=== PATIENT | female | born 1930 | race Caucasian/White ===

== ENCOUNTER 2016-09-03 17:53 | Inpatient (IN) ==
[2016-09-03] MEDS ORDERED: Ondansetron 4 MG/2 ML VIAL IVP ONE (18:05)
[2016-09-03] MEDS ORDERED: Aspirin 325 MG TABLET PO ONE (18:10)
--- NOTE | 2016-09-03 18:12 | Emergency Department Note ---
Disposition Clinical Impression: VITALIY (acute kidney injury), Renal calculus, right, Hydronephrosis with renal calculous obstruction, Fecal impaction UTI (urinary tract infection) Qualifiers: Urinary tract infection type: site unspecified Hematuria presence: without hematuria Qualified Code(s): N39.0 - Urinary tract infection, site not specified Altered mental state Qualifiers: Altered mental status type: unspecified Qualified Code(s): R41.82 - Altered mental status, unspecified TIA (transient ischemic attack) Qualifiers: Transient cerebral ischemia type: unspecified Qualified Code(s): G45.9 - Transient cerebral ischemic attack, unspecified Disposition: Admitted As Inpatient Condition: Fair Referrals: Unassigned,Provider [Non-Partnered Physician] - Forms: ED Satisfaction Letter Time of Disposition: 20:55 General Adult HPI - General Chief complaint: ED Nausea/Vomiting/Diarrhea Stated complaint: N/V/D Source: patient Mode of arrival: EMS Limitations: altered mental status Nursing Notes Reviewed: Yes Vital Signs Reviewed: Yes - History of Present Illness HPI Narrative: Patient is an 86-year-old female who presents to [facility] ED with a chief complaint of generalized weakness. Family states she has been having some right lower extremity has for the last few weeks but then this morning woke up and could not add up. The health aide had to get her over to the bathroom and then patient had a possible syncopal episode over the bathroom. She did not fall or hit her head. Patient also had some nausea with vomiting today and a few episodes of diarrhea. Patient at baseline has some dementia but family was concerned since she had some garbled speech earlier. Patient states at this time, she is not in any pain. Said she did have some belly pain earlier. Onset (ago): hour(s) Location: abdomen Radiation: non-radiation Pain Severity: moderate Pain Scale: 5 Quality: aching Consistency: intermittent Improves with: nothing Worsens with: nothing Associated symptoms: Reports: confusion, nausea/vomiting Treatments Prior to Arrival: none - Related Data Home Medications Medication Instructions Recorded Confirmed BuPROPion [Wellbutrin] 100 mg PO BID 08/24/15 09/03/16 Lisinopril [Zestril] 10 mg PO QPM 08/24/15 09/03/16 Cyanocobalamin (Vitamin B-12) 1,000 mcg PO DAILY 09/03/16 09/03/16 [Vitamin B12] Magnesium 250 mg PO DAILY 09/03/16 09/03/16 Previous Rx's Medication Instructions Recorded Aspirin Enteric Coated [Aspirin EC] 81 mg PO DAILY #30 tablet. 08/30/15 Atorvastatin [Lipitor] 10 mg PO HS #30 tablet 08/30/15 Diltiazem CD (24hr) [Cardizem CD] 240 mg PO DAILY #30 cap.er.24h 08/30/15 Allergies Allergy/AdvReac Type Severity Reaction Status Date / Time Sulfa (Sulfonamide Allergy Rash Verified 05/08/15 16:09 Antibiotics) All systems ED: reviewed and negative except as stated. Past Medical History - Past Medical History Attestation: Yes The following information was validated with the patient. Source: patient Medical history: Reports: dementia, diabetes, hypertension Surgical history: Reports: no surgical history Psychiatric history: Reports: no psych history SPREADER history: Reports: no SPREADER history - Social History Smoking Status: Never smoker Smokeless Tobacco Status: No Alcohol use: Reports: none Drug use: Reports: none Physical Exam - General Limitations: no limitations General appearance: alert - Head Head exam: atraumatic, normocephalic, normal inspection - Eye Eye exam: Present: normal appearance, PERRL, EOMI - ENT ENT exam: normal exam, normal oropharynx, mucous membranes moist - Neck Neck exam: Present: normal inspection, full ROM, trachea midline - Chest Chest inspection: Present: normal inspection, symmetric chest wall rise - Respiratory Respiratory exam: Present: normal lung sounds bilaterally - Cardiovascular Cardiovascular exam: Present: regular rate, normal rhythm, normal heart sounds - Abdominal Exam Abdominal exam: Present: soft, Non-Tender. Absent: tenderness, distention, guarding, rebound, rigidity - Extremities Exam Extremities exam: Present: normal inspection, full ROM. Absent: tenderness, pedal edema - Back Exam Back exam: Present: normal inspection, full ROM. Absent: tenderness - Neurological Exam Neurological exam: Present: alert, CN II-XII intact. Absent: motor sensory deficit - Psychiatric Psychiatric exam: Present: normal affect, normal mood - Skin Skin exam: Present: warm, dry, intact, normal color Course Course Narrative: Patient seen and examined. Confusion along with symptoms of nausea, vomiting, diarrhea earlier today. Family was concerned of CVA. She has worsening weakness in her extremities. Critical care workup initiated. CT head ordered. Patient was initially somewhat hypoxemic at 92% and had a syncopal episode in the bathroom. A d-dimer level was also ordered. 1L IVF ordered to pretreat if CTA needed. - Reevaluation(s) Reevaluation #1: A CTA of the chest and abdomen and pelvis with IV contrast was ordered since patient that d-dimer came back elevated in the 1999 and she had had a severe episode of abdominal pain. Patient has a leukocytosis of 14 with a left shift. She also has signs of urinary tract infection, VITALIY. We will go ahead and treat this with a dose of Rocephin. CT scan still pending. CT of the head showed no acute abnormalities. I spoke with hospitalist Sujata Dominguez who has accepted patient for admission. Time: 20:56 Vital Signs Temperature 98.2 F 09/03/16 17:56 Pulse Rate 84 09/03/16 17:56 Respiratory Rate 16 09/03/16 17:56 Blood Pressure 129/60 09/03/16 17:56 O2 Sat by Pulse Oximetry 94 L 09/03/16 17:56 Temperature 98.2 F 09/03/16 17:56 Pulse Rate 79 09/03/16 19:56 Respiratory Rate 18 09/03/16 19:56 Blood Pressure 131/58 09/03/16 19:56 O2 Sat by Pulse Oximetry 98 09/03/16 19:56 Oxygen Delivery Oxygen Delivery Nasal Cannula Medical Decision Making - Medical Records Medical records reviewed: Yes I reviewed the patient's medical records. - Lab Data Lab results reviewed: Yes I reviewed the patient's lab results. Result diagrams: 09/03/16 18:22 09/03/16 18:22 Lab Results 09/03/16 09/03/16 09/03/16 Range/Units 18:22 18:22 18:22 WBC 14.1 H (4.3-11.1) K/mcL RBC 4.72 (3.82-4.97) M/mcL Hgb 13.6 (11.5-15.4) g/dL Hct 44.1 (35.3-44.9) % MCV 93.4 (83.0-100.0) fL MCH 28.8 (28.0-33.3) pg MCHC 30.8 L (31.6-35.5) g/dL RDW 13.1 (11.5-14.5) % Plt Count 263 (140-400) K/mcL MPV 11.1 (9.4-12.4) fL Immature Gran % 0.4 (0-4) % Seg Neutrophils % 93.2 % Lymphocytes % 1.6 % Monocytes % 4.3 % Eosinophils % 0.1 % Basophils % 0.4 % Neutrophils # 13.1 H (1.6-8.9) K/mcL Lymphocytes # 0.2 L (0.6-4.6) K/mcL Monocytes # 0.6 (0.0-1.3) K/mcL Eosinophils # 0.0 (0.0-0.6) K/mcL Basophils # 0.1 (0.0-0.2) K/mcL PT (9.4-12.1) Seconds INR APTT (26.0-36.0) Seconds D-Dimer (0-500) ng/mLFEU Sodium 139 (136-145) mEq/L Potassium 4.1 (3.5-4.5) mEq/L Chloride 109 (98-109) mEq/L Carbon Dioxide 22 (19-29) mEq/L BUN 37 H (7-20) mg/dL Creatinine 1.33 H (0.57-1.11) mg/dL Est GFR ( Amer) 46 L (> 60) Est GFR (Non-Af Amer) 38 L (> 60) BUN/Creatinine Ratio 28 H (6-26) Glucose 176 H (70-99) mg/dL Calculated Osmolality 301 H (280-300) Calcium 10.4 (8.6-10.8) mg/dL Total Bilirubin 0.5 (0.2-1.2) mg/dL AST 16 (5-34) Units/L ALT 11 (0-55) Units/L Alkaline Phosphatase 135 H (38-126) Units/L Troponin I 0.03 (0-0.03) ng/mL Serum Total Protein 7.6 (6.0-8.3) g/dL Albumin 3.5 (3.5-5.0) g/dL Globulin 4.1 H (2.4-3.5) g/dL Albumin/Globulin Ratio 0.9 L (1.1-2.2) Lipase 29 (8-78) Units/L Urine Color (Yellow) Urine Clarity (Clear) Urine pH (5.0-8.0) pH Units Ur Specific [place] (1.010-1.025) Urine Protein (Neg-Trace) mg/dL Urine Glucose (UA) (Normal) mg/dL Urine Ketones (Negative) mg/dL Urine Blood (Negative) Urine Nitrite (Negative) Urine Bilirubin (Negative) Urine Urobilinogen (Normal) mg/dL Ur Leukocyte Esterase (Negative) Urine Microscopic RBC (0-3) per hpf Urine Microscopic WBC (0-3) per hpf Urine Bacteria (None-Few) per hpf Ur Culture Indicated? (NO) 09/03/16 09/03/16 Range/Units 18:22 19:08 WBC (4.3-11.1) K/mcL RBC (3.82-4.97) M/mcL Hgb (11.5-15.4) g/dL Hct (35.3-44.9) % MCV (83.0-100.0) fL MCH (28.0-33.3) pg MCHC (31.6-35.5) g/dL RDW (11.5-14.5) % Plt Count (140-400) K/mcL MPV (9.4-12.4) fL Immature Gran % (0-4) % Seg Neutrophils % % Lymphocytes % % Monocytes % % Eosinophils % % Basophils % % Neutrophils # (1.6-8.9) K/mcL Lymphocytes # (0.6-4.6) K/mcL Monocytes # (0.0-1.3) K/mcL Eosinophils # (0.0-0.6) K/mcL Basophils # (0.0-0.2) K/mcL PT 10.4 (9.4-12.1) Seconds INR 1.0 APTT 26.9 (26.0-36.0) Seconds D-Dimer 2086 H (0-500) ng/mLFEU Sodium (136-145) mEq/L Potassium (3.5-4.5) mEq/L Chloride (98-109) mEq/L Carbon Dioxide (19-29) mEq/L BUN (7-20) mg/dL Creatinine (0.57-1.11) mg/dL Est GFR ( Amer) (> 60) Est GFR (Non-Af Amer) (> 60) BUN/Creatinine Ratio (6-26) Glucose (70-99) mg/dL Calculated Osmolality (280-300) Calcium (8.6-10.8) mg/dL Total Bilirubin (0.2-1.2) mg/dL AST (5-34) Units/L ALT (0-55) Units/L Alkaline Phosphatase (38-126) Units/L Troponin I (0-0.03) ng/mL Serum Total Protein (6.0-8.3) g/dL Albumin (3.5-5.0) g/dL Globulin (2.4-3.5) g/dL Albumin/Globulin Ratio (1.1-2.2) Lipase (8-78) Units/L Urine Color Yellow (Yellow) Urine Clarity Turbid A (Clear) Urine pH 5.0 (5.0-8.0) pH Units Ur Specific [place] 1.019 (1.010-1.025) Urine Protein >=300 H (Neg-Trace) mg/dL Urine Glucose (UA) Normal (Normal) mg/dL Urine Ketones Negative (Negative) mg/dL Urine Blood Large H (Negative) Urine Nitrite Negative (Negative) Urine Bilirubin Small H (Negative) Urine Urobilinogen Normal (Normal) mg/dL Ur Leukocyte Esterase Large H (Negative) Urine Microscopic RBC Present (0-3) per hpf Urine Microscopic WBC TNTC H (0-3) per hpf Urine Bacteria Present (None-Few) per hpf Ur Culture Indicated? YES A (NO) - Radiology Data Radiology results reviewed: Yes I reviewed the patient's radiology results. - EKG Data EKG #1 EKG attestation: Yes I reviewed and interpreted this EKG. EKG results narrative: EKG done at 18:01 shows normal sinus rhythm with a rate of 84 bpm. left axis deviation. Patient does have signs of ST elevation in V1 and V2 and depression with inverted t in I and aVL. I spoke with carpenter refrigerator Dr. Carey who states this appears more like LVH with repolarization abnormalities. Attestation Statement - Attestation Attestation: Patient was seen with resident physician. I reviewed the history, physical, assessment and plan, and agree with the findings. I also personally evaluated this patient and had [id number] time with this patient. 86-year-old female who presents to the emergency department with a variety of complaints. She is an incredibly poor historian and much of the history is also obtained from the family. Appears that she has had multiple TIAs in the past, in approximately 24 -48 hours ago she had increasing weakness especially in the right leg. This is gotten worse and today she was unable to walk or ambulate herself. She was able to do this yesterday. She also notes some abdominal pain nausea vomiting and diarrhea. This is also new. The patient denies chest pain or shortness of breath. On exam patient is alert and follows commands. Her heart is tachycardic but regular rhythm, lungs are clear, abdomen is soft and nontender extremities are unremarkable she does move them all without difficulty. Neurologically patient is alert and follows commands has good copy worker strength and good strength in lower extremities which is symmetric. CT scan of the head did not reveal any acute abnormalities lab workup revealed a urinary tract infection. Also need to obtain a CT scan of the chest with a d-dimer that was markedly elevated. We will likely treat for urosepsis and admitted to the hospital. Patient was also found to have an obstructing renal stone a fecal impaction, her chest CT scan was otherwise clear. Patient will be admitted to the hospital for IV antibiotics and further management. Agree with resident physician assessment and plan.
[2016-09-03 18:32] LABS: Basophils # 0.1 K/mcL (0.0-0.2); Basophils % 0.4 %; Eosinophils % 0.1 %; Hematocrit 44.1 % (35.3-44.9); Hemoglobin 13.6 g/dL (11.5-15.4); Immature Granulocytes % 0.4 % (0-4); Lymphocytes # 0.2 K/mcL (0.6-4.6); Lymphocytes % 1.6 %; Mean Corpuscular HGB Conc 30.8 g/dL (31.6-35.5); Mean Corpuscular Hemoglobin 28.8 pg (28.0-33.3); Mean Corpuscular Volume 93.4 fL (83.0-100.0); Mean Platelet Volume 11.1 fL (9.4-12.4); Monocytes # 0.6 K/mcL (0.0-1.3); Monocytes % 4.3 %; Neutrophils # 13.1 K/mcL (1.6-8.9); Platelet Count 263 K/mcL (140-400); Red Blood Count 4.72 M/mcL (3.82-4.97); Red Cell Distribution Width 13.1 % (11.5-14.5); Segmented Neutrophils % 93.2 %
[2016-09-03 18:40] LABS: Prothrombin Time 10.4 Seconds (9.4-12.1)
[2016-09-03 18:42] LABS: Activated Partial Thrombo Time 26.9 Seconds (26.0-36.0)
[2016-09-03 18:46] LABS: Albumin 3.5 g/dL (3.5-5.0); Albumin/Globulin Ratio 0.9 (1.1-2.2); Bilirubin,Total 0.5 mg/dL (0.2-1.2); Calcium 10.4 mg/dL (8.6-10.8); Globulin 4.1 g/dL (2.4-3.5); Potassium 4.1 mEq/L (3.5-4.5); Total Protein 7.6 g/dL (6.0-8.3)
[2016-09-03] MEDS ORDERED: 0.9 % Sodium Chloride 1,000 ML IVC ONE (19:04)
[2016-09-03 19:13] LABS: Bilirubin,Urine Small (Negative); Blood,Urine Large (Negative); Clarity,Urine Turbid (Clear); Color,Urine Yellow (Yellow); Glucose,Urine (UA) Normal (Normal); Ketones,Urine Negative (Negative); Leukocyte Esterase,Urine Large (Negative); Nitrite,Urine Negative (Negative); Protein,Urine >=300 mg/dL (Neg-Trace); Specific Gravity,Urine 1.019 (1.010-1.025); Urobilinogen,Urine Normal (Normal)
[2016-09-03 19:28] LABS: WBC,Urine TNTC per hpf (0-3)
[2016-09-03 19:29] LABS: Bacteria,Urine Present per hpf (None-Few); RBC,Urine Present per hpf (0-3)
[2016-09-03] MEDS ORDERED: Ondansetron ODT 4 MG TAB.RAPDIS SL PRN (22:07)
[2016-09-03] MEDS ORDERED: Acetaminophen 325 MG TABLET PO PRN (22:07)
[2016-09-03] MEDS ORDERED: MOM Conc 10 ML UD.LIQ PO PRN (22:07)
[2016-09-03] MEDS ORDERED: Naloxone 0.4 MG/ML INJ IVP PRN (22:07)
[2016-09-03] MEDS ORDERED: *HR* HYDROcodone/Acet 5/325 mg TABLET PO PRN (22:07)
[2016-09-03] MEDS ORDERED: 0.9 % Sodium Chloride 1,000 ML IVC SCH (22:15)
[2016-09-03] MEDS ORDERED: Dextrose Gel 15 GM PO PRN ×2 (22:34)
[2016-09-03] MEDS ORDERED: *HR* Dextrose 50 % in Water (Syg) 50 ML SYRINGE IVP PRN (22:34)
[2016-09-03] MEDS ORDERED: D5% in Water 1,000 ML IV PRN (22:34)
[2016-09-03] MEDS ORDERED: Milk and Molasses Enema 200 ML RC ONE (22:42)
[2016-09-03] MEDS ORDERED: Sennosides/Docusate Sodium TABLET PO SCH (22:45)
--- NOTE | 2016-09-03 22:48 | Internal Med History&Physical ---
<Tara Key M - Last Filed: 09/03/16 23:38> Date of Encounter: 09/03/16 Time of Encounter: 22:44 Assessment and Plan (1) Urinary tract infection Current visit: No Status: Acute Patient presented with abdominal pain, nausea, vomiting, and AMS. UA was significant for infection, cultures pending. CT Abdomen showed right obstructive renal calculi with hydronephrosis and hydroureter. IV fluids 0.9NS at 75mL/hr Rocephin IVPB zofran for nausea Qualifiers: Urinary tract infection type: acute pyelonephritis Qualified Code(s): N10 - Acute pyelonephritis (2) VITALIY (acute kidney injury) Current visit: Yes Status: Acute Creatinine of 1.33 up from baseline of 0.8, with diagnosis of right obstructive renal calculi and pyelonephritis, VITALIY is likely due to obstructive uropathy. Will consult Urology for the obstruction, and treat UTI. Patient was given contrast for CTA in the ED, so expect her kidney function may deteriorate further before recovering. IV fluids: 0.9NS at 75mL/hr avoid NSAIDS hold home dose of lisinopril Recheck BMP tomorrow (3) Hydronephrosis with renal calculous obstruction Current visit: Yes Status: Acute CT Abd/pelvis showed obstructive right renal calculus and bilateral non- obstructive calculi, right hydronephrosis. IV fluids 0.9NS at 75mL/hr consult urology (4) Hypertension Current visit: No Status: Chronic continue home doses of diltiazem Hold lisinopril for VITALIY Qualifiers: Hypertension type: essential hypertension Qualified Code(s): I10 - Essential (primary) hypertension (5) Vascular dementia Current visit: No Status: Chronic Alert and oriented x3, poor historian. Re-orient as necessary. Qualifiers: Dementia behavioral disturbance: without behavioral disturbance Qualified Code(s): F01.50 - Vascular dementia without behavioral disturbance (6) Fecal impaction Current visit: Yes Status: Acute CT of abdomen and pelvis showed fecal impaction, no obstruction. Abdomen is firm and distended with hypoactive bowel sounds. Colace, sennaplus ordered enema ordered x1 (7) Generalized weakness Current visit: No Status: Acute Patient had trouble walking today along with AMS. CT head negative. Neuro exam normal and strength equal in BUE and BLE. Found to have Urinary tract infection with pyelonephritis, obstructive calculi and fecal impaction, which may be contributing to patient's weakness. Will treat infection, obstruction and impaction. Monitor for improvement. Consult PT/OT and SW. (8) Type 2 diabetes mellitus Current visit: Yes Status: Acute Not on any medications at home, but has history and blood sugars are elevated. diabetic diet check blood sugars ACHS sliding scale correction dose insulin ACHS hypoglycemic protocol. 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 Pelayo is a 86 year old female with history of hypertension, type 2 diabetes , and dementia who was brought to the emergency department by her family when they noted she was unable to walk she was also complaining of nausea and abdominal pain and vomiting. She is a poor historian due to her baseline dementia. Workup in the emergency department was significant for a urinalysis showed UTI quite blood cells elevated to 14, creatinine elevated to 1.3. CT of the head was negative for any acute abnormality. Troponin was negative at 0.03 , but D-dimer was 2086, so his CTA was obtained, and was negative for PE. CT of her abdomen and pelvis was also obtained which showed a right obstructive renal calculus, right hydronephrosis, bilateral nonobstructive calculi and fecal impaction. On exam she is alert and oriented, pleasant, resting comfortably. Lungs are clear bilaterally, heart has regular rate and rhythm. Abdomen is distended, with hypoactive bowel sounds. She denies any pain, and is not tender on exam. Past Med Surg Social Fam HX - Past Medical History Source: patient, old records reviewed Medical history: dementia, diabetes, hypertension Psychiatric history: no psych history - Past Surgical History Surgical History: knee replacement (right) - Social History Smoking Status: Never smoker Smokeless Tobacco Status: No Alcohol use: none Drug use: none - Family History Mother Adopted: No Family Member Ethnicity: Non- Living Status: Internal Medicine - H&P: Meds BuPROPion [Wellbutrin] 100 mg PO BID 08/24/15 [History] Lisinopril [Zestril] 10 mg PO QPM 08/24/15 [History] Aspirin Enteric Coated [Aspirin EC] 81 mg PO DAILY #30 tablet.dr 08/30/15 [Rx] Atorvastatin [Lipitor] 10 mg PO HS #30 tablet 08/30/15 [Rx] Diltiazem CD (24hr) [Cardizem CD] 240 mg PO DAILY #30 cap.er.24h 08/30/15 [Rx] Cyanocobalamin (Vitamin B-12) [Vitamin B12] 1,000 mcg PO DAILY 09/03/16 [History ] Magnesium 250 mg PO DAILY 09/03/16 [History] Allergies Sulfa (Sulfonamide Antibiotics) Allergy (Verified 05/08/15 16:09) Rash ROS unobtainable: due to mental status All Systems PM: A 10-system review of systems was performed and is negative for pertinent findings except as documented above in the HPI. - Constitutional Vitals: Temp Pulse Resp BP Pulse Ox 97.7 F 56 16 136/56 92 L 09/03/16 22:27 09/03/16 22:27 09/03/16 22:27 09/03/16 22:27 09/03/16 22:27 General appearance: Present: cooperative, A&O X 3, pleasant, no acute distress - Head Head exam: Present: atraumatic, normocephalic - Eye Eye exam: Present: PERRL, conjuntiva pink, sclera anicteric Pupils: Present: PERRL - Neck Neck exam general surgery: Present: supple, trachea midline. Absent: lymphadenopathy - Respiratory Respiratory exam: Present: CTAB. Absent: accessory muscle use, rales, rhonchi, wheezes - Cardiovascular Cardiovascular exam: Present: RRR, +S1, +S2. Absent: diastolic murmur, gallop, rubs, systolic murmur - GI/Abdominal GI/Abdominal exam: Present: distended, firm, hypoactive bowel sounds, no peritoneal signs. Absent: tenderness - Extremities Exam Extremities exam: Present: warm, radial pulses palpable and symetrical. Absent : calf tenderness, cyanotic, pedal edema - Back Exam Back exam: Absent: CVA tenderness (L), CVA tenderness (R) - Neurological Exam Neurological exam: Present: alert, CN II-XII intact, oriented X3, no focal deficits, strengths equal and symetr throughout. Absent: pronater drift, facial droop, speech deficit - Skin Skin exam: Present: dry, intact Internal Med - H&P Results - Labs CBC & Chem 7: 09/03/16 18:22 09/03/16 18:22 <Abhijeet Hoyt - Last Filed: 09/04/16 00:01> Date of Encounter: 09/03/16 Internal Medicine - H&P: HPI History of present illness: Ms. Pelayo is a 86 year old female All Systems PM: A 10-system review of systems was performed and is negative for pertinent findings except as documented above in the HPI. - Constitutional Vitals: Temp Pulse Resp BP Pulse Ox 97.7 F 56 16 136/56 92 L 09/03/16 22:27 09/03/16 22:27 09/03/16 22:27 09/03/16 22:27 09/03/16 22:27 Internal Med - H&P Results - Labs CBC & Chem 7: 09/03/16 18:22 09/03/16 18:22 - Attending Attestation I examined this patient and my medical decision-making was reviewed with the CHARGEMASTER SPECIALIST/PA/Advanced Practice Nurse/Resident Physician. I agree with the documented findings, disposition and treatment plan as described except to the extent set forth below. 86 yo female who presented for abdominal pain and nausea and vomiting. She is a poor historian. Information was obtained from review of records. In the emergency room, CT scan of the chest and abdomen revealed hydronephrosis with ureteral stone and perinephric stranding around the right kidney. Physical impaction was also noted on the CAT scan. Examination reveals clear breath sounds bilaterally. First and second heart sounds present. Regular rate and rhythm. Abdominal examination reveals firm to palpation with diffusely tender to palpation. Bowel sounds present. Labs reviewed. CT scan personally reviewed-right perinephric stranding with obstructive hydronephrosis. 1. Acute pyelonephritis-admit inpatient status. Expect the patient to stay in the hospital at least 2 midnights. Expected discharge disposition is to rehabilitation facility. High risk due to risk of worsening renal function due to obstructive calculus and the need for intervention for relief of hydronephrosis. Intravenous antibiotics. Pain control. 2. Obstructive hydronephrosis on the right side-urology consult. Monitor renal function. Antibiotics. 3. Acute kidney injury-likely due to dehydration. Furthermore, patient has received contrast for CT angiogram and CT scan of the abdomen/pelvis with contrast. Intravenous fluids. Patient is at risk of acute tubular necrosis. Monitor renal function and urine output. Avoid nephrotoxic agents and hypotension. 4. Fecal impaction-enema and stool softeners. 5. Diabetes mellitus. KELLE Roldan
[2016-09-03 23:10] LABS: Hemoglobin A1C 5.6 %
[2016-09-04] MEDS: Sennosides/Docusate Sodium TABLET PO SCH ×3 (01:08→20:39)
[2016-09-04 05:03] LABS: Basophils % 0.4 %; Eosinophils # 0.1 K/mcL (0.0-0.6); Eosinophils % 0.8 %; Hematocrit 37.9 % (35.3-44.9); Immature Granulocytes % 0.4 % (0-4); Lymphocytes # 0.4 K/mcL (0.6-4.6); Lymphocytes % 5.1 %; Mean Corpuscular HGB Conc 30.9 g/dL (31.6-35.5); Mean Corpuscular Hemoglobin 29.2 pg (28.0-33.3); Mean Corpuscular Volume 94.5 fL (83.0-100.0); Mean Platelet Volume 11.5 fL (9.4-12.4); Monocytes # 0.7 K/mcL (0.0-1.3); Monocytes % 9.2 %; Neutrophils # 6.5 K/mcL (1.6-8.9); Platelet Count 213 K/mcL (140-400); Red Blood Count 4.01 M/mcL (3.82-4.97); Red Cell Distribution Width 13.3 % (11.5-14.5); Segmented Neutrophils % 84.1 %
[2016-09-04 05:07] LABS: Hemoglobin 11.7 g/dL (11.5-15.4)
[2016-09-04 05:27] LABS: BUN/Creatinine Ratio 34 (6-26); Blood Urea Nitrogen 31 mg/dL (7-20); Calcium 9.7 mg/dL (8.6-10.8); Carbon Dioxide 20 mEq/L (19-29); Chloride 113 mEq/L (98-109); Glucose 116 mg/dL (70-99); Osmolality,Calculated 300 (280-300); Potassium 4.1 mEq/L (3.5-4.5); Sodium 141 mEq/L (136-145); eGFR For African Americans > 60 (> 60); eGFR For Non-African Americans 60 (> 60)
[2016-09-04] MEDS: *HR* Heparin 5,000 UNIT/ML VIAL SQ SCH ×2 (06:15→17:26)
[2016-09-04] MEDS: Cyanocobalamin (B-12) 1,000 MCG TABLET PO SCH (07:58)
[2016-09-04] MEDS: MAGNESIUM 250MG PO SCH (07:58)
[2016-09-04] MEDS: Diltiazem CD (24hr) 240 MG CAPSULE PO SCH (07:58)
[2016-09-04] MEDS: Aspirin Enteric Coated 81 MG Tablet PO SCH (07:58)
[2016-09-04] MEDS: Insulin LISPRO 300 UNITS/3 ML VIAL SQ SCH ×4 (07:58→20:36)
--- NOTE | 2016-09-04 13:49 | Internal Med Progress Note ---
Date of Encounter: 09/04/16 Time of Encounter: 10:30 - Assessment and plan (1) UTI (urinary tract infection) Current Visit: Yes Status: Acute Assessment and plan: Urinalysis suggestive of urinary tract infection. Continue ceftriaxone. Urology on board. (2) Leukocytosis Current Visit: Yes Status: Resolved Qualifiers: Leukocytosis type: unspecified Qualified Code(s): D72.829 - Elevated white blood cell count, unspecified (3) VITALIY (acute kidney injury) Current Visit: Yes Status: Resolved (4) DVT prophylaxis Current Visit: Yes Status: Acute Assessment and plan: Subcutaneous heparin (5) Fecal impaction Current Visit: Yes Status: Acute Assessment and plan: Refractory to senna and Colace, will add enemas. Abdomen distended and firm with hypoactive bowel sounds. Diffuse tenderness. (6) Hydronephrosis with renal calculous obstruction Current Visit: Yes Status: Acute Assessment and plan: Urology on board. At this point, it is and likely that the patient is a surgical candidate however will discuss further with family. Acute kidney injury has resolved and she is hemodynamically stable. Appreciate urology recommendations. ITS Impressions Abdomen/Pelvis CT 09/03/16 19:03 IMPRESSION: 1. No evidence of a pulmonary embolism. 2. There is volume loss noted in the left lung base. 3. 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 This of uncertain etiology, however, given over two years of stability, this is probably benign. 4. Indeterminate calcified thyroid nodules. Thyroid ultrasound is recommended for further evaluation as malignancy cannot be excluded. The right-sided thyroid nodule measures 1.6 cm, and a left-sided thyroid nodule measures 1.1 cm. 5. Large hiatal hernia. 6. There is an obstructing right ureteropelvic junction stone with marked adjacent inflammatory changes surrounding the right kidney and right ureter. There is associated hydronephrosis. 7. Bilateral nonobstructing calculi. Lobulated contours of the kidneys are stable, likely related to infarcts versus sequela of old infection. 8. There is marked distention of the rectum with stool, concerning for fecal impaction. There is a large amount of air noted in the sigmoid colon. No evidence of bowel obstruction. 9. Extensive atherosclerotic disease. D/ / 09/03/2016 21:04:33 Willis Mackenzie MD / jerel Interpreting Provider: Willis Mackenzie MD (7) Pyelonephritis Current Visit: Yes Status: Acute (8) Type 2 diabetes mellitus Current Visit: Yes Status: Chronic Assessment and plan: Controlled with A1c of 5.6%. Continue sliding scale and admitted Qualifiers: Diabetes mellitus complication status: without complication Diabetes mellitus custodial insulin use: without terminal press operator use Qualified Code(s): E11.9 - Type 2 diabetes mellitus without complications (9) Generalized weakness Current Visit: No Status: Acute Assessment and plan: Patient stating she cannot walk. Patient does not understand the question as to whether or not she is able to walk but feels off balance or if she is physically unable to bear weight. OT and PT are on board, appreciate their recommendations. (10) Hypertension Current Visit: No Status: Chronic Assessment and plan: Controlled. We will continue to trend and adjust medications as indicated. Qualifiers: Hypertension type: essential hypertension Qualified Code(s): I10 - Essential (primary) hypertension (11) Vascular dementia Current Visit: No Status: Chronic Assessment and plan: Alert and pleasantly confused on examination. Qualifiers: Dementia behavioral disturbance: without behavioral disturbance Qualified Code(s): F01.50 - Vascular dementia without behavioral disturbance - Subjective Interval history: Patient seen and examined. On examination, patient is sitting upright in bed. Patient stating she feels "so-so." She states she was not able to eat any breakfast. She is endorsing generalized abdominal pain. She states she has not had a bowel movement today. She is pleasantly confused. - Constitutional Vitals: Temp Pulse Resp BP Pulse Ox 97.5 F L 89 17 148/77 98 09/04/16 11:16 09/04/16 11:16 09/04/16 11:16 09/04/16 11:16 09/04/16 11:16 General appearance: Present: cooperative, A&O X 1 (pleasantly confused), pleasant, no acute distress, answers questions appropriately - Head Head exam: Present: atraumatic, normocephalic - Eye Eye exam: Present: PERRL, conjuntiva pink, sclera anicteric Pupils: Present: PERRL - Neck Neck exam general surgery: Present: supple, trachea midline. Absent: lymphadenopathy - Respiratory Respiratory exam: Present: CTAB. Absent: accessory muscle use, rales, respiratory distress, rhonchi, wheezes - Cardiovascular Cardiovascular exam: Present: RRR, +S1, +S2. Absent: diastolic murmur, gallop, rubs, systolic murmur - GI/Abdominal GI/Abdominal exam: Present: distended, firm, hypoactive bowel sounds, tenderness (diffuse), no peritoneal signs - Extremities Exam Extremities exam: Present: warm, radial pulses palpable and symetrical. Absent : calf tenderness, cyanotic, pedal edema - Neurological Exam Neurological exam: Present: alert, CN II-XII intact, no focal deficits, strengths equal and symetr throughout. Absent: pronater drift, facial droop, speech deficit - Skin Skin exam: Present: dry, intact, pallor, warm Internal Medicine: Result - Labs CBC & Chem 7: 09/04/16 04:37 09/04/16 04:37 Labs: Short CBC 09/04/16 Range/Units 04:37 WBC 7.7 (4.3-11.1) K/mcL Hgb 11.7 D (11.5-15.4) g/dL Hct 37.9 (35.3-44.9) % Plt Count 213 (140-400) K/mcL Neutrophils # 6.5 (1.6-8.9) K/mcL BMP 09/04/16 04:37 Sodium 141 Potassium 4.1 Chloride 113 H Carbon Dioxide 20 BUN 31 H Creatinine 0.90 Glucose 116 H Calcium 9.7 - ABG Interpretation ABG results: PT/INR, D-dimer PT 10.4 Seconds (9.4-12.1) 09/03/16 18:22 D-Dimer 2086 ng/mLFEU (0-500) H 09/03/16 18:22 - VTE Documentation of Mechanical Device: Graduated compression elastic hosiery Consult Discharge Plan - Plan Referrals: Shelli Ware CNP [Primary Care Provider] - 09/07/16 10:15 am
--- NOTE | 2016-09-04 14:27 | Electrocardiograph Report ---
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
--- NOTE | 2016-09-04 15:58 | Urology - Consult Note ---
Date of Encounter: 09/04/16 Time of Encounter: 15:56 - Assessment and Plan (1) Hydronephrosis with renal calculous obstruction Current Visit: Yes Status: Acute Assessment and plan: Patient is clinically stable at this time. Her vital signs are normal. Her laboratory evaluations are normal. No urgent need for stent placement or nephrostomy tube placement. We will have the patient follow-up with me for discussion of further treatment. I did attempt to call the patient's caregiver who did not answer the phone. (2) Renal calculus, right Current Visit: Yes Status: Acute Assessment and plan: Most likely contributing to the patient's recurrent infections. She would require a percutaneous nephrolithotomy for definitive treatment of right renal stones. Urology CN:HPI Consult date: 09/04/16 Reason for consult Urology: Other (right renal stones with hydronephrosis) Requesting physician: Abhijeet Hoyt History of present illness: Wen is a 86-year-old female with a history of recent admission secondary to mental status change as well as weakness. Patient had a CT scan which showed bilateral large kidney stones mostly on the right side. She also had a possible urinary tract infection. Patient denies any flank pain she is well known to me for recurrent urinary tract infections. Her right-sided stones most likely contributing to this. Past Med Surg Social Fam HX - Past Medical History Medical history: dementia, diabetes, hypertension Psychiatric history: no psych history - Past Surgical History Surgical History: knee replacement (right) - Social History Smoking Status: Never smoker Smokeless Tobacco Status: No Alcohol use: none Drug use: none - Family History Mother Adopted: [place]: EROS Family Member Ethnicity: Non- Living Status: Age at : 32 Cause of : TB Medications and Allergies BuPROPion [Wellbutrin] 100 mg PO BID 08/24/15 [History] Lisinopril [Zestril] 10 mg PO QPM 08/24/15 [History] Aspirin Enteric Coated [Aspirin EC] 81 mg PO DAILY #30 tablet.dr 08/30/15 [Rx] Atorvastatin [Lipitor] 10 mg PO HS #30 tablet 08/30/15 [Rx] Diltiazem CD (24hr) [Cardizem CD] 240 mg PO DAILY #30 cap.er.24h 08/30/15 [Rx] Cyanocobalamin (Vitamin B-12) [Vitamin B12] 1,000 mcg PO DAILY 09/03/16 [History ] Magnesium 250 mg PO DAILY 09/03/16 [History] Allergies Sulfa (Sulfonamide Antibiotics) Allergy (Verified 05/08/15 16:09) Rash Review of Systems ROS unobtainable: due to mental status Exam Initial Vital Signs Temp Pulse Resp BP Pulse Ox 98.2 F 84 16 129/60 94 L 09/03/16 17:56 09/03/16 17:56 09/03/16 17:56 09/03/16 17:56 09/03/16 17:56 - General physical appearance Present: well developed - ENT Present: normal nares - Neck Present: no masses - Respiratory Present: normal respiratory effort - Cardiovascular Cardiovascular exam IM: RRR - Abdomen Abdomen: Present: soft Urology Results - Labs 09/04/16 04:37 09/04/16 04:37 Abnormal lab results MCHC 30.9 g/dL (31.6-35.5) L 09/04/16 04:37 Lymphocytes # 0.4 K/mcL (0.6-4.6) L 09/04/16 04:37 D-Dimer 2086 ng/mLFEU (0-500) H 09/03/16 18:22 Chloride 113 mEq/L (98-109) H 09/04/16 04:37 BUN 31 mg/dL (7-20) H 09/04/16 04:37 BUN/Creatinine Ratio 34 (6-26) H 09/04/16 04:37 Glucose 116 mg/dL (70-99) H 09/04/16 04:37 POC Glucose 110 (58-89) H 09/04/16 11:22 Alkaline Phosphatase 135 Units/L (38-126) H 09/03/16 18:22 Globulin 4.1 g/dL (2.4-3.5) H 09/03/16 18:22 Albumin/Globulin Ratio 0.9 (1.1-2.2) L 09/03/16 18:22 Urine Clarity Turbid (Clear) A 09/03/16 19:08 Urine Protein >=300 mg/dL (Neg-Trace) H 09/03/16 19:08 Urine Blood Large (Negative) H 09/03/16 19:08 Urine Bilirubin Small (Negative) H 09/03/16 19:08 Ur Leukocyte Esterase Large (Negative) H 09/03/16 19:08 Urine Microscopic WBC TNTC per hpf (0-3) H 09/03/16 19:08 Ur Culture Indicated? YES (NO) A 09/03/16 19:08 Diabetes panel 09/04/16 Range/Units 04:37 Sodium 141 (136-145) mEq/L Potassium 4.1 (3.5-4.5) mEq/L Chloride 113 H (98-109) mEq/L Carbon Dioxide 20 (19-29) mEq/L BUN 31 H (7-20) mg/dL Creatinine 0.90 (0.57-1.11) mg/dL Glucose 116 H (70-99) mg/dL Calcium 9.7 (8.6-10.8) mg/dL Calcium panel 09/04/16 Range/Units 04:37 Calcium 9.7 (8.6-10.8) mg/dL Pituitary panel 09/04/16 Range/Units 04:37 Sodium 141 (136-145) mEq/L Potassium 4.1 (3.5-4.5) mEq/L Chloride 113 H (98-109) mEq/L Carbon Dioxide 20 (19-29) mEq/L BUN 31 H (7-20) mg/dL Creatinine 0.90 (0.57-1.11) mg/dL Glucose 116 H (70-99) mg/dL Calcium 9.7 (8.6-10.8) mg/dL Adrenal panel 09/04/16 Range/Units 04:37 Sodium 141 (136-145) mEq/L Potassium 4.1 (3.5-4.5) mEq/L Chloride 113 H (98-109) mEq/L Carbon Dioxide 20 (19-29) mEq/L BUN 31 H (7-20) mg/dL Creatinine 0.90 (0.57-1.11) mg/dL Glucose 116 H (70-99) mg/dL Calcium 9.7 (8.6-10.8) mg/dL All other labs normal. - Imaging CT scan - abdomen: image reviewed CT scan - pelvis: image reviewed Consult Discharge Plan - Plan Referrals: Shelli Ware CNP [Primary Care Provider] - 09/07/16 10:15 am
[2016-09-05 01:39] LABS: Basophils % 0.2 %; Hematocrit 40.1 % (35.3-44.9); Hemoglobin 12.6 g/dL (11.5-15.4); Immature Granulocytes % 0.7 % (0-4); Lymphocytes # 0.2 K/mcL (0.6-4.6); Mean Corpuscular HGB Conc 31.4 g/dL (31.6-35.5); Mean Corpuscular Hemoglobin 29.6 pg (28.0-33.3); Mean Corpuscular Volume 94.4 fL (83.0-100.0); Mean Platelet Volume 11.9 fL (9.4-12.4); Monocytes % 4.5 %; Platelet Count 217 K/mcL (140-400); Red Blood Count 4.25 M/mcL (3.82-4.97); Red Cell Distribution Width 13.2 % (11.5-14.5); Segmented Neutrophils % 93.6 %
[2016-09-05 01:43] LABS: Neutrophils # 19.7 K/mcL (1.6-8.9)
[2016-09-05 01:47] LABS: INR 1.1; Prothrombin Time 11.7 Seconds (9.4-12.1)
[2016-09-05 01:53] LABS: BUN/Creatinine Ratio 24 (6-26); Calcium 9.9 mg/dL (8.6-10.8); Carbon Dioxide 19 mEq/L (19-29); Chloride 110 mEq/L (98-109); Glucose 166 mg/dL (70-99); Osmolality,Calculated 296 (280-300); Potassium 3.3 mEq/L (3.5-4.5); Sodium 140 mEq/L (136-145); eGFR For African Americans > 60 (> 60); eGFR For Non-African Americans > 60 (> 60)
[2016-09-05 01:55] LABS: Blood Urea Nitrogen 18 mg/dL (7-20)
--- NOTE | 2016-09-05 02:49 | Event Note ---
Date of Encounter: 09/05/16 Time of Encounter: 02:45 I was paged regarding this patient having worsening symptoms of confusion and weakness at 11:54 on 09/04/16. At this time CBC was redrawn to check for worsening infection. Her repeat WBCs were 21, which was an increase from 7.7 in the morning. I reviewed the patient's previous cultures. The current culture did not exhibit any growth. Previously she had an organism that was resistant to Ceftriaxone, which is the therapy that the patient was currently on. The culture was sensitive to Levaquin, and therefore I switched the patient's antibiotic therapy to Levaquin with a dose to start now.
[2016-09-05] MEDS: Levofloxacin 750 MG/150 ML 750 MG/150 ML BAG IVPB SCH (02:54)
[2016-09-05] MEDS: *HR* Heparin 5,000 UNIT/ML VIAL SQ SCH ×2 (06:09→16:44)
[2016-09-05] MEDS: Insulin LISPRO 300 UNITS/3 ML VIAL SQ SCH ×4 (07:41→20:24)
[2016-09-05] MEDS: Diltiazem CD (24hr) 240 MG CAPSULE PO SCH (08:47)
[2016-09-05] MEDS: Aspirin Enteric Coated 81 MG Tablet PO SCH (08:47)
[2016-09-05] MEDS: Cyanocobalamin (B-12) 1,000 MCG TABLET PO SCH (08:47)
[2016-09-05] MEDS: MAGNESIUM 250MG PO SCH (08:48)
[2016-09-05] MEDS ORDERED: Levofloxacin 750 MG/150 ML 750 MG/150 ML BAG IVPB SCH (09:00)
[2016-09-05] MEDS: Sennosides/Docusate Sodium TABLET PO SCH ×2 (09:09→20:06)
--- NOTE | 2016-09-05 09:28 | Urology Progress Note ---
Date of Encounter: 09/05/16 Time of Encounter: 09:26 - Assessment and Plan (1) Hydronephrosis with renal calculous obstruction Current Visit: Yes Status: Acute Assessment and plan: will arrange for right nephrostomy tube placement. (2) Renal calculus, right Current Visit: Yes Status: Acute Progress Note Narrative: 86 y/o female with history of right large stone and likely pyelo. patient with rising WBC. patient states that she just feels bad. Objective Initial Vital Signs Temp Pulse Resp BP Pulse Ox 98.2 F 84 16 129/60 94 L 09/03/16 17:56 09/03/16 17:56 09/03/16 17:56 09/03/16 17:56 09/03/16 17:56 - General physical appearance Present: well developed - Abdomen Present: soft - Labs 09/05/16 00:52 09/05/16 00:52 Diabetes panel 09/05/16 Range/Units 00:52 Sodium 140 (136-145) mEq/L Potassium 3.3 L (3.5-4.5) mEq/L Chloride 110 H (98-109) mEq/L Carbon Dioxide 19 (19-29) mEq/L BUN 18 D (7-20) mg/dL Creatinine 0.74 (0.57-1.11) mg/dL Glucose 166 H (70-99) mg/dL Calcium 9.9 (8.6-10.8) mg/dL Calcium panel 09/05/16 Range/Units 00:52 Calcium 9.9 (8.6-10.8) mg/dL Pituitary panel 09/05/16 Range/Units 00:52 Sodium 140 (136-145) mEq/L Potassium 3.3 L (3.5-4.5) mEq/L Chloride 110 H (98-109) mEq/L Carbon Dioxide 19 (19-29) mEq/L BUN 18 D (7-20) mg/dL Creatinine 0.74 (0.57-1.11) mg/dL Glucose 166 H (70-99) mg/dL Calcium 9.9 (8.6-10.8) mg/dL Adrenal panel 09/05/16 Range/Units 00:52 Sodium 140 (136-145) mEq/L Potassium 3.3 L (3.5-4.5) mEq/L Chloride 110 H (98-109) mEq/L Carbon Dioxide 19 (19-29) mEq/L BUN 18 D (7-20) mg/dL Creatinine 0.74 (0.57-1.11) mg/dL Glucose 166 H (70-99) mg/dL Calcium 9.9 (8.6-10.8) mg/dL - VTE Documentation of Mechanical Device: Graduated compression elastic hosiery Consult Discharge Plan - Plan Referrals: Shelli Ware CNP [Primary Care Provider] - 09/07/16 10:15 am
[2016-09-05 09:45] LABS: INR 1.2; Prothrombin Time 13.1 Seconds (9.4-12.1)
[2016-09-05 09:48] LABS: Activated Partial Thrombo Time 32.2 Seconds (26.0-36.0)
[2016-09-05] MEDS ORDERED: 0.9 % Sodium Chloride 500 ML ONE ×2 (14:15→15:10)
[2016-09-05] MEDS ORDERED: *HR* Midazolam HCl 2 MG/2 ML VIAL IV PRN (15:14)
[2016-09-05] MEDS ORDERED: *HR* FentaNYL (PF) 100 MCG/2 ML VIAL IV PRN (15:14)
--- NOTE | 2016-09-05 15:16 | Pre-Sedation Evaluation ---
Pre-sedation evaluation - Pre-sedation checklist Date of procedure: 09/05/16 Procedure: rt nephrostomy Recent Vitals: Last Vital Signs Temp 98.1 F 09/05/16 11:41 Pulse 84 09/05/16 11:41 Resp 17 09/05/16 11:41 BP 124/66 09/05/16 11:41 Pulse Ox 95 09/05/16 11:41 H&P (including ROS) documented in medical record: Yes Dietary Status: Clear fluids after Midnight Airway Assessment: Patient can open mouth completely, TMJ function normal, Micrognathia (under-bite, receding chin) absent, Neck with adequate range of motion Possible difficult airway: No ASA Classification *see protocol: CLASS II-Mild systemic disease Plan of Care: Pt appropriate candidate for procedure/moderate/conscious sedation , Risks/benefits of procedure/sedation discussed w/ patient/family
--- NOTE | 2016-09-05 15:49 | IR Procedure Note ---
Date of procedure: 09/05/16 Consent Obtained: Verbal consent Timeout: Correct patient and procedure verified, Correct site verified, Time out performed, Skin prep completed Indications: hydronephrosis, sepsis, stones Procedure Performed: right nephrostomy Site/Technique: rt, 10F tube Results/Findings: hydro, stones, sent urine for cultures Estimated blood loss (cc): 5 Complications: None; Tolerated procedure well Post Procedure Treatment Plan: dc to floor
--- NOTE | 2016-09-05 16:30 | Internal Med Progress Note ---
Date of Encounter: 09/05/16 Time of Encounter: 10:00 - Assessment and plan (1) UTI (urinary tract infection) Current Visit: Yes Status: Acute Assessment and plan: Urinalysis suggestive of urinary tract infection however urine culture is negative. Agree with changing antibiotic from ceftriaxone to levofloxacin. We will continue to treat for urinary tract infection despite negative culture. Strongly suspect false negative. Urology on board. (2) Leukocytosis Current Visit: Yes Status: Acute Assessment and plan: Marked increase in her white count overnight. Unclear causation, antibiotic has been changed. Her heart rate and blood pressure are stable. She is alert and pleasantly confused which puts her at high risk for clinical deterioration while remaining asymptomatic. We will monitor her closely. Per urology, plan is for an external right-sided nephrostomy tube to be placed later today per IR Qualifiers: Leukocytosis type: unspecified Qualified Code(s): D72.829 - Elevated white blood cell count, unspecified (3) VITALIY (acute kidney injury) Current Visit: Yes Status: Resolved (4) DVT prophylaxis Current Visit: Yes Status: Acute Assessment and plan: Subcutaneous heparin (5) Fecal impaction Current Visit: Yes Status: Acute Assessment and plan: Refractory to senna and Colace, will add enemas. Abdomen distended and firm with hypoactive bowel sounds. Diffuse tenderness. (6) Hydronephrosis with renal calculous obstruction Current Visit: Yes Status: Acute Assessment and plan: Urology on board. Given her episode overnight of increased confusion and weakness as well as increase in her white count from 7-21, plan is to place a nephrostomy tube later today per IR. Acute kidney injury has resolved and she is hemodynamically stable. Her antibiotic has been changed. Urine culture is negative however suspect a false negative. Appreciate urology recommendations. ITS Impressions Abdomen/Pelvis CT 09/03/16 19:03 IMPRESSION: 1. No evidence of a pulmonary embolism. 2. There is volume loss noted in the left lung base. 3. 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 This of uncertain etiology, however, given over two years of stability, this is probably benign. 4. Indeterminate calcified thyroid nodules. Thyroid ultrasound is recommended for further evaluation as malignancy cannot be excluded. The right-sided thyroid nodule measures 1.6 cm, and a left-sided thyroid nodule measures 1.1 cm. 5. Large hiatal hernia. 6. There is an obstructing right ureteropelvic junction stone with marked adjacent inflammatory changes surrounding the right kidney and right ureter. There is associated hydronephrosis. 7. Bilateral nonobstructing calculi. Lobulated contours of the kidneys are stable, likely related to infarcts versus sequela of old infection. 8. There is marked distention of the rectum with stool, concerning for fecal impaction. There is a large amount of air noted in the sigmoid colon. No evidence of bowel obstruction. 9. Extensive atherosclerotic disease. D/ / 09/03/2016 21:04:33 Willis Mackenzie MD / jerel Interpreting Provider: Willis Mackenzie MD (7) Pyelonephritis Current Visit: Yes Status: Acute (8) Type 2 diabetes mellitus Current Visit: Yes Status: Chronic Assessment and plan: Controlled with A1c of 5.6%. Continue sliding scale and admitted Qualifiers: Diabetes mellitus complication status: without complication Diabetes mellitus prison insulin use: without prison use Qualified Code(s): E11.9 - Type 2 diabetes mellitus without complications (9) Generalized weakness Current Visit: No Status: Acute Assessment and plan: Patient stating she cannot walk. Patient does not understand the question as to whether or not she is able to walk but feels off balance or if she is physically unable to bear weight. OT and PT are on board and have recommended ECF placement. (10) Hypertension Current Visit: No Status: Chronic Assessment and plan: Controlled. We will continue to trend and adjust medications as indicated. Qualifiers: Hypertension type: essential hypertension Qualified Code(s): I10 - Essential (primary) hypertension (11) Vascular dementia Current Visit: No Status: Chronic Assessment and plan: Alert and pleasantly confused on examination. Of note, given her advanced dementia, she is at high risk for deterioration while remaining asymptomatic. Patient is unable to tell us if she is in pain or having other symptoms. We will continue judicious monitoring. Vital signs are stable. Leukocytosis noted. Acute kidney injury has resolved. Qualifiers: Dementia behavioral disturbance: without behavioral disturbance Qualified Code(s): F01.50 - Vascular dementia without behavioral disturbance - Subjective Interval history: Patient seen and examined. On examination, patient is sitting upright in bed. Patient stating she feels "fine, I think." She does not think that she is in pain right now. She is unable to tell me what year it is, where she is at. She thinks it is 1970 but she is aware that she is 86 years old. She denies concerns at this time. She denies shortness of breath. - Constitutional Vitals: Temp Pulse Resp BP Pulse Ox 98.1 F 73 18 130/62 100 09/05/16 11:41 09/05/16 15:39 09/05/16 15:39 09/05/16 15:39 09/05/16 15:39 General appearance: Present: cooperative, A&O X 1 (pleasantly confused), pleasant, no acute distress. Absent: answers questions appropriately - Head Head exam: Present: atraumatic, normocephalic - Eye Eye exam: Present: PERRL, conjuntiva pink, sclera anicteric Pupils: Present: PERRL - Neck Neck exam general surgery: Present: supple, trachea midline. Absent: lymphadenopathy - Respiratory Respiratory exam: Present: CTAB. Absent: accessory muscle use, rales, respiratory distress, rhonchi, wheezes - Cardiovascular Cardiovascular exam: Present: RRR, +S1, +S2. Absent: diastolic murmur, gallop, rubs, systolic murmur - GI/Abdominal GI/Abdominal exam: Present: distended, firm, hypoactive bowel sounds, soft, tenderness (diffuse), no peritoneal signs - Extremities Exam Extremities exam: Present: warm, radial pulses palpable and symetrical. Absent : calf tenderness, cyanotic, pedal edema - Neurological Exam Neurological exam: Present: alert, altered, CN II-XII intact, no focal deficits. Absent: pronater drift, facial droop, speech deficit - Skin Skin exam: Present: dry, intact, pallor, warm Internal Medicine: Result - Labs CBC & Chem 7: 09/05/16 00:52 09/05/16 00:52 Labs: Short CBC 09/05/16 Range/Units 00:52 WBC 21.0 H D (4.3-11.1) K/mcL Hgb 12.6 (11.5-15.4) g/dL Hct 40.1 (35.3-44.9) % Plt Count 217 (140-400) K/mcL Neutrophils # 19.7 H (1.6-8.9) K/mcL BMP 09/05/16 00:52 Sodium 140 Potassium 3.3 L Chloride 110 H Carbon Dioxide 19 BUN 18 D Creatinine 0.74 Glucose 166 H Calcium 9.9 - ABG Interpretation ABG results: PT/INR, D-dimer PT 13.1 Seconds (9.4-12.1) H 09/05/16 09:34 D-Dimer 2086 ng/mLFEU (0-500) H 09/03/16 18:22 - Impressions Impressions Guidance Needle Placement Ultrasound 09/05/16 00:00 IMPRESSION: Successful right percutaneous nephrostomy tube placement. D/ / 09/05/2016 16:03:27 Indiana Swartz MD / Hazel Stallworth Interpreting Provider: Indiana Swartz MD Nephrostomy 09/05/16 00:00 IMPRESSION: Successful right percutaneous nephrostomy tube placement. D/ / 09/05/2016 16:03:27 Indiana Swartz MD / Hazel Stallworth Interpreting Provider: Indiana Swartz MD - VTE Documentation of Mechanical Device: Graduated compression elastic hosiery Consult Discharge Plan - Plan Referrals: Shelli Ware CNP [Primary Care Provider] - 09/07/16 10:15 am
[2016-09-06] MEDS: Levofloxacin 750 MG/150 ML 750 MG/150 ML BAG IVPB SCH (03:40)
[2016-09-06] MEDS: *HR* Heparin 5,000 UNIT/ML VIAL SQ SCH ×2 (05:27→18:10)
[2016-09-06 05:40] LABS: Basophils % 0.2 %; Eosinophils # 0.1 K/mcL (0.0-0.6); Eosinophils % 0.9 %; Hemoglobin 12.3 g/dL (11.5-15.4); Immature Granulocytes % 0.4 % (0-4); Lymphocytes # 0.5 K/mcL (0.6-4.6); Lymphocytes % 3.8 %; Mean Corpuscular HGB Conc 31.5 g/dL (31.6-35.5); Mean Corpuscular Hemoglobin 29.3 pg (28.0-33.3); Mean Corpuscular Volume 92.9 fL (83.0-100.0); Mean Platelet Volume 12.3 fL (9.4-12.4); Monocytes % 8.5 %; Neutrophils # 10.3 K/mcL (1.6-8.9); Platelet Count 211 K/mcL (140-400); Red Cell Distribution Width 13.2 % (11.5-14.5); Segmented Neutrophils % 86.2 %
[2016-09-06 05:55] LABS: BUN/Creatinine Ratio 25 (6-26); Blood Urea Nitrogen 18 mg/dL (7-20); Calcium 10.2 mg/dL (8.6-10.8); Carbon Dioxide 24 mEq/L (19-29); Chloride 109 mEq/L (98-109); Glucose 126 mg/dL (70-99); Magnesium 1.6 mg/dL (1.6-2.6); Osmolality,Calculated 295 (280-300); Potassium 3.7 mEq/L (3.5-4.5); Sodium 141 mEq/L (136-145); eGFR For African Americans > 60 (> 60); eGFR For Non-African Americans > 60 (> 60)
[2016-09-06] MEDS: Insulin LISPRO 300 UNITS/3 ML VIAL SQ SCH ×4 (07:50→21:24)
[2016-09-06] MEDS: MAGNESIUM 250MG PO SCH (07:51)
[2016-09-06] MEDS: Diltiazem CD (24hr) 240 MG CAPSULE PO SCH (07:51)
[2016-09-06] MEDS: Sennosides/Docusate Sodium TABLET PO SCH ×2 (07:51→20:10)
[2016-09-06] MEDS: Cyanocobalamin (B-12) 1,000 MCG TABLET PO SCH (07:51)
[2016-09-06] MEDS: Aspirin Enteric Coated 81 MG Tablet PO SCH (07:51)
--- NOTE | 2016-09-06 15:02 | Internal Med Progress Note ---
Date of Encounter: 09/06/16 Time of Encounter: 10:30 (and 1400) - Assessment and plan (1) UTI (urinary tract infection) Current Visit: Yes Status: Acute Assessment and plan: Urinalysis suggestive of urinary tract infection however urine culture is negative. Continue levofloxacin. We will continue to treat for urinary tract infection despite negative culture. Strongly suspect false negative. Urology on board. Will await juanita stain from kidney. This culture report must be resulted prior to disposition. (2) Leukocytosis Current Visit: Yes Status: Acute Assessment and plan: Trended back down today. Was likely improved with placement of nephrostomy tube. Vital signs stable. No signs or symptoms of sepsis. 09/07/16 Marked increase in her white count overnight. Unclear causation, antibiotic has been changed. Her heart rate and blood pressure are stable. She is alert and pleasantly confused which puts her at high risk for clinical deterioration while remaining asymptomatic. We will monitor her closely. Per urology, plan is for an external right-sided nephrostomy tube to be placed later today per IR Qualifiers: Leukocytosis type: unspecified Qualified Code(s): D72.829 - Elevated white blood cell count, unspecified (3) Sepsis Current Visit: No Status: Resolved Assessment and plan: Leukocytosis trending down. Heart rate stable. Afebrile. Blood pressure stable. We will continue to trend. (4) Generalized weakness Current Visit: No Status: Acute Assessment and plan: Patient stating she cannot walk. Patient does not understand the question as to whether or not she is able to walk but feels off balance or if she is physically unable to bear weight. OT and PT are on board and have recommended ECF placement. I spoke to the patient's daughter this morning who agrees with placement. Awaiting placement. Could potentially go as early as tomorrow pending insurance verification however she would need the results of the Gram stain and culture prior to disposition. (5) VITALIY (acute kidney injury) Current Visit: Yes Status: Resolved (6) DVT prophylaxis Current Visit: Yes Status: Acute Assessment and plan: Subcutaneous heparin (7) Fecal impaction Current Visit: Yes Status: Acute Assessment and plan: Refractory to senna and Colace and now enemas. Attempted digital disimpaction however impaction was without of my reach. Rectal vault noted to be extremely dilated. Saline and tap water enema infused and advanced beyond impacted part. We will continue to monitor. In further discussion with the patient's daughter, she has been impacted for quite some time. Patient tolerated procedure very well. Abdomen distended and firm with hypoactive bowel sounds. Diffuse tenderness. (8) Hydronephrosis with renal calculous obstruction Current Visit: Yes Status: Acute Assessment and plan: Status post placement of nephrostomy tube per IR. Patient more alert and interactive today. Urology on board. Awaiting Gram stain culture from her kidney. 09/05/16 Urology on board. Given her episode overnight of increased confusion and weakness as well as increase in her white count from 7-21, plan is to place a nephrostomy tube later today per IR. Acute kidney injury has resolved and she is hemodynamically stable. Her antibiotic has been changed. Urine culture is negative however suspect a false negative. Appreciate urology recommendations. ITS Impressions Abdomen/Pelvis CT 09/03/16 19:03 IMPRESSION: 1. No evidence of a pulmonary embolism. 2. There is volume loss noted in the left lung base. 3. 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 This of uncertain etiology, however, given over two years of stability, this is probably benign. 4. Indeterminate calcified thyroid nodules. Thyroid ultrasound is recommended for further evaluation as malignancy cannot be excluded. The right-sided thyroid nodule measures 1.6 cm, and a left-sided thyroid nodule measures 1.1 cm. 5. Large hiatal hernia. 6. There is an obstructing right ureteropelvic junction stone with marked adjacent inflammatory changes surrounding the right kidney and right ureter. There is associated hydronephrosis. 7. Bilateral nonobstructing calculi. Lobulated contours of the kidneys are stable, likely related to infarcts versus sequela of old infection. 8. There is marked distention of the rectum with stool, concerning for fecal impaction. There is a large amount of air noted in the sigmoid colon. No evidence of bowel obstruction. 9. Extensive atherosclerotic disease. D/ / 09/03/2016 21:04:33 Willis Mackenzie MD / jerel Interpreting Provider: Willis Mackenzie MD (9) Pyelonephritis Current Visit: Yes Status: Acute (10) Type 2 diabetes mellitus Current Visit: Yes Status: Chronic Assessment and plan: Controlled with A1c of 5.6%. 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 We will continue to trend and adjust medications as indicated. Qualifiers: Hypertension type: essential hypertension Qualified Code(s): I10 - Essential (primary) hypertension (12) Vascular dementia Current Visit: No Status: Chronic Assessment and plan: Patient remains alert and pleasantly confused. She did endorse generalized abdominal pain earlier this morning, treating fecal impaction 09/05/16 Alert and pleasantly confused on examination. Of note, given her advanced dementia, she is at high risk for deterioration while remaining asymptomatic. Patient is unable to tell us if she is in pain or having other symptoms. We will continue judicious monitoring. Vital signs are stable. Leukocytosis noted. Acute kidney injury has resolved. Qualifiers: Dementia behavioral disturbance: without behavioral disturbance Qualified Code(s): F01.50 - Vascular dementia without behavioral disturbance - Subjective Interval history: Patient seen and examined. On examination, patient is sitting upright in bed. When asked if she is in pain, patient put her hand on her abdomen and stated "you do not even want to know." Patient endorsing generalized abdominal pain but is unable to elaborate or answer questions. She does not think that she had a bowel movement. She is not sure whether or not she had breakfast this morning. She denies nausea at this time. - Constitutional Vitals: Temp Pulse Resp BP Pulse Ox 98.5 F 79 16 139/75 96 09/06/16 11:05 09/06/16 11:05 09/06/16 11:05 09/06/16 11:05 09/06/16 11:05 General appearance: Present: cooperative, A&O X 1 (pleasantly confused), pleasant, no acute distress. Absent: answers questions appropriately - Head Head exam: Present: atraumatic, normocephalic - Eye Eye exam: Present: PERRL, conjuntiva pink, sclera anicteric Pupils: Present: PERRL - Neck Neck exam general surgery: Present: supple, trachea midline. Absent: lymphadenopathy - Respiratory Respiratory exam: Present: CTAB. Absent: accessory muscle use, rales, respiratory distress, rhonchi, wheezes - Cardiovascular Cardiovascular exam: Present: RRR, +S1, +S2. Absent: diastolic murmur, gallop, rubs, systolic murmur - GI/Abdominal GI/Abdominal exam: Present: distended, firm, hypoactive bowel sounds, tenderness (Diffuse), no peritoneal signs - Extremities Exam Extremities exam: Present: warm, radial pulses palpable and symetrical. Absent : calf tenderness, cyanotic, pedal edema - Neurological Exam Neurological exam: Present: alert, CN II-XII intact, no focal deficits, strengths equal and symetr throughout. Absent: pronater drift, facial droop, speech deficit - Skin Skin exam: Present: dry, intact, pallor, warm Internal Medicine: Result - Labs CBC & Chem 7: 09/06/16 04:30 09/06/16 04:30 Labs: Short CBC 09/06/16 Range/Units 04:30 WBC 12.0 H (4.3-11.1) K/mcL Hgb 12.3 (11.5-15.4) g/dL Hct 39.0 (35.3-44.9) % Plt Count 211 (140-400) K/mcL Neutrophils # 10.3 H (1.6-8.9) K/mcL BMP 09/06/16 04:30 Sodium 141 Potassium 3.7 Chloride 109 Carbon Dioxide 24 BUN 18 Creatinine 0.72 Glucose 126 H Calcium 10.2 - ABG Interpretation ABG results: PT/INR, D-dimer PT 13.1 Seconds (9.4-12.1) H 09/05/16 09:34 D-Dimer 2086 ng/mLFEU (0-500) H 09/03/16 18:22 - Impressions Impressions Guidance Needle Placement Ultrasound 09/05/16 00:00 IMPRESSION: Successful right percutaneous nephrostomy tube placement. D/ / 09/05/2016 16:03:27 Indiana Swartz MD / Hazel Stallworth Interpreting Provider: Indiana Swartz MD Nephrostomy 09/05/16 00:00 IMPRESSION: Successful right percutaneous nephrostomy tube placement. D/ / 09/05/2016 16:03:27 Indiana Swartz MD / Hazel Stallworth Interpreting Provider: Indiana Swartz MD Thyroid Ultrasound 09/05/16 15:00 IMPRESSION: Bilateral thyroid nodules are noted, some with peripheral calcification. The nodules are most likely benign. 12 month follow-up is recommended. D/ / Willis Sheldon MD / Willis Sheldon MD Interpreting Provider: Willis Sheldon MD - VTE Documentation of Mechanical Device: Graduated compression elastic hosiery Consult Discharge Plan - Plan Referrals: Shelli Ware, [employer] WORKER [Primary Care Provider] -
[2016-09-07] MEDS: Levofloxacin 750 MG/150 ML 750 MG/150 ML BAG IVPB SCH (04:09)
[2016-09-07 05:22] LABS: Basophils % 0.3 %; Eosinophils # 0.1 K/mcL (0.0-0.6); Eosinophils % 0.9 %; Hematocrit 37.4 % (35.3-44.9); Hemoglobin 11.9 g/dL (11.5-15.4); Immature Granulocytes % 0.4 % (0-4); Lymphocytes # 0.5 K/mcL (0.6-4.6); Lymphocytes % 4.5 %; Mean Corpuscular HGB Conc 31.8 g/dL (31.6-35.5); Mean Platelet Volume 11.3 fL (9.4-12.4); Monocytes # 1.1 K/mcL (0.0-1.3); Monocytes % 10.8 %; Neutrophils # 8.5 K/mcL (1.6-8.9); Platelet Count 214 K/mcL (140-400); Red Blood Count 4.11 M/mcL (3.82-4.97); Red Cell Distribution Width 12.8 % (11.5-14.5); Segmented Neutrophils % 83.1 %
[2016-09-07 05:37] LABS: BUN/Creatinine Ratio 19 (6-26); Blood Urea Nitrogen 12 mg/dL (7-20); Calcium 9.9 mg/dL (8.6-10.8); Carbon Dioxide 24 mEq/L (19-29); Chloride 105 mEq/L (98-109); Glucose 126 mg/dL (70-99); Osmolality,Calculated 283 (280-300); Potassium 2.8 mEq/L (3.5-4.5); Sodium 136 mEq/L (136-145); eGFR For African Americans > 60 (> 60); eGFR For Non-African Americans > 60 (> 60)
[2016-09-07] MEDS: *HR* Heparin 5,000 UNIT/ML VIAL SQ SCH (06:05)
[2016-09-07] MEDS: Insulin LISPRO 300 UNITS/3 ML VIAL SQ SCH ×2 (08:08→11:38)
[2016-09-07] MEDS: Aspirin Enteric Coated 81 MG Tablet PO SCH (08:13)
[2016-09-07] MEDS: Diltiazem CD (24hr) 240 MG CAPSULE PO SCH (08:13)
[2016-09-07] MEDS: MAGNESIUM 250MG PO SCH (08:13)
[2016-09-07] MEDS: Cyanocobalamin (B-12) 1,000 MCG TABLET PO SCH (08:13)
[2016-09-07] MEDS: Sennosides/Docusate Sodium TABLET PO SCH (08:13)
[2016-09-07] MEDS ORDERED: Potassium Chloride Elixir 20 MEQ/15 ML UDC PO ONE (14:35)
[2016-09-07 15:35] VITALS: BP 134/74
--- NOTE | 2016-09-07 18:27 | Discharge Summary ---
Date of Encounter: 09/07/16 Time of Encounter: 10:30 (and 1430) - Discharge Diagnosis (1) UTI (urinary tract infection) Priority: Primary Status: Acute Comments: Patient responded well to levofloxacin during this admission, will continue upon discharge. Leukocytosis resolved. Follow-up outpatient with urology. (2) Leukocytosis Priority: Primary Status: Resolved Qualifiers: Leukocytosis type: unspecified Qualified Code(s): D72.829 - Elevated white blood cell count, unspecified (3) Sepsis Priority: Primary Status: Resolved (4) Generalized weakness Priority: Primary Status: Acute Comments: Sending to inpatient rehabilitation. (5) VITALIY (acute kidney injury) Priority: Primary Status: Resolved (6) DVT prophylaxis Priority: Primary Status: Acute Comments: Subcutaneous heparin while admitted (7) Fecal impaction Priority: Primary Status: Acute Comments: Several enemas were given, patient had 2 bowel movements prior to discharge, recommend [facility]. (8) Hydronephrosis with renal calculous obstruction Priority: Primary Status: Acute Comments: Status post placement of nephrostomy tube. Follow-up outpatient with urology. (9) Pyelonephritis Priority: Primary Status: Acute (10) Type 2 diabetes mellitus Priority: Secondary Status: Chronic Comments: Controlled with A1c of 5.6%. Recommend continued follow-up outpatient. 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 Recommend follow-up outpatient. Qualifiers: Hypertension type: essential hypertension Qualified Code(s): I10 - Essential (primary) hypertension (12) Vascular dementia Priority: Secondary Status: Chronic Comments: Patient was alert and pleasantly confused throughout this admission. Family was present at times during this admission, she was at her baseline. Qualifiers: Dementia behavioral disturbance: without behavioral disturbance Qualified Code(s): F01.50 - Vascular dementia without behavioral disturbance - Discharge Medications Prescriptions: Levofloxacin 750 mg PO DAILY #10 tablet MOM Conc [MILK OF MAGNESIA conc] 10 ml PO DAILY PRN #10 ud.liq PRN Reason: Indigestion Ondansetron ODT [Zofran ODT] 4 mg SL Q6H PRN #12 tab.rapdis PRN Reason: Nausea And Vomiting Sennosides/Docusate Sodium [Senna Plus] 2 each PO BID #60 tablet Home Medications: BuPROPion [Wellbutrin] 100 mg PO BID 08/24/15 [History] Lisinopril [Zestril] 10 mg PO QPM 08/24/15 [History] Aspirin Enteric Coated [Aspirin EC] 81 mg PO DAILY #30 tablet.dr 08/30/15 [Rx] Atorvastatin [Lipitor] 10 mg PO HS #30 tablet 08/30/15 [Rx] Diltiazem CD (24hr) [Cardizem CD] 240 mg PO DAILY #30 cap.er.24h 08/30/15 [Rx] Cyanocobalamin (Vitamin B-12) [Vitamin B12] 1,000 mcg PO DAILY 09/03/16 [History ] Magnesium 250 mg PO DAILY 09/03/16 [History] Levofloxacin 750 mg PO DAILY #10 tablet 09/07/16 [Rx] MOM Conc [MILK OF MAGNESIA conc] 10 ml PO DAILY PRN #10 ud.liq 09/07/16 [Rx] Ondansetron ODT [Zofran ODT] 4 mg SL Q6H PRN #12 tab.rapdis 09/07/16 [Rx] Sennosides/Docusate Sodium [Senna Plus] 2 each PO BID #60 tablet 09/07/16 [Rx] Allergies/Adverse Reactions: Allergies Sulfa (Sulfonamide Antibiotics) Allergy (Verified 05/08/15 16:09) Rash Procedures/tests Complete & Pending: Procedures Performed prior 72 hours Category Date Time Status thyroid ultrasound [US thyroid] [US] Routine Exams 09/05/16 15:00 Completed IR nephrostomy [IR] Routine IR 09/05/16 Completed IR us guide needle place [IR] Routine IR 09/05/16 Completed Date of admission: 09/04/16 00:31 Primary care physician: Shelli Ware, Consults: 09/05/16 09:29 Consult to Interventional Radiology [CONS] Routine Consulting Provider: Radiology Interventional Cols Reason for Consult: right pcn tube placement Call Completed: Yes Discharging clinician: Alise Conde Anticipated date of discharge: 09/07/16 (sending to [facility]) - Patient Status Disposition: Transfer Inpatient Rehab Fac Condition: Fair Functional capacity at discharge: uses cane/walker Overall status at discharge: patient is progressing back to baseline - Discharge Instructions Follow Up With: Shelli Ware CNP [Primary Care Provider] - Barber Taylor MD [Partnered Physician] - Additional Instructions: Follow-up with primary care provider and urology within 1-2 weeks - Diet and Activity Activity: as per physical therapy, increase activity as tolerated Diet: low salt diet Hospital course: Ms. Pelayo is a 86 year old female with past medical history of advanced dementia , hypertension, diabetes, kidney stones. Patient presented to the emergency department chief complaint family noted that she was unable to walk and she was complaining of nausea and abdominal pain along with vomiting. Patient was pleasantly confused throughout this admission and unable to provide her own history. Workup in the emergency department revealing a urinary tract infection. Chest x-ray negative. Head CT negative for acute processes. Chest , Abdominal, and pelvic CT revealing right-sided mediastinal mass which was stable for the past [address] also revealing thyroid nodules, large hiatal hernia, an obstructing right UPJ stone with marked adjacent inflammatory changes associated with hydronephrosis as well as extensive fecal impaction. Patient was admitted to the hospitalist service for further evaluation and management. Patient also noted to have an initial acute kidney injury. Urology was brought on board. Initially, the patient was stable and given her advanced dementia, she was not likely to be a candidate for nephrolithiasis and initial plan was for medical management and antibiotics. However on the second day of her 5 day admission, leukocytosis were from 7 up to 21 overnight and the patient was showing signs of sepsis. At that point, urology brought IR on board who placed a right-sided nephrostomy tube. The next day, white count dropped to 12 and the patient sepsis had resolved. Urine culture was negative however given the hydronephrosis and likely pyelonephrosis, she was continued to be treated with levofloxacin while admitted. Regarding her generalized weakness, OT and PT were brought on board who recommended ECF placement. Patient's family was present during this admission and stated she was at her baseline which is pleasantly confused. Patient's fecal impaction was also attempted to be treated with stool softeners and enemas without relief. Attempted digital disimpaction however impaction was too far up to be reached digitally. Further enemas were given and the patient had 2 large bowel movements prior to discharge, recommend continued surveillance outpatient [facility] the [facility]. Acute kidney injury also resolved. Patient was alert and pleasantly confused and denied pain other than intermittent generalized abdominal pain throughout this admission. She was able to eat relatively well. Thyroid ultrasound revealing benign nodules. On day of discharge, patient's initial potassium was 2.8 which was replaced and her potassium at time of discharge was 3.5. Also of note, d-dimer was markedly elevated so the patient had a CTA which ruled out a PE. Patient denies shortness of breath throughout this admission. She was discharged to [facility] in stable condition with close outpatient follow-up with primary care provider and urology recommended. ITS Impressions Chest X-Ray 09/03/16 18:09 IMPRESSION: No acute process. D/ / Zenon Hinds MD / Zenon Hinds MD Interpreting Provider: Zenon Hinds MD Head CT 09/03/16 18:34 IMPRESSION: Underlying atrophy with moderate to severe periventricular and frontal parietal white matter disease, likely due to small-vessel ischemic change Left sphenoid sinusitis with opacification of the middle ear on the right. Sphenoid sinus disease has increased compared to prior D/ / Richie Bryan MD / Richie Bryan MD Interpreting Provider: Richie Bryan MD Abdomen/Pelvis CT 09/03/16 19:03 IMPRESSION: 1. No evidence of a pulmonary embolism. 2. There is volume loss noted in the left lung base. 3. 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 This of uncertain etiology, however, given over two years of stability, this is probably benign. 4. Indeterminate calcified thyroid nodules. Thyroid ultrasound is recommended for further evaluation as malignancy cannot be excluded. The right-sided thyroid nodule measures 1.6 cm, and a left-sided thyroid nodule measures 1.1 cm. 5. Large hiatal hernia. 6. There is an obstructing right ureteropelvic junction stone with marked adjacent inflammatory changes surrounding the right kidney and right ureter. There is associated hydronephrosis. 7. Bilateral nonobstructing calculi. Lobulated contours of the kidneys are stable, likely related to infarcts versus sequela of old infection. 8. There is marked distention of the rectum with stool, concerning for fecal impaction. There is a large amount of air noted in the sigmoid colon. No evidence of bowel obstruction. 9. Extensive atherosclerotic disease. D/ / 09/03/2016 21:04:33 Willis Mackenzie MD / jerel Interpreting Provider: Willis Mackenzie MD Chest CTA 09/03/16 19:03 IMPRESSION: 1. No evidence of a pulmonary embolism. 2. There is volume loss noted in the left lung base. 3. 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 This of uncertain etiology, however, given over two years of stability, this is probably benign. 4. Indeterminate calcified thyroid nodules. Thyroid ultrasound is recommended for further evaluation as malignancy cannot be excluded. The right-sided thyroid nodule measures 1.6 cm, and a left-sided thyroid nodule measures 1.1 cm. 5. Large hiatal hernia. 6. There is an obstructing right ureteropelvic junction stone with marked adjacent inflammatory changes surrounding the right kidney and right ureter. There is associated hydronephrosis. 7. Bilateral nonobstructing calculi. Lobulated contours of the kidneys are stable, likely related to infarcts versus sequela of old infection. 8. There is marked distention of the rectum with stool, concerning for fecal impaction. There is a large amount of air noted in the sigmoid colon. No evidence of bowel obstruction. 9. Extensive atherosclerotic disease. D/ / 09/03/2016 21:04:33 Willis Mackenzie MD / jerel Interpreting Provider: Willis Mackenzie MD Guidance Needle Placement Ultrasound 09/05/16 00:00 IMPRESSION: Successful right percutaneous nephrostomy tube placement. D/ / 09/05/2016 16:03:27 Indiana Swartz MD / Hazel Stallworth Interpreting Provider: Indiana Swartz MD Nephrostomy 09/05/16 00:00 IMPRESSION: Successful right percutaneous nephrostomy tube placement. D/ / 09/05/2016 16:03:27 Indiana Swartz MD / Hazel Stallworth Interpreting Provider: Indiana Swartz MD Thyroid Ultrasound 09/05/16 15:00 IMPRESSION: Bilateral thyroid nodules are noted, some with peripheral calcification. The nodules are most likely benign. 12 month follow-up is recommended. D/ / Willis Sheldon MD / Willis Sheldon MD Interpreting Provider: Willis Sheldon MD - Time Spent with Patient Total time spent providing and/or coordinating discharge services: - Constitutional Vitals: Temp Pulse Resp BP Pulse Ox 97.4 F L 89 14 134/74 96 09/07/16 15:34 09/07/16 15:34 09/07/16 15:34 09/07/16 15:34 09/07/16 15:34 General appearance: Present: cooperative, A&O X 1 (pleasantly confused), pleasant, no acute distress. Absent: answers questions appropriately - Head Head exam: Present: atraumatic, normocephalic - Eye Eye exam: Present: PERRL, conjuntiva pink, sclera anicteric Pupils: Present: PERRL - Neck Neck exam general surgery: Present: supple, trachea midline. Absent: lymphadenopathy - Respiratory Respiratory exam: Present: CTAB. Absent: accessory muscle use, rales, respiratory distress, rhonchi, wheezes - Cardiovascular Cardiovascular exam: Present: RRR, +S1, +S2. Absent: diastolic murmur, gallop, rubs, systolic murmur - GI/Abdominal GI/Abdominal exam: Present: distended, normal bowel sounds, soft, tenderness ( diffuse), no peritoneal signs - Extremities Exam Extremities exam: Present: warm, radial pulses palpable and symetrical. Absent : calf tenderness, cyanotic, pedal edema - Neurological Exam Neurological exam: Present: alert, CN II-XII intact, oriented X3, no focal deficits, strengths equal and symetr throughout. Absent: pronater drift, facial droop, speech deficit - Skin Skin exam: Present: dry, intact, pallor, warm - VTE Documentation of Mechanical Device: Graduated compression elastic hosiery
--- NOTE | 2016-09-07 18:48 | Physician Discharge Referral ---
ExtendedCare Referral Info Transfer To: [facility] Provider in Charge: Fiona Conde CNP Provider in Charge after Transfer: PCP Institutional Level of Care: Skilled - Diagnosis (1) UTI (urinary tract infection) Priority: Primary Status: Acute (2) Leukocytosis Priority: Primary Status: Resolved (3) Sepsis Priority: Primary Status: Resolved (4) Generalized weakness Priority: Primary Status: Acute (5) VITALIY (acute kidney injury) Priority: Primary Status: Resolved (6) DVT prophylaxis Priority: Primary Status: Acute (7) Fecal impaction Priority: Primary Status: Acute (8) Hydronephrosis with renal calculous obstruction Priority: Primary Status: Acute (9) Pyelonephritis Priority: Primary Status: Acute (10) Type 2 diabetes mellitus Priority: Secondary Status: Chronic (11) Hypertension Priority: Secondary Status: Chronic (12) Vascular dementia Priority: Secondary Status: Chronic Prognosis: Fair Aware of Diagnosis: Patient, Family Aware of Prognosis: Patient, Family - Transfer Medications Prescriptions: Levofloxacin 750 mg PO DAILY #10 tablet MOM Conc [MILK OF MAGNESIA conc] 10 ml PO DAILY PRN #10 ud.liq PRN Reason: Indigestion Ondansetron ODT [Zofran ODT] 4 mg SL Q6H PRN #12 tab.rapdis PRN Reason: Nausea And Vomiting Sennosides/Docusate Sodium [Senna Plus] 2 each PO BID #60 tablet Home Medications: BuPROPion [Wellbutrin] 100 mg PO BID 08/24/15 [History] Lisinopril [Zestril] 10 mg PO QPM 08/24/15 [History] Aspirin Enteric Coated [Aspirin EC] 81 mg PO DAILY #30 tablet.dr 08/30/15 [Rx] Atorvastatin [Lipitor] 10 mg PO HS #30 tablet 08/30/15 [Rx] Diltiazem CD (24hr) [Cardizem CD] 240 mg PO DAILY #30 cap.er.24h 08/30/15 [Rx] Cyanocobalamin (Vitamin B-12) [Vitamin B12] 1,000 mcg PO DAILY 09/03/16 [History ] Magnesium 250 mg PO DAILY 09/03/16 [History] Levofloxacin 750 mg PO DAILY #10 tablet 09/07/16 [Rx] MOM Conc [MILK OF MAGNESIA conc] 10 ml PO DAILY PRN #10 ud.liq 09/07/16 [Rx] Ondansetron ODT [Zofran ODT] 4 mg SL Q6H PRN #12 tab.rapdis 09/07/16 [Rx] Sennosides/Docusate Sodium [Senna Plus] 2 each PO BID #60 tablet 09/07/16 [Rx] Allergies/Adverse Reactions: Allergies Sulfa (Sulfonamide Antibiotics) Allergy (Verified 05/08/15 16:09) Rash - Respiratory Orders Smoking Cessation: Smoking cessation has been advised. For more information, call the [place] Tobacco Quit Line at 1-916-BGSC-NOW. - Ancillary Orders May use pressure relief devices daily prn, May go on MARGIE w/family/respon alliance party w /meds at nurse discretion PRN, May have alcoholic beverages, May consult with Dentist, Water Commissioner, Stranding Supervisor PRN - Advance Directives Living Will: Yes Power of Biomedical Service Engineer: Yes Code Status: Full Code - Mobility Orders Ambulate - Rehabiliation Orders Rehab Potential: Fair Rehab Orders: ROM Exercises, Evaluation for Physical Therapy, Evaluation for Occupational Therapy, Evaluation for Speech Therapy - Treatments Skin tear care topically daily PRN per policy, May check for fecal impaction rectally daily PRN, Fleet enema rectally every other day PRN cleansing purposes - Diet Orders No Added Salt (VALE) CERTIFICATION: I certify that the transfer of the above named patient to an Extended Care Facility is necessary for the continuing treatment of the diagnosis listed. The above information is true and accurate reflection of patient's current condition. Confidential - Redisclosure prohibited without a patient's written consent.
== END 2016-09-07 19:40 | DRG 872 ==
LOC: EMEROO 17:53 → 3BNU 17:53 → SUATTDRO 09-04 00:31
PROVIDERS: ADMIT Internal Medicine Sleep Medicine; ATTEND Nurse Practitioner Family

== ENCOUNTER 2016-09-12 16:44 | Inpatient (IN) ==
--- NOTE | 2016-09-12 17:05 | Emergency Department Note ---
Disposition Clinical Impression: UTI (urinary tract infection) Qualifiers: Urinary tract infection type: acute cystitis Hematuria presence: without hematuria Qualified Code(s): N30.00 - Acute cystitis without hematuria Leukocytosis Qualifiers: Leukocytosis type: unspecified Qualified Code(s): D72.829 - Elevated white blood cell count, unspecified Disposition: Admitted As Inpatient Condition: Fair Referrals: NO,PCP [Non-Partnered Physician] - Forms: ED Satisfaction Letter Time of Disposition: 18:41 General Adult HPI - General Chief complaint: ED Recheck/Abnormal Lab/Rx Stated complaint: abnormal labs Time Seen by Provider: 09/12/16 16:52 Source: patient, family, EMS Mode of arrival: EMS Limitations: no limitations Nursing Notes Reviewed: Yes Vital Signs Reviewed: Yes - History of Present Illness HPI Narrative: 86-year-old has a history kidney stones that are obstructing and developed an infection and had a nephrostomy tube placed. Patient apparently had lab work done today that showed an elevated white count and they were concerned that there was some decrease in the nephrostomy output. The orders from the correction indicate that the patient was sent in to rule out sepsis. Pain Scale: 2 - Related Data Home Medications Medication Instructions Recorded Confirmed BuPROPion [Wellbutrin] 100 mg PO BID 08/24/15 09/12/16 Lisinopril [Zestril] 10 mg PO QPM 08/24/15 09/12/16 Magnesium 250 mg PO DAILY 09/03/16 09/12/16 Aspirin 81 mg PO DAILY 09/12/16 09/12/16 MOM Conc [MILK OF MAGNESIA conc] 10 ml PO DAILY PRN 09/12/16 09/12/16 Polyethylene Glycol 3350 [MiraLAX] 17 gm PO BID 09/12/16 09/12/16 Potassium Chloride 40 meq PO QAM MDD STOP 09-19-16 09/12/16 09/12/16 Previous Rx's Medication Instructions Recorded Atorvastatin [Lipitor] 10 mg PO HS #30 tablet 08/30/15 Diltiazem CD (24hr) [Cardizem CD] 240 mg PO DAILY #30 cap.er.24h 08/30/15 Levofloxacin 750 mg PO DAILY #10 tablet MDD 09/07/16 STOP 09-17-16 Ondansetron ODT [Zofran ODT] 4 mg SL Q6H PRN #12 tab.rapdis 09/07/16 Sennosides/Docusate Sodium [Senna 2 each PO BID #60 tablet 09/07/16 Plus] Allergies Allergy/AdvReac Type Severity Reaction Status Date / Time Sulfa (Sulfonamide Allergy Rash Verified 05/08/15 16:09 Antibiotics) Constitutional: Denies: fever, chills, weakness, weight change Eyes: Denies: eye pain, eye discharge, vision change ENT ED: Denies: ear pain, throat pain, dental pain, hearing loss, epistaxis, congestion, dysphagia Cardiovascular: Denies: chest pain, palpitations, dyspnea on exertion, edema, syncope Respiratory: Denies: cough, dyspnea, wheezes, hemoptysis, stridor Gastrointestinal: Reports: abdominal pain. Denies: nausea, vomiting, diarrhea, constipation, hematemesis, melena, hematochezia Genitourinary: Denies: dysuria, frequency, hematuria, discharge Musculoskeletal: Denies: back pain, neck pain, arthralgia, myalgia Integumentary: Denies: rash, abrasion, lesions Neurological: Denies: headache, weakness, numbness, paresthesias, confusion, abnormal gait, vertigo Psychiatric: Denies: anxiety, depression, suicidal thoughts, homicidal thoughts , auditory hallucinations, visual hallucinations Endocrine: Denies: fatigue Hematological/Lymphatic: Denies: easy bleeding, easy bruising Allergic/Immunologic: Denies: facial swelling, urticaria Past Medical History - Past Medical History Medical history: Reports: dementia, diabetes, hypertension Surgical history: Reports: knee replacement (right) Psychiatric history: Reports: no psych history EMERGENCY MEDICINE MEDICAL DIRECTOR history: Reports: no EMERGENCY MEDICINE MEDICAL DIRECTOR history - Social History Smoking Status: Never smoker Smokeless Tobacco Status: No Alcohol use: Reports: none Drug use: Reports: none Physical Exam - General General appearance: alert - Head Head exam: atraumatic, normocephalic, normal inspection - Eye Eye exam: Present: normal appearance, PERRL, EOMI - ENT ENT exam: normal exam, normal oropharynx, mucous membranes moist - Neck Neck exam: Present: normal inspection, full ROM, trachea midline - Chest Chest inspection: Present: normal inspection, symmetric chest wall rise - Respiratory Respiratory exam: Present: normal lung sounds bilaterally - Cardiovascular Cardiovascular exam: Present: regular rate, normal rhythm, normal heart sounds - Abdominal Exam Abdominal exam: Present: soft, tenderness. Absent: distention, guarding, rebound, rigidity - Extremities Exam Extremities exam: Present: normal inspection, full ROM. Absent: tenderness, pedal edema - Expanded Lower Extremity Exam Neurovascular/Tendon exam: Absent: motor deficit, sensory deficit, tendon deficit Gait: not tested/not observed - Back Exam Back exam: Present: normal inspection, full ROM. Absent: tenderness - Neurological Exam Neurological exam: Present: alert, oriented X3 - Psychiatric Psychiatric exam: Present: normal affect, normal mood - Skin Skin exam: Present: warm, dry, intact, normal color Course Course Narrative: 86-year-old who has known kidney stones with obstruction that developed a UTI and a nephrostomy tube placed has had some decreasing by mouth intake found to have increasing white count and creatinine. Patient vitals are stable she's not tachycardic and no fever. - Consultations Consultation #1: Discussed with Dr. Cassidy, admit to hospitalist. Time: 18:36 Consultation #2: Discussed with , admit. Time: 18:40 Vital Signs Temperature 98.2 F 09/12/16 16:48 Pulse Rate 89 09/12/16 16:48 Respiratory Rate 14 09/12/16 16:48 Blood Pressure 142/76 09/12/16 16:48 O2 Sat by Pulse Oximetry 93 L 09/12/16 16:48 Temperature 98.2 F 09/12/16 16:48 Pulse Rate 89 09/12/16 16:48 Respiratory Rate 14 09/12/16 16:48 Blood Pressure 142/76 09/12/16 16:48 O2 Sat by Pulse Oximetry 93 L 09/12/16 16:48 Oxygen Delivery Oxygen Delivery Room Air Medical Decision Making - Lab Data Result diagrams: 09/12/16 17:27 09/12/16 17:27 Lab Results 09/12/16 09/12/16 09/12/16 Range/Units 17:27 17:27 17:27 WBC 24.3 H (4.3-11.1) K/mcL RBC 4.71 (3.82-4.97) M/mcL Hgb 13.7 (11.5-15.4) g/dL Hct 43.0 (35.3-44.9) % MCV 91.3 (83.0-100.0) fL MCH 29.1 (28.0-33.3) pg MCHC 31.9 (31.6-35.5) g/dL RDW 13.3 (11.5-14.5) % Plt Count 329 (140-400) K/mcL MPV 10.6 (9.4-12.4) fL Immature Gran % 1.4 (0-4) % Seg Neutrophils % 87.0 % Lymphocytes % 3.0 % Monocytes % 8.3 % Eosinophils % 0.1 % Basophils % 0.2 % Neutrophils # 21.1 H (1.6-8.9) K/mcL Lymphocytes # 0.7 (0.6-4.6) K/mcL Monocytes # 2.0 H (0.0-1.3) K/mcL Eosinophils # 0.0 (0.0-0.6) K/mcL Basophils # 0.1 (0.0-0.2) K/mcL Platelet Estimate Normal (Normal) Clumped Platelets Few A (Not Present) Immature Plt Fraction 5.7 (1.1-6.1) % Sodium 144 (136-145) mEq/L Potassium 3.5 D (3.5-4.5) mEq/L Chloride 106 (98-109) mEq/L Carbon Dioxide 29 (19-29) mEq/L BUN 43 H D (7-20) mg/dL Creatinine 1.33 H (0.57-1.11) mg/dL Est GFR ( Amer) 46 L (> 60) Est GFR (Non-Af Amer) 38 L (> 60) BUN/Creatinine Ratio 32 H (6-26) Glucose 130 H (70-99) mg/dL Calculated Osmolality 311 H (280-300) Lactic Acid 1.8 (0.5-2.2) mmol/L Calcium 11.0 H (8.6-10.8) mg/dL Total Bilirubin 0.5 (0.2-1.2) mg/dL Direct Bilirubin 0.2 (0.0-0.5) mg/dL Indirect Bilirubin 0.3 (0.0-1.2) mg/dL AST 18 (5-34) Units/L ALT 13 (0-55) Units/L Alkaline Phosphatase 106 (38-126) Units/L Serum Total Protein 7.3 (6.0-8.3) g/dL Albumin 3.3 L (3.5-5.0) g/dL Globulin 4.0 H (2.4-3.5) g/dL Albumin/Globulin Ratio 0.8 L (1.1-2.2) Amylase 8 L (25-125) Units/L Lipase 26 (8-78) Units/L - Radiology Data Radiology results reviewed: Yes I reviewed the patient's radiology results. Abdomen/Pelvis CT 09/12/16 17:02 IMPRESSION: 1. Interval placement of a percutaneous nephrostomy tube which terminates in the right lower pole. Improved, but persistent mild right hydronephrosis of the upper pole and midpole secondary to an obstructing calculus in the renal pelvis measuring 13 x 11 mm. 2. Stable appearance of additional nonobstructing renal calculi in the bilateral kidneys. 3. Large stool burden identified in the rectum resulting in severe gaseous distension of the sigmoid colon and transverse colon. Findings are slightly worsened since the prior study and may account for the patient's worsening abdominal pain. Considered disimpaction. 4. Large hiatal hernia. 5. Severe atherosclerosis. D/ / 09/12/2016 18:08:30 Madison Saunders MD / jerel Interpreting Provider: Madison Saunders MD
[2016-09-12 17:39] LABS: Basophils % 0.2 %; Hemoglobin 13.7 g/dL (11.5-15.4)
[2016-09-12 17:42] LABS: Basophils # 0.1 K/mcL (0.0-0.2); Eosinophils % 0.1 %; Immature Granulocytes % 1.4 % (0-4); Immature Platelets 5.7 % (1.1-6.1); Lymphocytes # 0.7 K/mcL (0.6-4.6); Mean Corpuscular HGB Conc 31.9 g/dL (31.6-35.5); Mean Corpuscular Hemoglobin 29.1 pg (28.0-33.3); Mean Corpuscular Volume 91.3 fL (83.0-100.0); Mean Platelet Volume 10.6 fL (9.4-12.4); Monocytes % 8.3 %; Neutrophils # 21.1 K/mcL (1.6-8.9); Platelet Count 329 K/mcL (140-400); Red Blood Count 4.71 M/mcL (3.82-4.97); Red Cell Distribution Width 13.3 % (11.5-14.5)
[2016-09-12 17:54] LABS: Albumin 3.3 g/dL (3.5-5.0); Albumin/Globulin Ratio 0.8 (1.1-2.2); Bilirubin,Direct 0.2 mg/dL (0.0-0.5); Bilirubin,Indirect 0.3 mg/dL (0.0-1.2); Bilirubin,Total 0.5 mg/dL (0.2-1.2); Potassium 3.5 mEq/L (3.5-4.5); Total Protein 7.3 g/dL (6.0-8.3)
[2016-09-12 18:19] LABS: Platelet Clumps Few (Not Present); Platelet Estimate Normal (Normal)
[2016-09-12] MEDS ORDERED: Piperacillin/Tazobactam 3.375 GM in D5% in Water (Mini-Bag+) 100 ML IVPB ONE (18:28)
[2016-09-12] MEDS: 0.9 % Sodium Chloride 1,000 ML IVC SCH ×2 (19:06→22:09)
[2016-09-12] MEDS ORDERED: Naloxone 0.4 MG/ML INJ IVP PRN (20:12)
[2016-09-12] MEDS ORDERED: *HR* Dextrose 50 % in Water (Syg) 50 ML SYRINGE IVP PRN (20:15)
[2016-09-12] MEDS ORDERED: D5% in Water 1,000 ML IV PRN (20:15)
[2016-09-12] MEDS ORDERED: Dextrose Gel 15 GM PO PRN ×2 (20:15)
[2016-09-12] MEDS ORDERED: MOM Conc 10 ML UD.LIQ PO PRN (20:16)
--- NOTE | 2016-09-12 20:28 | Internal Med History&Physical ---
<Claudy Sheffield - Last Filed: 09/12/16 21:34> Date of Encounter: 09/12/16 Time of Encounter: 07:40 Assessment and Plan (1) Leukocytosis Current visit: No Status: Resolved Unclear source of infection at this time. Urine culture pending. WBC 24.3 Status post right nephrostomy tube 1 week ago. Decreased output from nephrostomy tube today. Altered mental status. Patient started on Zosyn in the ED for broad spectrum coverage. Will continue Zosyn Patient was on Levofloxacin as an outpatient scheduled to stop on 09/17. Will stop now due to leukocytosis occurring while on this antibiotic and cover with Zosyn instead pending urine culture. 1L fluid given in ED. Continue maintenance fluids at 125ml/hr Qualifiers: Leukocytosis type: unspecified Qualified Code(s): D72.829 - Elevated white blood cell count, unspecified (2) Altered mental status Current visit: No Status: Acute The patient is slightly decreased from baseline as per the daughter who was at the bedside, but reports there is no drastic change. Likely secondary to infection, unknown source at this time. Qualifiers: Altered mental status type: unspecified Qualified Code(s): R41.82 - Altered mental status, unspecified (3) Constipation Current visit: No Status: Acute With stool retention and proximal bowel gas distention. Continue milk of magnesia, mirilax, and sennosides/docusate. Enema ordered. CT demonstrated: large stool burden identified in the rectum resulting in severe gaseous distension of the sigmoid colon and transverse colon. Findings are slightly worened since prior study. Consider disimpaction. Qualifiers: Constipation type: chronic idiopathic constipation Qualified Code(s): K59.04 - Chronic idiopathic constipation (4) Atrial fibrillation Current visit: Yes Status: Acute Patient has a history of A. Fib with RVR, but was converted back to sinus rhythm. CVA coverage was reported to be ASA 81mg due to risk of anticoagulation with underlying dementia and risk of bleeding. Continue diltiazem for rate control. Continue Aspirin 81mg. Qualifiers: Atrial fibrillation type: paroxysmal Qualified Code(s): I48.0 - Paroxysmal atrial fibrillation (5) Hypertension Current visit: No Status: Chronic Continue Lisinopril. Continue to monitor renal function and discontinue if renal function worsens. Monitory blood pressures closely. Qualifiers: Hypertension type: essential hypertension Qualified Code(s): I10 - Essential (primary) hypertension (6) VITALIY (acute kidney injury) Current visit: No Status: Resolved Secondary to poor oral intake vs obstructing calculi vs medication induced. CT demonstrates: Interval placemnet of a percutaneous nephrostomy tube which terminates in the right lower pole. Improved, but persistent mild right hydronephrosis of the upper pole and mid pole secondary to an obstructing calculus in the renal pelvis measuring 13mm x 11mm. Stable appearance of additional non-obstructing renal calculi in bilateral kidneys. (7) Type 2 diabetes mellitus Current visit: No Status: Chronic NPO at this time for possibility of additional procedures tomorrow. Accuchecks and low dose sliding insulin Q6hrs Qualifiers: Diabetes mellitus complication status: without complication Diabetes mellitus half-way insulin use: without bottoming room inspector use Qualified Code(s): E11.9 - Type 2 diabetes mellitus without complications (8) Vascular dementia Current visit: No Status: Chronic Qualifiers: Dementia behavioral disturbance: without behavioral disturbance Qualified Code(s): F01.50 - Vascular dementia without behavioral disturbance (9) DVT prophylaxis Current visit: No Status: Acute SQ heparin BID Internal Medicine - H&P: HPI Chief complaint: Abnormal labs Admitted From: Emergency Dept Plans for Post Hospital Care: Transfer Custodial Facility History of present illness: Ms. Pelayo is a 86 year old female with PMH significant for dementia, diabetes, and HTN who is 1 week status post right nephrostomy tube placement who presented to the ED for abnormal lab values. The patient resides at a SNF and was found to have an elevated white count today and was sent in for further evaluation. Additionally the patient had decreased output from her nephrostomy tube today and has been slightly more confused than usual per the daughter who was in the room. The patient complains of abdominal pain at times, and states that she feels bloated. She reports that she has not had much oral input as "nothing seems to agree with her lately" but she continues to drink some water. She denies flank pain, chest pain, shortness of breath, fevers, nausea and vomiting. Past Med Surg Social Fam HX - Past Medical History Medical history: dementia, diabetes, hypertension Psychiatric history: no psych history - Past Surgical History Surgical History: hysterectomy, orthopedic, other (right knee surgery, ankle surgeries), other (nephrostomy) - Social History Smoking Status: Never smoker Smokeless Tobacco Status: No Alcohol use: none Drug use: none - Family History Mother Adopted: No Family Member Ethnicity: Non- Living Status: Internal Medicine - H&P: Meds BuPROPion [Wellbutrin] 100 mg PO BID 08/24/15 [History] Lisinopril [Zestril] 10 mg PO QPM 08/24/15 [History] Atorvastatin [Lipitor] 10 mg PO HS #30 tablet 08/30/15 [Rx] Diltiazem CD (24hr) [Cardizem CD] 240 mg PO DAILY #30 cap.er.24h 08/30/15 [Rx] Magnesium 250 mg PO DAILY 09/03/16 [History] Levofloxacin 750 mg PO DAILY #10 tablet MDD STOP 09-17-16 09/07/16 [Rx] Ondansetron ODT [Zofran ODT] 4 mg SL Q6H PRN #12 tab.rapdis 09/07/16 [Rx] Sennosides/Docusate Sodium [Senna Plus] 2 each PO BID #60 tablet 09/07/16 [Rx] Aspirin 81 mg PO DAILY 09/12/16 [History] MOM Conc [MILK OF MAGNESIA conc] 10 ml PO DAILY PRN 09/12/16 [History] Polyethylene Glycol 3350 [MiraLAX] 17 gm PO BID 09/12/16 [History] Potassium Chloride 40 meq PO QAM MDD STOP 09-19-16 09/12/16 [History] Allergies Sulfa (Sulfonamide Antibiotics) Allergy (Verified 05/08/15 16:09) Rash All Systems PM: A 10-system review of systems was performed and is negative for pertinent findings except as documented above in the HPI. - Constitutional Constitutional: no chills, no fever(s), no night sweats - EENT Eyes: no change in vision, no discharge, no pain, no photophobia Ears: no ear discharge, no ear pain, no tinnitus Nose, mouth and throat: no dysphagia, no nasal discharge, no neck pain, no sore throat - Cardiovascular Cardiovascular ROS IM: no chest pain, no diaphoresis, no dyspnea, no lightheadedness, no palpitations, no syncope - Respiratory Respiratory: no cough, no dyspnea, no wheezing, no excessive phlegm production - Gastrointestinal Gastrointestinal: abdominal pain, bloating, constipation, no diarrhea, no hematemesis, no hematochezia, no melena, no nausea, no vomiting - Genitourinary Genitourinary: no change in urinary stream, no dysuria, no flank pain, no hematuria - Musculoskeletal Musculoskeletal ROS IM: no numbness, no tingling - Integumentary Integumentary IM: no rash, no unusual bruising - Neurological Neurological ROS: confusion (mild), no convulsions, no focal weakness, no numbness, no tingling, no tremor(s) - Hematologic/Lymphatic Hematologic/Lymphatic: no easy bruising - Constitutional Vitals: Temp Pulse Resp BP Pulse Ox 98.2 F 87 12 152/73 94 L 09/12/16 16:48 09/12/16 19:13 09/12/16 20:13 09/12/16 20:13 09/12/16 19:13 General appearance: Present: A&O X 1 (to person), pleasant, answers questions appropriately - Head Head exam: Present: atraumatic, normocephalic - Eye Eye exam: Present: EOMI, PERRL, conjuntiva pink, sclera anicteric Pupils: Present: PERRL - Neck Neck exam general surgery: Present: supple, trachea midline. Absent: lymphadenopathy - Respiratory Respiratory exam: Present: CTAB. Absent: accessory muscle use, rales, rhonchi, wheezes - Cardiovascular Cardiovascular exam: Present: RRR, +S1, +S2. Absent: diastolic murmur, gallop, rubs, systolic murmur - GI/Abdominal GI/Abdominal exam: Present: distended, normal bowel sounds, soft, no peritoneal signs. Absent: tenderness - Extremities Exam Extremities exam: Present: warm, radial pulses palpable and symetrical. Absent : calf tenderness, cyanotic, pedal edema - Back Exam Additional comments: right nephrostomy tube in place - Neurological Exam Neurological exam: Present: CN II-XII intact, oriented X3, no focal deficits. Absent: facial droop, speech deficit - Skin Skin exam: Present: dry, intact Internal Med - H&P Results - Labs CBC & Chem 7: 09/12/16 17:27 09/12/16 17:27 - Attending Attestation I examined this patient and my medical decision-making was reviewed with the CLINICAL EDUCATION ASSISTANT/PA/Advanced Practice Nurse/Resident Physician. I agree with the documented findings, disposition and treatment plan as described except to the extent set forth below. <Sasha Matta - Last Filed: 09/13/16 06:06> Date of Encounter: 09/12/16 Time of Encounter: 23:00 Internal Medicine - H&P: HPI History of present illness: Ms. Pelayo is a 86 year old female All Systems PM: A 10-system review of systems was performed and is negative for pertinent findings except as documented above in the HPI. - Constitutional Vitals: Temp Pulse Resp BP Pulse Ox 98.5 F 72 16 133/67 95 09/13/16 05:15 09/13/16 05:15 09/13/16 05:15 09/13/16 05:15 09/13/16 05:15 Internal Med - H&P Results - Labs CBC & Chem 7: 09/13/16 04:00 09/13/16 04:00 Labs: Short CBC 09/13/16 Range/Units 04:00 WBC 18.0 H (4.3-11.1) K/mcL Hgb 10.9 L D (11.5-15.4) g/dL Hct 35.1 L (35.3-44.9) % Plt Count 263 (140-400) K/mcL Neutrophils # 14.7 H (1.6-8.9) K/mcL BMP 09/13/16 04:00 Sodium 146 H Potassium 3.0 L Chloride 111 H Carbon Dioxide 26 BUN 35 H Creatinine 0.81 Glucose 81 Calcium 9.4 - Attending Attestation UA consistent with a UTI, will continue broad spectrum IV abx at this time. F/u Urology consult. Further management as listed in the above H&P.
[2016-09-12] MEDS: Sennosides/Docusate Sodium TABLET PO SCH (21:23)
[2016-09-13] MEDS: Insulin LISPRO 300 UNITS/3 ML VIAL SQ SCH ×4 (00:40→18:27)
[2016-09-13 01:37] LABS: Bilirubin,Urine Negative (Negative); Blood,Urine Large (Negative); Clarity,Urine Turbid (Clear); Color,Urine Yellow (Yellow); Glucose,Urine (UA) Normal (Normal); Ketones,Urine Negative (Negative); Leukocyte Esterase,Urine Large (Negative); Nitrite,Urine Negative (Negative); Protein,Urine 100 mg/dL (Neg-Trace); Specific Gravity,Urine 1.019 (1.010-1.025); Urobilinogen,Urine Normal (Normal)
[2016-09-13 01:39] LABS: RBC,Urine TNTC per hpf (0-3); Squamous Epithelial Cell,Urine Many per lpf (None-Few); WBC,Urine TNTC per hpf (0-3)
[2016-09-13 01:59] LABS: Bacteria,Urine Few per hpf (None-Few); Calcium Oxalate Crystals,Urine Present; Hyaline Casts,Urine Few per lpf (None-Few); Mucus,Urine Moderate (Few); Yeast,Urine Few per hpf (None Seen)
[2016-09-13 04:29] LABS: Basophils # 0.1 K/mcL (0.0-0.2); Basophils % 0.3 %; Eosinophils # 0.2 K/mcL (0.0-0.6); Eosinophils % 0.9 %; Hematocrit 35.1 % (35.3-44.9); Immature Granulocytes % 1.3 % (0-4); Lymphocytes # 1.1 K/mcL (0.6-4.6); Lymphocytes % 5.9 %; Mean Corpuscular HGB Conc 31.1 g/dL (31.6-35.5); Mean Corpuscular Hemoglobin 29.1 pg (28.0-33.3); Mean Corpuscular Volume 93.6 fL (83.0-100.0); Mean Platelet Volume 10.9 fL (9.4-12.4); Monocytes # 1.8 K/mcL (0.0-1.3); Monocytes % 10.1 %; Neutrophils # 14.7 K/mcL (1.6-8.9); Platelet Count 263 K/mcL (140-400); Red Blood Count 3.75 M/mcL (3.82-4.97); Red Cell Distribution Width 13.3 % (11.5-14.5); Segmented Neutrophils % 81.5 %
[2016-09-13 04:30] LABS: BUN/Creatinine Ratio 43 (6-26); Blood Urea Nitrogen 35 mg/dL (7-20); Calcium 9.4 mg/dL (8.6-10.8); Carbon Dioxide 26 mEq/L (19-29); Chloride 111 mEq/L (98-109); Glucose 81 mg/dL (70-99); Magnesium 2.3 mg/dL (1.6-2.6); Osmolality,Calculated 309 (280-300); Phosphorous 2.2 mg/dL (2.3-4.7); Sodium 146 mEq/L (136-145); eGFR For African Americans > 60 (> 60); eGFR For Non-African Americans > 60 (> 60)
[2016-09-13 04:31] LABS: Hemoglobin 10.9 g/dL (11.5-15.4)
[2016-09-13] MEDS: 0.9 % Sodium Chloride 1,000 ML IVC SCH ×2 (06:18→16:55)
[2016-09-13] MEDS: *HR* Heparin 5,000 UNIT/ML VIAL SQ SCH ×2 (06:18→17:32)
[2016-09-13] MEDS: Diltiazem CD (24hr) 240 MG CAPSULE PO SCH (07:47)
[2016-09-13] MEDS: Magnesium Oxide 400 MG TABLET PO SCH (07:47)
[2016-09-13] MEDS: Aspirin 81 MG TAB.CHEW PO SCH (07:49)
[2016-09-13] MEDS: Sennosides/Docusate Sodium TABLET PO SCH ×2 (07:49→21:01)
--- NOTE | 2016-09-13 08:45 | Urology - Consult Note ---
Date of Encounter: 09/13/16 Time of Encounter: 08:40 - Assessment and Plan (1) Nephrolithiasis Current Visit: Yes Status: Acute Assessment and plan: 86 year old woman with a history of nephrolithiasis and a right nephrostomy tube. The CT shows that the nephrostomy tube is in the kidney, but it doesn't appear well curled to me. I recommend having IR assess the nephrostomy tube and see if it can be redeployed in order to get a better curl. (2) UTI (urinary tract infection) Current Visit: Yes Status: Acute Assessment and plan: Continue IV antibiotics. Await urine culture results. Qualifiers: Urinary tract infection type: acute cystitis Hematuria presence: without hematuria Qualified Code(s): N30.00 - Acute cystitis without hematuria Urology CN:HPI Consult date: 09/13/16 Reason for consult Urology: Other (UTI, stones) Requesting physician: Indra Crowe History of present illness: Wen is an 82 year old woman who presents with worsening WBC and concern for infection. She had some routine labwork done which showed a worsening WBC. She previously had a nephrostomy tube placed on the right side for a large right renal stone burden. She says she feels weak and tired. She denies any flank pain. Her urine has been clear from the right nephrostomy tube. Past Med Surg Social Fam HX - Past Medical History Medical history: dementia, diabetes, hypertension Psychiatric history: no psych history - Past Surgical History Surgical History: hysterectomy, orthopedic, other (right knee surgery, ankle surgeries), other (nephrostomy) - Social History Smoking Status: Never smoker Smokeless Tobacco Status: No Alcohol use: none Drug use: none - Family History Mother Adopted: No Family Member Ethnicity: Non- Living Status: Medications and Allergies BuPROPion [Wellbutrin] 100 mg PO BID 08/24/15 [History] Lisinopril [Zestril] 10 mg PO QPM 08/24/15 [History] Atorvastatin [Lipitor] 10 mg PO HS #30 tablet 08/30/15 [Rx] Diltiazem CD (24hr) [Cardizem CD] 240 mg PO DAILY #30 cap.er.24h 08/30/15 [Rx] Magnesium 250 mg PO DAILY 09/03/16 [History] Levofloxacin 750 mg PO DAILY #10 tablet MDD STOP 09-17-16 09/07/16 [Rx] Ondansetron ODT [Zofran ODT] 4 mg SL Q6H PRN #12 tab.rapdis 09/07/16 [Rx] Sennosides/Docusate Sodium [Senna Plus] 2 each PO BID #60 tablet 09/07/16 [Rx] Aspirin 81 mg PO DAILY 09/12/16 [History] MOM Conc [MILK OF MAGNESIA conc] 10 ml PO DAILY PRN 09/12/16 [History] Polyethylene Glycol 3350 [MiraLAX] 17 gm PO BID 09/12/16 [History] Potassium Chloride 40 meq PO QAM MDD STOP 09-19-16 09/12/16 [History] Allergies Sulfa (Sulfonamide Antibiotics) Allergy (Verified 05/08/15 16:09) Rash Review of Systems - Constitutional weakness, no chills, no fever(s) - EENT Nose, mouth and throat: no dizziness - Cardiovascular no chest pain - Respiratory no dyspnea - Gastrointestinal nausea, no vomiting - Genitourinary Genitourinary: no flank pain, no hematuria - Musculoskeletal no back pain - Integumentary no erythema, no rash - Neurological no weakness - Psychiatric no suicidal ideation - Hematologic/Lymphatic no easy bleeding - Allergic/Immunologic no wheezing Exam Initial Vital Signs Temp Pulse Resp BP Pulse Ox 98.2 F 89 14 142/76 93 L 09/12/16 16:48 09/12/16 16:48 09/12/16 16:48 09/12/16 16:48 09/12/16 16:48 - General physical appearance Present: well developed, well nourished, no distress - Eyes Absent: icteric - ENT Present: normal nares - Neck Present: trachea midline - Respiratory Present: normal respiratory effort - Cardiovascular Cardiovascular exam IM: RRR - Abdomen Abdomen: Present: soft - Genitourinary Present: other (nephrostomy tube with clear urine.) Urology Results - Labs 09/13/16 04:00 09/13/16 04:00 Abnormal lab results WBC 18.0 K/mcL (4.3-11.1) H 09/13/16 04:00 RBC 3.75 M/mcL (3.82-4.97) L 09/13/16 04:00 Hgb 10.9 g/dL (11.5-15.4) L D 09/13/16 04:00 Hct 35.1 % (35.3-44.9) L 09/13/16 04:00 MCHC 31.1 g/dL (31.6-35.5) L 09/13/16 04:00 Neutrophils # 14.7 K/mcL (1.6-8.9) H 09/13/16 04:00 Monocytes # 1.8 K/mcL (0.0-1.3) H 09/13/16 04:00 Clumped Platelets Few (Not Present) A 09/12/16 17:27 Sodium 146 mEq/L (136-145) H 09/13/16 04:00 Potassium 3.0 mEq/L (3.5-4.5) L 09/13/16 04:00 Chloride 111 mEq/L (98-109) H 09/13/16 04:00 BUN 35 mg/dL (7-20) H 09/13/16 04:00 BUN/Creatinine Ratio 43 (6-26) H 09/13/16 04:00 POC Glucose 91 (58-89) H 09/13/16 05:14 Calculated Osmolality 309 (280-300) H 09/13/16 04:00 Phosphorus 2.2 mg/dL (2.3-4.7) L 09/13/16 04:00 Albumin 3.3 g/dL (3.5-5.0) L 09/12/16 17:27 Globulin 4.0 g/dL (2.4-3.5) H 09/12/16 17:27 Albumin/Globulin Ratio 0.8 (1.1-2.2) L 09/12/16 17:27 Amylase 8 Units/L (25-125) L 09/12/16 17:27 Urine Clarity Turbid (Clear) A 09/12/16 17:01 Urine Protein 100 mg/dL (Neg-Trace) H 09/12/16 17:01 Urine Blood Large (Negative) H 09/12/16 17:01 Ur Leukocyte Esterase Large (Negative) H 09/12/16 17:01 Urine Microscopic RBC TNTC per hpf (0-3) H 09/12/16 17:01 Urine Microscopic WBC TNTC per hpf (0-3) H 09/12/16 17:01 Ur Squamous Epith Cells Many per lpf (None-Few) H 09/12/16 17:01 Urine Mucus Moderate (Few) H 09/12/16 17:01 Urine Yeast Few per hpf (None Seen) H 09/12/16 17:01 Ur Culture Indicated? YES (NO) A 09/12/16 17:01 Diabetes panel 09/13/16 Range/Units 04:00 Sodium 146 H (136-145) mEq/L Potassium 3.0 L (3.5-4.5) mEq/L Chloride 111 H (98-109) mEq/L Carbon Dioxide 26 (19-29) mEq/L BUN 35 H (7-20) mg/dL Creatinine 0.81 (0.57-1.11) mg/dL Glucose 81 (70-99) mg/dL Calcium 9.4 (8.6-10.8) mg/dL Calcium panel 09/13/16 Range/Units 04:00 Calcium 9.4 (8.6-10.8) mg/dL Phosphorus 2.2 L (2.3-4.7) mg/dL Pituitary panel 09/13/16 Range/Units 04:00 Sodium 146 H (136-145) mEq/L Potassium 3.0 L (3.5-4.5) mEq/L Chloride 111 H (98-109) mEq/L Carbon Dioxide 26 (19-29) mEq/L BUN 35 H (7-20) mg/dL Creatinine 0.81 (0.57-1.11) mg/dL Glucose 81 (70-99) mg/dL Calcium 9.4 (8.6-10.8) mg/dL Adrenal panel 09/13/16 Range/Units 04:00 Sodium 146 H (136-145) mEq/L Potassium 3.0 L (3.5-4.5) mEq/L Chloride 111 H (98-109) mEq/L Carbon Dioxide 26 (19-29) mEq/L BUN 35 H (7-20) mg/dL Creatinine 0.81 (0.57-1.11) mg/dL Glucose 81 (70-99) mg/dL Calcium 9.4 (8.6-10.8) mg/dL All other labs normal. - Imaging CT scan - abdomen: report reviewed, image reviewed CT scan - pelvis: report reviewed, image reviewed Consult Discharge Plan - Plan Referrals: Shelli Ware, FRANK [Primary Care Provider] -
[2016-09-13] MEDS ORDERED: D5% in Water (Mini-Bag+) 100 ML IVPB ONE (10:18)
[2016-09-13] MEDS: Piperacillin/Tazobactam 3.375 GM in D5% in Water (Mini-Bag+) 100 ML IVPB SCH ×2 (10:33→17:32)
[2016-09-13] MEDS ORDERED: 0.9 % Sodium Chloride 500 ML ONE (10:46)
--- NOTE | 2016-09-13 15:07 | Internal Med Progress Note ---
Date of Encounter: 09/13/16 Time of Encounter: 09:00 - Assessment and plan (1) Leukocytosis Current Visit: Yes Status: Acute Assessment and plan: Possibly due to the UTI and malfunction of nephrostomy tube. Continue Zosyn, nephrostomy tube has exchanged. Follow up urine culture results. Qualifiers: Leukocytosis type: unspecified Qualified Code(s): D72.829 - Elevated white blood cell count, unspecified (2) Atrial fibrillation Current Visit: Yes Status: Acute Assessment and plan: Patient has a history of A. Fib with RVR, but was converted back to sinus rhythm. CVA coverage was reported to be ASA 81mg due to risk of anticoagulation with underlying dementia and risk of bleeding. Continue diltiazem for rate control. Continue Aspirin 81mg. Qualifiers: Atrial fibrillation type: paroxysmal Qualified Code(s): I48.0 - Paroxysmal atrial fibrillation (3) Essential hypertension Current Visit: Yes Status: Acute Assessment and plan: Continue home medication, follow-up of blood pressure. (4) UTI (urinary tract infection) Current Visit: Yes Status: Acute Assessment and plan: Continue Zosyn. Follow up her urine culture Qualifiers: Urinary tract infection type: acute cystitis Hematuria presence: without hematuria Qualified Code(s): N30.00 - Acute cystitis without hematuria (5) Constipation Current Visit: No Status: Acute Assessment and plan: Continue MiraLAX and senna/docusate, enema if necessary Qualifiers: Constipation type: chronic idiopathic constipation Qualified Code(s): K59.04 - Chronic idiopathic constipation (6) Hypokalemia Current Visit: No Status: Acute Assessment and plan: We will continue to supplement, follow-up potassium level (7) Vascular dementia Current Visit: No Status: Chronic Assessment and plan: Chronic and stable Qualifiers: Dementia behavioral disturbance: without behavioral disturbance Qualified Code(s): F01.50 - Vascular dementia without behavioral disturbance (8) DVT prophylaxis Current Visit: No Status: Acute Assessment and plan: Heparin subcutaneously - Time Spent With Patient 25 - 35 minutes - Subjective Interval history: Patient is a 86-year-old female seen the from the group home for leukocytosis. Her past medical history is significant for dementia, diabetes, hypertension, S/P right nephrostomy. Patient was seen and examined. She is demented, awake alert but not are not tender to place and time. She has no fever, no nausea, no vomiting. In no acute distress. Vital signs stable. On Zosyn. Urine culture sent. Results is pending. Urology saw patient and suggested to change of the nephrostomy tube. Nephrostomy tube has been Changed by IR. Will continue current management. - Constitutional Vitals: Temp Pulse Resp BP Pulse Ox 98.5 F 64 16 152/68 96 09/13/16 14:15 09/13/16 14:15 09/13/16 14:15 09/13/16 14:15 09/13/16 14:15 General appearance: Present: A&O X 1 (to person), pleasant, answers questions appropriately - Head Head exam: Present: atraumatic, normocephalic - Eye Eye exam: Present: PERRL, conjuntiva pink, sclera anicteric Pupils: Present: PERRL - Neck Neck exam general surgery: Present: supple, trachea midline. Absent: lymphadenopathy - Respiratory Respiratory exam: Present: CTAB. Absent: accessory muscle use, rales, rhonchi, wheezes - Cardiovascular Cardiovascular exam: Present: RRR, +S1, +S2. Absent: diastolic murmur, gallop, rubs, systolic murmur - GI/Abdominal GI/Abdominal exam: Present: normal bowel sounds, soft, no peritoneal signs. Absent: distended, tenderness Additional comments: Right nephrostomy tube in place - Extremities Exam Extremities exam: Present: warm, radial pulses palpable and symetrical. Absent : calf tenderness, cyanotic, pedal edema - Neurological Exam Neurological exam: Present: CN II-XII intact, oriented X3, no focal deficits. Absent: pronater drift, facial droop, speech deficit - Skin Skin exam: Present: dry, intact Internal Medicine: Result - Labs CBC & Chem 7: 09/13/16 04:00 09/13/16 04:00 Consult Discharge Plan - Plan Referrals: Shelli Ware CNP [Primary Care Provider] -
[2016-09-14] MEDS: Piperacillin/Tazobactam 3.375 GM in D5% in Water (Mini-Bag+) 100 ML IVPB SCH ×3 (00:07→16:17)
[2016-09-14] MEDS: Insulin LISPRO 300 UNITS/3 ML VIAL SQ SCH ×4 (00:12→19:34)
[2016-09-14] MEDS: 0.9 % Sodium Chloride 1,000 ML IVC SCH ×4 (03:47→16:26)
[2016-09-14 04:18] LABS: BUN/Creatinine Ratio 25 (6-26); Carbon Dioxide 25 mEq/L (19-29); Chloride 110 mEq/L (98-109); Glucose 83 mg/dL (70-99); Osmolality,Calculated 294 (280-300); Potassium 2.6 mEq/L (3.5-4.5); Sodium 142 mEq/L (136-145); eGFR For African Americans > 60 (> 60); eGFR For Non-African Americans > 60 (> 60)
[2016-09-14 04:19] LABS: Blood Urea Nitrogen 16 mg/dL (7-20)
[2016-09-14 04:20] LABS: Basophils # 0.1 K/mcL (0.0-0.2); Basophils % 0.5 %; Eosinophils # 0.3 K/mcL (0.0-0.6); Eosinophils % 2.3 %; Hematocrit 33.6 % (35.3-44.9); Hemoglobin 10.5 g/dL (11.5-15.4); Immature Granulocytes % 0.6 % (0-4); Lymphocytes % 7.3 %; Mean Corpuscular HGB Conc 31.3 g/dL (31.6-35.5); Mean Corpuscular Hemoglobin 29.2 pg (28.0-33.3); Mean Corpuscular Volume 93.3 fL (83.0-100.0); Mean Platelet Volume 10.9 fL (9.4-12.4); Monocytes # 1.2 K/mcL (0.0-1.3); Monocytes % 8.7 %; Neutrophils # 11.4 K/mcL (1.6-8.9); Platelet Count 223 K/mcL (140-400); Red Cell Distribution Width 13.2 % (11.5-14.5); Segmented Neutrophils % 80.6 %
[2016-09-14] MEDS: *HR* Heparin 5,000 UNIT/ML VIAL SQ SCH ×2 (05:28→16:18)
--- NOTE | 2016-09-14 07:40 | Urology Progress Note ---
Date of Encounter: 09/14/16 Time of Encounter: 07:37 - Assessment and Plan (1) Nephrolithiasis Current Visit: Yes Status: Acute Assessment and plan: Nephrostomy tube in good position now. Will arrange for follow up with Dr. Taylor for right PCNL later on. (2) UTI (urinary tract infection) Current Visit: Yes Status: Acute Assessment and plan: Urine culture was negative. WBC improving. Okay to move to oral antibiotic or d/c altogether. Qualifiers: Urinary tract infection type: acute cystitis Hematuria presence: without hematuria Qualified Code(s): N30.00 - Acute cystitis without hematuria Progress Note Narrative: 86 year old woman with nephrolithiasis and right nephrostomy tube. It was exchanged yesterday as it became dislodged. She is doing well. Urine culture is negative. Objective Initial Vital Signs Temp Pulse Resp BP Pulse Ox 98.2 F 89 14 142/76 93 L 09/12/16 16:48 09/12/16 16:48 09/12/16 16:48 09/12/16 16:48 09/12/16 16:48 - General physical appearance Present: well developed, well nourished, no distress - Respiratory Present: normal respiratory effort - Abdomen Present: soft - Labs 09/14/16 03:42 09/14/16 03:42 Diabetes panel 09/14/16 Range/Units 03:42 Sodium 142 (136-145) mEq/L Potassium 2.6 L (3.5-4.5) mEq/L Chloride 110 H (98-109) mEq/L Carbon Dioxide 25 (19-29) mEq/L BUN 16 D (7-20) mg/dL Creatinine 0.63 (0.57-1.11) mg/dL Glucose 83 (70-99) mg/dL Calcium 9.0 (8.6-10.8) mg/dL Calcium panel 09/14/16 Range/Units 03:42 Calcium 9.0 (8.6-10.8) mg/dL Pituitary panel 09/14/16 Range/Units 03:42 Sodium 142 (136-145) mEq/L Potassium 2.6 L (3.5-4.5) mEq/L Chloride 110 H (98-109) mEq/L Carbon Dioxide 25 (19-29) mEq/L BUN 16 D (7-20) mg/dL Creatinine 0.63 (0.57-1.11) mg/dL Glucose 83 (70-99) mg/dL Calcium 9.0 (8.6-10.8) mg/dL Adrenal panel 09/14/16 Range/Units 03:42 Sodium 142 (136-145) mEq/L Potassium 2.6 L (3.5-4.5) mEq/L Chloride 110 H (98-109) mEq/L Carbon Dioxide 25 (19-29) mEq/L BUN 16 D (7-20) mg/dL Creatinine 0.63 (0.57-1.11) mg/dL Glucose 83 (70-99) mg/dL Calcium 9.0 (8.6-10.8) mg/dL Consult Discharge Plan - Plan Referrals: Shelli Ware, FRANK [Primary Care Provider] -
[2016-09-14] MEDS: Magnesium Oxide 400 MG TABLET PO SCH (08:37)
[2016-09-14] MEDS: Diltiazem CD (24hr) 240 MG CAPSULE PO SCH (08:37)
[2016-09-14] MEDS: Aspirin 81 MG TAB.CHEW PO SCH (08:37)
[2016-09-14] MEDS: Sennosides/Docusate Sodium TABLET PO SCH ×2 (08:38→19:36)
--- NOTE | 2016-09-14 15:25 | Internal Med Progress Note ---
Date of Encounter: 09/14/16 Time of Encounter: 09:00 - Assessment and plan (1) Leukocytosis Current Visit: Yes Status: Acute Assessment and plan: Possibly due to the UTI and malfunction of nephrostomy tube. Continue Zosyn, nephrostomy tube has exchanged. White count is getting down. Qualifiers: Leukocytosis type: unspecified Qualified Code(s): D72.829 - Elevated white blood cell count, unspecified (2) Atrial fibrillation Current Visit: Yes Status: Acute Assessment and plan: Patient has a history of A. Fib with RVR, but was converted back to sinus rhythm. CVA coverage was reported to be ASA 81mg due to risk of anticoagulation with underlying dementia and risk of bleeding. Continue diltiazem for rate control. Continue Aspirin 81mg. Qualifiers: Atrial fibrillation type: paroxysmal Qualified Code(s): I48.0 - Paroxysmal atrial fibrillation (3) Essential hypertension Current Visit: Yes Status: Acute Assessment and plan: Continue home medication, follow-up of blood pressure. (4) UTI (urinary tract infection) Current Visit: Yes Status: Acute Assessment and plan: Continue Zosyn. Urine culture shows no growth Qualifiers: Urinary tract infection type: acute cystitis Hematuria presence: without hematuria Qualified Code(s): N30.00 - Acute cystitis without hematuria (5) Constipation Current Visit: No Status: Acute Assessment and plan: Continue MiraLAX and senna/docusate, enema if necessary Qualifiers: Constipation type: chronic idiopathic constipation Qualified Code(s): K59.04 - Chronic idiopathic constipation (6) Hypokalemia Current Visit: No Status: Acute Assessment and plan: We will continue to supplement, given extra two dose of potassium supplement. follow-up potassium level (7) Vascular dementia Current Visit: No Status: Chronic Assessment and plan: Chronic and stable Qualifiers: Dementia behavioral disturbance: without behavioral disturbance Qualified Code(s): F01.50 - Vascular dementia without behavioral disturbance (8) DVT prophylaxis Current Visit: No Status: Acute Assessment and plan: Heparin subcutaneously - Time Spent With Patient 25 - 35 minutes - Subjective Interval history: Patient is a 86-year-old female seen the from the long-term for leukocytosis. Her past medical history is significant for dementia, diabetes, hypertension, S/P right nephrostomy. Patient was seen and examined. She is demented, awake alert, today is more oriented, cannot tell me her name and date of and know she is in hospital. She has no fever, no nausea, no vomiting. In no acute distress. Vital signs stable. On Zosyn. Urine culture negative. Urology saw patient and the new nephrostomy tube work well. Hypokalemia although on potassium supplement. Will give 2 extra dose of potassium. Will continue current management. White count is getting down. Discharge planning. - Constitutional Vitals: Temp Pulse Resp BP Pulse Ox 98.5 F 75 16 123/75 98 09/14/16 08:13 09/14/16 08:13 09/14/16 08:13 09/14/16 08:13 09/14/16 08:13 General appearance: Present: A&O X 2, pleasant, answers questions appropriately - Head Head exam: Present: atraumatic, normocephalic - Eye Eye exam: Present: PERRL, conjuntiva pink, sclera anicteric Pupils: Present: PERRL - Neck Neck exam general surgery: Present: supple, trachea midline. Absent: lymphadenopathy - Respiratory Respiratory exam: Present: CTAB. Absent: accessory muscle use, rales, rhonchi, wheezes - Cardiovascular Cardiovascular exam: Present: RRR, +S1, +S2. Absent: diastolic murmur, gallop, rubs, systolic murmur - GI/Abdominal GI/Abdominal exam: Present: normal bowel sounds, soft, no peritoneal signs. Absent: distended, tenderness Additional comments: Right nephrostomy tube is in place. - Extremities Exam Extremities exam: Present: warm, radial pulses palpable and symetrical. Absent : calf tenderness, cyanotic, pedal edema - Neurological Exam Neurological exam: Present: CN II-XII intact, oriented X3, no focal deficits. Absent: pronater drift, facial droop, speech deficit - Skin Skin exam: Present: dry, intact Internal Medicine: Result - Labs CBC & Chem 7: 09/14/16 03:42 09/14/16 03:42 Labs: Short CBC 09/14/16 Range/Units 03:42 WBC 14.2 H (4.3-11.1) K/mcL Hgb 10.5 L (11.5-15.4) g/dL Hct 33.6 L (35.3-44.9) % Plt Count 223 (140-400) K/mcL Neutrophils # 11.4 H (1.6-8.9) K/mcL [facility] 09/14/16 03:42 Sodium 142 Potassium 2.6 L Chloride 110 H Carbon Dioxide 25 BUN 16 D Creatinine 0.63 Glucose 83 Calcium 9.0 Consult Discharge Plan - Plan Referrals: Shelli Ware, [employer]GER [Primary Care Provider] -
[2016-09-14] MEDS: Potassium Chloride Elixir 20 MEQ/15 ML UDC PO SCH ×2 (16:18→19:40)
[2016-09-15] MEDS: Insulin LISPRO 300 UNITS/3 ML VIAL SQ SCH ×4 (00:22→17:53)
[2016-09-15] MEDS: Piperacillin/Tazobactam 3.375 GM in D5% in Water (Mini-Bag+) 100 ML IVPB SCH ×2 (00:24→09:04)
[2016-09-15] MEDS: *HR* Heparin 5,000 UNIT/ML VIAL SQ SCH ×2 (06:09→17:52)
--- NOTE | 2016-09-15 07:21 | Urology Progress Note ---
Date of Encounter: 09/15/16 Time of Encounter: 07:19 - Assessment and Plan (1) Nephrolithiasis Current Visit: Yes Status: Acute Assessment and plan: Will manage once discharged. Continue nephrostomy tube. She can follow up with Dr. Taylor after discharge. (2) UTI (urinary tract infection) Current Visit: Yes Status: Acute Assessment and plan: WBC had been trending down. Labs are pending today. Consider transitioning to PO antibiotic. Urine cultures have been negative. Would consider PO fluoroquinolone based upon previous urine culture. will sign off. Please call with questions. Qualifiers: Urinary tract infection type: acute cystitis Hematuria presence: without hematuria Qualified Code(s): N30.00 - Acute cystitis without hematuria Progress Note Narrative: Doing well. No complaints today. Objective Initial Vital Signs Temp Pulse Resp BP Pulse Ox 98.2 F 89 14 142/76 93 L 09/12/16 16:48 09/12/16 16:48 09/12/16 16:48 09/12/16 16:48 09/12/16 16:48 - General physical appearance Present: well developed, well nourished, no distress - Respiratory Present: normal respiratory effort - Abdomen Present: soft - Genitourinary Urine Appearance: Present: Clear - Labs 09/14/16 03:42 09/14/16 03:42 Consult Discharge Plan - Plan Referrals: Shelli Ware [employer]IN[employer] JUDGE [Primary Care Provider] -
[2016-09-15] MEDS: Magnesium Oxide 400 MG TABLET PO SCH (08:46)
[2016-09-15] MEDS: Aspirin 81 MG TAB.CHEW PO SCH (08:46)
[2016-09-15] MEDS: Diltiazem CD (24hr) 240 MG CAPSULE PO SCH (08:46)
[2016-09-15 10:41] LABS: Basophils % 0.3 %; Eosinophils # 0.2 K/mcL (0.0-0.6); Eosinophils % 1.5 %; Hemoglobin 11.2 g/dL (11.5-15.4); Immature Granulocytes % 0.7 % (0-4); Lymphocytes # 0.8 K/mcL (0.6-4.6); Lymphocytes % 5.6 %; Mean Corpuscular Hemoglobin 29.2 pg (28.0-33.3); Mean Corpuscular Volume 91.1 fL (83.0-100.0); Mean Platelet Volume 11.1 fL (9.4-12.4); Monocytes % 7.2 %; Neutrophils # 11.6 K/mcL (1.6-8.9); Platelet Count 236 K/mcL (140-400); Red Blood Count 3.84 M/mcL (3.82-4.97); Red Cell Distribution Width 13.1 % (11.5-14.5); Segmented Neutrophils % 84.7 %
[2016-09-15] MEDS ORDERED: Milk and Molasses Enema 200 ML RC ONE (11:35)
[2016-09-15 11:45] LABS: Blood Urea Nitrogen 8 mg/dL (7-20); Calcium 9.3 mg/dL (8.6-10.8); Carbon Dioxide 24 mEq/L (19-29); Chloride 111 mEq/L (98-109); Glucose 125 mg/dL (70-99); Osmolality,Calculated 298 (280-300); Potassium 2.8 mEq/L (3.5-4.5); Sodium 144 mEq/L (136-145)
[2016-09-15 12:03] LABS: BUN/Creatinine Ratio 13 (6-26); eGFR For African Americans > 60 (> 60); eGFR For Non-African Americans > 60 (> 60)
[2016-09-15] MEDS ORDERED: Potassium Chloride 40 MEQ, Lidocaine 1% 2 ML in D5% in Water 500 ML IVPB ONE (15:16)
--- NOTE | 2016-09-15 15:29 | Internal Med Progress Note ---
Date of Encounter: 09/15/16 Time of Encounter: 09:00 - Assessment and plan (1) Leukocytosis Current Visit: Yes Status: Acute Assessment and plan: Possibly due to the UTI and malfunction of nephrostomy tube. nephrostomy tube has exchanged. White count is getting down. Switch Zosyn to by mouth Levaquin Qualifiers: Leukocytosis type: unspecified Qualified Code(s): D72.829 - Elevated white blood cell count, unspecified (2) Atrial fibrillation Current Visit: Yes Status: Acute Assessment and plan: Patient has a history of A. Fib with RVR, but was converted back to sinus rhythm. CVA coverage was reported to be ASA 81mg due to risk of anticoagulation with underlying dementia and risk of bleeding. Continue diltiazem for rate control. Continue Aspirin 81mg. Qualifiers: Atrial fibrillation type: paroxysmal Qualified Code(s): I48.0 - Paroxysmal atrial fibrillation (3) Essential hypertension Current Visit: Yes Status: Acute Assessment and plan: Continue home medication, follow-up of blood pressure. (4) UTI (urinary tract infection) Current Visit: Yes Status: Acute Assessment and plan: Levaquin by mouth. Urine culture shows no growth Qualifiers: Urinary tract infection type: acute cystitis Hematuria presence: without hematuria Qualified Code(s): N30.00 - Acute cystitis without hematuria (5) Constipation Current Visit: No Status: Acute Assessment and plan: Continue MiraLAX and senna/docusate, had a Fleet enema yesterday, still no bowel movement. Tried manual defecation but cannot reach stool. Will try milk and molasses enema. Qualifiers: Constipation type: chronic idiopathic constipation Qualified Code(s): K59.04 - Chronic idiopathic constipation (6) Hypokalemia Current Visit: No Status: Acute Assessment and plan: We will continue to supplement, highly suspect patient cannot get supplemental from by mouth, will give IV potassium today. follow-up potassium level (7) Vascular dementia Current Visit: No Status: Chronic Assessment and plan: Chronic and stable Qualifiers: Dementia behavioral disturbance: without behavioral disturbance Qualified Code(s): F01.50 - Vascular dementia without behavioral disturbance (8) DVT prophylaxis Current Visit: No Status: Acute Assessment and plan: Heparin subcutaneously - Time Spent With Patient 25 - 35 minutes - Subjective Interval history: Patient is a 86-year-old female seen [facility] from the [facility]. Her past medical history is significant for dementia, diabetes, hypertension, S/P right nephrostomy. Patient was seen and examined. She is demented, awake alert, today is more oriented. She has no fever, no nausea, no vomiting. In no acute distress. Vital signs stable. Urine culture negative. WBC is getting down, will DC Zosyn and changed to by mouth Levaquin. Patient has severe constipation, no bowel movement after enema. Today manual defecation tried but cannot reach hard stool. We will try milk and molasses enema and continue other stool softeners. Persist hypokalemia. Will give iv dose of potassium. - Constitutional Vitals: Temp Pulse Resp BP Pulse Ox 98.9 F 67 17 145/91 98 09/15/16 11:07 09/15/16 11:07 09/15/16 11:07 09/15/16 11:07 09/15/16 11:07 General appearance: Present: A&O X 2, pleasant, answers questions appropriately - Head Head exam: Present: atraumatic, normocephalic - Eye Eye exam: Present: PERRL, conjuntiva pink, sclera anicteric Pupils: Present: PERRL - Neck Neck exam general surgery: Present: supple, trachea midline. Absent: lymphadenopathy - Respiratory Respiratory exam: Present: CTAB. Absent: accessory muscle use, rales, rhonchi, wheezes - Cardiovascular Cardiovascular exam: Present: RRR, +S1, +S2. Absent: diastolic murmur, gallop, rubs, systolic murmur - GI/Abdominal GI/Abdominal exam: Present: distended, normal bowel sounds, soft, tenderness ( Mild tenderness without rebound or guarding), no peritoneal signs - Extremities Exam Extremities exam: Present: warm, radial pulses palpable and symetrical. Absent : calf tenderness, cyanotic, pedal edema - Neurological Exam Neurological exam: Present: CN II-XII intact, oriented X3, no focal deficits. Absent: pronater drift, facial droop, speech deficit - Skin Skin exam: Present: dry, intact Internal Medicine: Result - Labs CBC & Chem 7: 09/15/16 10:07 09/15/16 10:07 Labs: Short CBC 09/15/16 Range/Units 10:07 WBC 13.6 H (4.3-11.1) K/mcL Hgb 11.2 L (11.5-15.4) g/dL Hct 35.0 L (35.3-44.9) % Plt Count 236 (140-400) K/mcL Neutrophils # 11.6 H (1.6-8.9) K/mcL BMP 09/15/16 10:07 Sodium 144 Potassium 2.8 L Chloride 111 H Carbon Dioxide 24 BUN 8 Creatinine 0.60 Glucose 125 H Calcium 9.3 Consult Discharge Plan - Plan Referrals: Shelli Ware, [employer] COMPLIANCE MANAGER [Primary Care Provider] -
[2016-09-15] MEDS: levoFLOXacin 500 MG TABLET PO SCH (16:17)
[2016-09-15] MEDS: Sennosides/Docusate Sodium TABLET PO SCH ×2 (16:19→20:51)
[2016-09-15] MEDS: 0.9 % Sodium Chloride 1,000 ML IVC SCH (17:53)
[2016-09-16] MEDS: Insulin LISPRO 300 UNITS/3 ML VIAL SQ SCH ×4 (01:31→17:39)
[2016-09-16] MEDS: *HR* Heparin 5,000 UNIT/ML VIAL SQ SCH ×2 (05:20→17:44)
[2016-09-16 05:49] LABS: Basophils % 0.3 %; Eosinophils # 0.4 K/mcL (0.0-0.6); Eosinophils % 3.4 %; Hematocrit 33.2 % (35.3-44.9); Hemoglobin 10.6 g/dL (11.5-15.4); Immature Granulocytes % 0.5 % (0-4); Lymphocytes # 0.8 K/mcL (0.6-4.6); Lymphocytes % 7.2 %; Mean Corpuscular HGB Conc 31.9 g/dL (31.6-35.5); Mean Corpuscular Hemoglobin 29.4 pg (28.0-33.3); Mean Corpuscular Volume 92.2 fL (83.0-100.0); Mean Platelet Volume 10.5 fL (9.4-12.4); Monocytes % 8.8 %; Neutrophils # 9.2 K/mcL (1.6-8.9); Platelet Count 205 K/mcL (140-400); Red Cell Distribution Width 13.1 % (11.5-14.5); Segmented Neutrophils % 79.8 %
[2016-09-16 06:06] LABS: BUN/Creatinine Ratio 12 (6-26); Blood Urea Nitrogen 7 mg/dL (7-20); Calcium 9.1 mg/dL (8.6-10.8); Carbon Dioxide 26 mEq/L (19-29); Chloride 110 mEq/L (98-109); Glucose 98 mg/dL (70-99); Osmolality,Calculated 290 (280-300); Potassium 2.9 mEq/L (3.5-4.5); Sodium 141 mEq/L (136-145); eGFR For African Americans > 60 (> 60); eGFR For Non-African Americans > 60 (> 60)
[2016-09-16] MEDS: levoFLOXacin 500 MG TABLET PO SCH (09:08)
[2016-09-16] MEDS: Potassium Chloride Elixir 20 MEQ/15 ML UDC PO SCH ×2 (09:08→15:50)
[2016-09-16] MEDS: Magnesium Oxide 400 MG TABLET PO SCH (09:08)
[2016-09-16] MEDS: Diltiazem CD (24hr) 240 MG CAPSULE PO SCH (09:08)
[2016-09-16] MEDS: Sennosides/Docusate Sodium TABLET PO SCH ×2 (09:08→20:27)
[2016-09-16] MEDS: Aspirin 81 MG TAB.CHEW PO SCH (09:08)
[2016-09-16] MEDS: 0.9 % Sodium Chloride 1,000 ML IVC SCH (09:26)
[2016-09-16] MEDS ORDERED: *HR* LORazepam 2 MG/ML VIAL IVP PRN (13:38)
--- NOTE | 2016-09-16 14:44 | Internal Med Progress Note ---
Date of Encounter: 09/16/16 Time of Encounter: 09:00 - Assessment and plan (1) Leukocytosis Current Visit: Yes Status: Acute Assessment and plan: Possibly due to the UTI and malfunction of nephrostomy tube. nephrostomy tube has exchanged. White count is getting down. Switch Zosyn to by mouth Levaquin Qualifiers: Leukocytosis type: unspecified Qualified Code(s): D72.829 - Elevated white blood cell count, unspecified (2) Atrial fibrillation Current Visit: Yes Status: Acute Assessment and plan: Patient has a history of A. Fib with RVR, but was converted back to sinus rhythm. CVA coverage was reported to be ASA 81mg due to risk of anticoagulation with underlying dementia and risk of bleeding. Continue diltiazem for rate control. Continue Aspirin 81mg. Qualifiers: Atrial fibrillation type: paroxysmal Qualified Code(s): I48.0 - Paroxysmal atrial fibrillation (3) Essential hypertension Current Visit: Yes Status: Acute Assessment and plan: Continue home medication, follow-up of blood pressure. (4) UTI (urinary tract infection) Current Visit: Yes Status: Acute Assessment and plan: Levaquin by mouth. Urine culture shows no growth Qualifiers: Urinary tract infection type: acute cystitis Hematuria presence: without hematuria Qualified Code(s): N30.00 - Acute cystitis without hematuria (5) Constipation Current Visit: No Status: Acute Assessment and plan: Resolved after milk and molasses enema. Continue MiraLAX and senna/docusate . Qualifiers: Constipation type: chronic idiopathic constipation Qualified Code(s): K59.04 - Chronic idiopathic constipation (6) Hypokalemia Current Visit: No Status: Acute Assessment and plan: We will continue to supplement. follow-up potassium level (7) Vascular dementia Current Visit: No Status: Chronic Assessment and plan: Chronic and stable Qualifiers: Dementia behavioral disturbance: without behavioral disturbance Qualified Code(s): F01.50 - Vascular dementia without behavioral disturbance (8) DVT prophylaxis Current Visit: No Status: Acute Assessment and plan: Heparin subcutaneously - Time Spent With Patient 25 - 35 minutes - Subjective Interval history: Patient is a 86-year-old female seen the from the senior care for leukocytosis. Her past medical history is significant for dementia, diabetes, hypertension, S/P right nephrostomy. Patient was seen and examined. She is demented, awake alert, oriented x 2. She has no fever, no nausea, no vomiting. In no acute distress. Vital signs stable. Urine culture negative. On by mouth Levaquin. Patient had BM yesterday after enema, will cont stool softener. Persist hypokalemia. Will continue potassium supplement. - Constitutional Vitals: Temp Pulse Resp BP Pulse Ox 98.6 F 72 16 115/74 97 09/16/16 14:21 09/16/16 14:21 09/16/16 14:21 09/16/16 14:21 09/16/16 14:21 General appearance: Present: A&O X 2, pleasant, answers questions appropriately - Head Head exam: Present: atraumatic, normocephalic - Eye Eye exam: Present: PERRL, conjuntiva pink, sclera anicteric Pupils: Present: PERRL - Neck Neck exam general surgery: Present: supple, trachea midline. Absent: lymphadenopathy - Respiratory Respiratory exam: Present: CTAB. Absent: accessory muscle use, rales, rhonchi, wheezes - Cardiovascular Cardiovascular exam: Present: RRR, +S1, +S2. Absent: diastolic murmur, gallop, rubs, systolic murmur - GI/Abdominal GI/Abdominal exam: Present: normal bowel sounds, soft, no peritoneal signs. Absent: distended, tenderness Additional comments: Nephrostomy tube/bag is in place - Extremities Exam Extremities exam: Present: warm, radial pulses palpable and symetrical. Absent : calf tenderness, cyanotic, pedal edema - Neurological Exam Neurological exam: Present: CN II-XII intact, oriented X3, no focal deficits. Absent: pronater drift, facial droop, speech deficit - Skin Skin exam: Present: dry, intact Internal Medicine: Result - Labs CBC & Chem 7: 09/16/16 05:36 09/16/16 05:36 Labs: Short CBC 09/16/16 Range/Units 05:36 WBC 11.6 H (4.3-11.1) K/mcL Hgb 10.6 L (11.5-15.4) g/dL Hct 33.2 L (35.3-44.9) % Plt Count 205 (140-400) K/mcL Neutrophils # 9.2 H (1.6-8.9) K/mcL BMP 09/16/16 05:36 Sodium 141 Potassium 2.9 L Chloride 110 H Carbon Dioxide 26 BUN 7 Creatinine 0.57 Glucose 98 Calcium 9.1 Consult Discharge Plan - Plan Referrals: Shelli Ware CNP [Primary Care Provider] -
[2016-09-17] MEDS: Insulin LISPRO 300 UNITS/3 ML VIAL SQ SCH ×5 (00:12→23:22)
[2016-09-17 05:26] LABS: Basophils % 0.3 %; Eosinophils # 0.4 K/mcL (0.0-0.6); Eosinophils % 3.4 %; Hemoglobin 10.6 g/dL (11.5-15.4); Immature Granulocytes % 0.5 % (0-4); Lymphocytes # 0.9 K/mcL (0.6-4.6); Lymphocytes % 8.2 %; Mean Corpuscular HGB Conc 32.1 g/dL (31.6-35.5); Mean Corpuscular Hemoglobin 30.2 pg (28.0-33.3); Mean Platelet Volume 11.1 fL (9.4-12.4); Monocytes % 9.6 %; Neutrophils # 8.2 K/mcL (1.6-8.9); Platelet Count 201 K/mcL (140-400); Red Blood Count 3.51 M/mcL (3.82-4.97); Red Cell Distribution Width 13.2 % (11.5-14.5)
[2016-09-17] MEDS: *HR* Heparin 5,000 UNIT/ML VIAL SQ SCH ×2 (05:27→17:42)
[2016-09-17] MEDS: 0.9 % Sodium Chloride 1,000 ML IVC SCH ×2 (05:30→23:23)
[2016-09-17 05:53] LABS: BUN/Creatinine Ratio 11 (6-26); Blood Urea Nitrogen 7 mg/dL (7-20); Calcium 9.2 mg/dL (8.6-10.8); Carbon Dioxide 25 mEq/L (19-29); Chloride 111 mEq/L (98-109); Glucose 99 mg/dL (70-99); Osmolality,Calculated 292 (280-300); Potassium 3.6 mEq/L (3.5-4.5); Sodium 142 mEq/L (136-145); eGFR For African Americans > 60 (> 60); eGFR For Non-African Americans > 60 (> 60)
[2016-09-17] MEDS: Aspirin 81 MG TAB.CHEW PO SCH (09:04)
[2016-09-17] MEDS: levoFLOXacin 500 MG TABLET PO SCH (09:04)
[2016-09-17] MEDS: Sennosides/Docusate Sodium TABLET PO SCH ×2 (09:04→20:18)
[2016-09-17] MEDS: Magnesium Oxide 400 MG TABLET PO SCH (09:04)
[2016-09-17] MEDS: Diltiazem CD (24hr) 240 MG CAPSULE PO SCH (09:05)
--- NOTE | 2016-09-17 10:11 | Gastroenterology Consult Note ---
<Funmilayo Resendez - Last Filed: 09/17/16 14:08> Date of Encounter: 09/17/16 Time of Encounter: 11:25 - Assessment and plan (1) Constipation Current Visit: No Status: Chronic Assessment and plan: Likely worsened with recent placement of R nephrostomy tube and pain control. Daily fiber supplement, mirlax up to twice daily, stool softeners. Stimulant laxative recommended q3-4 days if needed. F/U in OTPT setting. Discussed regimen with patient daughter. Qualifiers: Constipation type: chronic idiopathic constipation Qualified Code(s): K59.04 - Chronic idiopathic constipation - Time Spent With Patient Total time spent is greater than 50% in coordination of care (as documented) at patient's floor/unit and/or counseling patient: less than 15 minutes GI History of Present Illness - Data of Consult Patient: new to practice Consult date: 09/17/16 Requesting Physician: Julio C Rose MD - Consult Narrative Reason for consult: Chronic constipation History of present illness: Ms. Pelayo is a 86 year old female with PMH significant for dementia, diabetes, and HTN who is 1 week status post right nephrostomy tube placement who presented to the ED for abnormal lab values. The patient resides at a SNF and was found to have an elevated white count which has now returned to normal (09/16 ) and was sent in for further evaluation. Additionally the patient had decreased output from her nephrostomy tube today and has been slightly more confused than usual per the daughter who was in the room. The patient complains of abdominal pain at times, and states that she feels bloated. She reports that she has not had much oral input as "nothing seems to agree with her lately" but she continues to drink some water. She denies flank pain, chest pain, shortness of breath, fevers, nausea and vomiting. She was found to have a large stool burden in the rectum. She was placed on miralax bid PRN, senna and given a milk & molasses enema yesterday with good stool return. She is also using MOM PRN for constipation. Information was obtained at bedside from daughter, patient was a poor historian. Colonoscopy: ? EGD: ? Past Med Surg Social Fam HX - Past Medical History Medical history: dementia, diabetes, hypertension Psychiatric history: no psych history - Past Surgical History Surgical History: hysterectomy, orthopedic, other (right knee surgery, ankle surgeries), other (nephrostomy) - Social History Smoking Status: Never smoker Smokeless Tobacco Status: No Alcohol use: none Drug use: none - Family History Mother Adopted: No Family Member Ethnicity: Non- Living Status: - Gastrointestinal NSAID use: None noted Anticoagulation Use: heparin Number of BM Per Day: Unk Gastrointestinal: Present: abdominal pain, constipation - Constitutional Constitutional: as per HPI - EENT Eyes: as per HPI Ears: Present: as per HPI Nose, mouth and throat: Present: as per HPI - Cardiovascular Cardiovascular ROS: Present: as per HPI - Respiratory Respiratory IM: Present: as per HPI - Neurological ROS Neurological GI: Present: confusion - Hematologic/Lymphatic Hematologic/Lymphatic pediatric: Present: as per HPI - Musculoskeletal Musculoskeletal ROS GI: Present: as per HPI - Integumentary Integumentary GI: Present: as per HPI - Psychiatric ROS Psychiatric GI: Present: as per HPI - Endocrine Endocrine IM: Present: as per HPI - Constitutional Vitals: Temp Pulse Resp BP Pulse Ox 97.9 F 64 16 157/69 97 09/17/16 08:16 09/17/16 08:16 09/17/16 08:16 09/17/16 08:16 09/17/16 08:16 General appearance: Present: cooperative, A&O X 2, no acute distress - Head Head exam: Present: atraumatic, normocephalic - Eye Eye exam: Present: normal appearance, sclera anicteric - ENT ENT exam: Present: mucous membranes moist - Neck Neck exam general surgery: Present: normal inspection, trachea midline - Respiratory Respiratory exam: Present: CTAB - Cardiovascular Cardiovascular exam: Present: RRR, +S1, +S2 - GI/Abdominal GI/Abdominal exam: Present: hyperactive bowel sounds, soft, no peritoneal signs - Rectal Rectal exam: Present: deferred - Extremities Exam Extremities exam: Present: warm - Neurological Exam Neurological exam: Present: no focal deficits - Psychiatric Psychiatric exam: Present: normal affect, normal mood - Skin Skin exam: Present: dry, intact, normal color, warm Results - Labs CBC & Chem 7: 09/17/16 04:44 09/17/16 04:44 Labs: Last Result Calcium 9.2 mg/dL (8.6-10.8) 09/17/16 04:44 Entire Visit Hgb 10.6 g/dL (11.5-15.4) L 09/17/16 04:44 Hct 33.0 % (35.3-44.9) L 09/17/16 04:44 Total Bilirubin 0.5 mg/dL (0.2-1.2) 09/12/16 17:27 AST 18 Units/L (5-34) 09/12/16 17:27 ALT 13 Units/L (0-55) 09/12/16 17:27 Amylase 8 Units/L (25-125) L 09/12/16 17:27 Lipase 26 Units/L (8-78) 09/12/16 17:27 Consult Discharge Plan - Plan Referrals: Shelli Ware, PRESS SECRETARY [Primary Care Provider] - <Demetris Michaud - Last Filed: 09/17/16 18:25> Date of Encounter: 09/17/16 Time of Encounter: 17:00 - Time Spent With Patient Total time spent is greater than 50% in coordination of care (as documented) at patient's floor/unit and/or counseling patient: GI History of Present Illness - Data of Consult Requesting Physician: Julio C Rose MD - Consult Narrative History of present illness: Ms. Pelayo is a 86 year old female - Constitutional Vitals: Temp Pulse Resp BP Pulse Ox 98.4 F 78 16 136/73 96 09/17/16 14:09 09/17/16 14:09 09/17/16 14:09 09/17/16 14:09 09/17/16 14:09 Results - Labs CBC & Chem 7: 09/17/16 04:44 09/17/16 04:44 Labs: Last Result Calcium 9.2 mg/dL (8.6-10.8) 09/17/16 04:44 Entire Visit Hgb 10.6 g/dL (11.5-15.4) L 09/17/16 04:44 Hct 33.0 % (35.3-44.9) L 09/17/16 04:44 Total Bilirubin 0.5 mg/dL (0.2-1.2) 09/12/16 17:27 AST 18 Units/L (5-34) 09/12/16 17:27 ALT 13 Units/L (0-55) 09/12/16 17:27 Amylase 8 Units/L (25-125) L 09/12/16 17:27 Lipase 26 Units/L (8-78) 09/12/16 17:27 - Impressions Impressions KUB X-Ray 09/17/16 14:11 IMPRESSION: Findings are likely related to colonic ileus with persistent dilation of the sigmoid colon measuring up to 11.2 cm 12 cm in maximum diameter. An underlying volvulus cannot be entirely excluded but is felt to be less likely given prior appearance of prior CT. The findings were sent to the Radiology Results Communication [facility] at 4:15 pm on 09/17/2016to be communicated to a licensed caregiver. D/ / Nimco Mena MD / Nimco Mena MD Interpreting Provider: Nimco Mena MD - Attending Attestation I examined this patient and my medical decision-making was reviewed with the DRY KILN BURNER/PA/Advanced Practice Nurse/Resident Physician. I agree with the documented findings, disposition and treatment plan as described except to the extent set forth below. Patient with constipation long-standing history no worsening of her constipation in the last couple of days. Imaging shows sigmoid distention most probably due to stool loading. Recommendation: GoLYTELY 2 L at today and 2 tomorrow to clean her out. For long -term management she will need daily MiraLAX along with Colace.
--- NOTE | 2016-09-17 15:55 | Internal Med Progress Note ---
Date of Encounter: 09/17/16 Time of Encounter: 08:00 - Assessment and plan (1) Leukocytosis Current Visit: Yes Status: Acute Assessment and plan: Possibly due to the UTI and malfunction of nephrostomy tube. nephrostomy tube has exchanged. White count is getting down to normal. Switch Zosyn to by mouth Levaquin Qualifiers: Leukocytosis type: unspecified Qualified Code(s): D72.829 - Elevated white blood cell count, unspecified (2) Atrial fibrillation Current Visit: Yes Status: Acute Assessment and plan: Patient has a history of A. Fib with RVR, but was converted back to sinus rhythm. CVA coverage was reported to be ASA 81mg due to risk of anticoagulation with underlying dementia and risk of bleeding. Continue diltiazem for rate control. Continue Aspirin 81mg. Qualifiers: Atrial fibrillation type: paroxysmal Qualified Code(s): I48.0 - Paroxysmal atrial fibrillation (3) Essential hypertension Current Visit: Yes Status: Acute Assessment and plan: Continue home medication, follow-up of blood pressure. (4) UTI (urinary tract infection) Current Visit: Yes Status: Acute Assessment and plan: Levaquin by mouth. Urine culture shows no growth Qualifiers: Urinary tract infection type: acute cystitis Hematuria presence: without hematuria Qualified Code(s): N30.00 - Acute cystitis without hematuria (5) Constipation Current Visit: No Status: Chronic Assessment and plan: Resolved after milk and molasses enema. Continue MiraLAX and senna/docusate, add Psyllium per GI. GI consult appreciated. Qualifiers: Constipation type: chronic idiopathic constipation Qualified Code(s): K59.04 - Chronic idiopathic constipation (6) Hypokalemia Current Visit: No Status: Acute Assessment and plan: Possibly due to poor uptake. Resolved after supplement. follow-up potassium level (7) Vascular dementia Current Visit: No Status: Chronic Assessment and plan: Chronic and stable Qualifiers: Dementia behavioral disturbance: without behavioral disturbance Qualified Code(s): F01.50 - Vascular dementia without behavioral disturbance (8) DVT prophylaxis Current Visit: No Status: Acute Assessment and plan: Heparin subcutaneously - Time Spent With Patient 25 - 35 minutes - Subjective Interval history: Patient is a 86-year-old [facility]. Her past medical history is significant for dementia, diabetes, hypertension, S/P right nephrostomy. Patient was seen and examined. She is demented, awake alert, oriented x 2. She has no fever, no nausea, no vomiting. In no acute distress. Vital signs stable. Urine culture negative. On by mouth Levaquin. Chronic constipation, GI consult appreciated. Improved hypokalemia. Will continue potassium supplement. White count Down to normal. Discharge planning back to ECF. - Constitutional Vitals: Temp Pulse Resp BP Pulse Ox 98.4 F 78 16 136/73 96 09/17/16 14:09 09/17/16 14:09 09/17/16 14:09 09/17/16 14:09 09/17/16 14:09 General appearance: Present: A&O X 2, pleasant, answers questions appropriately - Head Head exam: Present: atraumatic, normocephalic - Eye Eye exam: Present: PERRL, conjuntiva pink, sclera anicteric Pupils: Present: PERRL - Neck Neck exam general surgery: Present: supple, trachea midline. Absent: lymphadenopathy - Respiratory Respiratory exam: Present: CTAB. Absent: accessory muscle use, rales, rhonchi, wheezes - Cardiovascular Cardiovascular exam: Present: RRR, +S1, +S2. Absent: diastolic murmur, gallop, rubs, systolic murmur - GI/Abdominal GI/Abdominal exam: Present: normal bowel sounds, soft, no peritoneal signs. Absent: distended, tenderness Additional comments: Nephrostomy tube in place - Extremities Exam Extremities exam: Present: warm, radial pulses palpable and symetrical. Absent : calf tenderness, cyanotic, pedal edema - Neurological Exam Neurological exam: Present: CN II-XII intact, oriented X3, no focal deficits. Absent: pronater drift, facial droop, speech deficit - Skin Skin exam: Present: dry, intact Internal Medicine: Result - Labs CBC & Chem 7: 09/17/16 04:44 09/17/16 04:44 Labs: Short CBC 09/17/16 Range/Units 04:44 WBC 10.5 (4.3-11.1) K/mcL Hgb 10.6 L (11.5-15.4) g/dL Hct 33.0 L (35.3-44.9) % Plt Count 201 (140-400) K/mcL Neutrophils # 8.2 (1.6-8.9) K/mcL [facility] 09/17/16 04:44 Sodium 142 Potassium 3.6 Chloride 111 H Carbon Dioxide 25 BUN 7 Creatinine 0.64 Glucose 99 Calcium 9.2 Consult Discharge Plan - Plan Referrals: Shelli Ware, FRANK [Primary Care Provider] -
[2016-09-17] MEDS: Psyllium 1 PACKET POWD.PACK PO SCH ×2 (17:42→20:17)
[2016-09-17] MEDS ORDERED: SODIUM CHLORIDE/NAHCO3/KCL/PEG 4,000 ML SOLN.RECON PO ONE ×2 (18:06→18:08)
[2016-09-18] MEDS: 0.9 % Sodium Chloride 1,000 ML IVC SCH ×2 (02:00→22:07)
[2016-09-18 05:08] LABS: Basophils % 0.4 %; Eosinophils # 0.4 K/mcL (0.0-0.6); Eosinophils % 3.5 %; Hematocrit 36.6 % (35.3-44.9); Hemoglobin 11.6 g/dL (11.5-15.4); Immature Granulocytes % 0.6 % (0-4); Lymphocytes # 0.9 K/mcL (0.6-4.6); Lymphocytes % 8.3 %; Mean Corpuscular HGB Conc 31.7 g/dL (31.6-35.5); Mean Corpuscular Hemoglobin 28.9 pg (28.0-33.3); Mean Platelet Volume 10.8 fL (9.4-12.4); Monocytes # 0.8 K/mcL (0.0-1.3); Monocytes % 7.6 %; Neutrophils # 8.2 K/mcL (1.6-8.9); Platelet Count 223 K/mcL (140-400); Red Blood Count 4.02 M/mcL (3.82-4.97); Red Cell Distribution Width 13.1 % (11.5-14.5); Segmented Neutrophils % 79.6 %
[2016-09-18 05:20] LABS: BUN/Creatinine Ratio 10 (6-26); Blood Urea Nitrogen 6 mg/dL (7-20); Calcium 9.6 mg/dL (8.6-10.8); Carbon Dioxide 26 mEq/L (19-29); Chloride 108 mEq/L (98-109); Glucose 98 mg/dL (70-99); Osmolality,Calculated 286 (280-300); Potassium 4.2 mEq/L (3.5-4.5); Sodium 139 mEq/L (136-145); eGFR For African Americans > 60 (> 60); eGFR For Non-African Americans > 60 (> 60)
[2016-09-18] MEDS: *HR* Heparin 5,000 UNIT/ML VIAL SQ SCH ×2 (06:03→17:31)
[2016-09-18] MEDS: Insulin LISPRO 300 UNITS/3 ML VIAL SQ SCH ×3 (06:28→17:08)
[2016-09-18] MEDS: Aspirin 81 MG TAB.CHEW PO SCH (08:25)
[2016-09-18] MEDS: Magnesium Oxide 400 MG TABLET PO SCH (08:25)
[2016-09-18] MEDS: Sennosides/Docusate Sodium TABLET PO SCH ×2 (08:25→20:54)
[2016-09-18] MEDS: Psyllium 1 PACKET POWD.PACK PO SCH ×3 (08:25→20:54)
[2016-09-18] MEDS: levoFLOXacin 500 MG TABLET PO SCH (08:25)
[2016-09-18] MEDS: Diltiazem CD (24hr) 240 MG CAPSULE PO SCH (08:25)
--- NOTE | 2016-09-18 09:24 | Gastroenterology Progress Note ---
<Funmilayo Resendez - Last Filed: 09/18/16 10:31> Date of Encounter: 09/18/16 Time of Encounter: 10:00 - Assessment and plan (1) Constipation Current Visit: No Status: Inactive Assessment and plan: Daily fiber supplement, mirlax up to twice daily, stool softeners. Stimulant laxative recommended q3-[address] Michaud added Golytely 2L last pm, 2L today, however, patient has not consumed per the recommendation/changed to miralax bowel prep 500 mls q8hrs til gone. Will add bid tap water enemas. F/U in OTPT setting. Qualifiers: Constipation type: chronic idiopathic constipation Qualified Code(s): K59.04 - Chronic idiopathic constipation - Time Spent With Patient Total time spent is greater than 50% in coordination of care (as documented) at patient's floor/unit and/or counseling patient: less than 15 minutes - Subjective Interval history: Patient is a 86-year-old female seen the from the [facility] for leukocytosis. Her past medical history is significant for dementia, diabetes, hypertension, S/P right nephrostomy. Patient has constipation, recent KUB indicated enlargement/distension of rectum/sigmoid colon consistent with a colonic ileus. Patient was given golytely last pm by Dr. Michaud, she is not consuming per the plan. Patient is pleasantly demented at bedside, resting comfortably. Attending and nurse were presenting during my visit today. Patient has not been drinking the Golytely, changed to miralax bowel prep, 500 mls q8hrs til gone, added 2 tap water enemas daily. Abdomen is distended, soft, hyperactive bowel sounds. - Constitutional Vitals: Temp Pulse Resp BP Pulse Ox 97.8 F 81 16 161/78 93 L 09/18/16 07:34 09/18/16 07:34 09/18/16 07:34 09/18/16 07:34 09/18/16 07:34 General appearance: Present: cooperative, A&O X 2, no acute distress - Head Head exam: Present: atraumatic, normocephalic - Eye Eye exam: Present: normal appearance, sclera anicteric - ENT ENT exam: Present: mucous membranes moist - Neck Neck exam general surgery: Present: normal inspection, trachea midline - Respiratory Respiratory exam: Present: CTAB - Cardiovascular Cardiovascular exam: Present: RRR, +S1, +S2 - GI/Abdominal GI/Abdominal exam: Present: distended, hyperactive bowel sounds, soft, no peritoneal signs - Rectal Rectal exam: Present: deferred - Extremities Exam Extremities exam: Present: warm - Neurological Exam Neurological exam: Present: no focal deficits - Psychiatric Psychiatric exam: Present: normal affect, normal mood - Skin Skin exam: Present: dry, intact, normal color, warm Results - Labs CBC & Chem 7: 09/18/16 04:57 09/18/16 04:57 Labs: Last Result Calcium 9.6 mg/dL (8.6-10.8) 09/18/16 04:57 Entire Visit Hgb 11.6 g/dL (11.5-15.4) 09/18/16 04:57 Hct 36.6 % (35.3-44.9) 09/18/16 04:57 Total Bilirubin 0.5 mg/dL (0.2-1.2) 09/12/16 17:27 AST 18 Units/L (5-34) 09/12/16 17:27 ALT 13 Units/L (0-55) 09/12/16 17:27 Amylase 8 Units/L (25-125) L 09/12/16 17:27 Lipase 26 Units/L (8-78) 09/12/16 17:27 - Impressions Impressions KUB X-Ray 09/17/16 14:11 IMPRESSION: Findings are likely related to colonic ileus with persistent dilation of the sigmoid colon measuring up to 11.2 cm 12 cm in maximum diameter. An underlying volvulus cannot be entirely excluded but is felt to be less likely given prior appearance of prior CT. The findings were sent to the Radiology Results Communication Center at 4:15 pm on 09/17/2016to be communicated to a licensed caregiver. D/ / Nimco Mena MD / Nimco Mena MD Interpreting Provider: Nimco Mena MD Consult Discharge Plan - Plan Referrals: Shelli Ware, CAD DESIGNER DRAFTER [Primary Care Provider] - <Demetris Michaud - Last Filed: 09/18/16 17:40> Date of Encounter: 09/18/16 Time of Encounter: 14:00 - Time Spent With Patient Total time spent is greater than 50% in coordination of care (as documented) at patient's floor/unit and/or counseling patient: - Constitutional Vitals: Temp Pulse Resp BP Pulse Ox 97.5 F L 75 16 166/83 93 L 09/18/16 16:12 09/18/16 16:12 09/18/16 16:12 09/18/16 16:12 09/18/16 16:12 Results - Labs CBC & Chem 7: 09/18/16 04:57 09/18/16 04:57 Labs: Last Result Calcium 9.6 mg/dL (8.6-10.8) 09/18/16 04:57 Entire Visit Hgb 11.6 g/dL (11.5-15.4) 09/18/16 04:57 Hct 36.6 % (35.3-44.9) 09/18/16 04:57 Total Bilirubin 0.5 mg/dL (0.2-1.2) 09/12/16 17:27 AST 18 Units/L (5-34) 09/12/16 17:27 ALT 13 Units/L (0-55) 09/12/16 17:27 Amylase 8 Units/L (25-125) L 09/12/16 17:27 Lipase 26 Units/L (8-78) 09/12/16 17:27 - Attending Attestation I examined this patient and my medical decision-making was reviewed with the GLASS SCULLION/PA/Advanced Practice Nurse/Resident Physician. I agree with the documented findings, disposition and treatment plan as described except to the extent set forth below. If colonic distention persists then may need decompression. Patient needs to take her prescribed oral MiraLAX
[2016-09-18] MEDS ORDERED: Polyethylene Glycol 3350 255 GM POWDER PO ONE (10:29)
--- NOTE | 2016-09-18 15:04 | Internal Med Progress Note ---
Date of Encounter: 09/18/16 Time of Encounter: 09:00 - Assessment and plan (1) Leukocytosis Current Visit: Yes Status: Acute Assessment and plan: Possibly due to the UTI and malfunction of nephrostomy tube. nephrostomy tube has exchanged. White count is getting down to normal. On by mouth Levaquin Qualifiers: Leukocytosis type: unspecified Qualified Code(s): D72.829 - Elevated white blood cell count, unspecified (2) Atrial fibrillation Current Visit: Yes Status: Acute Assessment and plan: Patient has a history of A. Fib with RVR, but was converted back to sinus rhythm. CVA coverage was reported to be ASA 81mg due to risk of anticoagulation with underlying dementia and risk of bleeding. Continue diltiazem for rate control. Continue Aspirin 81mg. Qualifiers: Atrial fibrillation type: paroxysmal Qualified Code(s): I48.0 - Paroxysmal atrial fibrillation (3) Essential hypertension Current Visit: Yes Status: Acute Assessment and plan: Continue home medication, follow-up of blood pressure. (4) UTI (urinary tract infection) Current Visit: Yes Status: Acute Assessment and plan: Levaquin by mouth. Urine culture shows no growth Qualifiers: Urinary tract infection type: acute cystitis Hematuria presence: without hematuria Qualified Code(s): N30.00 - Acute cystitis without hematuria (5) Constipation Current Visit: No Status: Inactive Assessment and plan: Resolved after milk and molasses enema on 09/15/16. But still no bowel movement after that. GI consult appreciated. Recommendation will follow. Qualifiers: Constipation type: chronic idiopathic constipation Qualified Code(s): K59.04 - Chronic idiopathic constipation (6) Hypokalemia Current Visit: No Status: Acute Assessment and plan: Possibly due to poor uptake. Resolved after supplement. follow-up potassium level (7) Vascular dementia Current Visit: No Status: Chronic Assessment and plan: Chronic and stable Qualifiers: Dementia behavioral disturbance: without behavioral disturbance Qualified Code(s): F01.50 - Vascular dementia without behavioral disturbance (8) DVT prophylaxis Current Visit: No Status: Acute Assessment and plan: Heparin subcutaneously - Time Spent With Patient 25 - 35 minutes - Subjective Interval history: Patient is a 86-year-old female seen the from the assisted for leukocytosis. Her past medical history is significant for dementia, diabetes, hypertension, S/P right nephrostomy. Patient was seen and examined. She is demented, awake alert, oriented x 2. She has no fever, no nausea, no vomiting. In no acute distress. Vital signs stable. Urine culture negative. On by mouth Levaquin. Patient is still had no bowel movement today and yesterday. GI is on case and will follow the recommendation. Improved hypokalemia. White count Down to normal. Discharge planning back to [facility]. - Constitutional Vitals: Temp Pulse Resp BP Pulse Ox 97.5 F L 78 14 152/79 93 L 09/18/16 11:29 09/18/16 11:29 09/18/16 11:29 09/18/16 11:29 09/18/16 11:29 General appearance: Present: A&O X 2, pleasant, answers questions appropriately - Head Head exam: Present: atraumatic, normocephalic - Eye Eye exam: Present: PERRL, conjuntiva pink, sclera anicteric Pupils: Present: PERRL - Neck Neck exam general surgery: Present: supple, trachea midline. Absent: lymphadenopathy - Respiratory Respiratory exam: Present: CTAB. Absent: accessory muscle use, rales, rhonchi, wheezes - Cardiovascular Cardiovascular exam: Present: RRR, +S1, +S2. Absent: diastolic murmur, gallop, rubs, systolic murmur - GI/Abdominal GI/Abdominal exam: Present: distended, normal bowel sounds, soft, no peritoneal signs. Absent: tenderness - Extremities Exam Extremities exam: Present: warm, radial pulses palpable and symetrical. Absent : calf tenderness, cyanotic, pedal edema - Neurological Exam Neurological exam: Present: CN II-XII intact, no focal deficits. Absent: pronater drift, facial droop, speech deficit - Skin Skin exam: Present: dry, intact Internal Medicine: Result - Labs CBC & Chem 7: 09/18/16 04:57 09/18/16 04:57 Labs: Short CBC 09/18/16 Range/Units 04:57 WBC 10.3 (4.3-11.1) K/mcL Hgb 11.6 (11.5-15.4) g/dL Hct 36.6 (35.3-44.9) % Plt Count 223 (140-400) K/mcL Neutrophils # 8.2 (1.6-8.9) K/mcL BMP 09/18/16 04:57 Sodium 139 Potassium 4.2 Chloride 108 Carbon Dioxide 26 BUN 6 L Creatinine 0.59 Glucose 98 Calcium 9.6 - Impressions Impressions KUB X-Ray 09/17/16 14:11 IMPRESSION: Findings are likely related to colonic ileus with persistent dilation of the sigmoid colon measuring up to 11.2 cm 12 cm in maximum diameter. An underlying volvulus cannot be entirely excluded but is felt to be less likely given prior appearance of prior CT. The findings were sent to the [facility] at 4:15 pm on 09/17/2016to be communicated to a licensed caregiver. D/ / Nimco Mena MD / Nimco Mena MD Interpreting Provider: Nimco Mena MD Consult Discharge Plan - Plan Referrals: Shelli Ware, [employer] SITE SERVICES SPECIALIST [Primary Care Provider] -
[2016-09-19] MEDS: *HR* Heparin 5,000 UNIT/ML VIAL SQ SCH ×2 (06:03→17:35)
[2016-09-19] MEDS: Insulin LISPRO 300 UNITS/3 ML VIAL SQ SCH ×4 (06:09→18:56)
[2016-09-19 06:45] LABS: Basophils % 0.3 %; Eosinophils # 0.3 K/mcL (0.0-0.6); Eosinophils % 3.2 %; Hematocrit 37.2 % (35.3-44.9); Immature Granulocytes % 0.5 % (0-4); Lymphocytes # 0.7 K/mcL (0.6-4.6); Lymphocytes % 6.9 %; Mean Corpuscular HGB Conc 32.3 g/dL (31.6-35.5); Mean Corpuscular Hemoglobin 29.7 pg (28.0-33.3); Mean Corpuscular Volume 92.1 fL (83.0-100.0); Mean Platelet Volume 11.7 fL (9.4-12.4); Monocytes # 0.9 K/mcL (0.0-1.3); Neutrophils # 8.1 K/mcL (1.6-8.9); Platelet Count 243 K/mcL (140-400); Red Blood Count 4.04 M/mcL (3.82-4.97); Red Cell Distribution Width 13.3 % (11.5-14.5); Segmented Neutrophils % 80.1 %
[2016-09-19 06:51] LABS: BUN/Creatinine Ratio 8 (6-26); Blood Urea Nitrogen 5 mg/dL (7-20); Calcium 9.8 mg/dL (8.6-10.8); Carbon Dioxide 24 mEq/L (19-29); Chloride 105 mEq/L (98-109); Glucose 100 mg/dL (70-99); Osmolality,Calculated 283 (280-300); Potassium 4.1 mEq/L (3.5-4.5); Sodium 138 mEq/L (136-145); eGFR For African Americans > 60 (> 60); eGFR For Non-African Americans > 60 (> 60)
[2016-09-19] MEDS: Magnesium Oxide 400 MG TABLET PO SCH (08:59)
[2016-09-19] MEDS: Psyllium 1 PACKET POWD.PACK PO SCH ×2 (08:59→15:37)
[2016-09-19] MEDS: Aspirin 81 MG TAB.CHEW PO SCH (08:59)
[2016-09-19] MEDS: levoFLOXacin 500 MG TABLET PO SCH (09:00)
[2016-09-19] MEDS: Sennosides/Docusate Sodium TABLET PO SCH (09:00)
[2016-09-19] MEDS: Diltiazem CD (24hr) 240 MG CAPSULE PO SCH (09:00)
--- NOTE | 2016-09-19 15:03 | Internal Med Progress Note ---
Date of Encounter: 09/19/16 Time of Encounter: 09:00 - Assessment and plan (1) Leukocytosis Current Visit: Yes Status: Acute Assessment and plan: Possibly due to the UTI and malfunction of nephrostomy tube. nephrostomy tube has exchanged. White count is getting down to normal. On by mouth Levaquin Qualifiers: Leukocytosis type: unspecified Qualified Code(s): D72.829 - Elevated white blood cell count, unspecified (2) Atrial fibrillation Current Visit: Yes Status: Acute Assessment and plan: Patient has a history of A. Fib with RVR, but was converted back to sinus rhythm. CVA coverage was reported to be ASA 81mg due to risk of anticoagulation with underlying dementia and risk of bleeding. Continue diltiazem for rate control. Continue Aspirin 81mg. Qualifiers: Atrial fibrillation type: paroxysmal Qualified Code(s): I48.0 - Paroxysmal atrial fibrillation (3) Essential hypertension Current Visit: Yes Status: Acute Assessment and plan: Continue home medication, follow-up of blood pressure. (4) UTI (urinary tract infection) Current Visit: Yes Status: Acute Assessment and plan: Levaquin by mouth. Urine culture shows no growth Qualifiers: Urinary tract infection type: acute cystitis Hematuria presence: without hematuria Qualified Code(s): N30.00 - Acute cystitis without hematuria (5) Constipation Current Visit: No Status: Inactive Assessment and plan: Resolved after milk and molasses enema on 09/15/16. But still abd distention. CT shows no stools and no obstruction. Will hold diet for tonight. GI consult appreciated. Recommendation will follow. Qualifiers: Constipation type: chronic idiopathic constipation Qualified Code(s): K59.04 - Chronic idiopathic constipation (6) Hypokalemia Current Visit: No Status: Acute Assessment and plan: Possibly due to poor uptake. Resolved after supplement. follow-up potassium level (7) Vascular dementia Current Visit: No Status: Chronic Assessment and plan: Chronic and stable Qualifiers: Dementia behavioral disturbance: without behavioral disturbance Qualified Code(s): F01.50 - Vascular dementia without behavioral disturbance (8) DVT prophylaxis Current Visit: No Status: Acute Assessment and plan: Heparin subcutaneously - Time Spent With Patient 25 - 35 minutes - Subjective Interval history: Patient is a 86-year-old female seen the from the half-way for leukocytosis. Her past medical history is significant for dementia, diabetes, hypertension, S/P right nephrostomy. Patient was seen and examined. She is demented, awake alert, oriented x 2. She has no fever, no nausea, no vomiting. In no acute distress. Vital signs stable. Urine culture negative. On by mouth Levaquin. Patient is still has abd distention. Had small amount of BM. Abd CT ordered today shows no obstruction. Will consider keep NPO for now. GI is on case and will follow the recommendation. Improved hypokalemia. White count get Down to normal. Will continue f/u. - Constitutional Vitals: Temp Pulse Resp BP Pulse Ox 98.4 F 102 16 158/87 90 L 09/19/16 12:41 09/19/16 12:41 09/19/16 12:41 09/19/16 12:41 09/19/16 12:41 General appearance: Present: A&O X 2, pleasant, answers questions appropriately - Head Head exam: Present: atraumatic, normocephalic - Eye Eye exam: Present: PERRL, conjuntiva pink, sclera anicteric Pupils: Present: PERRL - Neck Neck exam general surgery: Present: supple, trachea midline. Absent: lymphadenopathy - Respiratory Respiratory exam: Present: CTAB. Absent: accessory muscle use, rales, rhonchi, wheezes - Cardiovascular Cardiovascular exam: Present: RRR, +S1, +S2. Absent: diastolic murmur, gallop, rubs, systolic murmur - GI/Abdominal GI/Abdominal exam: Present: distended, normal bowel sounds, soft, no peritoneal signs. Absent: tenderness - Extremities Exam Extremities exam: Present: warm, radial pulses palpable and symetrical. Absent : calf tenderness, cyanotic, pedal edema - Neurological Exam Neurological exam: Present: CN II-XII intact, oriented X3, no focal deficits. Absent: pronater drift, facial droop, speech deficit - Skin Skin exam: Present: dry, intact Internal Medicine: Result - Labs CBC & Chem 7: 09/19/16 05:21 09/19/16 05:21 Labs: Short CBC 09/19/16 Range/Units 05:21 WBC 10.1 (4.3-11.1) K/mcL Hgb 12.0 (11.5-15.4) g/dL Hct 37.2 (35.3-44.9) % Plt Count 243 (140-400) K/mcL Neutrophils # 8.1 (1.6-8.9) K/mcL BMP 09/19/16 05:21 Sodium 138 Potassium 4.1 Chloride 105 Carbon Dioxide 24 BUN 5 L Creatinine 0.60 Glucose 100 H Calcium 9.8 - Impressions Impressions KUB X-Ray 09/19/16 08:54 IMPRESSION: 1. Interval worsening of gaseous distension of the colon, now measuring up to 14.2 cm in the right lower quadrant. 2. No obvious free air or pneumatosis on single supine radiograph. D/ / 09/19/2016 09:39:20 Madison Saunders MD / Hazel Stallworth Interpreting Provider: Madison Saunders MD Abdomen/Pelvis CT 09/19/16 09:23 IMPRESSION: 1. There has been clearance of stool from the rectum since the prior study. However, there is persistent colo rectal distention, most severe at the sigmoid, which is nonobstructive 2. Right nephrostomy tube remains in place. Stable nephrolithiasis with mild right hydronephrosis 3. Large hiatal hernia 4. New trace bilateral pleural effusions D/ / Constantin Davis MD / Constantin Davis MD Interpreting Provider: Constantin Davis MD Consult Discharge Plan - Plan Referrals: Shelli Ware CNP [Primary Care Provider] -
[2016-09-19] MEDS: 0.9 % Sodium Chloride 1,000 ML IVC SCH (18:38)
[2016-09-20] MEDS: Insulin LISPRO 300 UNITS/3 ML VIAL SQ SCH ×4 (00:12→17:21)
[2016-09-20 05:22] LABS: Basophils % 0.5 %; Eosinophils # 0.3 K/mcL (0.0-0.6); Eosinophils % 3.5 %; Hematocrit 36.7 % (35.3-44.9); Hemoglobin 11.6 g/dL (11.5-15.4); Immature Granulocytes % 0.8 % (0-4); Lymphocytes # 0.8 K/mcL (0.6-4.6); Lymphocytes % 8.8 %; Mean Corpuscular HGB Conc 31.6 g/dL (31.6-35.5); Mean Corpuscular Hemoglobin 28.6 pg (28.0-33.3); Mean Corpuscular Volume 90.6 fL (83.0-100.0); Mean Platelet Volume 11.4 fL (9.4-12.4); Monocytes # 0.9 K/mcL (0.0-1.3); Monocytes % 9.8 %; Neutrophils # 6.7 K/mcL (1.6-8.9); Platelet Count 248 K/mcL (140-400); Red Blood Count 4.05 M/mcL (3.82-4.97); Red Cell Distribution Width 13.3 % (11.5-14.5); Segmented Neutrophils % 76.6 %
[2016-09-20] MEDS: *HR* Heparin 5,000 UNIT/ML VIAL SQ SCH ×2 (05:34→17:20)
[2016-09-20 05:40] LABS: BUN/Creatinine Ratio 8 (6-26); Calcium 9.4 mg/dL (8.6-10.8); Carbon Dioxide 26 mEq/L (19-29); Chloride 108 mEq/L (98-109); Glucose 96 mg/dL (70-99); Osmolality,Calculated 287 (280-300); Potassium 3.3 mEq/L (3.5-4.5); Sodium 140 mEq/L (136-145); eGFR For African Americans > 60 (> 60); eGFR For Non-African Americans > 60 (> 60)
[2016-09-20 05:43] LABS: Blood Urea Nitrogen 5 mg/dL (7-20)
[2016-09-20] MEDS ORDERED: Potassium Chloride 40 MEQ, Lidocaine 1% 2 ML in D5% in Water 500 ML IVPB ONE (07:33)
[2016-09-20] MEDS: Magnesium Oxide 400 MG TABLET PO SCH (08:15)
[2016-09-20] MEDS: levoFLOXacin 500 MG TABLET PO SCH (08:16)
[2016-09-20] MEDS: Diltiazem CD (24hr) 240 MG CAPSULE PO SCH (08:16)
[2016-09-20] MEDS: Aspirin 81 MG TAB.CHEW PO SCH (08:16)
[2016-09-20] MEDS: 0.9 % Sodium Chloride 1,000 ML IVC SCH (08:24)
--- NOTE | 2016-09-20 10:00 | Gastroenterology Progress Note ---
<Funmilayo Resendez - Last Filed: 09/20/16 11:28> Date of Encounter: 09/20/16 Time of Encounter: 10:40 - Assessment and plan (1) Constipation Current Visit: No Status: Resolved Assessment and plan: Daily fiber supplement, mirlax up to twice daily, stool softeners. Stimulant laxative recommended q3-[address] Michaud added Golytely 2L last pm, 2L today, however, patient has not consumed per the recommendation/changed to miralax bowel prep 500 mls q8hrs til gone. Will add bid tap water enemas. F/U in OTPT setting. RESOLVED. Qualifiers: Constipation type: chronic idiopathic constipation Qualified Code(s): K59.04 - Chronic idiopathic constipation (2) Gaseous abdominal distention Current Visit: Yes Status: Acute Assessment and plan: Worsening in recent imaging from 11.9 to 14.2 cm in RUQ, sigmoid distension. No stool noted in colon in recent imaging, but gaseous distension remains. Recommendation: start with IVP neostigmine 0.5 mg push over 10 minutes. Patient must be on court monitor, atropine at bedside. Will reassess if patient may benefit from neostigmine gtt or placement of rectal tube for decompression. Discussed with patient and nursing staff during rounding. - Time Spent With Patient Total time spent is greater than 50% in coordination of care (as documented) at patient's floor/unit and/or counseling patient: less than 15 minutes - Subjective Interval history: Patient consult for constipation, now on imaging shows colorectal distension that has enlarged from 11.9 to 14.2 cm in the RUQ. Patient seen and examined sitting up in bedside chair. She states she feels 'terrible', I asked her to elaborate, but she was unable to do so. - Constitutional Vitals: Temp Pulse Resp BP Pulse Ox 97.6 F 92 21 148/75 96 09/20/16 07:30 09/20/16 07:30 09/20/16 07:30 09/20/16 07:30 09/20/16 07:30 General appearance: Present: cooperative, A&O X 2, mild distress - Head Head exam: Present: atraumatic, normocephalic - Eye Eye exam: Present: normal appearance, sclera anicteric - ENT ENT exam: Present: mucous membranes moist - Neck Neck exam general surgery: Present: normal inspection, trachea midline - Respiratory Respiratory exam: Present: CTAB - Cardiovascular Cardiovascular exam: Present: RRR, +S1, +S2 - GI/Abdominal GI/Abdominal exam: Present: distended, firm, tenderness - Rectal Rectal exam: Present: deferred - Extremities Exam Extremities exam: Present: warm - Neurological Exam Neurological exam: Present: altered - Psychiatric Psychiatric exam: Present: normal affect, normal mood - Skin Skin exam: Present: dry, intact, normal color, warm Results - Labs CBC & Chem 7: 09/20/16 04:42 09/20/16 04:42 Labs: Last Result Calcium 9.4 mg/dL (8.6-10.8) 09/20/16 04:42 Entire Visit Hgb 11.6 g/dL (11.5-15.4) 09/20/16 04:42 Hct 36.7 % (35.3-44.9) 09/20/16 04:42 Total Bilirubin 0.5 mg/dL (0.2-1.2) 09/12/16 17:27 AST 18 Units/L (5-34) 09/12/16 17:27 ALT 13 Units/L (0-55) 09/12/16 17:27 Amylase 8 Units/L (25-125) L 09/12/16 17:27 Lipase 26 Units/L (8-78) 09/12/16 17:27 - Impressions Impressions [facility]UB X-Ray 09/19/16 08:54 IMPRESSION: 1. Interval worsening of gaseous distension of the colon, now measuring up to 14.2 cm in the right lower quadrant. 2. No obvious free air or pneumatosis on single supine radiograph. D/ / 09/19/2016 09:39:20 Madison Saunders MD / Hazel Stallworth Interpreting Provider: Madison Saunders MD Abdomen/Pelvis CT 09/19/16 09:23 IMPRESSION: 1. There has been clearance of stool from the rectum since the prior study. However, there is persistent colo rectal distention, most severe at the sigmoid, which is nonobstructive 2. Right nephrostomy tube remains in place. Stable nephrolithiasis with mild right hydronephrosis 3. Large hiatal hernia 4. New trace bilateral pleural effusions D/ / Constantin Davis MD / Constantin Davis MD Interpreting Provider: Constantin Davis MD Consult Discharge Plan - Plan Referrals: Shelli Ware CNP [Primary Care Provider] - <[email or web address] - Last Filed: 09/20/16 17:25> Date of Encounter: 09/20/16 Time of Encounter: 14:00 - Time Spent With Patient Total time spent is greater than 50% in coordination of care (as documented) at patient's floor/unit and/or counseling patient: - Constitutional Vitals: Temp Pulse Resp BP Pulse Ox 97.5 F L 72 20 123/54 93 L 09/20/16 17:01 09/20/16 17:01 09/20/16 17:01 09/20/16 17:01 09/20/16 17:01 Results - Labs CBC & Chem 7: 09/20/16 04:42 09/20/16 04:42 Labs: Last Result Calcium 9.4 mg/dL (8.6-10.8) 09/20/16 04:42 Entire Visit Hgb 11.6 g/dL (11.5-15.4) 09/20/16 04:42 Hct 36.7 % (35.3-44.9) 09/20/16 04:42 Total Bilirubin 0.5 mg/dL (0.2-1.2) 09/12/16 17:27 AST 18 Units/L (5-34) 09/12/16 17:27 ALT 13 Units/L (0-55) 09/12/16 17:27 Amylase 8 Units/L (25-125) L 09/12/16 17:27 Lipase 26 Units/L (8-78) 09/12/16 17:27 - Attending Attestation I examined this patient and my medical decision-making was reviewed with the FRUIT DISTRIBUTOR/PA/Advanced Practice Nurse/Resident Physician. I agree with the documented findings, disposition and treatment plan as described except to the extent set forth below. Patient with gaseous distention of the sigmoid colon most probably due pseudo- obstruction . Trial of neostigmine if no response then she will need the colonic decompression with a colonic decompression tube
[2016-09-20] MEDS: Ondansetron ODT 4 MG TAB.RAPDIS SL PRN (10:57)
[2016-09-20] MEDS ORDERED: *HR* Atropine Sulfate 1 MG/10 ML SYRINGE IVP PRN (12:24)
--- NOTE | 2016-09-20 14:44 | Internal Med Progress Note ---
Date of Encounter: 09/20/16 Time of Encounter: 08:00 - Assessment and plan (1) Colon distention Current Visit: Yes Status: Acute Assessment and plan: Etiology is undetermined. GI consult appreciated, will try neostigmine to stimulate bowel movement. Closely monitor patient. (2) Leukocytosis Current Visit: Yes Status: Acute Assessment and plan: Improvement after antibiotic treatment. On by mouth Levaquin Qualifiers: Leukocytosis type: unspecified Qualified Code(s): D72.829 - Elevated white blood cell count, unspecified (3) Atrial fibrillation Current Visit: Yes Status: Acute Assessment and plan: Patient has a history of A. Fib with RVR, but was converted back to sinus rhythm. CVA coverage was reported to be ASA 81mg due to risk of anticoagulation with underlying dementia and risk of bleeding. Continue diltiazem for rate control. Continue Aspirin 81mg. Qualifiers: Atrial fibrillation type: paroxysmal Qualified Code(s): I48.0 - Paroxysmal atrial fibrillation (4) Essential hypertension Current Visit: Yes Status: Acute Assessment and plan: Continue home medication, follow-up of blood pressure. (5) UTI (urinary tract infection) Current Visit: Yes Status: Acute Assessment and plan: Levaquin by mouth. Urine culture shows no growth Qualifiers: Urinary tract infection type: acute cystitis Hematuria presence: without hematuria Qualified Code(s): N30.00 - Acute cystitis without hematuria (6) Constipation Current Visit: No Status: Resolved Assessment and plan: Resolved after milk and molasses enema on 09/15/16. But still abd distention. CT shows no stools and no obstruction. GI consult appreciated. Will try neostigmine IV. Qualifiers: Constipation type: chronic idiopathic constipation Qualified Code(s): K59.04 - Chronic idiopathic constipation (7) Hypokalemia Current Visit: No Status: Acute Assessment and plan: Possibly due to poor uptake. Still mild hypokalemia today, continue supplement. follow-up potassium level (8) Vascular dementia Current Visit: No Status: Chronic Assessment and plan: Chronic and stable Qualifiers: Dementia behavioral disturbance: without behavioral disturbance Qualified Code(s): F01.50 - Vascular dementia without behavioral disturbance (9) DVT prophylaxis Current Visit: No Status: Acute Assessment and plan: Heparin subcutaneously - Time Spent With Patient 25 - 35 minutes - Subjective Interval history: Patient is a 86-year-old female seen the from the correction for leukocytosis. Her past medical history is significant for dementia, diabetes, hypertension, S/P right nephrostomy. Patient was seen and examined. She is demented, awake alert, oriented x 2. She has no fever, no nausea, no vomiting. In no acute distress. Vital signs stable. Patient is still has abd distention. Abd CT ordered today shows no obstruction , no stool, but colon distention. GI consult saw Patient, will try neostigmine. GI recommendation is highly appreciated. - Constitutional Vitals: Temp Pulse Resp BP Pulse Ox 97.5 F L 72 20 146/72 93 L 09/20/16 11:40 09/20/16 13:50 09/20/16 11:40 09/20/16 13:50 09/20/16 11:40 General appearance: Present: A&O X 2, pleasant, answers questions appropriately - Head Head exam: Present: atraumatic, normocephalic - Eye Eye exam: Present: PERRL, conjuntiva pink, sclera anicteric Pupils: Present: PERRL - Neck Neck exam general surgery: Present: supple, trachea midline. Absent: lymphadenopathy - Respiratory Respiratory exam: Present: CTAB. Absent: accessory muscle use, rales, rhonchi, wheezes - Cardiovascular Cardiovascular exam: Present: RRR, +S1, +S2. Absent: diastolic murmur, gallop, rubs, systolic murmur - GI/Abdominal GI/Abdominal exam: Present: distended, normal bowel sounds, soft, no peritoneal signs. Absent: tenderness - Extremities Exam Extremities exam: Present: warm, radial pulses palpable and symetrical. Absent : calf tenderness, cyanotic, pedal edema - Neurological Exam Neurological exam: Present: CN II-XII intact, oriented X3, no focal deficits. Absent: pronater drift, facial droop, speech deficit - Skin Skin exam: Present: dry, intact Internal Medicine: Result - Labs CBC & Chem 7: 09/20/16 04:42 09/20/16 04:42 Labs: Short CBC 09/20/16 Range/Units 04:42 WBC 8.8 (4.3-11.1) K/mcL Hgb 11.6 (11.5-15.4) g/dL Hct 36.7 (35.3-44.9) % Plt Count 248 (140-400) K/mcL Neutrophils # 6.7 (1.6-8.9) K/mcL BMP 09/20/16 04:42 Sodium 140 Potassium 3.3 L Chloride 108 Carbon Dioxide 26 BUN 5 L Creatinine 0.61 Glucose 96 Calcium 9.4 - Impressions Impressions KUB X-Ray 09/19/16 08:54 IMPRESSION: 1. Interval worsening of gaseous distension of the colon, now measuring up to 14.2 cm in the right lower quadrant. 2. No obvious free air or pneumatosis on single supine radiograph. D/ / 09/19/2016 09:39:20 Madison Saunders MD / Hazel Stallworth Interpreting Provider: Madison Saunders MD Consult Discharge Plan - Plan Referrals: Shelli Ware CNP [Primary Care Provider] -
[2016-09-20] MEDS ORDERED: 0.9 % Sodium Chloride 1,000 ML IVC SCH (15:48)
[2016-09-20] MEDS ORDERED: SODIUM CHLORIDE 0.9% IVC ONE (17:45)
[2016-09-20] MEDS ORDERED: NEOSTIGMINE METHYLSULFATE IVC ONE (17:45)
[2016-09-21] MEDS: Insulin LISPRO 300 UNITS/3 ML VIAL SQ SCH ×4 (00:07→19:44)
[2016-09-21 05:16] LABS: Basophils % 0.5 %; Eosinophils # 0.3 K/mcL (0.0-0.6); Eosinophils % 4.1 %; Hematocrit 36.1 % (35.3-44.9); Hemoglobin 11.3 g/dL (11.5-15.4); Immature Granulocytes % 0.6 % (0-4); Lymphocytes # 0.7 K/mcL (0.6-4.6); Lymphocytes % 7.9 %; Mean Corpuscular HGB Conc 31.3 g/dL (31.6-35.5); Mean Corpuscular Hemoglobin 28.7 pg (28.0-33.3); Mean Corpuscular Volume 91.6 fL (83.0-100.0); Monocytes # 0.8 K/mcL (0.0-1.3); Monocytes % 9.5 %; Neutrophils # 6.5 K/mcL (1.6-8.9); Platelet Count 250 K/mcL (140-400); Red Blood Count 3.94 M/mcL (3.82-4.97); Red Cell Distribution Width 13.3 % (11.5-14.5); Segmented Neutrophils % 77.4 %
[2016-09-21] MEDS: *HR* Heparin 5,000 UNIT/ML VIAL SQ SCH ×2 (05:26→17:40)
[2016-09-21 05:28] LABS: BUN/Creatinine Ratio 6 (6-26); Calcium 9.3 mg/dL (8.6-10.8); Carbon Dioxide 24 mEq/L (19-29); Chloride 111 mEq/L (98-109); Glucose 104 mg/dL (70-99); Osmolality,Calculated 291 (280-300); Potassium 3.1 mEq/L (3.5-4.5); Sodium 142 mEq/L (136-145); eGFR For African Americans > 60 (> 60); eGFR For Non-African Americans > 60 (> 60)
[2016-09-21 05:29] LABS: Blood Urea Nitrogen 4 mg/dL (7-20)
[2016-09-21] MEDS ORDERED: Potassium Chloride 40 MEQ, Lidocaine 1% 2 ML in D5% in Water 500 ML IVPB ONE ×2 (07:32→11:52)
[2016-09-21] MEDS ORDERED: Potassium Chloride Elixir 20 MEQ/15 ML UDC PO ONE (07:32)
[2016-09-21] MEDS: Diltiazem CD (24hr) 240 MG CAPSULE PO SCH (07:43)
[2016-09-21] MEDS: Magnesium Oxide 400 MG TABLET PO SCH (07:43)
[2016-09-21] MEDS: Aspirin 81 MG TAB.CHEW PO SCH (07:43)
[2016-09-21] MEDS ORDERED: *HR* Propofol 500 MG/50 ML BOTTLE IVC ONE (09:38)
--- NOTE | 2016-09-21 10:56 | Gastroenterology Progress Note ---
Date of Encounter: 09/21/16 Time of Encounter: 10:00 - Assessment and plan (1) Constipation Current Visit: No Status: Resolved Assessment and plan: Daily fiber supplement, mirlax up to twice daily, stool softeners. Stimulant laxative recommended q3-[address] Michaud added Golytely 2L last pm, 2L today, however, patient has not consumed per the recommendation/changed to miralax bowel prep 500 mls q8hrs til gone. Will add bid tap water enemas. F/U in OTPT setting. RESOLVED. Qualifiers: Constipation type: chronic idiopathic constipation Qualified Code(s): K59.04 - Chronic idiopathic constipation (2) Gaseous abdominal distention Current Visit: Yes Status: Acute Assessment and plan: Worsening in recent imaging from 11.9 to 14.2 cm in RUQ, sigmoid distension. No stool noted in colon in recent imaging, but gaseous distension remains. Recommendation: start with IVP neostigmine 0.5 mg push over 10 minutes. Patient must be on phototypesetting equipment monitor, atropine at bedside. Neostigmine gtt did not improve patient symptoms or findings on imaging, therefore, proceed with colonic decompression tube. - Time Spent With Patient Total time spent is greater than 50% in coordination of care (as documented) at patient's floor/unit and/or counseling patient: less than 15 minutes - Subjective Interval history: Patient is a 86-year-old female seen the from the retirement for leukocytosis. Her past medical history is significant for dementia, diabetes, hypertension, S/P right nephrostomy.Patient was seen and examined. She is demented, awake alert, oriented x 2. She has no fever, no nausea, no vomiting. In no acute distress. Vital signs stable. Patient is still has abd distention despite trial of neostigmine, she will be prepped for colonic decompression tube. Called and discussed with Haley Pelayo, patient daughter, obtained consent. - Constitutional Vitals: Temp Pulse Resp BP Pulse Ox 97.8 F 67 19 120/56 97 09/21/16 10:44 09/21/16 10:44 09/21/16 10:44 09/21/16 10:44 09/21/16 10:44 General appearance: Present: cooperative, A&O X 2, mild distress - Head Head exam: Present: atraumatic, normocephalic - Eye Eye exam: Present: normal appearance, sclera anicteric - ENT ENT exam: Present: mucous membranes moist - Neck Neck exam general surgery: Present: normal inspection, trachea midline - Respiratory Respiratory exam: Present: CTAB - Cardiovascular Cardiovascular exam: Present: RRR, +S1, +S2 - GI/Abdominal GI/Abdominal exam: Present: distended, firm, hypoactive bowel sounds, no peritoneal signs - Rectal Rectal exam: Present: deferred - Extremities Exam Extremities exam: Present: warm - Neurological Exam Neurological exam: Present: no focal deficits - Psychiatric Psychiatric exam: Present: normal affect, normal mood - Skin Skin exam: Present: dry, intact, normal color, warm Results - Labs CBC & Chem 7: 09/21/16 05:00 09/21/16 05:00 Labs: Last Result Calcium 9.3 mg/dL (8.6-10.8) 09/21/16 05:00 Entire Visit Hgb 11.3 g/dL (11.5-15.4) L 09/21/16 05:00 Hct 36.1 % (35.3-44.9) 09/21/16 05:00 Total Bilirubin 0.5 mg/dL (0.2-1.2) 09/12/16 17:27 AST 18 Units/L (5-34) 09/12/16 17:27 ALT 13 Units/L (0-55) 09/12/16 17:27 Amylase 8 Units/L (25-125) L 09/12/16 17:27 Lipase 26 Units/L (8-78) 09/12/16 17:27 - Impressions Impressions KUB X-Ray 09/21/16 06:00 IMPRESSION: Stable to slightly increased severe distention of the distal colon and rectum. D/ / 09/21/2016 08:12:23 Arnie Miranda MD / shira Interpreting Provider: Arnie Miranda MD Consult Discharge Plan - Plan Referrals: Shelli Ware, [employer] SKILLS TRAINER [Primary Care Provider] -
--- NOTE | 2016-09-21 11:04 | Anesthesia Evaluation PreOp ---
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 History: Other (Altered Mental Status, Vascular Dementia) Other Medical History: Diabetes Type II Anesthesia History: No Prior Anesthetic Complications : No Alcohol Use: none Drug use: none Medications and Allergies BuPROPion [Wellbutrin] 100 mg PO BID 08/24/15 [History] Lisinopril [Zestril] 10 mg PO QPM 08/24/15 [History] Atorvastatin [Lipitor] 10 mg PO HS #30 tablet 08/30/15 [Rx] Diltiazem CD (24hr) [Cardizem CD] 240 mg PO DAILY #30 cap.er.24h 08/30/15 [Rx] Magnesium 250 mg PO DAILY 09/03/16 [History] Levofloxacin 750 mg PO DAILY #10 tablet MDD STOP 09-17-16 09/07/16 [Rx] Ondansetron ODT [Zofran ODT] 4 mg SL Q6H PRN #12 tab.rapdis 09/07/16 [Rx] Sennosides/Docusate Sodium [Senna Plus] 2 each PO BID #60 tablet 09/07/16 [Rx] Aspirin 81 mg PO DAILY 09/12/16 [History] MOM Conc [MILK OF MAGNESIA conc] 10 ml PO DAILY PRN 09/12/16 [History] Polyethylene Glycol 3350 [MiraLAX] 17 gm PO BID 09/12/16 [History] Potassium Chloride 40 meq PO QAM MDD STOP 09-19-16 09/12/16 [History] Allergies Sulfa (Sulfonamide Antibiotics) Allergy (Verified 05/08/15 16:09) Rash - Meds/Allergy Pre-op Review Medications Reviewed: Yes Allergies Reviewed: Yes Anesthesia Results - Labs 09/21/16 05:00 09/21/16 05:00 - Imaging EKG: report reviewed (SR Left Braham Deviation) Additional studies: EF 60% from 2015 ECHO Anesthesia Exam O2 Sat Weight 66.5 kg O2 Sat by Pulse Oximetry 97 O2 Sat by Pulse Oximetry 93 O2 Sat by Pulse Oximetry 95 O2 Sat by Pulse Oximetry 93 O2 Sat by Pulse Oximetry 93 O2 Sat by Pulse Oximetry 93 O2 Sat by Pulse Oximetry 93 O2 Sat by Pulse Oximetry 96 Vital Signs Temp Pulse Resp BP Pulse Ox 98.2 F 89 14 142/76 93 L 09/12/16 16:48 09/12/16 16:48 09/12/16 16:48 09/12/16 16:48 09/12/16 16:48 Height: 5'4 Weight: 146 lbs NPO (# of Hours): MN - HEENT Pupil (Motor): Pupils equal, EOMI Mallampati: III Teeth: Normal Oral Opening: Less than or equal to 3 - BEARING MACHINE OPERATOR LOC: Confused BEARING MACHINE OPERATOR Motor: Normal RUE, Normal LUE, Normal RLE, Normal LLE, Normal Face BEARING MACHINE OPERATOR Sensory: Normal: RUE, LUE, RLE, LLE, Face - Cardiac Rhythm: Regular Murmur: None JVD: No Carotid Bruit: No - Pulmonary Breath Sounds: bilateral Clear Respiratory Effort: Symmetrical Anesthesia Assess/Plan ASA Score: 3 (HTN Dementia DM) Modified [place] Scale for Level of Consciousness: Cooperative, oriented, and tranquil Anesthetic Plan: MAC Monitoring Plan: Standard Monitors Recovery Plan: Other (Discussed MAC, agrees to proceed)
[2016-09-21] MEDS ORDERED: 0.9 % Sodium Chloride 1,000 ML IVC SCH (11:15)
[2016-09-21] MEDS ORDERED: Propofol 500 MG/50 ML INFUS..BTL ONE (11:16)
[2016-09-21 11:39] LABS: Magnesium 1.7 mg/dL (1.6-2.6)
[2016-09-21] MEDS ORDERED: Simethicone 40 MG/0.6 ML MLS IR ONE (11:39)
[2016-09-21] MEDS ORDERED: Magnesium Sulfate 2 GM in D5% in Water 100 ML IVPB ONE (11:52)
--- NOTE | 2016-09-21 11:57 | Nephrology Consult Note ---
Date of Encounter: 09/21/16 Time of Encounter: 11:56 Assessment and Plan (1) Hypokalemia Current Visit: Yes Status: Acute History of Present Illness - Reason for Consult Consult date: 09/21/16 hypokalemia Requesting physician: Julio C Rose - Chief Complaint Hypokalemia - History of Present Illness Ms. Pelayo is a 86 year old female with PMH significant for dementia, diabetes, and HTN who is 1 week status post right nephrostomy tube placement who presented to the ED from her [facility] for leukocytosis. Additionally the patient had decreased output from her nephrostomy tube and has been slightly more confused than usual per the daughters report. She denies flank pain, chest pain, shortness of breath, fevers, nausea and vomiting. She is demented, but awake and alert. Initial thought was that the patients leukocytosis was UTI related, but urine culture has since been negative. GI has also been following for severe constipation as well as abdominal distension. She has received bowel regimen and has had multiple large BM's. Nephrology has been consulted for her hypokalemia. Patient is scheduled today for a cscope for colonic decompression. Past Med Surg Social Fam HX - Past Medical History Medical history: dementia, diabetes, hypertension Psychiatric history: no psych history - Past Surgical History Surgical History: hysterectomy, orthopedic, other, other - Social History Smoking Status: Never smoker Smokeless Tobacco Status: No Alcohol use: none Drug use: none - Family History Mother Adopted: No Family Member Ethnicity: Non- Living Status: Medications and Allergies BuPROPion [Wellbutrin] 100 mg PO BID 08/24/15 [History] Lisinopril [Zestril] 10 mg PO QPM 08/24/15 [History] Atorvastatin [Lipitor] 10 mg PO HS #30 tablet 08/30/15 [Rx] Diltiazem CD (24hr) [Cardizem CD] 240 mg PO DAILY #30 cap.er.24h 08/30/15 [Rx] Magnesium 250 mg PO DAILY 09/03/16 [History] Levofloxacin 750 mg PO DAILY #10 tablet MDD STOP 1-16-17 09/07/16 [Rx] Ondansetron ODT [Zofran ODT] 4 mg SL Q6H PRN #12 tab.rapdis 09/07/16 [Rx] Sennosides/Docusate Sodium [Senna Plus] 2 each PO BID #60 tablet 09/07/16 [Rx] Aspirin 81 mg PO DAILY 09/12/16 [History] MOM Conc [MILK OF MAGNESIA conc] 10 ml PO DAILY PRN 09/12/16 [History] Polyethylene Glycol 3350 [MiraLAX] 17 gm PO BID 09/12/16 [History] Potassium Chloride 40 meq PO QAM MDD STOP 09-19-16 09/12/16 [History] Allergies Sulfa (Sulfonamide Antibiotics) Allergy (Verified 05/08/15 16:09) Rash Review of Systems All Systems: reviewed and no additional remarkable complaints except as stated Exam - Vital Signs Vital signs: Initial Vital Signs Temp Pulse Resp BP Pulse Ox 98.2 F 89 14 142/76 93 L 09/12/16 16:48 09/12/16 16:48 09/12/16 16:48 09/12/16 16:48 09/12/16 16:48 Vital Signs - Last 8 Hours Temp Pulse Resp BP Pulse Ox 09/21/16 11:00 97.8 F 67 16 160/75 94 L 09/21/16 10:44 97.8 F 67 19 120/56 97 09/21/16 07:06 97.4 F L 68 16 146/70 93 L 09/21/16 05:03 98.0 F 71 16 166/73 95 Intake and Output 09/20/16 09/21/16 09/21/16 23:59 07:59 15:59 Intake Total 967 / 967 423 / 423 Output Total 550 / 550 450 / 450 200 / 200 Balance 417 / 417 -27 / -27 -200 / -200 Intake: IV Fluids 577 / 577 423 / 423 0.9 % Sodium Chloride 1, 577 / 577 423 / 423 000 ML @ 75 mls/hr IVC . [id number] [facility] Rx#: [id number] Oral 390 / 390 0 / 0 Output: Wound Drainage 550 / 550 450 / 450 200 / 200 Right Lower Back 550 / 550 450 / 450 200 / 200 Other: Stool Size Smear Stool Consistency loose Stool Color Brown # Urine Diapers 1 1 1 # Bowel Movement Diapers 1 0 Weight 66.5 kg 66.5 kg Blood Glucose* 91 Patient Weight 09/21/16 23:59 Weight 66.5 kg - General Appearance Exam: General appearance: Present: cooperative, A&O X 2 - Head Head exam: Present: atraumatic, normocephalic - Eye Eye exam: Present: normal appearance, sclera anicteric - ENT ENT exam: Present: mucous membranes moist - Neck Neck exam general surgery: Present: normal inspection, trachea midline - Respiratory Respiratory exam: Present: CTAB - Cardiovascular Cardiovascular exam: Present: RRR, +S1, +S2 - GI/Abdominal GI/Abdominal exam: Present: distended, firm, hypoactive bowel sounds, no peritoneal signs - Extremities Exam Extremities exam: Present: warm - Neurological Exam Neurological exam: Present: no focal deficits - Psychiatric Psychiatric exam: Present: normal affect, normal mood - Skin Skin exam: Present: dry, intact, normal color, warm Results - Lab Results 09/21/16 05:00 09/21/16 05:00 Most recent lab results Calcium 9.3 mg/dL (8.6-10.8) 09/21/16 05:00 Phosphorus 2.2 mg/dL (2.3-4.7) L 09/13/16 04:00 Magnesium 1.7 mg/dL (1.6-2.6) 09/21/16 05:00 Consult Discharge Plan - Plan Referrals: Shelli Ware STAFF NURSE ANESTHETIST [Primary Care Provider] -
--- NOTE | 2016-09-21 12:28 | Anesthesia Evaluation Post Op ---
Date of Encounter: 09/21/16 Time of Encounter: 12:27 - Vital Signs Vital Signs: 104/59, HR 65, 94% (RA), RR14, 99.3F - Lungs Lungs: Clear Ascult./Percussion - Airway Airway: Non-obstructed - Cardiovascular Regular Rate - Mental Status Mental Status: Alert & Oriented, Answers Appropriately - Pain Pain Scale: 0 Pain Scale used: Numeric (1 - 10) - Nausea Vomiting Nausea Vomiting: Not Present - Hydration Hydration: NPO, Has not voided - Discharge PostOp Status: Transfer Patient to floor
--- NOTE | 2016-09-21 15:21 | Internal Med Progress Note ---
Date of Encounter: 09/21/16 Time of Encounter: 09:00 - Assessment and plan (1) Colon distention Current Visit: Yes Status: Acute Assessment and plan: Etiology is undetermined. GI consult appreciated, tried neostigmine to stimulate bowel movement but is still distended. GI did decompression procedure and distention improved after procedure. Closely monitor patient. (2) Leukocytosis Current Visit: Yes Status: Acute Assessment and plan: Improvement after antibiotic treatment. DC antibiotic today. Qualifiers: Leukocytosis type: unspecified Qualified Code(s): D72.829 - Elevated white blood cell count, unspecified (3) Atrial fibrillation Current Visit: Yes Status: Acute Assessment and plan: Patient has a history of A. Fib with RVR, but was converted back to sinus rhythm. CVA coverage was reported to be ASA 81mg due to risk of anticoagulation with underlying dementia and risk of bleeding. Continue diltiazem for rate control. Continue Aspirin 81mg. Qualifiers: Atrial fibrillation type: paroxysmal Qualified Code(s): I48.0 - Paroxysmal atrial fibrillation (4) Essential hypertension Current Visit: Yes Status: Acute Assessment and plan: Continue home medication, follow-up of blood pressure. (5) UTI (urinary tract infection) Current Visit: Yes Status: Acute Assessment and plan: Levaquin has been used for 8 days. Would discontinue antibiotics today. Urine culture shows no growth Qualifiers: Urinary tract infection type: acute cystitis Hematuria presence: without hematuria Qualified Code(s): N30.00 - Acute cystitis without hematuria (6) Constipation Current Visit: No Status: Resolved Assessment and plan: Resolved after milk and molasses enema on 09/15/16. But still abd distention. CT shows no stools and no obstruction. GI consult appreciated. Had decompression procedure done. Qualifiers: Constipation type: chronic idiopathic constipation Qualified Code(s): K59.04 - Chronic idiopathic constipation (7) Hypokalemia Current Visit: Yes Status: Acute Assessment and plan: Persist hypokalemia. Etiology is undetermine. Had some work up done before. We will ask for nephrology consult. (8) Vascular dementia Current Visit: No Status: Chronic Assessment and plan: Chronic and stable Qualifiers: Dementia behavioral disturbance: without behavioral disturbance Qualified Code(s): F01.50 - Vascular dementia without behavioral disturbance (9) DVT prophylaxis Current Visit: No Status: Acute Assessment and plan: Heparin subcutaneously - Time Spent With Patient 25 - 35 minutes - Subjective Interval history: Patient is a 86-year-old female [facility]. Her past medical history is significant for dementia, diabetes, hypertension, S/P right nephrostomy. Patient was seen and examined. She is demented, awake alert, oriented x 2. She has no fever, no nausea, no vomiting. In no acute distress. Vital signs stable. Patient is still has abd distention. GI consult saw Patient, and did procedure to decompression. After procedure, the abd distention has improved. Patient's old chart has reviewed, she has persisted hypokalemia, had workup done before include TSH, aldosterone, renin activity, ect. We will ask nephrology consult to further figure out the reason of persistent hypokalemia. - Constitutional Vitals: Temp Pulse Resp BP Pulse Ox 97.8 F 69 16 137/78 96 09/21/16 14:56 09/21/16 14:56 09/21/16 14:56 09/21/16 14:56 09/21/16 14:56 General appearance: Present: A&O X 2, pleasant, answers questions appropriately - Head Head exam: Present: atraumatic, normocephalic - Eye Eye exam: Present: PERRL, conjuntiva pink, sclera anicteric Pupils: Present: PERRL - Neck Neck exam general surgery: Present: supple, trachea midline. Absent: lymphadenopathy - Respiratory Respiratory exam: Present: CTAB. Absent: accessory muscle use, rales, rhonchi, wheezes - Cardiovascular Cardiovascular exam: Present: RRR, +S1, +S2. Absent: diastolic murmur, gallop, rubs, systolic murmur - GI/Abdominal GI/Abdominal exam: Present: distended, hyperactive bowel sounds, soft, no peritoneal signs. Absent: tenderness Additional comments: Right side nephrostomy tube is in place. - Extremities Exam Extremities exam: Present: warm, radial pulses palpable and symetrical. Absent : calf tenderness, cyanotic, pedal edema - Neurological Exam Neurological exam: Present: CN II-XII intact, oriented X3, no focal deficits. Absent: pronater drift, facial droop, speech deficit - Skin Skin exam: Present: dry, intact Internal Medicine: Result - Labs CBC & Chem 7: 09/21/16 05:00 09/21/16 05:00 Labs: Short CBC 09/21/16 Range/Units 05:00 WBC 8.4 (4.3-11.1) K/mcL Hgb 11.3 L (11.5-15.4) g/dL Hct 36.1 (35.3-44.9) % Plt Count 250 (140-400) K/mcL Neutrophils # 6.5 (1.6-8.9) K/mcL BMP 09/21/16 05:00 Sodium 142 Potassium 3.1 L Chloride 111 H Carbon Dioxide 24 BUN 4 L Creatinine 0.64 Glucose 104 H Calcium 9.3 - Impressions Impressions Fluoroscopy 09/21/16 00:00 IMPRESSION: Intraprocedural fluoroscopic spot images as above. See separate procedure report for more information. D/ / Arnie Miranda MD / Arnie Miranda MD Interpreting Provider: Arnie Miranda MD X-Ray 09/21/16 00:00 IMPRESSION: Intraprocedural fluoroscopic spot images as above. See separate procedure report for more information. D/ / Arnie Miranda MD / Arnie Miranda MD Interpreting Provider: Arnie Miranda MD X-Ray 09/21/16 06:00 IMPRESSION: Stable to slightly increased severe distention of the distal colon and rectum. D/ / 09/21/2016 08:12:23 Arnie Miranda MD / shira Interpreting Provider: Arnie Miranda MD Consult Discharge Plan - Plan Referrals: Shelli Ware, CARTON FOLDER [Primary Care Provider] -
[2016-09-22] MEDS: Insulin LISPRO 300 UNITS/3 ML VIAL SQ SCH ×4 (00:12→18:12)
[2016-09-22 03:42] LABS: Basophils % 0.5 %; Eosinophils # 0.4 K/mcL (0.0-0.6); Eosinophils % 4.8 %; Hematocrit 35.3 % (35.3-44.9); Hemoglobin 10.7 g/dL (11.5-15.4); Immature Granulocytes % 0.3 % (0-4); Lymphocytes # 0.9 K/mcL (0.6-4.6); Lymphocytes % 11.4 %; Mean Corpuscular HGB Conc 30.3 g/dL (31.6-35.5); Mean Corpuscular Hemoglobin 28.3 pg (28.0-33.3); Mean Corpuscular Volume 93.4 fL (83.0-100.0); Mean Platelet Volume 10.4 fL (9.4-12.4); Monocytes # 0.7 K/mcL (0.0-1.3); Monocytes % 9.7 %; Neutrophils # 5.6 K/mcL (1.6-8.9); Platelet Count 228 K/mcL (140-400); Red Blood Count 3.78 M/mcL (3.82-4.97); Red Cell Distribution Width 13.6 % (11.5-14.5); Segmented Neutrophils % 73.3 %
[2016-09-22 03:54] LABS: BUN/Creatinine Ratio 8 (6-26); Blood Urea Nitrogen 7 mg/dL (7-20); Calcium 9.6 mg/dL (8.6-10.8); Carbon Dioxide 25 mEq/L (19-29); Chloride 111 mEq/L (98-109); Glucose 95 mg/dL (70-99); Osmolality,Calculated 292 (280-300); Potassium 4.1 mEq/L (3.5-4.5); Sodium 142 mEq/L (136-145); eGFR For African Americans > 60 (> 60); eGFR For Non-African Americans > 60 (> 60)
[2016-09-22] MEDS: *HR* Heparin 5,000 UNIT/ML VIAL SQ SCH ×2 (05:58→17:53)
[2016-09-22] MEDS ORDERED: Potassium Chloride 20 MEQ, Lidocaine 1% 2 ML in D5% in Water 250 ML IVPB ONE (09:00)
[2016-09-22] MEDS: Aspirin 81 MG TAB.CHEW PO SCH (09:40)
[2016-09-22] MEDS: Diltiazem CD (24hr) 240 MG CAPSULE PO SCH (09:40)
[2016-09-22] MEDS: Magnesium Oxide 400 MG TABLET PO SCH (09:40)
--- NOTE | 2016-09-22 10:59 | Nephrology Progress Note ---
Date of Encounter: 09/22/16 Time of Encounter: 10:54 - Assessment and Plan (1) Hypokalemia Current Visit: Yes Status: Acute Patient's potassium is normal today after aggressive replacement. Plan to initiate 20meq daily and monitor. Will discontinue saline as she is eating well. Will monitor labs peripherally unless her hypokalemia returns. If she is discharged ok to return to [facility] per the discretion of her primary care provider. Thank you for the consult. Call if questions or concerns. Subjective Principal diagnosis: Hypokalemia Interval history: Patient feels much better this morning. She ate all of her meal last night and most of her breakfast. She denies abdominal pain. ROS otherwise appears to be stable. Objective - Vital Signs Vital signs: Vital Signs Temp Pulse Resp BP Pulse Ox 09/22/16 07:39 98.4 F 67 18 156/63 96 09/22/16 03:30 98.2 F 65 20 139/55 97 09/22/16 00:03 98.1 F 64 14 126/67 96 09/21/16 20:04 97.8 F 76 16 121/68 95 09/21/16 14:56 97.8 F 69 16 137/78 96 09/21/16 12:29 97.0 F L 67 16 148/81 94 L 09/21/16 11:00 97.8 F 67 16 160/75 94 L Intake and Output 09/21/16 09/22/16 09/22/16 23:59 07:59 15:59 Intake Total 120 / 120 0 / 0 1120 / 1120 Output Total 200 / 200 800 / 800 Balance -80 / -80 -800 / -800 1120 / 1120 Intake: IV Fluids 1000 / 1000 0.45% Sodium Chloride 1000 / 1000 1000 Ml 1000 Ml 1,000 ML @ 50 mls/hr IVC .Q20H [facility] Rx#:[id number] Oral 120 / 120 0 / 0 120 / 120 Output: Other 350 / 350 Right Nephrostomy 450 / 450 Wound Drainage 200 / 200 0 / 0 Right Lower Back 200 / 200 0 / 0 Other: Meal Breakfast Percent of Meal Consumed 100% # Voids 1 # Urine Diapers 1 1 # Bowel Movement Diapers 0 Weight 63.72 kg Blood Glucose* 89 Patient Weight 09/22/16 23:59 Weight 63.72 kg - General Appearance General appearance: Present: well-developed, well-nourished EENT: Present: ATNC Neck: Present: supple Respiratory: Present: clear Cardiology: Present: no edema, regular rate, regular rhythm Gastrointestinal: Present: normoactive bowel sounds, no tenderness Neurologic: Present: alert and oriented x3 Musculoskeletal: Present: no cyanosis Psychiatric: Present: mood/affect appropriate - Lab 09/22/16 03:33 09/22/16 03:33 Most recent lab results Calcium 9.6 mg/dL (8.6-10.8) 09/22/16 03:33 Phosphorus 2.2 mg/dL (2.3-4.7) L 09/13/16 04:00 Magnesium 1.7 mg/dL (1.6-2.6) 09/21/16 05:00 Consult Discharge Plan - Plan Referrals: Shelli Ware, PRODUCTION CONTROL EXPERT [Primary Care Provider] -
--- NOTE | 2016-09-22 14:46 | Internal Med Progress Note ---
Date of Encounter: 09/22/16 Time of Encounter: 10:00 - Assessment and plan (1) Colon distention Current Visit: Yes Status: Acute Assessment and plan: Etiology is undetermined. GI consult appreciated, on decompression tube with low pressure intermittent suction. Distention has resolved after this treatment. Closely monitor patient. (2) Leukocytosis Current Visit: Yes Status: Acute Assessment and plan: Improvement after antibiotic treatment. DC antibiotic after finishing the treatment course. Qualifiers: Leukocytosis type: unspecified Qualified Code(s): D72.829 - Elevated white blood cell count, unspecified (3) Atrial fibrillation Current Visit: Yes Status: Acute Assessment and plan: Patient has a history of A. Fib with RVR, but was converted back to sinus rhythm. CVA coverage was reported to be ASA 81mg due to risk of anticoagulation with underlying dementia and risk of bleeding. Continue diltiazem for rate control. Continue Aspirin 81mg. Qualifiers: Atrial fibrillation type: paroxysmal Qualified Code(s): I48.0 - Paroxysmal atrial fibrillation (4) Essential hypertension Current Visit: Yes Status: Acute Assessment and plan: Continue home medication, follow-up of blood pressure. (5) UTI (urinary tract infection) Current Visit: Yes Status: Acute Assessment and plan: Levaquin has been used for 8 days. Would discontinue antibiotics. Urine culture shows no growth Qualifiers: Urinary tract infection type: acute cystitis Hematuria presence: without hematuria Qualified Code(s): N30.00 - Acute cystitis without hematuria (6) Constipation Current Visit: No Status: Resolved Assessment and plan: Resolved after milk and molasses enema on 09/15/16. But still abd distention. CT shows no stools and no obstruction. GI consult appreciated. Had decompression tube placed. Qualifiers: Constipation type: chronic idiopathic constipation Qualified Code(s): K59.04 - Chronic idiopathic constipation (7) Hypokalemia Current Visit: Yes Status: Acute Assessment and plan: Persist hypokalemia. Etiology is undetermine. Had some work up done before. nephrology consult appreciated. (8) Vascular dementia Current Visit: No Status: Chronic Assessment and plan: Chronic and stable Qualifiers: Dementia behavioral disturbance: without behavioral disturbance Qualified Code(s): F01.50 - Vascular dementia without behavioral disturbance (9) DVT prophylaxis Current Visit: No Status: Acute Assessment and plan: Heparin subcutaneously - Time Spent With Patient 25 - 35 minutes - Subjective Interval history: Patient is a 86-year-old female seen the from the long term for leukocytosis. Her past medical history is significant for dementia, diabetes, hypertension, S/P right nephrostomy. Patient was seen and examined. She is demented, awake alert, oriented x 2. She has no fever, no nausea, no vomiting. In no acute distress. Vital signs stable. Abdominal distention has resolved after GI doctor put the decompression tube and intermittent low pressure suction. Will continue closely monitoring. - Constitutional Vitals: Temp Pulse Resp BP Pulse Ox 98.4 F 67 18 156/63 96 09/22/16 07:39 09/22/16 07:39 09/22/16 07:39 09/22/16 07:39 09/22/16 07:39 General appearance: Present: A&O X 2, pleasant, answers questions appropriately - Head Head exam: Present: atraumatic, normocephalic - Eye Eye exam: Present: PERRL, conjuntiva pink, sclera anicteric Pupils: Present: PERRL - Neck Neck exam general surgery: Present: supple, trachea midline. Absent: lymphadenopathy - Respiratory Respiratory exam: Present: CTAB. Absent: accessory muscle use, rales, rhonchi, wheezes - Cardiovascular Cardiovascular exam: Present: RRR, +S1, +S2. Absent: diastolic murmur, gallop, rubs, systolic murmur - GI/Abdominal GI/Abdominal exam: Present: normal bowel sounds, soft, no peritoneal signs. Absent: distended, tenderness - Extremities Exam Extremities exam: Present: warm, radial pulses palpable and symetrical. Absent : calf tenderness, cyanotic, pedal edema - Neurological Exam Neurological exam: Present: CN II-XII intact, oriented X3, no focal deficits. Absent: pronater drift, facial droop, speech deficit - Skin Skin exam: Present: dry, intact Internal Medicine: Result - Labs CBC & Chem 7: 09/22/16 03:33 09/22/16 03:33 Labs: Short CBC 09/22/16 Range/Units 03:33 WBC 7.6 (4.3-11.1) K/mcL Hgb 10.7 L (11.5-15.4) g/dL Hct 35.3 (35.3-44.9) % Plt Count 228 (140-400) K/mcL Neutrophils # 5.6 (1.6-8.9) K/mcL BMP 09/22/16 03:33 Sodium 142 Potassium 4.1 D Chloride 111 H Carbon Dioxide 25 BUN 7 Creatinine 0.84 Glucose 95 Calcium 9.6 Consult Discharge Plan - Plan Referrals: Shelli Ware, J[employer]IOR LOAN PROCESSOR [Primary Care Provider] -
[2016-09-23] MEDS: Insulin LISPRO 300 UNITS/3 ML VIAL SQ SCH ×4 (00:27→17:55)
[2016-09-23] MEDS: *HR* Heparin 5,000 UNIT/ML VIAL SQ SCH ×2 (05:42→17:56)
[2016-09-23 07:14] LABS: Basophils # 0.1 K/mcL (0.0-0.2); Basophils % 0.4 %; Eosinophils # 0.4 K/mcL (0.0-0.6); Eosinophils % 2.9 %; Hematocrit 36.3 % (35.3-44.9); Hemoglobin 11.5 g/dL (11.5-15.4); Immature Granulocytes % 0.6 % (0-4); Lymphocytes # 0.7 K/mcL (0.6-4.6); Lymphocytes % 5.2 %; Mean Corpuscular HGB Conc 31.7 g/dL (31.6-35.5); Mean Corpuscular Hemoglobin 29.1 pg (28.0-33.3); Mean Corpuscular Volume 91.9 fL (83.0-100.0); Mean Platelet Volume 11.1 fL (9.4-12.4); Monocytes % 7.8 %; Platelet Count 254 K/mcL (140-400); Red Blood Count 3.95 M/mcL (3.82-4.97); Red Cell Distribution Width 13.7 % (11.5-14.5); Segmented Neutrophils % 83.1 %
[2016-09-23 07:33] LABS: BUN/Creatinine Ratio 22 (6-26); Blood Urea Nitrogen 14 mg/dL (7-20); Calcium 9.7 mg/dL (8.6-10.8); Carbon Dioxide 22 mEq/L (19-29); Chloride 107 mEq/L (98-109); Glucose 113 mg/dL (70-99); Osmolality,Calculated 289 (280-300); Potassium 3.7 mEq/L (3.5-4.5); Sodium 139 mEq/L (136-145); eGFR For African Americans > 60 (> 60); eGFR For Non-African Americans > 60 (> 60)
[2016-09-23] MEDS: Magnesium Oxide 400 MG TABLET PO SCH (10:07)
[2016-09-23] MEDS: Diltiazem CD (24hr) 240 MG CAPSULE PO SCH (10:07)
[2016-09-23] MEDS: Aspirin 81 MG TAB.CHEW PO SCH (10:07)
--- NOTE | 2016-09-23 11:31 | Internal Med Progress Note ---
Date of Encounter: 09/23/16 Time of Encounter: 10:00 - Assessment and plan (1) Colon distention Current Visit: Yes Status: Acute Assessment and plan: Etiology is undetermined. GI consult appreciated, on decompression tube with low pressure intermittent suction. Distention has resolved after this treatment. Closely monitor patient. (2) Leukocytosis Current Visit: Yes Status: Acute Assessment and plan: Increased WBC today. Patient has no fever, no cough. However chest x-ray shows new infiltrate. We will add cefepime to treat for hospital-acquired pneumonia. Qualifiers: Leukocytosis type: unspecified Qualified Code(s): D72.829 - Elevated white blood cell count, unspecified (3) Atrial fibrillation Current Visit: Yes Status: Acute Assessment and plan: Patient has a history of A. Fib with RVR, but was converted back to sinus rhythm. CVA coverage was reported to be ASA 81mg due to risk of anticoagulation with underlying dementia and risk of bleeding. Continue diltiazem for rate control. Continue Aspirin 81mg. Qualifiers: Atrial fibrillation type: paroxysmal Qualified Code(s): I48.0 - Paroxysmal atrial fibrillation (4) Essential hypertension Current Visit: Yes Status: Acute Assessment and plan: Continue home medication, follow-up of blood pressure. (5) UTI (urinary tract infection) Current Visit: Yes Status: Acute Assessment and plan: Levaquin has been discontinued after treatment course. Urine culture shows no growth. Has new elevated WBC, we will repeat a urinalysis. Qualifiers: Urinary tract infection type: acute cystitis Hematuria presence: without hematuria Qualified Code(s): N30.00 - Acute cystitis without hematuria (6) Constipation Current Visit: No Status: Resolved Assessment and plan: Resolved after milk and molasses enema on 09/15/16. But still abd distention. CT shows no stools and no obstruction. GI consult appreciated. Had decompression tube placed. Qualifiers: Constipation type: chronic idiopathic constipation Qualified Code(s): K59.04 - Chronic idiopathic constipation (7) Hypokalemia Current Visit: Yes Status: Acute Assessment and plan: Persist hypokalemia. Etiology is undetermine. Had some work up done before. nephrology consult appreciated. (8) Vascular dementia Current Visit: No Status: Chronic Assessment and plan: Chronic and stable Qualifiers: Dementia behavioral disturbance: without behavioral disturbance Qualified Code(s): F01.50 - Vascular dementia without behavioral disturbance (9) DVT prophylaxis Current Visit: No Status: Acute Assessment and plan: Heparin subcutaneously (10) Hospital-acquired pneumonia Current Visit: Yes Status: Acute Assessment and plan: Patient has WBC elevation, Chest x-ray shows new infiltrate, will treat patient with the cefepime. X-ray also suspect paraspinal mass, recommended CT with contrast. Will consider order CT when patient is off decompression tube. - Time Spent With Patient 25 - 35 minutes - Subjective Interval history: Patient is a 86-year-old female seen the from the senior care for leukocytosis. Her past medical history is significant for dementia, diabetes, hypertension, S/P right nephrostomy. Patient was seen and examined. She is demented, awake alert, oriented x 2. She has no fever, no nausea, no vomiting. No cough. In no acute distress. Vital signs stable. However, patient has a elevated WBC, chest x-ray has ordered and shows new infiltrate. We will add cefepime to treat hospital- acquired pneumonia. Abdominal distention has resolved after GI doctor put the decompression tube and intermittent low pressure suction. Will continue closely monitoring. - Constitutional Vitals: Temp Pulse Resp BP Pulse Ox 97.4 F L 81 16 169/74 95 09/23/16 07:26 09/23/16 07:26 09/23/16 07:26 09/23/16 07:26 09/23/16 07:26 General appearance: Present: A&O X 2, pleasant, answers questions appropriately - Head Head exam: Present: atraumatic, normocephalic - Eye Eye exam: Present: PERRL, conjuntiva pink, sclera anicteric Pupils: Present: PERRL - Neck Neck exam general surgery: Present: supple, trachea midline. Absent: lymphadenopathy - Respiratory Respiratory exam: Present: CTAB. Absent: accessory muscle use, rales, rhonchi, wheezes - Cardiovascular Cardiovascular exam: Present: RRR, +S1, +S2. Absent: diastolic murmur, gallop, rubs, systolic murmur - GI/Abdominal GI/Abdominal exam: Present: normal bowel sounds, soft, no peritoneal signs. Absent: distended, tenderness Additional comments: On decompression tube - Extremities Exam Extremities exam: Present: warm, radial pulses palpable and symetrical. Absent : calf tenderness, cyanotic, pedal edema - Neurological Exam Neurological exam: Present: CN II-XII intact, oriented X3, no focal deficits. Absent: pronater drift, facial droop, speech deficit - Skin Skin exam: Present: dry, intact Internal Medicine: Result - Labs CBC & Chem 7: 09/23/16 06:58 09/23/16 06:58 Labs: Short CBC 09/23/16 Range/Units 06:58 WBC 13.2 H D (4.3-11.1) K/mcL Hgb 11.5 (11.5-15.4) g/dL Hct 36.3 (35.3-44.9) % Plt Count 254 (140-400) K/mcL Neutrophils # 11.0 H (1.6-8.9) K/mcL BMP 09/23/16 06:58 Sodium 139 Potassium 3.7 Chloride 107 Carbon Dioxide 22 BUN 14 Creatinine 0.64 Glucose 113 H Calcium 9.7 - Impressions Impressions Chest X-Ray 09/23/16 09:26 IMPRESSION: 1. Left basilar atelectasis versus infiltrate is new from the previous exam. 2. Rounded density over the right paraspinal region. Mass cannot be excluded and chest CT with contrast is recommended for further evaluation. 3. Stable cardiomegaly. 4. Large hiatal hernia. D/ / David Bravo MD / David Bravo MD Interpreting Provider: David Bravo MD Consult Discharge Plan - Plan Referrals: Shelli Ware CNP [Primary Care Provider] -
[2016-09-23 11:57] LABS: Bilirubin,Urine Negative (Negative); Blood,Urine Large (Negative); Clarity,Urine Cloudy (Clear); Color,Urine Yellow (Yellow); Glucose,Urine (UA) Normal (Normal); Ketones,Urine Negative (Negative); Leukocyte Esterase,Urine Moderate (Negative); Nitrite,Urine Negative (Negative); Protein,Urine 30 mg/dL (Neg-Trace); Specific Gravity,Urine 1.008 (1.010-1.025); Urobilinogen,Urine Normal (Normal)
[2016-09-23 12:18] LABS: RBC,Urine 30-50 per hpf (0-3); WBC,Urine 50-100 per hpf (0-3)
[2016-09-23 12:19] LABS: Calcium Oxalate Crystals,Urine Present; Mucus,Urine Many (Few)
[2016-09-23 12:20] LABS: Bacteria,Urine Many per hpf (None-Few); Squamous Epithelial Cell,Urine None Seen per lpf (None-Few)
[2016-09-23] MEDS: Cefepime HCl 1,000 MG in D5% in Water (Mini-Bag+) 100 ML IVPB SCH (17:56)
[2016-09-24] MEDS: Insulin LISPRO 300 UNITS/3 ML VIAL SQ SCH ×4 (00:06→17:28)
[2016-09-24 03:12] LABS: Basophils % 0.4 %; Eosinophils # 0.5 K/mcL (0.0-0.6); Hematocrit 34.9 % (35.3-44.9); Hemoglobin 10.9 g/dL (11.5-15.4); Immature Granulocytes % 0.5 % (0-4); Lymphocytes % 11.2 %; Mean Corpuscular HGB Conc 31.2 g/dL (31.6-35.5); Mean Corpuscular Hemoglobin 29.1 pg (28.0-33.3); Mean Corpuscular Volume 93.3 fL (83.0-100.0); Mean Platelet Volume 10.8 fL (9.4-12.4); Monocytes # 0.8 K/mcL (0.0-1.3); Monocytes % 9.5 %; Neutrophils # 6.1 K/mcL (1.6-8.9); Platelet Count 234 K/mcL (140-400); Red Blood Count 3.74 M/mcL (3.82-4.97); Red Cell Distribution Width 13.9 % (11.5-14.5); Segmented Neutrophils % 72.4 %
[2016-09-24 03:26] LABS: BUN/Creatinine Ratio 23 (6-26); Blood Urea Nitrogen 18 mg/dL (7-20); Calcium 9.9 mg/dL (8.6-10.8); Carbon Dioxide 21 mEq/L (19-29); Chloride 110 mEq/L (98-109); Glucose 103 mg/dL (70-99); Osmolality,Calculated 294 (280-300); Potassium 3.1 mEq/L (3.5-4.5); Sodium 141 mEq/L (136-145); eGFR For African Americans > 60 (> 60); eGFR For Non-African Americans > 60 (> 60)
[2016-09-24] MEDS: *HR* Heparin 5,000 UNIT/ML VIAL SQ SCH ×2 (05:45→17:27)
[2016-09-24] MEDS: Cefepime HCl 1,000 MG in D5% in Water (Mini-Bag+) 100 ML IVPB SCH ×2 (05:46→17:27)
[2016-09-24] MEDS: Diltiazem CD (24hr) 240 MG CAPSULE PO SCH (08:01)
[2016-09-24] MEDS: Aspirin 81 MG TAB.CHEW PO SCH (08:01)
[2016-09-24] MEDS: Magnesium Oxide 400 MG TABLET PO SCH (08:01)
[2016-09-24] MEDS: Ondansetron ODT 4 MG TAB.RAPDIS SL PRN (10:36)
--- NOTE | 2016-09-24 11:09 | Gastroenterology Progress Note ---
<Juno Vasquez - Last Filed: 09/24/16 11:07> Date of Encounter: 09/24/16 Time of Encounter: 10:20 - Assessment and plan (1) Gaseous abdominal distention Current Visit: Yes Status: Acute Assessment and plan: Colonic decompression tube inserted 09/21/15 to low intermittent suction, distention improved following procedure, and is now resolved. Will discuss discontinuing decompression tube with Dr. Michaud. (2) Constipation Current Visit: No Status: Resolved Assessment and plan: Daily fiber supplement, Mirlax up to twice daily, stool softeners. Stimulant laxative recommended q3-4 days if needed. Follow up as outpatient. Qualifiers: Constipation type: chronic idiopathic constipation Qualified Code(s): K59.04 - Chronic idiopathic constipation - Time Spent With Patient Total time spent is greater than 50% in coordination of care (as documented) at patient's floor/unit and/or counseling patient: - Subjective Interval history: Patient is resting comfortably in bed without acute complaint at this time. She denies abdominal pain - Constitutional Vitals: Temp Pulse Resp BP Pulse Ox 97.5 F L 69 24 125/62 93 L 09/24/16 10:57 09/24/16 08:12 09/24/16 10:57 09/24/16 10:57 09/24/16 10:57 General appearance: Present: cooperative, A&O X 2, answers questions appropriately - Head Head exam: Present: atraumatic, normocephalic - Eye Eye exam: Present: normal appearance, sclera anicteric - ENT ENT exam: Present: mucous membranes moist - Neck Neck exam general surgery: Present: normal inspection, trachea midline - Respiratory Respiratory exam: Present: CTAB. Absent: rales, rhonchi - Cardiovascular Cardiovascular exam: Present: RRR, +S1, +S2 - GI/Abdominal GI/Abdominal exam: Present: soft, no peritoneal signs. Absent: distended, firm , guarding, tenderness - Rectal Rectal exam: Present: deferred - Extremities Exam Extremities exam: Present: warm - Neurological Exam Neurological exam: Present: no focal deficits - Psychiatric Psychiatric exam: Present: normal affect, normal mood - Skin Skin exam: Present: dry, intact, normal color, warm Results - Labs CBC & Chem 7: 09/24/16 03:00 09/24/16 03:00 Labs: Last Result Calcium 9.9 mg/dL (8.6-10.8) 09/24/16 03:00 Entire Visit Hgb 10.9 g/dL (11.5-15.4) L 09/24/16 03:00 Hct 34.9 % (35.3-44.9) L 09/24/16 03:00 Total Bilirubin 0.5 mg/dL (0.2-1.2) 09/12/16 17:27 AST 18 Units/L (5-34) 09/12/16 17:27 ALT 13 Units/L (0-55) 09/12/16 17:27 Amylase 8 Units/L (25-125) L 09/12/16 17:27 Lipase 26 Units/L (8-78) 09/12/16 17:27 Consult Discharge Plan - Plan Referrals: Shelli Ware MECHANICAL DESIGN ENGINEER [Primary Care Provider] - <Demetris Michaud - Last Filed: 09/24/16 17:13> Date of Encounter: 09/24/16 Time of Encounter: 14:00 - Time Spent With Patient Total time spent is greater than 50% in coordination of care (as documented) at patient's floor/unit and/or counseling patient: - Constitutional Vitals: Temp Pulse Resp BP Pulse Ox 97.8 F 78 16 131/69 93 L 09/24/16 14:40 09/24/16 14:40 09/24/16 14:40 09/24/16 14:40 09/24/16 14:40 Results - Labs CBC & Chem 7: 09/24/16 03:00 09/24/16 03:00 Labs: Last Result Calcium 9.9 mg/dL (8.6-10.8) 09/24/16 03:00 Entire Visit Hgb 10.9 g/dL (11.5-15.4) L 09/24/16 03:00 Hct 34.9 % (35.3-44.9) L 09/24/16 03:00 Total Bilirubin 0.5 mg/dL (0.2-1.2) 09/12/16 17:27 AST 18 Units/L (5-34) 09/12/16 17:27 ALT 13 Units/L (0-55) 09/12/16 17:27 Amylase 8 Units/L (25-125) L 09/12/16 17:27 Lipase 26 Units/L (8-78) 09/12/16 17:27 - Attending Attestation I examined this patient and my medical decision-making was reviewed with the CUTTER FIRST/PA/Advanced Practice Nurse/Resident Physician. I agree with the documented findings, disposition and treatment plan as described except to the extent set forth below. Pt abd distension returned on stopping the intermittent suction, back on suction , if prob persist then will need surgery input for poss colostomy as sigmoid colon i svery tortous and dilated and no help with meds
--- NOTE | 2016-09-24 17:04 | Internal Med Progress Note ---
Date of Encounter: 09/24/16 Time of Encounter: 09:00 - Assessment and plan (1) Colon distention Current Visit: Yes Status: Acute Assessment and plan: Etiology is undetermined. GI consult appreciated, on decompression tube with low pressure intermittent suction. Distention has resolved after this treatment. However the suction cannot stop. Closely monitor patient. (2) Leukocytosis Current Visit: Yes Status: Acute Assessment and plan: Increased WBC today. Patient has no fever, no cough. However chest x-ray shows new infiltrate and the urine analysis shows UTI. We will add cefepime to treat for both UTI and hospital-acquired pneumonia. WBC level is get to normal after treatment. Qualifiers: Leukocytosis type: unspecified Qualified Code(s): D72.829 - Elevated white blood cell count, unspecified (3) Atrial fibrillation Current Visit: Yes Status: Acute Assessment and plan: Patient has a history of A. Fib with RVR, but was converted back to sinus rhythm. CVA coverage was reported to be ASA 81mg due to risk of anticoagulation with underlying dementia and risk of bleeding. Continue diltiazem for rate control. Continue Aspirin 81mg. Qualifiers: Atrial fibrillation type: paroxysmal Qualified Code(s): I48.0 - Paroxysmal atrial fibrillation (4) Essential hypertension Current Visit: Yes Status: Acute Assessment and plan: Continue home medication, follow-up of blood pressure. (5) UTI (urinary tract infection) Current Visit: Yes Status: Acute Assessment and plan: Levaquin has been discontinued after treatment course. Urine culture shows no growth. Has new elevated WBC, Repeat urinalysis shows UTI. Patient is on cefepime. Follow up the urine Culture. Qualifiers: Urinary tract infection type: acute cystitis Hematuria presence: without hematuria Qualified Code(s): N30.00 - Acute cystitis without hematuria (6) Constipation Current Visit: No Status: Resolved Assessment and plan: Resolved after milk and molasses enema on 09/15/16. But still abd distention. CT shows no stools and no obstruction. GI consult appreciated. Had decompression tube placed. Qualifiers: Constipation type: chronic idiopathic constipation Qualified Code(s): K59.04 - Chronic idiopathic constipation (7) Hypokalemia Current Visit: Yes Status: Acute Assessment and plan: Persist hypokalemia. Etiology is undetermine. Had some work up done before. nephrology consult appreciated. Potassium level is still low today, change of potassium supplement from daily to twice a day. (8) Vascular dementia Current Visit: No Status: Chronic Assessment and plan: Chronic and stable Qualifiers: Dementia behavioral disturbance: without behavioral disturbance Qualified Code(s): F01.50 - Vascular dementia without behavioral disturbance (9) DVT prophylaxis Current Visit: No Status: Acute Assessment and plan: Heparin subcutaneously (10) Hospital-acquired pneumonia Current Visit: Yes Status: Acute Assessment and plan: Patient has WBC elevation, Chest x-ray shows new infiltrate, will treat patient with the cefepime. 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 I reviewed the x-ray with radiologist today, patient has a mass since 2013, and there is no change in size over 2 years. Please see her CTA report on 09/03/16. No further testing is needed at this point. - Time Spent With Patient 25 - 35 minutes - Subjective Interval history: Patient is a 86-year-old female [facility]. Her past medical history is significant for dementia, diabetes, hypertension, S/P right nephrostomy. Patient was seen and examined. She is demented, awake alert, pleasant, oriented x 2. She has no fever, no nausea, no vomiting. No cough. In no acute distress. Vital signs stable. However, patient has a elevated WBC yesterday, clinically is more like UTI than pneumonia. Patient is on cefepime to treat both hospital-acquired pneumonia and UTI. WBC Down to normal today. Abdominal distention has resolved after GI doctor put the decompression tube and intermittent low pressure suction. However, after we discontinue the suction her dictation come back again. The suction is restarted. Add lactobacillus today. Will continue closely monitoring. - Constitutional Vitals: Temp Pulse Resp BP Pulse Ox 97.8 F 78 16 131/69 93 L 09/24/16 14:40 09/24/16 14:40 09/24/16 14:40 09/24/16 14:40 09/24/16 14:40 General appearance: Present: A&O X 2, pleasant, answers questions appropriately - Head Head exam: Present: atraumatic, normocephalic - Eye Eye exam: Present: PERRL, conjuntiva pink, sclera anicteric Pupils: Present: PERRL - Neck Neck exam general surgery: Present: supple, trachea midline. Absent: lymphadenopathy - Respiratory Respiratory exam: Present: CTAB. Absent: accessory muscle use, rales, rhonchi, wheezes - Cardiovascular Cardiovascular exam: Present: RRR, +S1, +S2. Absent: diastolic murmur, gallop, rubs, systolic murmur - GI/Abdominal GI/Abdominal exam: Present: distended (Mild distention), normal bowel sounds, soft, no peritoneal signs. Absent: tenderness - Extremities Exam Extremities exam: Present: warm, radial pulses palpable and symetrical. Absent : calf tenderness, cyanotic, pedal edema - Neurological Exam Neurological exam: Present: CN II-XII intact, oriented X3, no focal deficits. Absent: pronater drift, facial droop, speech deficit - Skin Skin exam: Present: dry, intact Internal Medicine: Result - Labs CBC & Chem 7: 09/24/16 03:00 09/24/16 03:00 Labs: Short CBC 09/24/16 Range/Units 03:00 WBC 8.5 (4.3-11.1) K/mcL Hgb 10.9 L (11.5-15.4) g/dL Hct 34.9 L (35.3-44.9) % Plt Count 234 (140-400) K/mcL Neutrophils # 6.1 (1.6-8.9) K/mcL BMP 09/24/16 03:00 Sodium 141 Potassium 3.1 L Chloride 110 H Carbon Dioxide 21 BUN 18 Creatinine 0.77 Glucose 103 H Calcium 9.9 Consult Discharge Plan - Plan Referrals: Shelli Ware CNP [Primary Care Provider] -
[2016-09-24] MEDS: Lactobacillus 1 EACH CAP.SPRINK PO SCH (21:08)
[2016-09-25] MEDS: Insulin LISPRO 300 UNITS/3 ML VIAL SQ SCH ×4 (03:28→17:05)
[2016-09-25 06:03] LABS: Basophils % 0.4 %; Eosinophils # 0.5 K/mcL (0.0-0.6); Eosinophils % 4.5 %; Hemoglobin 10.6 g/dL (11.5-15.4); Immature Granulocytes % 0.5 % (0-4); Lymphocytes # 0.8 K/mcL (0.6-4.6); Lymphocytes % 7.2 %; Mean Corpuscular HGB Conc 31.2 g/dL (31.6-35.5); Mean Corpuscular Hemoglobin 29.6 pg (28.0-33.3); Mean Platelet Volume 11.6 fL (9.4-12.4); Monocytes # 1.1 K/mcL (0.0-1.3); Platelet Count 225 K/mcL (140-400); Red Blood Count 3.58 M/mcL (3.82-4.97); Red Cell Distribution Width 14.3 % (11.5-14.5); Segmented Neutrophils % 76.4 %
[2016-09-25 06:15] LABS: BUN/Creatinine Ratio 32 (6-26); Blood Urea Nitrogen 23 mg/dL (7-20); Carbon Dioxide 21 mEq/L (19-29); Chloride 113 mEq/L (98-109); Glucose 109 mg/dL (70-99); Osmolality,Calculated 298 (280-300); Sodium 142 mEq/L (136-145); eGFR For African Americans > 60 (> 60); eGFR For Non-African Americans > 60 (> 60)
[2016-09-25 06:17] LABS: Potassium 4.3 mEq/L (3.5-4.5)
[2016-09-25] MEDS: Cefepime HCl 1,000 MG in D5% in Water (Mini-Bag+) 100 ML IVPB SCH ×2 (06:25→17:04)
[2016-09-25] MEDS: *HR* Heparin 5,000 UNIT/ML VIAL SQ SCH ×2 (06:25→17:03)
[2016-09-25] MEDS: Magnesium Oxide 400 MG TABLET PO SCH (07:20)
[2016-09-25] MEDS: Aspirin 81 MG TAB.CHEW PO SCH (07:20)
[2016-09-25] MEDS: Diltiazem CD (24hr) 240 MG CAPSULE PO SCH (07:20)
[2016-09-25] MEDS: Lactobacillus 1 EACH CAP.SPRINK PO SCH ×2 (07:20→20:44)
--- NOTE | 2016-09-25 16:17 | Internal Med Progress Note ---
Date of Encounter: 09/25/16 Time of Encounter: 16:15 - Assessment and plan (1) Colon distention Current Visit: Yes Status: Acute Assessment and plan: Etiology is undetermined. GI consult appreciated, on decompression tube with low pressure intermittent suction. Distention improved after this treatment. However it came back after sutction was d/c, so suction was resumed. Closely monitor patient. Follow GI input. (2) Atrial fibrillation Current Visit: Yes Status: Acute Assessment and plan: Patient has a history of A. Fib with RVR, but was converted back to sinus rhythm. CVA coverage was reported to be ASA 81mg due to risk of anticoagulation with underlying dementia and risk of bleeding. Continue diltiazem for rate control. Continue Aspirin 81mg. Qualifiers: Atrial fibrillation type: paroxysmal Qualified Code(s): I48.0 - Paroxysmal atrial fibrillation (3) Hypokalemia Current Visit: Yes Status: Acute Assessment and plan: Potassium level improved, will continue monitoring. Check magnesium. (4) UTI (urinary tract infection) Current Visit: Yes Status: Acute Assessment and plan: Continue with cefepime. Qualifiers: Urinary tract infection type: acute cystitis Hematuria presence: without hematuria Qualified Code(s): N30.00 - Acute cystitis without hematuria (5) DVT prophylaxis Current Visit: No Status: Acute Assessment and plan: Heparin subcutaneously (6) Vascular dementia Current Visit: No Status: Chronic Assessment and plan: Chronic and stable Qualifiers: Dementia behavioral disturbance: without behavioral disturbance Qualified Code(s): F01.50 - Vascular dementia without behavioral disturbance (7) Constipation Current Visit: No Status: Resolved Assessment and plan: GI consult appreciated. Had decompression tube placed. Qualifiers: Constipation type: chronic idiopathic constipation Qualified Code(s): K59.04 - Chronic idiopathic constipation - Time Spent With Patient 25 - 35 minutes - Subjective Interval history: She was seen and examined on rounds. She is pleasantly confused. Not In distress. Tolerating diet. She still has a rectal tube placed. - Constitutional Vitals: Temp Pulse Resp BP Pulse Ox 98.2 F 79 14 118/66 93 L 09/25/16 14:56 09/25/16 14:56 09/25/16 14:56 09/25/16 14:56 09/25/16 14:56 General appearance: Present: A&O X 2, pleasant, answers questions appropriately - Head Head exam: Present: atraumatic, normocephalic - Eye Eye exam: Present: PERRL, conjuntiva pink, sclera anicteric Pupils: Present: PERRL - Neck Neck exam general surgery: Present: supple, trachea midline. Absent: lymphadenopathy - Respiratory Respiratory exam: Present: CTAB. Absent: accessory muscle use, rales, rhonchi, wheezes - Cardiovascular Cardiovascular exam: Present: RRR, +S1, +S2. Absent: diastolic murmur, gallop, rubs, systolic murmur - GI/Abdominal GI/Abdominal exam: Present: normal bowel sounds, soft, no peritoneal signs. Absent: distended, tenderness - Extremities Exam Extremities exam: Present: warm, radial pulses palpable and symetrical. Absent : calf tenderness, cyanotic, pedal edema - Neurological Exam Neurological exam: Present: CN II-XII intact, oriented X3, no focal deficits. Absent: pronater drift, facial droop, speech deficit - Skin Skin exam: Present: dry, intact Internal Medicine: Result - Labs CBC & Chem 7: 09/25/16 05:26 09/25/16 05:26 Labs: Short CBC 09/25/16 Range/Units 05:26 WBC 10.4 (4.3-11.1) K/mcL Hgb 10.6 L (11.5-15.4) g/dL Hct 34.0 L (35.3-44.9) % Plt Count 225 (140-400) K/mcL Neutrophils # 8.0 (1.6-8.9) K/mcL BMP 09/25/16 05:26 Sodium 142 Potassium 4.3 D Chloride 113 H Carbon Dioxide 21 BUN 23 H Creatinine 0.72 Glucose 109 H Calcium 10.0 - Impressions Impressions KUB X-Ray 09/21/16 06:00 IMPRESSION: Stable to slightly increased severe distention of the distal colon and rectum. D/ / 09/21/2016 08:12:23 Arnie Miranda MD / shira Interpreting Provider: Arnie Miranda MD Consult Discharge Plan - Plan Referrals: Shelli Ware CNP [Primary Care Provider] -
[2016-09-26] MEDS: Cefepime HCl 1,000 MG in D5% in Water (Mini-Bag+) 100 ML IVPB SCH (05:50)
[2016-09-26] MEDS: *HR* Heparin 5,000 UNIT/ML VIAL SQ SCH ×2 (05:51→17:55)
[2016-09-26 06:02] LABS: Basophils # 0.1 K/mcL (0.0-0.2); Basophils % 0.7 %; Eosinophils # 0.5 K/mcL (0.0-0.6); Eosinophils % 6.5 %; Hematocrit 35.9 % (35.3-44.9); Hemoglobin 10.9 g/dL (11.5-15.4); Immature Granulocytes % 0.5 % (0-4); Lymphocytes # 0.8 K/mcL (0.6-4.6); Lymphocytes % 10.3 %; Mean Corpuscular HGB Conc 30.4 g/dL (31.6-35.5); Mean Corpuscular Hemoglobin 28.8 pg (28.0-33.3); Mean Corpuscular Volume 94.7 fL (83.0-100.0); Mean Platelet Volume 11.4 fL (9.4-12.4); Monocytes # 0.7 K/mcL (0.0-1.3); Monocytes % 9.6 %; Neutrophils # 5.6 K/mcL (1.6-8.9); Platelet Count 222 K/mcL (140-400); Red Blood Count 3.79 M/mcL (3.82-4.97); Red Cell Distribution Width 14.2 % (11.5-14.5); Segmented Neutrophils % 72.4 %
[2016-09-26 06:16] LABS: BUN/Creatinine Ratio 38 (6-26); Blood Urea Nitrogen 24 mg/dL (7-20); Calcium 10.3 mg/dL (8.6-10.8); Carbon Dioxide 22 mEq/L (19-29); Chloride 113 mEq/L (98-109); Glucose 108 mg/dL (70-99); Magnesium 1.9 mg/dL (1.6-2.6); Osmolality,Calculated 301 (280-300); Potassium 3.7 mEq/L (3.5-4.5); Sodium 143 mEq/L (136-145); eGFR For African Americans > 60 (> 60); eGFR For Non-African Americans > 60 (> 60)
[2016-09-26] MEDS: Insulin LISPRO 300 UNITS/3 ML VIAL SQ SCH ×4 (06:35→17:59)
[2016-09-26] MEDS: Magnesium Oxide 400 MG TABLET PO SCH (09:26)
[2016-09-26] MEDS: Lactobacillus 1 EACH CAP.SPRINK PO SCH ×2 (09:26→21:31)
[2016-09-26] MEDS: Aspirin 81 MG TAB.CHEW PO SCH (09:26)
[2016-09-26] MEDS: Diltiazem CD (24hr) 240 MG CAPSULE PO SCH (09:26)
--- NOTE | 2016-09-26 17:30 | Internal Med Progress Note ---
Date of Encounter: 09/26/16 Time of Encounter: 17:28 - Assessment and plan (1) Colon distention Current Visit: Yes Status: Acute Assessment and plan: Etiology is undetermined. GI consult appreciated, on decompression tube with low pressure intermittent suction. Distention improved after this treatment. However it came back after sutction was d/c, so suction was resumed. Closely monitor patient. Follow GI input. (2) Atrial fibrillation Current Visit: Yes Status: Acute Qualifiers: Atrial fibrillation type: paroxysmal Qualified Code(s): I48.0 - Paroxysmal atrial fibrillation (3) Hypokalemia Current Visit: Yes Status: Acute (4) UTI (urinary tract infection) Current Visit: Yes Status: Acute Assessment and plan: cuylture noted, non consistent with uti, will d/c maxipime. Qualifiers: Urinary tract infection type: acute cystitis Hematuria presence: without hematuria Qualified Code(s): N30.00 - Acute cystitis without hematuria (5) DVT prophylaxis Current Visit: No Status: Acute (6) Vascular dementia Current Visit: No Status: Chronic Assessment and plan: Chronic and stable Qualifiers: Dementia behavioral disturbance: without behavioral disturbance Qualified Code(s): F01.50 - Vascular dementia without behavioral disturbance (7) Constipation Current Visit: No Status: Resolved Qualifiers: Constipation type: chronic idiopathic constipation Qualified Code(s): K59.04 - Chronic idiopathic constipation - Time Spent With Patient 25 - 35 minutes - Subjective Interval history: She was seen and examined on rounds. She is pleasantly confused. Not In distress. She still has a rectal tube placed. - Constitutional Vitals: Temp Pulse Resp BP Pulse Ox 98.3 F 100 17 114/71 94 L 09/26/16 16:57 09/26/16 16:57 09/26/16 16:57 09/26/16 16:57 09/26/16 16:57 General appearance: Present: A&O X 2, pleasant, answers questions appropriately Exam: abd distended - Head Head exam: Present: atraumatic, normocephalic - Eye Eye exam: Present: PERRL, conjuntiva pink, sclera anicteric Pupils: Present: PERRL - Neck Neck exam general surgery: Present: supple, trachea midline. Absent: lymphadenopathy - Respiratory Respiratory exam: Present: CTAB. Absent: accessory muscle use, rales, rhonchi, wheezes - Cardiovascular Cardiovascular exam: Present: RRR, +S1, +S2. Absent: diastolic murmur, gallop, rubs, systolic murmur - GI/Abdominal GI/Abdominal exam: Present: normal bowel sounds, soft, no peritoneal signs. Absent: distended, tenderness - Extremities Exam Extremities exam: Present: warm, radial pulses palpable and symetrical. Absent : calf tenderness, cyanotic, pedal edema - Neurological Exam Neurological exam: Present: CN II-XII intact, oriented X3, no focal deficits. Absent: pronater drift, facial droop, speech deficit - Skin Skin exam: Present: dry, intact Internal Medicine: Result - Labs CBC & Chem 7: 09/26/16 05:31 09/26/16 05:31 Labs: Short CBC 09/26/16 Range/Units 05:31 WBC 7.7 (4.3-11.1) K/mcL Hgb 10.9 L (11.5-15.4) g/dL Hct 35.9 (35.3-44.9) % Plt Count 222 (140-400) K/mcL Neutrophils # 5.6 (1.6-8.9) K/mcL BMP 09/26/16 05:31 Sodium 143 Potassium 3.7 Chloride 113 H Carbon Dioxide 22 BUN 24 H Creatinine 0.64 Glucose 108 H Calcium 10.3 Consult Discharge Plan - Plan Referrals: Shelli Ware CNP [Primary Care Provider] -
[2016-09-27] MEDS: Insulin LISPRO 300 UNITS/3 ML VIAL SQ SCH ×4 (00:25→17:18)
[2016-09-27 04:34] LABS: Basophils % 0.4 %; Eosinophils # 0.4 K/mcL (0.0-0.6); Hematocrit 37.9 % (35.3-44.9); Hemoglobin 11.8 g/dL (11.5-15.4); Immature Granulocytes % 0.6 % (0-4); Lymphocytes # 0.8 K/mcL (0.6-4.6); Lymphocytes % 8.8 %; Mean Corpuscular HGB Conc 31.1 g/dL (31.6-35.5); Mean Corpuscular Hemoglobin 29.1 pg (28.0-33.3); Mean Corpuscular Volume 93.6 fL (83.0-100.0); Mean Platelet Volume 11.1 fL (9.4-12.4); Monocytes # 0.9 K/mcL (0.0-1.3); Monocytes % 9.6 %; Neutrophils # 7.3 K/mcL (1.6-8.9); Platelet Count 242 K/mcL (140-400); Red Blood Count 4.05 M/mcL (3.82-4.97); Red Cell Distribution Width 13.9 % (11.5-14.5); Segmented Neutrophils % 76.6 %
[2016-09-27 04:45] LABS: BUN/Creatinine Ratio 32 (6-26); Blood Urea Nitrogen 25 mg/dL (7-20); Carbon Dioxide 22 mEq/L (19-29); Chloride 110 mEq/L (98-109); Glucose 116 mg/dL (70-99); Osmolality,Calculated 299 (280-300); Potassium 3.8 mEq/L (3.5-4.5); Sodium 142 mEq/L (136-145); eGFR For African Americans > 60 (> 60); eGFR For Non-African Americans > 60 (> 60)
[2016-09-27] MEDS: *HR* Heparin 5,000 UNIT/ML VIAL SQ SCH ×2 (05:12→17:17)
[2016-09-27] MEDS: Lactobacillus 1 EACH CAP.SPRINK PO SCH ×2 (08:36→20:52)
[2016-09-27] MEDS: Diltiazem CD (24hr) 240 MG CAPSULE PO SCH (08:36)
[2016-09-27] MEDS: Magnesium Oxide 400 MG TABLET PO SCH (08:36)
[2016-09-27] MEDS: Aspirin 81 MG TAB.CHEW PO SCH (08:36)
--- NOTE | 2016-09-27 14:54 | Internal Med Progress Note ---
Date of Encounter: 09/27/16 Time of Encounter: 14:52 - Assessment and plan (1) Colon distention Current Visit: Yes Status: Acute Assessment and plan: Etiology is undetermined. GI consult appreciated, on decompression tube with low pressure intermittent suction. Distention improved after this treatment. However it came back after sutction was d/c, so suction was resumed. Closely monitor patient. Follow GI input. Surgical team consulted for possible colostomy. (2) Atrial fibrillation Current Visit: Yes Status: Acute Qualifiers: Atrial fibrillation type: paroxysmal Qualified Code(s): I48.0 - Paroxysmal atrial fibrillation (3) Hypokalemia Current Visit: Yes Status: Acute (4) UTI (urinary tract infection) Current Visit: Yes Status: Acute Qualifiers: Urinary tract infection type: acute cystitis Hematuria presence: without hematuria Qualified Code(s): N30.00 - Acute cystitis without hematuria (5) DVT prophylaxis Current Visit: No Status: Acute (6) Vascular dementia Current Visit: No Status: Chronic Qualifiers: Dementia behavioral disturbance: without behavioral disturbance Qualified Code(s): F01.50 - Vascular dementia without behavioral disturbance (7) Constipation Current Visit: No Status: Resolved Qualifiers: Constipation type: chronic idiopathic constipation Qualified Code(s): K59.04 - Chronic idiopathic constipation - Subjective Interval history: She was seen and examined on rounds. She is pleasantly confused. Not In distress. She still has a rectal tube placed. Daughter present in the room during encounter. - Constitutional Vitals: Temp Pulse Resp BP Pulse Ox 97.3 F L 90 14 154/78 93 L 09/27/16 11:23 09/27/16 11:23 09/27/16 11:23 09/27/16 11:23 09/27/16 11:23 General appearance: Present: A&O X 2, pleasant, answers questions appropriately - Head Head exam: Present: atraumatic, normocephalic - Eye Eye exam: Present: PERRL, conjuntiva pink, sclera anicteric Pupils: Present: PERRL - Neck Neck exam general surgery: Present: supple, trachea midline. Absent: lymphadenopathy - Respiratory Respiratory exam: Present: CTAB. Absent: accessory muscle use, rales, rhonchi, wheezes - Cardiovascular Cardiovascular exam: Present: RRR, +S1, +S2. Absent: diastolic murmur, gallop, rubs, systolic murmur - GI/Abdominal GI/Abdominal exam: Present: normal bowel sounds, no peritoneal signs. Absent: distended, tenderness Additional comments: distended. - Extremities Exam Extremities exam: Present: warm, radial pulses palpable and symetrical. Absent : calf tenderness, cyanotic, pedal edema - Neurological Exam Neurological exam: Present: CN II-XII intact, oriented X3, no focal deficits. Absent: pronater drift, facial droop, speech deficit - Skin Skin exam: Present: dry, intact Internal Medicine: Result - Labs CBC & Chem 7: 09/27/16 04:13 09/27/16 04:13 Labs: Short CBC 09/27/16 Range/Units 04:13 WBC 9.5 (4.3-11.1) K/mcL Hgb 11.8 (11.5-15.4) g/dL Hct 37.9 (35.3-44.9) % Plt Count 242 (140-400) K/mcL Neutrophils # 7.3 (1.6-8.9) K/mcL BMP 09/27/16 04:13 Sodium 142 Potassium 3.8 Chloride 110 H Carbon Dioxide 22 BUN 25 H Creatinine 0.78 Glucose 116 H Calcium 11.0 H Consult Discharge Plan - Plan Referrals: Shelli Ware CNP [Primary Care Provider] -
--- NOTE | 2016-09-27 15:49 | General Surgery Consult Note ---
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 Ayon - consent obtained from daughter (POA) NPO after midnight Supportive care/pain control History of Present Illness Consult date: 09/27/16 Reason for consult: other (Colonic distention) Requesting physician: Matti Diamond History of present illness: Ms. Pelayo is a pleasantly confused 86 year old female who was admitted to the hospital 15 days ago for treatment of leukocytosis/UTI. She has subsequently developed colonic distention. The patient has received multiple treatment for her colonic distention. Dr. Michaud has been following her and has treated her with reglan, neostigmine, decompressive colonosopy, rectal tube for decompressive. She has failed conservative measures and continues to suffer from colonic distention. We have been asked to see and evaluate her for surgical recommendations. The information in the HPI has been obtained from the daughter at the bedside and the medical record because the patient is unable to provide information secondary to her dementia. Past Med Surg Social Fam HX - Past Medical History Source: old records reviewed Medical history: dementia, diabetes, hypertension Psychiatric history: no psych history - Past Surgical History Surgical History: hysterectomy, orthopedic, other, other (colonoscopy) - Social History Smoking Status: Never smoker Smokeless Tobacco Status: No Alcohol use: none Drug use: none - Family History Mother Adopted: No Family Member Ethnicity: Non- Living Status: Medications and Allergies BuPROPion [Wellbutrin] 100 mg PO BID 08/24/15 [History] Lisinopril [Zestril] 10 mg PO QPM 08/24/15 [History] Atorvastatin [Lipitor] 10 mg PO HS #30 tablet 08/30/15 [Rx] Diltiazem CD (24hr) [Cardizem CD] 240 mg PO DAILY #30 cap.er.24h 08/30/15 [Rx] Magnesium 250 mg PO DAILY 09/03/16 [History] Levofloxacin 750 mg PO DAILY #10 tablet MDD STOP 09-17-09/07/16 [Rx] Ondansetron ODT [Zofran ODT] 4 mg SL Q6H PRN #12 tab.rapdis 09/07/16 [Rx] Sennosides/Docusate Sodium [Senna Plus] 2 each PO BID #60 tablet 09/07/16 [Rx] Aspirin 81 mg PO DAILY 09/12/16 [History] MOM Conc [MILK OF MAGNESIA conc] 10 ml PO DAILY PRN 09/12/16 [History] Polyethylene Glycol 3350 [MiraLAX] 17 gm PO BID 09/12/16 [History] Potassium Chloride 40 meq PO QAM MDD STOP 09-19-16 09/12/16 [History] Allergies Sulfa (Sulfonamide Antibiotics) Allergy (Verified 05/08/15 16:09) Rash Review of Systems ROS unobtainable: due to mental status All systems PM: A 10-system review of systems was performed and is negative for pertinent findings except as documented above in the HPI. General Surgery Exam Initial Vital Signs Temp Pulse Resp BP Pulse Ox 98.2 F 89 14 142/76 93 L 09/12/16 16:48 09/12/16 16:48 09/12/16 16:48 09/12/16 16:48 09/12/16 16:48 - General physical appearance well developed, no distress - Eyes normal ocular movement - ENT normal mucosa, atraumatic, normocephalic - Neck trachea midline - Respiratory normal respiratory effort, clear to auscultation - Cardiovascular Cardiovascular exam: Present: RRR - Abdomen Abdomen general surgery: Present: bowel sounds present, soft, distended - Rectum Rectum: Present: other (rectal tube in place) - Integumentary Integumentary general surgery: Present: warm and dry - Neurologic Present: CN 2-12 grossly intact - Musculoskeletal Present: other (moderate deconditioning) - Psychiatric Psychiatric general surgery: Present: appropriate, oriented to person, oriented to place, oriented to time, speech is normal, memory intact Exam Initial Vital Signs Temp Pulse Resp BP Pulse Ox 98.2 F 89 14 142/76 93 L 09/12/16 16:48 09/12/16 16:48 09/12/16 16:48 09/12/16 16:48 09/12/16 16:48 Results - Labs 09/27/16 04:13 09/27/16 04:13 Abnormal lab results MCHC 31.1 g/dL (31.6-35.5) L 09/27/16 04:13 Clumped Platelets Few (Not Present) A 09/12/16 17:27 Chloride 110 mEq/L (98-109) H 09/27/16 04:13 BUN 25 mg/dL (7-20) H 09/27/16 04:13 BUN/Creatinine Ratio 32 (6-26) H 09/27/16 04:13 Glucose 116 mg/dL (70-99) H 09/27/16 04:13 POC Glucose 118 (58-89) H 09/26/16 23:12 Calcium 11.0 mg/dL (8.6-10.8) H 09/27/16 04:13 Phosphorus 2.2 mg/dL (2.3-4.7) L 09/13/16 04:00 Albumin 3.3 g/dL (3.5-5.0) L 09/12/16 17:27 Globulin 4.0 g/dL (2.4-3.5) H 09/12/16 17:27 Albumin/Globulin Ratio 0.8 (1.1-2.2) L 09/12/16 17:27 Amylase 8 Units/L (25-125) L 09/12/16 17:27 Urine Clarity Cloudy (Clear) A 09/23/16 11:42 Ur Specific [place] 1.008 (1.010-1.025) L 09/23/16 11:42 Urine Protein 30 mg/dL (Neg-Trace) H 09/23/16 11:42 Urine Blood Large (Negative) H 09/23/16 11:42 Ur Leukocyte Esterase Moderate (Negative) H 09/23/16 11:42 Urine Microscopic RBC 30-50 per hpf (0-3) H 09/23/16 11:42 Urine Microscopic WBC 50-100 per hpf (0-3) H 09/23/16 11:42 Urine Bacteria Many per hpf (None-Few) H 09/23/16 11:42 Urine Mucus Many (Few) H 09/23/16 11:42 Ur Culture Indicated? YES (NO) A 09/23/16 11:42 Diabetes panel 09/27/16 Range/Units 04:13 Sodium 142 (136-145) mEq/L Potassium 3.8 (3.5-4.5) mEq/L Chloride 110 H (98-109) mEq/L Carbon Dioxide 22 (19-29) mEq/L BUN 25 H (7-20) mg/dL Creatinine 0.78 (0.57-1.11) mg/dL Glucose 116 H (70-99) mg/dL Calcium 11.0 H (8.6-10.8) mg/dL Calcium panel 09/27/16 Range/Units 04:13 Calcium 11.0 H (8.6-10.8) mg/dL Pituitary panel 09/27/16 Range/Units 04:13 Sodium 142 (136-145) mEq/L Potassium 3.8 (3.5-4.5) mEq/L Chloride 110 H (98-109) mEq/L Carbon Dioxide 22 (19-29) mEq/L BUN 25 H (7-20) mg/dL Creatinine 0.78 (0.57-1.11) mg/dL Glucose 116 H (70-99) mg/dL Calcium 11.0 H (8.6-10.8) mg/dL Adrenal panel 09/27/16 Range/Units 04:13 Sodium 142 (136-145) mEq/L Potassium 3.8 (3.5-4.5) mEq/L Chloride 110 H (98-109) mEq/L Carbon Dioxide 22 (19-29) mEq/L BUN 25 H (7-20) mg/dL Creatinine 0.78 (0.57-1.11) mg/dL Glucose 116 H (70-99) mg/dL Calcium 11.0 H (8.6-10.8) mg/dL All other labs normal. - Imaging Additional studies: Nephrostomy Tube Change 09/13/16 08:16 IMPRESSION: Successful exchange of a malpositioned percutaneous nephrostomy tube for a new right-sided percutaneous nephrostomy tube D/ / Richie Bangura MD / Richie Bangura MD Interpreting Provider: Richie Bangura MD Abdomen/Pelvis CT 09/19/16 09:23 IMPRESSION: 1. There has been clearance of stool from the rectum since the prior study. However, there is persistent colo rectal distention, most severe at the sigmoid, which is nonobstructive 2. Right nephrostomy tube remains in place. Stable nephrolithiasis with mild right hydronephrosis 3. Large hiatal hernia 4. New trace bilateral pleural effusions D/ / Constantin Davis MD / Constantin Davis MD Interpreting Provider: Constantin Davis MD Fluoroscopy 09/21/16 00:00 IMPRESSION: Intraprocedural fluoroscopic spot images as above. See separate procedure report for more information. D/ / Arnie Miranda MD / Arnie Miranda MD Interpreting Provider: Arnie Miranda MD X-Ray 09/21/16 06:00 IMPRESSION: Stable to slightly increased severe distention of the distal colon and rectum. D/ / 09/21/2016 08:12:23 Arnie Miranda MD / shira Interpreting Provider: Arnie Miranda MD Chest X-Ray 09/23/16 09:26 IMPRESSION: 1. Left basilar atelectasis versus infiltrate is new from the previous exam. 2. Rounded density over the right paraspinal region. Mass cannot be excluded and chest CT with contrast is recommended for further evaluation. 3. Stable cardiomegaly. 4. Large hiatal hernia. D/ / David Bravo MD / David Bravo MD Interpreting Provider: David Bravo MD Consult Discharge Plan - Plan Referrals: Shelli Ware, PAINT PROCESS ENGINEER [Primary Care Provider] - - Attending Attestation I examined this patient and my medical decision-making was reviewed with the BOTTOM POUND[employer]/PA/Advanced Practice Nurse/Resident Physician. I agree with the documented findings, disposition and treatment plan as described except to the extent set forth below.
[2016-09-28] MEDS: Insulin LISPRO 300 UNITS/3 ML VIAL SQ SCH ×3 (00:34→15:46)
[2016-09-28 05:10] LABS: Basophils # 0.1 K/mcL (0.0-0.2); Basophils % 0.7 %; Eosinophils # 0.8 K/mcL (0.0-0.6); Eosinophils % 8.1 %; Hematocrit 35.5 % (35.3-44.9); Hemoglobin 11.3 g/dL (11.5-15.4); Immature Granulocytes % 0.8 % (0-4); Immature Platelets 5.9 % (1.1-6.1); Lymphocytes # 0.8 K/mcL (0.6-4.6); Lymphocytes % 8.8 %; Mean Corpuscular HGB Conc 31.8 g/dL (31.6-35.5); Mean Corpuscular Hemoglobin 29.7 pg (28.0-33.3); Mean Corpuscular Volume 93.2 fL (83.0-100.0); Monocytes # 0.8 K/mcL (0.0-1.3); Monocytes % 8.9 %; Neutrophils # 6.7 K/mcL (1.6-8.9); Platelet Count 222 K/mcL (140-400); Red Blood Count 3.81 M/mcL (3.82-4.97); Red Cell Distribution Width 13.9 % (11.5-14.5); Segmented Neutrophils % 72.7 %
[2016-09-28 05:24] LABS: BUN/Creatinine Ratio 32 (6-26); Blood Urea Nitrogen 23 mg/dL (7-20); Calcium 10.6 mg/dL (8.6-10.8); Carbon Dioxide 23 mEq/L (19-29); Chloride 111 mEq/L (98-109); Glucose 116 mg/dL (70-99); Osmolality,Calculated 301 (280-300); Potassium 3.7 mEq/L (3.5-4.5); Sodium 143 mEq/L (136-145); eGFR For African Americans > 60 (> 60); eGFR For Non-African Americans > 60 (> 60)
[2016-09-28] MEDS: *HR* Heparin 5,000 UNIT/ML VIAL SQ SCH (06:49)
[2016-09-28 08:13] LABS: INR 1.1; Prothrombin Time 11.7 Seconds (9.4-12.1)
[2016-09-28] MEDS ORDERED: D5% in 0.45% NACL 1,000 ML IVC SCH (08:15)
[2016-09-28] MEDS: Magnesium Oxide 400 MG TABLET PO SCH (08:33)
[2016-09-28] MEDS: Diltiazem CD (24hr) 240 MG CAPSULE PO SCH (08:33)
[2016-09-28] MEDS: Lactobacillus 1 EACH CAP.SPRINK PO SCH ×2 (08:34→21:16)
[2016-09-28] MEDS: Aspirin 81 MG TAB.CHEW PO SCH (08:34)
[2016-09-28] MEDS ORDERED: *HR* FentaNYL (PF) 100 MCG/2 ML VIAL ONE (13:54)
[2016-09-28] MEDS ORDERED: *HR* Propofol 200 MG/20 ML VIAL IVP ONE (13:54)
[2016-09-28] MEDS ORDERED: Lidocaine -MPF 2% 2 ML VIAL ONE (13:58)
[2016-09-28] MEDS ORDERED: *HR* Succinylcholine 200 MG/10 ML VIAL IVP ONE (13:58)
[2016-09-28] MEDS ORDERED: *HR* Rocuronium Bromide 50 MG/5 ML VIAL ONE (13:59)
--- NOTE | 2016-09-28 14:36 | Anesthesia Evaluation PreOp ---
Date of Encounter: 09/28/16 Time of Encounter: 14:35 - Past History Planned Operation: Robotic Colostomy with mucus fistula Cardiac History: HTN, Hyperlipidemia, Arrhythmia (AFib) Pulmonary History: Denies Any Significant HX ONLINE RETAILER History: Other (Altered Mental Status, Vascular Dementia) Other Medical History: Diabetes Type II Anesthesia History: No Prior Anesthetic Complications : No Alcohol Use: none Drug use: none Medications and Allergies BuPROPion [Wellbutrin] 100 mg PO BID 08/24/15 [History] Lisinopril [Zestril] 10 mg PO QPM 08/24/15 [History] Atorvastatin [Lipitor] 10 mg PO HS #30 tablet 08/30/15 [Rx] Diltiazem CD (24hr) [Cardizem CD] 240 mg PO DAILY #30 cap.er.24h 08/30/15 [Rx] Magnesium 250 mg PO DAILY 09/03/16 [History] Levofloxacin 750 mg PO DAILY #10 tablet MDD STOP 09-17-16 09/07/16 [Rx] Ondansetron ODT [Zofran ODT] 4 mg SL Q6H PRN #12 tab.rapdis 09/07/16 [Rx] Sennosides/Docusate Sodium [Senna Plus] 2 each PO BID #60 tablet 09/07/16 [Rx] Aspirin 81 mg PO DAILY 09/12/16 [History] MOM Conc [MILK OF MAGNESIA conc] 10 ml PO DAILY PRN 09/12/16 [History] Polyethylene Glycol 3350 [MiraLAX] 17 gm PO BID 09/12/16 [History] Potassium Chloride 40 meq PO QAM MDD STOP 09-19-16 09/12/16 [History] Allergies Sulfa (Sulfonamide Antibiotics) Allergy (Verified 05/08/15 16:09) Rash - Meds/Allergy Pre-op Review Medications Reviewed: Yes Allergies Reviewed: Yes Beta Blockers on Current Med List: No Anesthesia Results - Labs 09/28/16 05:01 09/28/16 05:01 - Imaging EKG: report reviewed (SR occ PVC) Additional studies: LVEF 60% Anesthesia Exam O2 Sat Weight 63.72 kg O2 Sat by Pulse Oximetry 94 O2 Sat by Pulse Oximetry 96 O2 Sat by Pulse Oximetry 94 O2 Sat by Pulse Oximetry 93 O2 Sat by Pulse Oximetry 94 O2 Sat by Pulse Oximetry 93 Vital Signs Temp Pulse Resp BP Pulse Ox 98.2 F 89 14 142/76 93 L 09/12/16 16:48 09/12/16 16:48 09/12/16 16:48 09/12/16 16:48 09/12/16 16:48 Height: 5'5 Weight: 140 lbs NPO (# of Hours): MN - HEENT Pupil (Motor): Pupils equal, EOMI Mallampati: III Teeth: Normal Oral Opening: Less than or equal to 3 - ONLINE RETAILER LOC: Unable to assess ONLINE RETAILER Motor: Normal RUE, Normal LUE, Normal RLE, Normal LLE, Normal Face ONLINE RETAILER Sensory: Normal: RUE, LUE, RLE, LLE, Face - Cardiac Rhythm: Regular Murmur: None JVD: No Carotid Bruit: No - Pulmonary Breath Sounds: bilateral Clear Respiratory Effort: Symmetrical Anesthesia Assess/Plan ASA Score: 3 (HTN Dememtai Hx AFIB) Modified Alex Scale for Level of Consciousness: Cooperative, oriented, and tranquil Anesthetic Plan: General Monitoring Plan: Standard Monitors Recovery Plan: PACU (Discussed GA, agrees to proceed)
--- NOTE | 2016-09-28 14:36 | Internal Med Progress Note ---
Date of Encounter: 09/28/16 Time of Encounter: 14:34 - Assessment and plan (1) Colon distention Current Visit: Yes Status: Acute Assessment and plan: Etiology is undetermined. GI consult appreciated, on decompression tube with low pressure intermittent suction. Distention improved after this treatment. However it came back after sutction was d/c, so suction was resumed. Closely monitor patient. Follow GI input. Surgical team consulted, patient will go to the OR for colostomy today. (2) Atrial fibrillation Current Visit: Yes Status: Acute Qualifiers: Atrial fibrillation type: paroxysmal Qualified Code(s): I48.0 - Paroxysmal atrial fibrillation (3) Hypokalemia Current Visit: Yes Status: Acute Assessment and plan: Potassium level improved, will continue monitoring. Check magnesium. (4) UTI (urinary tract infection) Current Visit: Yes Status: Acute Assessment and plan: cuylture noted, non consistent with uti, maxipime was stopped. Qualifiers: Urinary tract infection type: acute cystitis Hematuria presence: without hematuria Qualified Code(s): N30.00 - Acute cystitis without hematuria (5) DVT prophylaxis Current Visit: No Status: Acute (6) Vascular dementia Current Visit: No Status: Chronic Assessment and plan: Chronic and stable Qualifiers: Dementia behavioral disturbance: without behavioral disturbance Qualified Code(s): F01.50 - Vascular dementia without behavioral disturbance (7) Constipation Current Visit: No Status: Resolved Qualifiers: Constipation type: chronic idiopathic constipation Qualified Code(s): K59.04 - Chronic idiopathic constipation - Time Spent With Patient 25 - 35 minutes - Subjective Interval history: She was seen and examined on rounds. She is pleasantly confused. Not In distress. She still has a rectal tube placed. - Constitutional Vitals: Temp Pulse Resp BP Pulse Ox 98.5 F 96 16 153/80 94 L 09/28/16 10:44 09/28/16 10:44 09/28/16 10:44 09/28/16 10:44 09/28/16 10:44 General appearance: Present: A&O X 2, pleasant, answers questions appropriately - Head Head exam: Present: atraumatic, normocephalic - Eye Eye exam: Present: PERRL, conjuntiva pink, sclera anicteric Pupils: Present: PERRL - Neck Neck exam general surgery: Present: supple, trachea midline. Absent: lymphadenopathy - Respiratory Respiratory exam: Present: CTAB. Absent: accessory muscle use, rales, rhonchi, wheezes - Cardiovascular Cardiovascular exam: Present: RRR, +S1, +S2. Absent: diastolic murmur, gallop, rubs, systolic murmur - GI/Abdominal GI/Abdominal exam: Present: normal bowel sounds. Absent: distended, tenderness Additional comments: abd distention - Extremities Exam Extremities exam: Present: warm, radial pulses palpable and symetrical. Absent : calf tenderness, cyanotic, pedal edema - Neurological Exam Neurological exam: Present: CN II-XII intact, oriented X3, no focal deficits. Absent: pronater drift, facial droop, speech deficit - Skin Skin exam: Present: dry, intact Internal Medicine: Result - Labs CBC & Chem 7: 09/28/16 05:01 09/28/16 05:01 Labs: Short CBC 09/28/16 Range/Units 05:01 WBC 9.2 (4.3-11.1) K/mcL Hgb 11.3 L (11.5-15.4) g/dL Hct 35.5 (35.3-44.9) % Plt Count 222 (140-400) K/mcL Neutrophils # 6.7 (1.6-8.9) K/mcL BMP 09/28/16 05:01 Sodium 143 Potassium 3.7 Chloride 111 H Carbon Dioxide 23 BUN 23 H Creatinine 0.73 Glucose 116 H Calcium 10.6 - ABG Interpretation ABG results: PT/INR, D-dimer PT 11.7 Seconds (9.4-12.1) 09/28/16 08:03 Consult Discharge Plan - Plan Referrals: Shelli Ware CNP [Primary Care Provider] -
[2016-09-28] MEDS ORDERED: Water for inj. (sterile) 10 ML IV ONE (15:38)
[2016-09-28] MEDS ORDERED: CefOXitin 1,000 MG VIAL ONE (15:38)
--- NOTE | 2016-09-28 16:27 | Electrocardiograph Report ---
[facility] Test Date: 2016-09-28 Pat Name: Wen Pelayo Department: 115 Room: 3A51 Gender: F Emergency Services Professional: ANA : 1930 Requested By: Matti Diamond Order Number: [id number] Reading MD: Tete Reddy Measurements Intervals [place] Rate: 82 P: 17 AL: 150 QRS: 102 QRSD: 113 T: -54 QT: 374 QTc: 412 Interpretive Statements Probable limb lead reversal Significant baseline artifact- V1-V6 not suitable for interpretation Suggest repeat tracing Electronically Signed On 09-28-16 16:26:49 EST by Tete Reddy
[2016-09-28] MEDS ORDERED: CefOXitin 2,000 MG VIAL IVPB ONE (16:36)
[2016-09-28] MEDS ORDERED: Ondansetron 4 MG/2 ML VIAL IVP PRN (16:40)
[2016-09-28] MEDS ORDERED: *HR* HYDROmorphone (PF) 1 MG/ML SYRINGE IVP PRN (16:40)
[2016-09-28] MEDS ORDERED: *HR* Labetalol 100 MG/20 ML MDV IVP PRN (16:40)
[2016-09-28] MEDS ORDERED: Neostigmine Methylsulfate 3 MG/3 ML SYRINGE ONE (17:22)
[2016-09-28] MEDS ORDERED: Ondansetron 4 MG/2 ML VIAL ONE (17:22)
[2016-09-28] MEDS ORDERED: *HR* Labetalol 20 MG/4 ML SYRINGE IVP ONE (17:27)
--- NOTE | 2016-09-28 17:33 | Operative Note ---
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 After adequate sedation anesthesia the abdomen was prepped and draped. A 12 mm cannulas placed just caudad to the umbilicus. Once access was gained to the abdomen a pneumoperitoneum was created. There were 2 eight mm cannula sites placed in the left lower quadrant and right lower quadrant.The transverse colon was identified and divided with a MICHELLE 75 mm stapler. Once completed, the mesocolon was taken down with a vessel sealer. There were 2 ostomy sites created at the right and left subcostal margins. The colon was then grasped with a Donna brought up through the abdominal wall. Once completed the colon was sewn to the fascia and skin. The excess transverse colon was divided there is approximately 15-20 cm of transverse colon and sent to pathology for evaluation. A [place]ta ostomy was created in the ascending colon as well as the mucous fistula. The abdomen was somewhat decompressed with air. The fascia of the 12 mm and 13 mm cannula sites were closed with 0 Vicryl suture. Skin was closed with 4-0 Vicryl suture and Dermabond. She tolerated the procedure well.
--- NOTE | 2016-09-28 18:15 | Anesthesia Evaluation Post Op ---
Date of Encounter: 09/28/16 Time of Encounter: 18:15 - Vital Signs Vital Signs: Vital Signs/O2 Sat/Glucose, Most Current Temp Pulse Resp BP Pulse Ox 09/28/16 18:01 64 14 154/76 99 09/28/16 17:51 63 16 140/92 98 09/28/16 17:41 98.0 F 63 16 111/64 95 - Lungs Lungs: Clear Ascult./Percussion - Airway Airway: Non-obstructed - Cardiovascular Regular Rate - Mental Status Mental Status: Alert & Oriented, Answers Appropriately - Pain Pain Scale: 0 - Nausea Vomiting Nausea Vomiting: Not Present - Hydration Hydration: NPO, Has not voided - Discharge PostOp Status: Discharge Patient to home
[2016-09-28] MEDS ORDERED: *HR* Atropine Sulfate 1 MG/10 ML SYRINGE IVP PRN (18:28)
[2016-09-28] MEDS ORDERED: Naloxone 0.4 MG/ML INJ IVP PRN (18:28)
[2016-09-28] MEDS ORDERED: *HR* Dextrose 50 % in Water (Syg) 50 ML SYRINGE IVP PRN (18:28)
[2016-09-28] MEDS ORDERED: D5% in Water 1,000 ML IV PRN (18:28)
[2016-09-28] MEDS ORDERED: Ondansetron ODT 4 MG TAB.RAPDIS SL PRN (18:28)
[2016-09-28] MEDS ORDERED: Dextrose Gel 15 GM PO PRN ×2 (18:28)
[2016-09-28] MEDS ORDERED: MOM Conc 10 ML UD.LIQ PO PRN (18:28)
[2016-09-28] MEDS: D5% in 0.45% NACL 1,000 ML IVC SCH (18:56)
[2016-09-28] MEDS: Sennosides/Docusate Sodium TABLET PO SCH (21:17)
[2016-09-28] MEDS: Psyllium 1 PACKET POWD.PACK PO SCH (21:17)
[2016-09-28] MEDS: *HR* Morphine 2 MG/ML SYRINGE IVP PRN (21:23)
[2016-09-29] MEDS: Insulin LISPRO 300 UNITS/3 ML VIAL SQ SCH ×4 (00:05→17:56)
[2016-09-29] MEDS: *HR* Morphine 2 MG/ML SYRINGE IVP PRN (02:01)
[2016-09-29] MEDS: *HR* Heparin 5,000 UNIT/ML VIAL SQ SCH ×2 (05:29→17:56)
[2016-09-29] MEDS: D5% in 0.45% NACL 1,000 ML IVC SCH (05:29)
[2016-09-29 06:11] LABS: Basophils # 0.1 K/mcL (0.0-0.2); Basophils % 0.4 %; Eosinophils # 0.1 K/mcL (0.0-0.6); Hematocrit 36.2 % (35.3-44.9); Hemoglobin 11.2 g/dL (11.5-15.4); Immature Granulocytes % 0.5 % (0-4); Lymphocytes # 0.6 K/mcL (0.6-4.6); Mean Corpuscular HGB Conc 30.9 g/dL (31.6-35.5); Mean Corpuscular Hemoglobin 29.1 pg (28.0-33.3); Mean Platelet Volume 11.2 fL (9.4-12.4); Monocytes # 1.2 K/mcL (0.0-1.3); Monocytes % 8.5 %; Neutrophils # 11.7 K/mcL (1.6-8.9); Platelet Count 221 K/mcL (140-400); Red Blood Count 3.85 M/mcL (3.82-4.97); Red Cell Distribution Width 13.9 % (11.5-14.5); Segmented Neutrophils % 85.6 %
[2016-09-29 06:25] LABS: BUN/Creatinine Ratio 25 (6-26); Blood Urea Nitrogen 17 mg/dL (7-20); Calcium 10.3 mg/dL (8.6-10.8); Carbon Dioxide 24 mEq/L (19-29); Chloride 108 mEq/L (98-109); Glucose 146 mg/dL (70-99); Magnesium 1.6 mg/dL (1.6-2.6); Osmolality,Calculated 296 (280-300); Potassium 4.6 mEq/L (3.5-4.5); Sodium 141 mEq/L (136-145); eGFR For African Americans > 60 (> 60); eGFR For Non-African Americans > 60 (> 60)
[2016-09-29] MEDS: Psyllium 1 PACKET POWD.PACK PO SCH ×3 (07:39→21:32)
[2016-09-29] MEDS: Lactobacillus 1 EACH CAP.SPRINK PO SCH ×2 (07:39→21:30)
[2016-09-29] MEDS: Sennosides/Docusate Sodium TABLET PO SCH ×2 (07:40→21:30)
[2016-09-29] MEDS: Diltiazem CD (24hr) 240 MG CAPSULE PO SCH (07:40)
[2016-09-29] MEDS: Aspirin 81 MG TAB.CHEW PO SCH (07:40)
[2016-09-29] MEDS: Magnesium Oxide 400 MG TABLET PO SCH (07:40)
[2016-09-29] MEDS ORDERED: Magnesium Sulfate 2 GM in D5% in Water 100 ML IVPB ONE (16:41)
--- NOTE | 2016-09-29 16:42 | Internal Med Progress Note ---
Date of Encounter: 09/29/16 Time of Encounter: 16:39 - Assessment and plan (1) Colon distention Current Visit: Yes Status: Acute Assessment and plan: Patient failed conservative management, had the compression due to infected without improvement. She underwent colostomy yesterday. Continue nothing by mouth. Continue IV fluids. Monitor electrolytes. Follow recommendations by surgical team. . (2) Atrial fibrillation Current Visit: Yes Status: Acute Qualifiers: Atrial fibrillation type: paroxysmal Qualified Code(s): I48.0 - Paroxysmal atrial fibrillation (3) Hypokalemia Current Visit: Yes Status: Acute Assessment and plan: corrected, hypomagnesemia noted, will supplement magnesium. (4) UTI (urinary tract infection) Current Visit: Yes Status: Acute Qualifiers: Urinary tract infection type: acute cystitis Hematuria presence: without hematuria Qualified Code(s): N30.00 - Acute cystitis without hematuria (5) DVT prophylaxis Current Visit: No Status: Acute (6) Vascular dementia Current Visit: No Status: Chronic Assessment and plan: Chronic and stable Qualifiers: Dementia behavioral disturbance: without behavioral disturbance Qualified Code(s): F01.50 - Vascular dementia without behavioral disturbance (7) Constipation Current Visit: No Status: Resolved Qualifiers: Constipation type: chronic idiopathic constipation Qualified Code(s): K59.04 - Chronic idiopathic constipation - Time Spent With Patient 25 - 35 minutes - Subjective Interval history: She was seen and examined on rounds. She is pleasantly confused. Not In distress. PO#1 colostomy. She still has a rectal tube placed. - Constitutional Vitals: Temp Pulse Resp BP Pulse Ox 98.1 F 112 14 137/62 93 L 09/29/16 14:39 09/29/16 14:39 09/29/16 14:39 09/29/16 14:39 09/29/16 14:39 General appearance: Present: A&O X 2, pleasant, answers questions appropriately Exam: colostomy placed. - Head Head exam: Present: atraumatic, normocephalic - Eye Eye exam: Present: PERRL, conjuntiva pink, sclera anicteric Pupils: Present: PERRL - Neck Neck exam general surgery: Present: supple, trachea midline. Absent: lymphadenopathy - Respiratory Respiratory exam: Present: CTAB. Absent: accessory muscle use, rales, rhonchi, wheezes - Cardiovascular Cardiovascular exam: Present: RRR, +S1, +S2. Absent: diastolic murmur, gallop, rubs, systolic murmur - GI/Abdominal GI/Abdominal exam: Present: normal bowel sounds, soft, no peritoneal signs. Absent: distended, tenderness - Extremities Exam Extremities exam: Present: warm, radial pulses palpable and symetrical. Absent : calf tenderness, cyanotic, pedal edema - Neurological Exam Neurological exam: Present: CN II-XII intact, oriented X3, no focal deficits. Absent: pronater drift, facial droop, speech deficit - Skin Skin exam: Present: dry, intact Internal Medicine: Result - Labs CBC & Chem 7: 09/29/16 05:49 09/29/16 05:49 Labs: Short CBC 09/29/16 Range/Units 05:49 WBC 13.6 H (4.3-11.1) K/mcL Hgb 11.2 L (11.5-15.4) g/dL Hct 36.2 (35.3-44.9) % Plt Count 221 (140-400) K/mcL Neutrophils # 11.7 H (1.6-8.9) K/mcL BMP 09/29/16 05:49 Sodium 141 Potassium 4.6 H Chloride 108 Carbon Dioxide 24 BUN 17 Creatinine 0.67 Glucose 146 H Calcium 10.3 - ABG Interpretation ABG results: PT/INR, D-dimer PT 11.7 Seconds (9.4-12.1) 09/28/16 08:03 - VTE Documentation of Mechanical Device: Intermittent pneumatic compression device Consult Discharge Plan - Plan Referrals: Shelli Ware CNP [Primary Care Provider] -
--- NOTE | 2016-09-29 19:05 | General Surgery Progress Note ---
<Ashwin Abreu - Last Filed: 09/29/16 19:02> Date of Encounter: 09/29/16 Time of Encounter: 17:25 - Assessment and Plan (1) Colon distention Current Visit: Yes Status: Acute POD #1 S/P Robotic diverting colostomy and creation of mucous fistula, Transverse colectomy by Dr. 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 Patient had failed multiple attempts at conservative therapies Supportive care/pain control Subjective Patient reports: no new complaints, still having pain, other (Difficult to get patient to verbally response to questioning.) Objective Vital Signs - Last 8 Hours Temp Pulse Resp BP Pulse Ox 09/29/16 14:39 98.1 F 112 14 137/62 93 L Intake and Output 09/29/16 09/29/16 09/29/16 07:59 15:59 23:59 Intake Total 1000 / 1000 0 / 0 Output Total 250 / 250 500 / 500 Balance 750 / 750 -500 / -500 Intake: IV Fluids 1000 / 1000 D5% And 0.45% Nacl 1000 1000 / 1000 Ml Bag 1,000 ML @ 75 mls/ hr IVC .[id number] DONTA Rx#: [id number] Oral 0 / 0 Output: Urine 0 / 0 Stool 0 / 0 0 / 0 Rectal Tube 100 / 100 Right Nephrostomy 150 / 150 Wound Drainage 100 / 100 400 / 400 Posterior 0 / 0 0 / 0 Right Lower Back 100 / 100 400 / 400 Other: Meal NPO npo Percent of Meal Consumed 0% # Urine Diapers 1 1 Weight 64.22 kg Blood Glucose* 138 182 Patient Weight 09/29/16 23:59 Weight 64.22 kg - General physical appearance well developed, moderate pain - Eyes normal ocular movement - ENT normal mucosa, atraumatic, normocephalic - Neck Neck exam: trachea midline - Respiratory normal respiratory effort, clear to auscultation - Cardiovascular Cardiovascular exam: Present: RRR - Abdomen Abdomen: Present: soft, tender (expected post operative tenderness). Absent: bowel sounds present Abdominal Tenderness: diffusely - Integumentary no rash, no growths - Neurologic CN 2-12 grossly intact - Musculoskeletal other (moderate deconditioning) - Psychiatric other (patient only verbally would not respond, wound shake head yes and no) - Labs 09/29/16 05:49 09/29/16 05:49 Diabetes panel 09/29/16 Range/Units 05:49 Sodium 141 (136-145) mEq/L Potassium 4.6 H (3.5-4.5) mEq/L Chloride 108 (98-109) mEq/L Carbon Dioxide 24 (19-29) mEq/L BUN 17 (7-20) mg/dL Creatinine 0.67 (0.57-1.11) mg/dL Glucose 146 H (70-99) mg/dL Calcium 10.3 (8.6-10.8) mg/dL Calcium panel 09/29/16 Range/Units 05:49 Calcium 10.3 (8.6-10.8) mg/dL Pituitary panel 09/29/16 Range/Units 05:49 Sodium 141 (136-145) mEq/L Potassium 4.6 H (3.5-4.5) mEq/L Chloride 108 (98-109) mEq/L Carbon Dioxide 24 (19-29) mEq/L BUN 17 (7-20) mg/dL Creatinine 0.67 (0.57-1.11) mg/dL Glucose 146 H (70-99) mg/dL Calcium 10.3 (8.6-10.8) mg/dL Adrenal panel 09/29/16 Range/Units 05:49 Sodium 141 (136-145) mEq/L Potassium 4.6 H (3.5-4.5) mEq/L Chloride 108 (98-109) mEq/L Carbon Dioxide 24 (19-29) mEq/L BUN 17 (7-20) mg/dL Creatinine 0.67 (0.57-1.11) mg/dL Glucose 146 H (70-99) mg/dL Calcium 10.3 (8.6-10.8) mg/dL - VTE Documentation of Mechanical Device: Intermittent pneumatic compression device Consult Discharge Plan - Plan Referrals: Shelli Ware, PHLEBOTOMY PROGRAM COORDINATOR [Primary Care Provider] - <Cielo Cervantes - Last Filed: 09/29/16 20:37> - Assessment and Plan (1) S/P colectomy Current Visit: Yes Status: Acute pt is s/p transverse colectomy for olgivies with creation of colostomy and mucus fistula await return of bowel function at colostomy, continue ivf hydration prn pain control ok ice chips sparingly OOB to chair PT/OT (2) Essential hypertension Current Visit: Yes Status: Acute monitor, primarily normotensive, prn antihypertensive medication (3) Leukocytosis Current Visit: No Status: Resolved likely secondary to surgery, trend wbc Qualifiers: Leukocytosis type: unspecified Qualified Code(s): D72.829 - Elevated white blood cell count, unspecified Subjective Narrative: patient only able to tell me her name and answer yes when asked if she is in pain Objective Vital Signs - Last 8 Hours Temp Pulse Resp BP Pulse Ox 09/29/16 14:39 98.1 F 112 14 137/62 93 L Intake and Output 09/29/16 09/29/16 09/29/16 07:59 15:59 23:59 Intake Total 1000 / 1000 0 / 0 Output Total 250 / 250 500 / 500 Balance 750 / 750 -500 / -500 Intake: IV Fluids 1000 / 1000 D5% And 0.45% Nacl 1000 1000 / 1000 Ml Bag 1,000 ML @ 75 mls/ hr IVC .[id number] DONTA Rx#: [id number] Oral 0 / 0 Output: Urine 0 / 0 Stool 0 / 0 0 / 0 Rectal Tube 100 / 100 Right Nephrostomy 150 / 150 Wound Drainage 100 / 100 400 / 400 Posterior 0 / 0 0 / 0 Right Lower Back 100 / 100 400 / 400 Other: Meal NPO npo Percent of Meal Consumed 0% # Urine Diapers 1 1 Weight 64.22 kg Blood Glucose* 138 182 Patient Weight 09/29/16 23:59 Weight 64.22 kg - General physical appearance no distress, cachectic, chronically ill - Eyes PERRL, normal ocular movement - ENT dry mucosa, atraumatic, normocephalic - Neck Neck exam: trachea midline - Respiratory normal expansion, clear to auscultation - Cardiovascular Cardiovascular exam: Present: RRR - Abdomen Abdomen: Present: soft, distended, tender. Absent: bowel sounds present, guarding, rebound Additional Comments: mucus fistula and colostomy both pink and moist, air in bag at mucus fistula assuming that is in the luq bowel sweat at ruqq ostomy - Incision Incision: Present: clean and dry, intact - Integumentary no rash, no growths - Neurologic CN 2-12 grossly intact - Musculoskeletal other - Psychiatric oriented to person - Labs 09/29/16 05:49 09/29/16 05:49 Diabetes panel 09/29/16 Range/Units 05:49 Sodium 141 (136-145) mEq/L Potassium 4.6 H (3.5-4.5) mEq/L Chloride 108 (98-109) mEq/L Carbon Dioxide 24 (19-29) mEq/L BUN 17 (7-20) mg/dL Creatinine 0.67 (0.57-1.11) mg/dL Glucose 146 H (70-99) mg/dL Calcium 10.3 (8.6-10.8) mg/dL Calcium panel 09/29/16 Range/Units 05:49 Calcium 10.3 (8.6-10.8) mg/dL Pituitary panel 09/29/16 Range/Units 05:49 Sodium 141 (136-145) mEq/L Potassium 4.6 H (3.5-4.5) mEq/L Chloride 108 (98-109) mEq/L Carbon Dioxide 24 (19-29) mEq/L BUN 17 (7-20) mg/dL Creatinine 0.67 (0.57-1.11) mg/dL Glucose 146 H (70-99) mg/dL Calcium 10.3 (8.6-10.8) mg/dL Adrenal panel 09/29/16 Range/Units 05:49 Sodium 141 (136-145) mEq/L Potassium 4.6 H (3.5-4.5) mEq/L Chloride 108 (98-109) mEq/L Carbon Dioxide 24 (19-29) mEq/L BUN 17 (7-20) mg/dL Creatinine 0.67 (0.57-1.11) mg/dL Glucose 146 H (70-99) mg/dL Calcium 10.3 (8.6-10.8) mg/dL - Attending Attestation I examined this patient and my medical decision-making was reviewed with the CITY DISPATCH SUPERVISOR/PA/Advanced Practice Nurse/Resident Physician. I agree with the documented findings, disposition and treatment plan as described except to the extent set forth below.
[2016-09-30] MEDS: Insulin LISPRO 300 UNITS/3 ML VIAL SQ SCH ×4 (00:18→18:16)
[2016-09-30] MEDS: *HR* Morphine 2 MG/ML SYRINGE IVP PRN ×3 (03:23→22:49)
[2016-09-30 04:42] LABS: Basophils % 0.2 %; Eosinophils # 0.1 K/mcL (0.0-0.6); Eosinophils % 0.4 %; Hematocrit 35.4 % (35.3-44.9); Hemoglobin 11.2 g/dL (11.5-15.4); Immature Granulocytes % 0.4 % (0-4); Lymphocytes # 0.4 K/mcL (0.6-4.6); Lymphocytes % 3.3 %; Mean Corpuscular HGB Conc 31.6 g/dL (31.6-35.5); Mean Corpuscular Hemoglobin 29.4 pg (28.0-33.3); Mean Corpuscular Volume 92.9 fL (83.0-100.0); Monocytes # 0.8 K/mcL (0.0-1.3); Monocytes % 6.6 %; Neutrophils # 11.3 K/mcL (1.6-8.9); Platelet Count 182 K/mcL (140-400); Red Blood Count 3.81 M/mcL (3.82-4.97); Red Cell Distribution Width 13.8 % (11.5-14.5); Segmented Neutrophils % 89.1 %
[2016-09-30 04:51] LABS: BUN/Creatinine Ratio 19 (6-26); Blood Urea Nitrogen 12 mg/dL (7-20); Calcium 10.4 mg/dL (8.6-10.8); Carbon Dioxide 24 mEq/L (19-29); Chloride 107 mEq/L (98-109); Glucose 152 mg/dL (70-99); Magnesium 1.6 mg/dL (1.6-2.6); Osmolality,Calculated 295 (280-300); Phosphorous 2.6 mg/dL (2.3-4.7); Sodium 141 mEq/L (136-145); eGFR For African Americans > 60 (> 60); eGFR For Non-African Americans > 60 (> 60)
[2016-09-30 04:53] LABS: Potassium 3.4 mEq/L (3.5-4.5)
[2016-09-30] MEDS: *HR* Heparin 5,000 UNIT/ML VIAL SQ SCH ×2 (06:21→18:47)
[2016-09-30] MEDS: Psyllium 1 PACKET POWD.PACK PO SCH ×2 (08:27→15:19)
[2016-09-30] MEDS: Diltiazem CD (24hr) 240 MG CAPSULE PO SCH (08:27)
[2016-09-30] MEDS: Sennosides/Docusate Sodium TABLET PO SCH (08:28)
[2016-09-30] MEDS: Lactobacillus 1 EACH CAP.SPRINK PO SCH (08:28)
[2016-09-30] MEDS: Magnesium Oxide 400 MG TABLET PO SCH (08:28)
[2016-09-30] MEDS: Aspirin 81 MG TAB.CHEW PO SCH (08:28)
[2016-09-30] MEDS: D5% in 0.45% NACL 1,000 ML IVC SCH (08:28)
[2016-09-30] MEDS ORDERED: Potassium Chloride 40 MEQ, Lidocaine 1% 2 ML in D5% in Water 500 ML IVPB ONE (09:13)
[2016-09-30] MEDS: Pantoprazole 40 MG VIAL IVP SCH (10:13)
[2016-09-30] MEDS: Magnesium Sulfate 2 GM in D5% in Water 100 ML IVPB SCH ×2 (10:13→11:36)
[2016-09-30] MEDS: Ondansetron 4 MG/2 ML VIAL IVP PRN ×2 (12:07→22:52)
--- NOTE | 2016-09-30 16:36 | Internal Med Progress Note ---
Date of Encounter: 09/30/16 Time of Encounter: 16:34 - Assessment and plan (1) Colon distention Current Visit: Yes Status: Acute Assessment and plan: Patient failed conservative management, had the compression due to infected without improvement. She underwent colostomy 2 days ago. Continue nothing by mouth. Continue IV fluids. Monitor electrolytes. Follow recommendations by surgical team. Hypokalemia noted, potassium supplemented,. Low magnesium levels, will supplement accordingly. (2) Atrial fibrillation Current Visit: Yes Status: Acute Qualifiers: Atrial fibrillation type: paroxysmal Qualified Code(s): I48.0 - Paroxysmal atrial fibrillation (3) Hypokalemia Current Visit: Yes Status: Acute (4) UTI (urinary tract infection) Current Visit: Yes Status: Acute Qualifiers: Urinary tract infection type: acute cystitis Hematuria presence: without hematuria Qualified Code(s): N30.00 - Acute cystitis without hematuria (5) DVT prophylaxis Current Visit: No Status: Acute (6) Vascular dementia Current Visit: No Status: Chronic Qualifiers: Dementia behavioral disturbance: without behavioral disturbance Qualified Code(s): F01.50 - Vascular dementia without behavioral disturbance (7) Constipation Current Visit: No Status: Resolved Qualifiers: Constipation type: chronic idiopathic constipation Qualified Code(s): K59.04 - Chronic idiopathic constipation - Subjective Interval history: She was seen and examined on rounds. She is pleasantly confused. Complaining of abd pain. Not In distress. PO#2 colostomy. She still has a rectal tube placed. - Constitutional Vitals: Temp Pulse Resp BP Pulse Ox 99.5 F 95 16 151/70 92 L 09/30/16 15:01 09/30/16 15:01 09/30/16 15:01 09/30/16 15:01 09/30/16 15:01 General appearance: Present: A&O X 2, pleasant, answers questions appropriately Exam: abd distended. s/p colostomy. - Head Head exam: Present: atraumatic, normocephalic - Eye Eye exam: Present: PERRL, conjuntiva pink, sclera anicteric Pupils: Present: PERRL - Neck Neck exam general surgery: Present: supple, trachea midline. Absent: lymphadenopathy - Respiratory Respiratory exam: Present: CTAB. Absent: accessory muscle use, rales, rhonchi, wheezes - Cardiovascular Cardiovascular exam: Present: RRR, +S1, +S2. Absent: diastolic murmur, gallop, rubs, systolic murmur - GI/Abdominal GI/Abdominal exam: Present: normal bowel sounds, soft, no peritoneal signs. Absent: distended, tenderness - Extremities Exam Extremities exam: Present: warm, radial pulses palpable and symetrical. Absent : calf tenderness, cyanotic, pedal edema - Neurological Exam Neurological exam: Present: CN II-XII intact, oriented X3, no focal deficits. Absent: pronater drift, facial droop, speech deficit - Skin Skin exam: Present: dry, intact Internal Medicine: Result - Labs CBC & Chem 7: 09/30/16 04:02 09/30/16 04:02 Labs: Short CBC 09/30/16 Range/Units 04:02 WBC 12.7 H (4.3-11.1) K/mcL Hgb 11.2 L (11.5-15.4) g/dL Hct 35.4 (35.3-44.9) % Plt Count 182 (140-400) K/mcL Neutrophils # 11.3 H (1.6-8.9) K/mcL BMP 09/30/16 04:02 Sodium 141 Potassium 3.4 L D Chloride 107 Carbon Dioxide 24 BUN 12 Creatinine 0.63 Glucose 152 H Calcium 10.4 - ABG Interpretation ABG results: PT/INR, D-dimer PT 11.7 Seconds (9.4-12.1) 09/28/16 08:03 - Impressions Impressions KUB X-Ray 09/30/16 11:42 IMPRESSION: Persistent but improved marked gaseous distention of the colon. D/ /30/2016 13:53:11 Luis Antonio Mac MD / [email or web address] Interpreting Provider: Luis Antonio Mac MD - VTE Documentation of Mechanical Device: Intermittent pneumatic compression device Consult Discharge Plan - Plan Referrals: Shelli Ware, CLIPPER MACHINE OPERATOR [Primary Care Provider] -
--- NOTE | 2016-09-30 18:20 | General Surgery Progress Note ---
Date of Encounter: 09/30/16 Time of Encounter: 11:00 - Assessment and Plan (1) S/P colectomy Current Visit: Yes Status: Acute pt is s/p transverse colectomy for olgilvies with creation of colostomy and mucus fistula await return of bowel function at colostomy continue ivf hydration prn pain control ok ice chips sparingly OOB to chair PT/OT (2) Essential hypertension Current Visit: Yes Status: Acute monitor, primarily normotensive, prn antihypertensive medication (3) Leukocytosis Current Visit: Yes Status: Acute likely secondary to surgery, is decreasing, monitor Qualifiers: Leukocytosis type: unspecified Qualified Code(s): D72.829 - Elevated white blood cell count, unspecified Subjective Narrative: when asked patient if in pain she states yes, a lot when asked if she was nauseated she states yes she is alert to her name, doesnt know where she is Objective Vital Signs - Last 8 Hours Temp Pulse Resp BP Pulse Ox 09/30/16 15:01 99.5 F 95 16 151/70 92 L 09/30/16 11:26 97.7 F 86 16 134/76 95 Intake and Output 09/30/16 09/30/16 09/30/16 07:59 15:59 23:59 Intake Total 0 / 0 1104 / 1104 Output Total 250 / 250 0 / 0 Balance -250 / -250 1104 / 1104 Intake: IV Fluids 1104 / 1104 D5% And 0.45% Nacl 1000 1000 / 1000 Ml Bag 1,000 ML @ 75 mls/ hr IVC .[id number] DONTA Rx#: [id number] Magnesium Sulfate 2 GM In 104 / 104 Dextrose 5% 100 ML @ 100 mls/hr IVPB Q2H DONTA Rx#: [id number] Oral 0 / 0 Output: Urine 0 / 0 0 / 0 Stool 0 / 0 0 / 0 Right Nephrostomy 150 / 150 Wound Drainage 100 / 100 0 / 0 Posterior 100 / 100 0 / 0 Right Lower Back 0 / 0 0 / 0 Other: Meal npo NPO # Urine Diapers 2 Blood Glucose* 155 157 127 - General physical appearance no distress, cachectic, chronically ill - Eyes PERRL, normal ocular movement - ENT dry mucosa, atraumatic, normocephalic - Neck Neck exam: trachea midline - Respiratory normal expansion, clear to auscultation - Cardiovascular Cardiovascular exam: Present: RRR - Abdomen Abdomen: Present: soft, distended. Absent: bowel sounds present, guarding, rebound Additional Comments: colostomy pink and viable, no flatus only bowel sweat mucus fistula viable and pink - Genitourinary other (nephrostomy back with yellow urine) - Integumentary no rash, no growths - Musculoskeletal normal posture - Psychiatric oriented to person - Labs 10/02/16 04:35 10/02/16 04:35 Diabetes panel 09/30/16 Range/Units 04:02 Sodium 141 (136-145) mEq/L Potassium 3.4 L D (3.5-4.5) mEq/L Chloride 107 (98-109) mEq/L Carbon Dioxide 24 (19-29) mEq/L BUN 12 (7-20) mg/dL Creatinine 0.63 (0.57-1.11) mg/dL Glucose 152 H (70-99) mg/dL Calcium 10.4 (8.6-10.8) mg/dL Calcium panel 09/30/16 Range/Units 04:02 Calcium 10.4 (8.6-10.8) mg/dL Phosphorus 2.6 (2.3-4.7) mg/dL Pituitary panel 09/30/16 Range/Units 04:02 Sodium 141 (136-145) mEq/L Potassium 3.4 L D (3.5-4.5) mEq/L Chloride 107 (98-109) mEq/L Carbon Dioxide 24 (19-29) mEq/L BUN 12 (7-20) mg/dL Creatinine 0.63 (0.57-1.11) mg/dL Glucose 152 H (70-99) mg/dL Calcium 10.4 (8.6-10.8) mg/dL Adrenal panel 09/30/16 Range/Units 04:02 Sodium 141 (136-145) mEq/L Potassium 3.4 L D (3.5-4.5) mEq/L Chloride 107 (98-109) mEq/L Carbon Dioxide 24 (19-29) mEq/L BUN 12 (7-20) mg/dL Creatinine 0.63 (0.57-1.11) mg/dL Glucose 152 H (70-99) mg/dL Calcium 10.4 (8.6-10.8) mg/dL - VTE Documentation of Mechanical Device: Intermittent pneumatic compression device Consult Discharge Plan - Plan Referrals: Shelli Ware CNP [Primary Care Provider] - - Attending Attestation I examined this patient and my medical decision-making was reviewed with the INSTALLATION SUPERINTENDENT/PA/Advanced Practice Nurse/Resident Physician. I agree with the documented findings, disposition and treatment plan as described except to the extent set forth below.
[2016-10-01] MEDS: Insulin LISPRO 300 UNITS/3 ML VIAL SQ SCH ×4 (00:25→18:37)
[2016-10-01 04:43] LABS: Basophils % 0.2 %; Eosinophils # 0.3 K/mcL (0.0-0.6); Eosinophils % 1.8 %; Hematocrit 33.3 % (35.3-44.9); Hemoglobin 10.2 g/dL (11.5-15.4); Immature Granulocytes % 0.4 % (0-4); Lymphocytes # 0.4 K/mcL (0.6-4.6); Lymphocytes % 2.6 %; Mean Corpuscular HGB Conc 30.6 g/dL (31.6-35.5); Mean Corpuscular Volume 94.6 fL (83.0-100.0); Mean Platelet Volume 12.1 fL (9.4-12.4); Monocytes # 1.2 K/mcL (0.0-1.3); Monocytes % 8.3 %; Neutrophils # 12.1 K/mcL (1.6-8.9); Platelet Count 147 K/mcL (140-400); Red Blood Count 3.52 M/mcL (3.82-4.97); Red Cell Distribution Width 13.9 % (11.5-14.5); Segmented Neutrophils % 86.7 %
[2016-10-01 05:09] LABS: BUN/Creatinine Ratio 19 (6-26); Blood Urea Nitrogen 13 mg/dL (7-20); Calcium 10.4 mg/dL (8.6-10.8); Carbon Dioxide 23 mEq/L (19-29); Chloride 105 mEq/L (98-109); Glucose 140 mg/dL (70-99); Magnesium 2.1 mg/dL (1.6-2.6); Osmolality,Calculated 286 (280-300); Potassium 4.4 mEq/L (3.5-4.5); Sodium 137 mEq/L (136-145); eGFR For African Americans > 60 (> 60); eGFR For Non-African Americans > 60 (> 60)
[2016-10-01] MEDS: D5% in 0.45% NACL 1,000 ML IVC SCH ×4 (05:35→19:34)
[2016-10-01] MEDS: *HR* Heparin 5,000 UNIT/ML VIAL SQ SCH ×2 (05:36→18:38)
[2016-10-01] MEDS: *HR* Morphine 2 MG/ML SYRINGE IVP PRN ×3 (05:38→15:50)
[2016-10-01] MEDS: Pantoprazole 40 MG VIAL IVP SCH (09:44)
--- NOTE | 2016-10-01 15:54 | General Surgery Progress Note ---
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 Subjective Narrative: Pt currently reports she has abdominal pain. She unsure of why her belly hurts or what can be done to improve the pain. Objective Vital Signs - Last 8 Hours Temp Pulse Resp BP Pulse Ox 10/01/16 15:12 98.7 F 89 14 136/69 100 10/01/16 10:42 98.2 F 85 20 138/67 98 Intake and Output 09/30/16 10/01/16 10/01/16 23:59 07:59 15:59 Intake Total 1000 / 1000 Output Total 0 / 0 350 / 350 150 / 150 Balance 1000 / 1000 -350 / -350 -150 / -150 Intake: IV Fluids 1000 / 1000 D5% And 0.45% Nacl 1000 1000 / 1000 Ml Bag 1,000 ML @ 75 mls/ hr IVC .[id number] DONTA Rx#: [id number] Output: Urine 0 / 0 Stool 0 / 0 Other 0 / 0 Right Nephrostomy 300 / 300 Wound Drainage 0 / 0 50 / 50 150 / 150 Posterior 0 / 0 Right Lower Back 50 / 50 150 / 150 Other: Meal NPO NPO # Urine Diapers 1 Blood Glucose* 127 130 122 - General physical appearance well developed - Eyes PERRL, normal ocular movement - ENT normal pinna, normal nares - Cardiovascular Cardiovascular exam: Present: RRR - Abdomen Abdomen: Present: soft (ostomies are pink with flatus) - Labs 10/01/16 04:18 10/01/16 04:18 Diabetes panel 10/01/16 Range/Units 04:18 Sodium 137 (136-145) mEq/L Potassium 4.4 D (3.5-4.5) mEq/L Chloride 105 (98-109) mEq/L Carbon Dioxide 23 (19-29) mEq/L BUN 13 (7-20) mg/dL Creatinine 0.69 (0.57-1.11) mg/dL Glucose 140 H (70-99) mg/dL Calcium 10.4 (8.6-10.8) mg/dL Calcium panel 10/01/16 Range/Units 04:18 Calcium 10.4 (8.6-10.8) mg/dL Pituitary panel 10/01/16 Range/Units 04:18 Sodium 137 (136-145) mEq/L Potassium 4.4 D (3.5-4.5) mEq/L Chloride 105 (98-109) mEq/L Carbon Dioxide 23 (19-29) mEq/L BUN 13 (7-20) mg/dL Creatinine 0.69 (0.57-1.11) mg/dL Glucose 140 H (70-99) mg/dL Calcium 10.4 (8.6-10.8) mg/dL Adrenal panel 10/01/16 Range/Units 04:18 Sodium 137 (136-145) mEq/L Potassium 4.4 D (3.5-4.5) mEq/L Chloride 105 (98-109) mEq/L Carbon Dioxide 23 (19-29) mEq/L BUN 13 (7-20) mg/dL Creatinine 0.69 (0.57-1.11) mg/dL Glucose 140 H (70-99) mg/dL Calcium 10.4 (8.6-10.8) mg/dL - VTE Documentation of Mechanical Device: Intermittent pneumatic compression device Consult Discharge Plan - Plan Referrals: Shelli Ware, BRANCH OPERATIONS SPECIALIST [Primary Care Provider] -
--- NOTE | 2016-10-01 16:28 | Internal Med Progress Note ---
<Nick Canas - Last Filed: 10/01/16 16:26> Date of Encounter: 10/01/16 Time of Encounter: 09:30 - Assessment and plan (1) Atrial fibrillation Current Visit: Yes Status: Acute Assessment and plan: Mrs. Pelayo has a history of atrial fibrillation was currently in sinus rhythm. We will continue aspirin 81 mg for anticoagulation coverage in the setting of dementia. Patient currently off diltiazem. Plan: Continue Aspirin 81mg. Qualifiers: Atrial fibrillation type: paroxysmal Qualified Code(s): I48.0 - Paroxysmal atrial fibrillation (2) Hypokalemia Current Visit: Yes Status: Acute Assessment and plan: Current potassium 4.4 after replacement. Plan: - Monitor with a.m. labs. 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 She failed conservative management and underwent transverse colectomy. She continues to have no colostomy output. Awaiting return of function of the bowels. General surgery recommending starting clear liquids and assessment abdominal pain. KUB: Improved but persistent marked gaseous distention of the colon. Plan per general surgery. (4) Type 2 diabetes mellitus Current Visit: No Status: Chronic Assessment and plan: Patient is a known type II diabetic. Currently on inpatient sliding scale. Glucoses controlled. Plan: Continue current inpatient sliding scale. Qualifiers: Diabetes mellitus complication status: without complication Diabetes mellitus half-way insulin use: without half-way use Qualified Code(s): E11.9 - Type 2 diabetes mellitus without complications (5) DVT prophylaxis Current Visit: No Status: Acute Assessment and plan: Heparin subcutaneously every 12 hours - Subjective Interval history: Mrs. Pelayo has been seen and evaluated patient bedside this morning. She is sitting up in the chair and appears uncomfortable. She does not respond verbally to questions but does shake her head yes or no. She continues to have abdominal pain and moves my hand when I attempted to palpate her abdomen. She shakes her head yes to question about her abdominal pain. Denies fever or chills, nausea or vomiting. - Constitutional Vitals: Temp Pulse Resp BP Pulse Ox 98.7 F 89 14 136/69 100 10/01/16 15:12 10/01/16 15:12 10/01/16 15:12 10/01/16 15:12 10/01/16 15:12 General appearance: Present: cooperative, mild distress, pleasant, answers questions appropriately - Head Head exam: Present: atraumatic, normocephalic - Eye Eye exam: Present: PERRL, conjuntiva pink, sclera anicteric Pupils: Present: PERRL - Neck Neck exam general surgery: Present: supple, trachea midline. Absent: lymphadenopathy - Respiratory Respiratory exam: Present: CTAB. Absent: accessory muscle use, rales, rhonchi, wheezes - Cardiovascular Cardiovascular exam: Present: RRR, +S1, +S2. Absent: diastolic murmur, gallop, rubs, systolic murmur - GI/Abdominal GI/Abdominal exam: Present: distended, hypoactive bowel sounds, tenderness ( Tender to palpation. Colostomy in place.) - Extremities Exam Extremities exam: Present: warm, radial pulses palpable and symetrical. Absent : calf tenderness, cyanotic, pedal edema - Neurological Exam Neurological exam: Present: alert, no focal deficits - Psychiatric Psychiatric exam: Present: anxious Internal Medicine: Result - Labs CBC & Chem 7: 10/01/16 04:18 10/01/16 04:18 Labs: Short CBC 10/01/16 Range/Units 04:18 WBC 14.0 H (4.3-11.1) K/mcL Hgb 10.2 L (11.5-15.4) g/dL Hct 33.3 L (35.3-44.9) % Plt Count 147 (140-400) K/mcL Neutrophils # 12.1 H (1.6-8.9) K/mcL BMP 10/01/16 04:18 Sodium 137 Potassium 4.4 D Chloride 105 Carbon Dioxide 23 BUN 13 Creatinine 0.69 Glucose 140 H Calcium 10.4 - ABG Interpretation ABG results: PT/INR, D-dimer PT 11.7 Seconds (9.4-12.1) 09/28/16 08:03 - VTE Documentation of Mechanical Device: Intermittent pneumatic compression device Consult Discharge Plan - Plan Referrals: Shelli Ware, RESEARCH CHEMICAL ENGINEER [Primary Care Provider] - <Matti Diamond - Last Filed: 10/01/16 18:24> - Assessment and plan (1) Colon distention Current Visit: Yes Status: Acute (2) Atrial fibrillation Current Visit: Yes Status: Acute Qualifiers: Atrial fibrillation type: paroxysmal Qualified Code(s): I48.0 - Paroxysmal atrial fibrillation (3) Hypokalemia Current Visit: Yes Status: Acute (4) UTI (urinary tract infection) Current Visit: Yes Status: Acute Qualifiers: Urinary tract infection type: acute cystitis Hematuria presence: without hematuria Qualified Code(s): N30.00 - Acute cystitis without hematuria (5) DVT prophylaxis Current Visit: No Status: Acute (6) Vascular dementia Current Visit: No Status: Chronic Qualifiers: Dementia behavioral disturbance: without behavioral disturbance Qualified Code(s): F01.50 - Vascular dementia without behavioral disturbance (7) Constipation Current Visit: No Status: Resolved Qualifiers: Constipation type: chronic idiopathic constipation Qualified Code(s): K59.04 - Chronic idiopathic constipation - Constitutional Vitals: Temp Pulse Resp BP Pulse Ox 98.7 F 89 14 136/69 100 10/01/16 15:12 10/01/16 15:12 10/01/16 15:12 10/01/16 15:12 10/01/16 15:12 Internal Medicine: Result - Labs CBC & Chem 7: 10/01/16 04:18 10/01/16 04:18 Labs: Short CBC 10/01/16 Range/Units 04:18 WBC 14.0 H (4.3-11.1) K/mcL Hgb 10.2 L (11.5-15.4) g/dL Hct 33.3 L (35.3-44.9) % Plt Count 147 (140-400) K/mcL Neutrophils # 12.1 H (1.6-8.9) K/mcL BMP 10/01/16 04:18 Sodium 137 Potassium 4.4 D Chloride 105 Carbon Dioxide 23 BUN 13 Creatinine 0.69 Glucose 140 H Calcium 10.4 - ABG Interpretation ABG results: PT/INR, D-dimer PT 11.7 Seconds (9.4-12.1) 09/28/16 08:03 - Attending Attestation I agree with the physical examination findings, assessment and plan documented by the resident Dr. Stockton. . I examined the patient independently. Patient is status post colostomy, we will continue following recommendation is if anything. Continue IV fluids, monitor kidney function tests and electrolytes. No fever, mild leukocytosis. We will continue monitoring. CLD today.
[2016-10-02] MEDS: Insulin LISPRO 300 UNITS/3 ML VIAL SQ SCH ×4 (00:31→18:03)
[2016-10-02 04:56] LABS: Basophils % 0.2 %; Eosinophils # 0.4 K/mcL (0.0-0.6); Eosinophils % 3.1 %; Hematocrit 31.7 % (35.3-44.9); Hemoglobin 9.9 g/dL (11.5-15.4); Immature Granulocytes % 0.4 % (0-4); Lymphocytes # 0.3 K/mcL (0.6-4.6); Lymphocytes % 2.4 %; Mean Corpuscular HGB Conc 31.2 g/dL (31.6-35.5); Mean Corpuscular Hemoglobin 28.9 pg (28.0-33.3); Mean Corpuscular Volume 92.4 fL (83.0-100.0); Mean Platelet Volume 11.4 fL (9.4-12.4); Monocytes % 8.1 %; Neutrophils # 10.7 K/mcL (1.6-8.9); Platelet Count 191 K/mcL (140-400); Red Blood Count 3.43 M/mcL (3.82-4.97); Red Cell Distribution Width 13.5 % (11.5-14.5); Segmented Neutrophils % 85.8 %
[2016-10-02 05:16] LABS: BUN/Creatinine Ratio 18 (6-26); Blood Urea Nitrogen 10 mg/dL (7-20); Calcium 10.4 mg/dL (8.6-10.8); Carbon Dioxide 25 mEq/L (19-29); Chloride 101 mEq/L (98-109); Glucose 139 mg/dL (70-99); Magnesium 1.5 mg/dL (1.6-2.6); Osmolality,Calculated 279 (280-300); Potassium 4.4 mEq/L (3.5-4.5); Sodium 134 mEq/L (136-145); eGFR For African Americans > 60 (> 60); eGFR For Non-African Americans > 60 (> 60)
[2016-10-02] MEDS: *HR* Heparin 5,000 UNIT/ML VIAL SQ SCH ×2 (05:55→18:02)
[2016-10-02] MEDS ORDERED: Magnesium Sulfate 2 GM in D5% in Water 100 ML IVPB ONE (08:06)
[2016-10-02] MEDS: Pantoprazole 40 MG VIAL IVP SCH (08:21)
[2016-10-02] MEDS: *HR* Morphine 2 MG/ML SYRINGE IVP PRN (08:21)
[2016-10-02] MEDS: D5% in 0.45% NACL 1,000 ML IVC SCH ×2 (08:23→22:06)
--- NOTE | 2016-10-02 11:55 | Internal Med Progress Note ---
<Nick Canas - Last Filed: 10/02/16 17:18> Date of Encounter: 10/02/16 Time of Encounter: 08:40 - Assessment and plan (1) Atrial fibrillation Current Visit: Yes Status: Acute Assessment and plan: Mrs. Pelayo has a history of atrial fibrillation was currently in sinus rhythm. We will continue aspirin 81 mg for anticoagulation coverage in the setting of dementia. Patient currently off diltiazem. Plan: Continue Aspirin 81mg. Qualifiers: Atrial fibrillation type: paroxysmal Qualified Code(s): I48.0 - Paroxysmal atrial fibrillation (2) Hypokalemia Current Visit: Yes Status: Acute Assessment and plan: Current potassium 4.4 after replacement. Plan: - Monitor with a.m. labs. 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 She failed conservative management and underwent transverse colectomy. She continues to have no colostomy output. Awaiting return of function of the bowels. General surgery recommending starting clear liquids and assessment abdominal pain. KUB: Improved but persistent marked gaseous distention of the colon. Plan per general surgery. (4) Type 2 diabetes mellitus Current Visit: No Status: Chronic Assessment and plan: Patient is a known type II diabetic. Currently on inpatient sliding scale. Glucoses controlled. Plan: Continue current inpatient sliding scale. Qualifiers: Diabetes mellitus complication status: without complication Diabetes mellitus mcfp insulin use: without mcfp use Qualified Code(s): E11.9 - Type 2 diabetes mellitus without complications (5) DVT prophylaxis Current Visit: No Status: Acute Assessment and plan: Heparin subcutaneously every 12 hours (6) Nephrostomy status Current Visit: Yes Status: Acute Assessment and plan: Nephrostomy tube right sided is draining well. - Subjective Interval history: Mrs. Pelayo has been seen and evaluated patient bedside this morning. She is laying in bed and eating her clear liquids. She does not answer questions appropriately as she is confused but allows me to press on her belly. She is alert and tolerating PO intake. She guards her belly when palpating. - Constitutional Vitals: Temp Pulse Resp BP Pulse Ox 98.4 F 106 14 131/84 95 10/02/16 11:21 10/02/16 11:21 10/02/16 11:21 10/02/16 11:21 10/02/16 11:21 General appearance: Present: cooperative, mild distress, pleasant, answers questions appropriately - Head Head exam: Present: atraumatic, normocephalic - Eye Eye exam: Present: PERRL, conjuntiva pink, sclera anicteric Pupils: Present: PERRL - Neck Neck exam general surgery: Present: supple, trachea midline. Absent: lymphadenopathy - Respiratory Respiratory exam: Present: CTAB. Absent: accessory muscle use, rales, rhonchi, wheezes - Cardiovascular Cardiovascular exam: Present: RRR, +S1, +S2. Absent: diastolic murmur, gallop, rubs, systolic murmur - GI/Abdominal Additional comments: abdomen is distended and tympanic. Bowel sounds are hypoactive. Tender to touch. Right sided nephrostomy tube with yellow drainage. Little to no stool drainage. - Extremities Exam Extremities exam: Present: warm, radial pulses palpable and symetrical. Absent : calf tenderness, cyanotic, pedal edema, tenderness - Neurological Exam Neurological exam: Present: alert, altered, no focal deficits. Absent: pronater drift, facial droop, speech deficit - Skin Skin exam: Present: dry, intact, warm Internal Medicine: Result - Labs CBC & Chem 7: 10/02/16 04:35 10/02/16 04:35 Labs: Short CBC 10/02/16 Range/Units 04:35 WBC 12.4 H (4.3-11.1) K/mcL Hgb 9.9 L (11.5-15.4) g/dL Hct 31.7 L (35.3-44.9) % Plt Count 191 (140-400) K/mcL Neutrophils # 10.7 H (1.6-8.9) K/mcL BMP 10/02/16 04:35 Sodium 134 L Potassium 4.4 Chloride 101 Carbon Dioxide 25 BUN 10 Creatinine 0.56 L Glucose 139 H Calcium 10.4 - ABG Interpretation ABG results: PT/INR, D-dimer PT 11.7 Seconds (9.4-12.1) 09/28/16 08:03 - VTE Documentation of Mechanical Device: Intermittent pneumatic compression device Consult Discharge Plan - Plan Referrals: Shelli Ware, EXECUTIVE SECRETARY [Primary Care Provider] - <Matti Diamond - Last Filed: 10/02/16 17:49> - Assessment and plan (1) Colon distention Current Visit: Yes Status: Acute (2) Atrial fibrillation Current Visit: Yes Status: Acute Qualifiers: Atrial fibrillation type: paroxysmal Qualified Code(s): I48.0 - Paroxysmal atrial fibrillation (3) Hypokalemia Current Visit: Yes Status: Acute (4) UTI (urinary tract infection) Current Visit: Yes Status: Acute Qualifiers: Urinary tract infection type: acute cystitis Hematuria presence: without hematuria Qualified Code(s): N30.00 - Acute cystitis without hematuria (5) DVT prophylaxis Current Visit: No Status: Acute (6) Vascular dementia Current Visit: No Status: Chronic Qualifiers: Dementia behavioral disturbance: without behavioral disturbance Qualified Code(s): F01.50 - Vascular dementia without behavioral disturbance (7) Constipation Current Visit: No Status: Resolved Qualifiers: Constipation type: chronic idiopathic constipation Qualified Code(s): K59.04 - Chronic idiopathic constipation - Constitutional Vitals: Temp Pulse Resp BP Pulse Ox 98.3 F 96 16 118/78 98 10/02/16 16:00 10/02/16 16:00 10/02/16 16:00 10/02/16 16:00 10/02/16 16:00 Internal Medicine: Result - Labs CBC & Chem 7: 10/02/16 04:35 10/02/16 04:35 Labs: Short CBC 10/02/16 Range/Units 04:35 WBC 12.4 H (4.3-11.1) K/mcL Hgb 9.9 L (11.5-15.4) g/dL Hct 31.7 L (35.3-44.9) % Plt Count 191 (140-400) K/mcL Neutrophils # 10.7 H (1.6-8.9) K/mcL BMP 10/02/16 04:35 Sodium 134 L Potassium 4.4 Chloride 101 Carbon Dioxide 25 BUN 10 Creatinine 0.56 L Glucose 139 H Calcium 10.4 - ABG Interpretation ABG results: PT/INR, D-dimer PT 11.7 Seconds (9.4-12.1) 09/28/16 08:03 - Attending Attestation Ms. Pelayo was seen and examined in rounds. I agree with the physical examination findings, assessment and plan as documented by the resident Dr. Steven Canas. We will continue with IV fluids, monitor electrolytes. Follow recommendations by surgical team. The patient has been admitted for 20 days, she is still sick, we are advancing diet and she recently underwent a colostomy. Patient needs inpatient care and continue with IV fluids and close follow-up by our surgical team. D/W patient's daughter.
--- NOTE | 2016-10-02 12:42 | General Surgery Progress Note ---
Date of Encounter: 10/02/16 Time of Encounter: 12:40 - Assessment and Plan (1) Colon distention Current Visit: Yes Status: Acute POD #4 Robotic diverting colostomy and creation of mucous fistula Transverse colectomy Continue clear liquid diet Supportive care/pain control Subjective Patient reports: no new complaints, tolerating liquids well, no flatus (in colostomy), bowel movement (minimal stool noted in colostomy bag), afebrile Objective Vital Signs - Last 8 Hours Temp Pulse Resp BP Pulse Ox 10/02/16 11:21 98.4 F 106 14 131/84 95 10/02/16 07:11 97.9 F 103 20 162/84 91 L Intake and Output 10/01/16 10/02/16 10/02/16 23:59 07:59 15:59 Intake Total 1240 / 1240 1000 / 1000 Output Total 200 / 200 100 / 100 Balance 1240 / 1240 -200 / -200 900 / 900 Intake: IV Fluids 1000 / 1000 1000 / 1000 D5% And 0.45% Nacl 1000 1000 / 1000 1000 / 1000 Ml Bag 1,000 ML @ 75 mls/ hr IVC .[id number] DONTA Rx#: [id number] Oral 240 / 240 0 / 0 Output: Stool 0 / 0 Right Nephrostomy 200 / 200 100 / 100 Other: Meal Dinner # Urine Diapers 1 Blood Glucose* 129 130 - General physical appearance well developed, well nourished, no distress, chronically ill - Eyes normal ocular movement - ENT normal mucosa, atraumatic, normocephalic - Neck Neck exam: trachea midline - Respiratory normal respiratory effort, clear to auscultation, other (diminished bibasilar bases) - Cardiovascular Cardiovascular exam: Present: tachycardia - Abdomen Abdomen: Present: bowel sounds present, soft, tympanic, tender (mildly tender), wound (colostomy pink and moist with small amount of liquid stool; Mucous fistula pink and moist.) - Incision Incision: Present: clean and dry, intact - Genitourinary other (nephrostomy tubes with clear, yellow urine) - Integumentary no rash - Neurologic CN 2-12 grossly intact - Psychiatric oriented to person - Labs 10/02/16 04:35 10/02/16 04:35 Diabetes panel 10/02/16 Range/Units 04:35 Sodium 134 L (136-145) mEq/L Potassium 4.4 (3.5-4.5) mEq/L Chloride 101 (98-109) mEq/L Carbon Dioxide 25 (19-29) mEq/L BUN 10 (7-20) mg/dL Creatinine 0.56 L (0.57-1.11) mg/dL Glucose 139 H (70-99) mg/dL Calcium 10.4 (8.6-10.8) mg/dL Calcium panel 10/02/16 Range/Units 04:35 Calcium 10.4 (8.6-10.8) mg/dL Pituitary panel 10/02/16 Range/Units 04:35 Sodium 134 L (136-145) mEq/L Potassium 4.4 (3.5-4.5) mEq/L Chloride 101 (98-109) mEq/L Carbon Dioxide 25 (19-29) mEq/L BUN 10 (7-20) mg/dL Creatinine 0.56 L (0.57-1.11) mg/dL Glucose 139 H (70-99) mg/dL Calcium 10.4 (8.6-10.8) mg/dL Adrenal panel 10/02/16 Range/Units 04:35 Sodium 134 L (136-145) mEq/L Potassium 4.4 (3.5-4.5) mEq/L Chloride 101 (98-109) mEq/L Carbon Dioxide 25 (19-29) mEq/L BUN 10 (7-20) mg/dL Creatinine 0.56 L (0.57-1.11) mg/dL Glucose 139 H (70-99) mg/dL Calcium 10.4 (8.6-10.8) mg/dL - VTE Documentation of Mechanical Device: Intermittent pneumatic compression device Consult Discharge Plan - Plan Referrals: Shelli Ware, LAVATORY ATTENDANT [Primary Care Provider] - - Attending Attestation I examined this patient and my medical decision-making was reviewed with the BANK EXAMINER/PA/Advanced Practice Nurse/Resident Physician. I agree with the documented findings, disposition and treatment plan as described except to the extent set forth below.
[2016-10-03] MEDS: Insulin LISPRO 300 UNITS/3 ML VIAL SQ SCH ×4 (00:44→21:10)
[2016-10-03] MEDS: *HR* Heparin 5,000 UNIT/ML VIAL SQ SCH ×3 (06:28→21:10)
[2016-10-03 08:43] LABS: Alanine Aminotransferase 6 Units/L (0-55); Albumin/Globulin Ratio 0.5 (1.1-2.2); Alkaline Phosphatase 94 Units/L (38-126); Aspartate Amino Transferase 11 Units/L (5-34); BUN/Creatinine Ratio 20 (6-26); Bilirubin,Direct 0.2 mg/dL (0.0-0.5); Bilirubin,Indirect 0.2 mg/dL (0.0-1.2); Bilirubin,Total 0.4 mg/dL (0.2-1.2); Blood Urea Nitrogen 14 mg/dL (7-20); Calcium 10.5 mg/dL (8.6-10.8); Carbon Dioxide 25 mEq/L (19-29); Chloride 100 mEq/L (98-109); Globulin 3.7 g/dL (2.4-3.5); Glucose 151 mg/dL (70-99); Magnesium 1.7 mg/dL (1.6-2.6); Osmolality,Calculated 283 (280-300); Potassium 4.2 mEq/L (3.5-4.5); Sodium 135 mEq/L (136-145); Total Protein 5.6 g/dL (6.0-8.3); eGFR For African Americans > 60 (> 60); eGFR For Non-African Americans > 60 (> 60)
[2016-10-03 08:47] LABS: Albumin 1.9 g/dL (3.5-5.0)
--- NOTE | 2016-10-03 09:16 | General Surgery Progress Note ---
Date of Encounter: 10/03/16 Time of Encounter: 08:10 - Assessment and Plan (1) Colon distention Current Visit: Yes Status: Acute POD #5 Robotic diverting colostomy and creation of mucous fistula Transverse colectomy Continue clear liquid diet, advancing to full liquid diet. Supportive care/pain control. Primary medicine service is looking for ECF placement for patient. Subjective Patient reports: no new complaints, feels better, still having pain (only complaining of pain at colostomy site.), tolerating liquids well, bowel movement , afebrile Objective Vital Signs - Last 8 Hours Temp Pulse Resp BP Pulse Ox 10/03/16 08:00 98.0 F 90 16 152/71 96 10/03/16 04:52 98.0 F 93 16 150/83 96 Intake and Output 10/02/16 10/03/16 10/03/16 23:59 07:59 15:59 Intake Total 975 / 975 0 / 0 Output Total 0 / 0 200 / 200 375 / 375 Balance 975 / 975 -200 / -200 -375 / -375 Intake: IV Fluids 975 / 975 D5% And 0.45% Nacl 1000 975 / 975 Ml Bag 1,000 ML @ 75 mls/ hr IVC .[id number] [facility] Rx#: [id number] Oral 0 / 0 0 / 0 Output: Stool 0 / 0 0 / 0 125 / 125 Other 0 / 0 Right Nephrostomy 0 / 0 250 / 250 Wound Drainage 0 / 0 200 / 200 Posterior 0 / 0 Right Lower Back 200 / 200 Other: Meal Dinner Percent of Meal Consumed 0% Stool Size Large Stool Consistency loose liquid Stool Color Brown Brown # Urine Diapers 0 0 1 Blood Glucose* 148 135 - General physical appearance well developed, well nourished, no distress, chronically ill - Eyes normal ocular movement - ENT normal mucosa, atraumatic, normocephalic - Neck Neck exam: trachea midline - Respiratory normal respiratory effort, clear to auscultation, other (diminished bibasilar) - Cardiovascular Cardiovascular exam: Present: tachycardia - Abdomen Abdomen: Present: bowel sounds present, soft, tender (mildly), wound (colostomy with large amount of liquid stool; Mucous fistula pink and moist.) - Incision Incision: Present: clean and dry, intact - Integumentary no rash - Neurologic CN 2-12 grossly intact - Psychiatric other (Able to point to area of pain, able to respond to yes or no questioning.) - Labs 10/03/16 10:37 10/03/16 08:00 Diabetes panel 10/03/16 Range/Units 08:00 Sodium 135 L (136-145) mEq/L Potassium 4.2 (3.5-4.5) mEq/L Chloride 100 (98-109) mEq/L Carbon Dioxide 25 (19-29) mEq/L BUN 14 (7-20) mg/dL Creatinine 0.70 (0.57-1.11) mg/dL Glucose 151 H (70-99) mg/dL Calcium 10.5 (8.6-10.8) mg/dL AST 11 (5-34) Units/L ALT 6 (0-55) Units/L Alkaline Phosphatase 94 (38-126) Units/L Albumin 1.9 L (3.5-5.0) g/dL Calcium panel 10/03/16 Range/Units 08:00 Calcium 10.5 (8.6-10.8) mg/dL Albumin 1.9 L (3.5-5.0) g/dL Pituitary panel 10/03/16 Range/Units 08:00 Sodium 135 L (136-145) mEq/L Potassium 4.2 (3.5-4.5) mEq/L Chloride 100 (98-109) mEq/L Carbon Dioxide 25 (19-29) mEq/L BUN 14 (7-20) mg/dL Creatinine 0.70 (0.57-1.11) mg/dL Glucose 151 H (70-99) mg/dL Calcium 10.5 (8.6-10.8) mg/dL Adrenal panel 10/03/16 Range/Units 08:00 Sodium 135 L (136-145) mEq/L Potassium 4.2 (3.5-4.5) mEq/L Chloride 100 (98-109) mEq/L Carbon Dioxide 25 (19-29) mEq/L BUN 14 (7-20) mg/dL Creatinine 0.70 (0.57-1.11) mg/dL Glucose 151 H (70-99) mg/dL Calcium 10.5 (8.6-10.8) mg/dL Total Bilirubin 0.4 (0.2-1.2) mg/dL AST 11 (5-34) Units/L ALT 6 (0-55) Units/L Alkaline Phosphatase 94 (38-126) Units/L Albumin 1.9 L (3.5-5.0) g/dL - VTE Documentation of Mechanical Device: Intermittent pneumatic compression device Consult Discharge Plan - Plan Referrals: Shelli Ware, FRANK [Primary Care Provider] -
[2016-10-03] MEDS: Pantoprazole 40 MG VIAL IVP SCH (09:42)
[2016-10-03 10:47] LABS: Basophils % 0.2 %; Eosinophils # 0.4 K/mcL (0.0-0.6); Eosinophils % 3.4 %; Hematocrit 34.9 % (35.3-44.9); Hemoglobin 11.1 g/dL (11.5-15.4); Immature Granulocytes % 0.7 % (0-4); Immature Platelets 7.1 % (1.1-6.1); Lymphocytes # 0.4 K/mcL (0.6-4.6); Lymphocytes % 3.5 %; Mean Corpuscular HGB Conc 31.8 g/dL (31.6-35.5); Mean Corpuscular Hemoglobin 28.9 pg (28.0-33.3); Mean Corpuscular Volume 90.9 fL (83.0-100.0); Mean Platelet Volume 11.2 fL (9.4-12.4); Monocytes # 1.1 K/mcL (0.0-1.3); Monocytes % 8.5 %; Neutrophils # 10.7 K/mcL (1.6-8.9); Platelet Count 269 K/mcL (140-400); Red Blood Count 3.84 M/mcL (3.82-4.97); Red Cell Distribution Width 13.5 % (11.5-14.5); Segmented Neutrophils % 83.7 %
[2016-10-03] MEDS: D5% in 0.45% NACL 1,000 ML IVC SCH (13:06)
--- NOTE | 2016-10-03 15:06 | Internal Med Progress Note ---
<Nick Canas - Last Filed: 10/03/16 15:03> Date of Encounter: 10/03/16 Time of Encounter: 09:20 - Assessment and plan (1) Atrial fibrillation Current Visit: Yes Status: Acute Assessment and plan: Mrs. Pelayo has a history of atrial fibrillation was currently in sinus rhythm. We will continue aspirin 81 mg for anticoagulation coverage in the setting of dementia. Patient currently off diltiazem. Plan: Continue Aspirin 81mg. Qualifiers: Atrial fibrillation type: paroxysmal Qualified Code(s): I48.0 - Paroxysmal atrial fibrillation (2) Hypokalemia Current Visit: Yes Status: Acute Assessment and plan: Hypokalemia corrected Plan: - Monitor with a.m. labs. 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 She continues to have no colostomy output. Positive bowel sounds, soft palpation, appropriate output into colostomy. Diet was advanced to full liquids today. General surgery continues to follow. KUB: Improved but persistent marked gaseous distention of the colon. Plan per general surgery. (4) DVT prophylaxis Current Visit: No Status: Acute Assessment and plan: Heparin subcutaneously every 12 hours (5) Nephrostomy status Current Visit: Yes Status: Acute Assessment and plan: Nephrostomy tube right sided is draining well. - Subjective Interval history: Mrs. Pelayo has been seen and evaluated patient bedside this morning. She is sitting up in bed this morning alert awake and interacting more than she did the last 2 days. She does not appear to be any acute distress allows palpation of her abdomen without guarding. She is tolerating clear liquids. Right nephrostomy tube has yellow drainage, colostomy is full brown liquid discharge. She does not demonstrate pain with palpation of the abdomen. - Constitutional Vitals: Temp Pulse Resp BP Pulse Ox 97.5 F L 102 16 121/73 94 L 10/03/16 11:46 10/03/16 11:46 10/03/16 11:46 10/03/16 11:46 10/03/16 11:46 General appearance: Present: cooperative, mild distress, pleasant, answers questions appropriately - Head Head exam: Present: atraumatic, normocephalic - Eye Eye exam: Present: PERRL, conjuntiva pink, sclera anicteric Pupils: Present: PERRL - Neck Neck exam general surgery: Present: supple, trachea midline. Absent: lymphadenopathy - Respiratory Respiratory exam: Present: CTAB. Absent: accessory muscle use, rales, rhonchi, wheezes - Cardiovascular Cardiovascular exam: Present: RRR, +S1, +S2. Absent: diastolic murmur, gallop, rubs, systolic murmur - GI/Abdominal Additional comments: Abdomen is soft, positive bowel sounds, appropriate output and colostomy. Nontender to palpation - Extremities Exam Extremities exam: Present: warm, radial pulses palpable and symetrical. Absent : calf tenderness, cyanotic, pedal edema - Neurological Exam Neurological exam: Present: alert, no focal deficits. Absent: pronater drift, facial droop, speech deficit Internal Medicine: Result - Labs CBC & Chem 7: 10/03/16 10:37 10/03/16 08:00 Labs: Short CBC 10/03/16 Range/Units 10:37 WBC 12.7 H (4.3-11.1) K/mcL Hgb 11.1 L (11.5-15.4) g/dL Hct 34.9 L (35.3-44.9) % Plt Count 269 (140-400) K/mcL Neutrophils # 10.7 H (1.6-8.9) K/mcL BMP 10/03/16 08:00 Sodium 135 L Potassium 4.2 Chloride 100 Carbon Dioxide 25 BUN 14 Creatinine 0.70 Glucose 151 H Calcium 10.5 Liver Function 10/03/16 Range/Units 08:00 Total Bilirubin 0.4 (0.2-1.2) mg/dL Direct Bilirubin 0.2 (0.0-0.5) mg/dL AST 11 (5-34) Units/L ALT 6 (0-55) Units/L Alkaline Phosphatase 94 (38-126) Units/L Albumin 1.9 L (3.5-5.0) g/dL - ABG Interpretation ABG results: PT/INR, D-dimer PT 11.7 Seconds (9.4-12.1) 09/28/16 08:03 - VTE Documentation of Mechanical Device: Intermittent pneumatic compression device Consult Discharge Plan - Plan Referrals: Shelli Ware, LIBRARY CONSULTANT [Primary Care Provider] - <Matti Diamond - Last Filed: 10/03/16 18:03> - Assessment and plan (1) Colon distention Current Visit: Yes Status: Acute (2) Atrial fibrillation Current Visit: Yes Status: Acute Qualifiers: Atrial fibrillation type: paroxysmal Qualified Code(s): I48.0 - Paroxysmal atrial fibrillation (3) Hypokalemia Current Visit: Yes Status: Acute (4) UTI (urinary tract infection) Current Visit: Yes Status: Acute Qualifiers: Urinary tract infection type: acute cystitis Hematuria presence: without hematuria Qualified Code(s): N30.00 - Acute cystitis without hematuria (5) DVT prophylaxis Current Visit: No Status: Acute (6) Vascular dementia Current Visit: No Status: Chronic Qualifiers: Dementia behavioral disturbance: without behavioral disturbance Qualified Code(s): F01.50 - Vascular dementia without behavioral disturbance (7) Constipation Current Visit: No Status: Resolved Qualifiers: Constipation type: chronic idiopathic constipation Qualified Code(s): K59.04 - Chronic idiopathic constipation - Constitutional Vitals: Temp Pulse Resp BP Pulse Ox 97.3 F L 119 16 156/77 94 L 10/03/16 15:54 10/03/16 15:54 10/03/16 15:54 10/03/16 15:54 10/03/16 15:54 Internal Medicine: Result - Labs CBC & Chem 7: 10/03/16 10:37 10/03/16 08:00 Labs: Short CBC 10/03/16 Range/Units 10:37 WBC 12.7 H (4.3-11.1) K/mcL Hgb 11.1 L (11.5-15.4) g/dL Hct 34.9 L (35.3-44.9) % Plt Count 269 (140-400) K/mcL Neutrophils # 10.7 H (1.6-8.9) K/mcL BMP 10/03/16 08:00 Sodium 135 L Potassium 4.2 Chloride 100 Carbon Dioxide 25 BUN 14 Creatinine 0.70 Glucose 151 H Calcium 10.5 Liver Function 10/03/16 Range/Units 08:00 Total Bilirubin 0.4 (0.2-1.2) mg/dL Direct Bilirubin 0.2 (0.0-0.5) mg/dL AST 11 (5-34) Units/L ALT 6 (0-55) Units/L Alkaline Phosphatase 94 (38-126) Units/L Albumin 1.9 L (3.5-5.0) g/dL - ABG Interpretation ABG results: PT/INR, D-dimer PT 11.7 Seconds (9.4-12.1) 09/28/16 08:03 - Attending Attestation I examined this patient and my medical decision-making was reviewed with the INFECTIOUS WASTE TECHNICIAN/PA/Advanced Practice Nurse/Resident Physician. I agree with the documented findings, disposition and treatment plan as described except to the extent set forth below. Stable, D/W patient's daughters in detail. Follow surgical input. Advance diet as tolerated. D/C planning.
[2016-10-04] MEDS: Insulin LISPRO 300 UNITS/3 ML VIAL SQ SCH ×4 (00:31→18:35)
[2016-10-04 05:40] LABS: Basophils % 0.2 %; Eosinophils % 0.1 %; Hematocrit 33.7 % (35.3-44.9); Immature Granulocytes % 0.6 % (0-4); Lymphocytes # 0.3 K/mcL (0.6-4.6); Lymphocytes % 2.2 %; Mean Corpuscular HGB Conc 32.6 g/dL (31.6-35.5); Mean Corpuscular Hemoglobin 29.5 pg (28.0-33.3); Mean Corpuscular Volume 90.3 fL (83.0-100.0); Mean Platelet Volume 11.6 fL (9.4-12.4); Monocytes # 1.1 K/mcL (0.0-1.3); Monocytes % 7.6 %; Neutrophils # 13.1 K/mcL (1.6-8.9); Platelet Count 249 K/mcL (140-400); Red Blood Count 3.73 M/mcL (3.82-4.97); Red Cell Distribution Width 13.5 % (11.5-14.5); Segmented Neutrophils % 89.3 %
[2016-10-04] MEDS: *HR* Heparin 5,000 UNIT/ML VIAL SQ SCH ×2 (05:45→18:34)
[2016-10-04 05:49] LABS: Albumin/Globulin Ratio 0.5 (1.1-2.2); Alkaline Phosphatase 103 Units/L (38-126); Aspartate Amino Transferase 9 Units/L (5-34); BUN/Creatinine Ratio 22 (6-26); Bilirubin,Total 0.6 mg/dL (0.2-1.2); Blood Urea Nitrogen 14 mg/dL (7-20); Calcium 10.6 mg/dL (8.6-10.8); Carbon Dioxide 26 mEq/L (19-29); Chloride 100 mEq/L (98-109); Globulin 3.9 g/dL (2.4-3.5); Glucose 178 mg/dL (70-99); Magnesium 1.6 mg/dL (1.6-2.6); Osmolality,Calculated 285 (280-300); Sodium 135 mEq/L (136-145); Total Protein 5.9 g/dL (6.0-8.3); eGFR For African Americans > 60 (> 60); eGFR For Non-African Americans > 60 (> 60)
[2016-10-04 05:50] LABS: Alanine Aminotransferase < 6 Units/L (0-55)
[2016-10-04] MEDS: D5% in 0.45% NACL 1,000 ML IVC SCH ×2 (10:30→10:44)
[2016-10-04] MEDS: Pantoprazole 40 MG VIAL IVP SCH (10:30)
--- NOTE | 2016-10-04 13:05 | Internal Med Progress Note ---
<Nick Canas - Last Filed: 10/04/16 16:28> Date of Encounter: 10/04/16 Time of Encounter: 08:15 - Assessment and plan (1) Atrial fibrillation Current Visit: Yes Status: Acute Assessment and plan: Mrs. Pelayo has a history of atrial fibrillation, currently in sinus rhythm. We will continue aspirin 81 mg for anticoagulation coverage in the setting of dementia. Patient currently off diltiazem. Plan: Continue Aspirin 81mg. Qualifiers: Atrial fibrillation type: paroxysmal Qualified Code(s): I48.0 - Paroxysmal atrial fibrillation (2) Hypokalemia Current Visit: Yes Status: Acute Assessment and plan: Hypokalemia corrected. Plan: - Monitor with a.m. labs. (3) [place]'s syndrome Current Visit: Yes Status: Acute Assessment and plan: Patient status post colectomy for Danielle's syndrome. She failed conservative management and underwent transverse colectomy. She has appropriate colostomy output. Positive bowel sounds, soft palpation, appropriate output into colostomy. Diet was advanced to mechanical soft diet today. General surgery continues to follow. Plan per general surgery. (4) Nephrostomy status Current Visit: Yes Status: Acute Assessment and plan: Nephrostomy tube right sided is draining well. (5) Hypomagnesemia Current Visit: Yes Status: Acute Assessment and plan: Magnesium 1.6 after replacement yesterday. Plan: 2gm Magnesium IVPB today. (6) Leukocytosis Current Visit: Yes Status: Acute Assessment and plan: WBCs have been between 12-14.7 suspected reactive with recent abdominal surgery. CXR this am was concerning for opacities in lung base. CT scan of the abdomen demonstrates hiatal hernia, and free air under the diaphragm likely secondary to recent surgical procedure and patient does not have concerning abdominal pain. Qualifiers: Leukocytosis type: unspecified Qualified Code(s): D72.829 - Elevated white blood cell count, unspecified (7) DVT prophylaxis Current Visit: No Status: Acute Assessment and plan: Heparin subcutaneously every 12 hours - Subjective Interval history: Mrs. Pelayo has been seen and evaluated patient bedside this morning. She is sitting up in bed this morning alert awake and interacting. She is tolerating PO intake. She does not appear to be in any acute distress. Her colostomy is active while in the room with appropriate discharge. Urostomy is appropriate yellow discharge. - Constitutional Vitals: Temp Pulse Resp BP Pulse Ox 98.7 F 78 16 154/69 97 10/04/16 12:01 10/04/16 12:01 10/04/16 12:01 10/04/16 12:01 10/04/16 12:01 General appearance: Present: cooperative, mild distress, pleasant, answers questions appropriately - Head Head exam: Present: atraumatic, normocephalic - Eye Eye exam: Present: PERRL - Neck Neck exam general surgery: Present: supple, trachea midline. Absent: lymphadenopathy - Respiratory Respiratory exam: Present: CTAB. Absent: accessory muscle use, rales, rhonchi, wheezes - Cardiovascular Cardiovascular exam: Present: RRR, +S1, +S2. Absent: diastolic murmur, gallop, rubs, systolic murmur - GI/Abdominal Additional comments: Abdomen is soft, yet distended. + bowel sounds, Active discharge and to colostomy bag. Nontender to palpation. - Extremities Exam Extremities exam: Present: warm, radial pulses palpable and symetrical. Absent : calf tenderness, cyanotic, pedal edema - Neurological Exam Neurological exam: Present: alert, no focal deficits - Psychiatric Psychiatric exam: Present: flat affect - Skin Skin exam: Present: dry, intact Internal Medicine: Result - Labs CBC & Chem 7: 10/04/16 05:10 10/04/16 05:10 Labs: Short CBC 10/04/16 Range/Units 05:10 WBC 14.7 H (4.3-11.1) K/mcL Hgb 11.0 L (11.5-15.4) g/dL Hct 33.7 L (35.3-44.9) % Plt Count 249 (140-400) K/mcL Neutrophils # 13.1 H (1.6-8.9) K/mcL BMP 10/04/16 05:10 Sodium 135 L Potassium 4.0 Chloride 100 Carbon Dioxide 26 BUN 14 Creatinine 0.65 Glucose 178 H Calcium 10.6 Liver Function 10/04/16 Range/Units 05:10 Total Bilirubin 0.6 (0.2-1.2) mg/dL AST 9 (5-34) Units/L ALT < 6 (0-55) Units/L Alkaline Phosphatase 103 (38-126) Units/L Albumin 2.0 L (3.5-5.0) g/dL - ABG Interpretation ABG results: PT/INR, D-dimer PT 11.7 Seconds (9.4-12.1) 09/28/16 08:03 - Impressions Impressions Chest X-Ray 10/04/16 09:25 IMPRESSION: Slightly limited exam as above. Questionable left basilar opacity. Appearance is unchanged since the previous exam and may be related to superimposed soft tissues, atelectasis, or infection. Large hiatal hernia. No substantial change in rounded right hilar opacity. This was present on radiograph 07/11/2013 D/ / Aruna Little MD / Aruna Little MD Interpreting Provider: Aruna Little MD - VTE Documentation of Mechanical Device: Intermittent pneumatic compression device Consult Discharge Plan - Plan Referrals: Shelli Ware, CERTIFIED FLEX ENDOSCOPE REPROCESSOR [Primary Care Provider] - <Matti Diamond - Last Filed: 10/04/16 17:04> - Assessment and plan (1) Colon distention Current Visit: Yes Status: Acute (2) Atrial fibrillation Current Visit: Yes Status: Acute Qualifiers: Atrial fibrillation type: paroxysmal Qualified Code(s): I48.0 - Paroxysmal atrial fibrillation (3) Hypokalemia Current Visit: Yes Status: Acute (4) UTI (urinary tract infection) Current Visit: Yes Status: Acute Qualifiers: Urinary tract infection type: acute cystitis Hematuria presence: without hematuria Qualified Code(s): N30.00 - Acute cystitis without hematuria (5) DVT prophylaxis Current Visit: No Status: Acute (6) Vascular dementia Current Visit: No Status: Chronic Qualifiers: Dementia behavioral disturbance: without behavioral disturbance Qualified Code(s): F01.50 - Vascular dementia without behavioral disturbance (7) Constipation Current Visit: No Status: Resolved Qualifiers: Constipation type: chronic idiopathic constipation Qualified Code(s): K59.04 - Chronic idiopathic constipation - Constitutional Vitals: Temp Pulse Resp BP Pulse Ox 98.7 F 78 16 154/69 97 10/04/16 12:01 10/04/16 12:01 10/04/16 12:01 10/04/16 12:01 10/04/16 12:01 Internal Medicine: Result - Labs CBC & Chem 7: 10/04/16 05:10 10/04/16 05:10 Labs: Short CBC 10/04/16 Range/Units 05:10 WBC 14.7 H (4.3-11.1) K/mcL Hgb 11.0 L (11.5-15.4) g/dL Hct 33.7 L (35.3-44.9) % Plt Count 249 (140-400) K/mcL Neutrophils # 13.1 H (1.6-8.9) K/mcL BMP 10/04/16 05:10 Sodium 135 L Potassium 4.0 Chloride 100 Carbon Dioxide 26 BUN 14 Creatinine 0.65 Glucose 178 H Calcium 10.6 Liver Function 10/04/16 Range/Units 05:10 Total Bilirubin 0.6 (0.2-1.2) mg/dL AST 9 (5-34) Units/L ALT < 6 (0-55) Units/L Alkaline Phosphatase 103 (38-126) Units/L Albumin 2.0 L (3.5-5.0) g/dL - ABG Interpretation ABG results: PT/INR, D-dimer PT 11.7 Seconds (9.4-12.1) 09/28/16 08:03 - Impressions Impressions Chest X-Ray 10/04/16 09:25 IMPRESSION: Slightly limited exam as above. Questionable left basilar opacity. Appearance is unchanged since the previous exam and may be related to superimposed soft tissues, atelectasis, or infection. Large hiatal hernia. No substantial change in rounded right hilar opacity. This was present on radiograph 07/11/2013 D/ / Aruna Little MD / Aruna Little MD Interpreting Provider: Aruna Little MD Chest CT 10/04/16 14:58 IMPRESSION: 1. Small amount of free air in the upper abdomen. In absence of recent abdominal surgery, perforation of the gastrointestinal tract should be excluded. The free air may also be related to air introduced through percutaneous peritoneal catheters. 2. Large hiatal hernia 3. Stable right perispinal lesion. 4. Indeterminate thyroid lesions, stable D/ / Naldo Stallings MD / Naldo Stallings MD Interpreting Provider: Naldo Stallings MD - Attending Attestation I examined this patient and my medical decision-making was reviewed with the EXPLORATION GEOLOGIST/PA/Advanced Practice Nurse/Resident Physician. I agree with the documented findings, disposition and treatment plan as described except to the extent set forth below. No evidence of PNA. Will continue monitoring, supplement electrolytes as needed. Follow surgical input. Advance diet as tolerated.
--- NOTE | 2016-10-04 13:07 | General Surgery Progress Note ---
Date of Encounter: 10/04/16 Time of Encounter: 12:15 - Assessment and Plan (1) Colon distention Status: Acute POD #6 Robotic diverting colostomy and creation of mucous fistula Transverse colectomy Tolerating full liquid diet, advancing to soft diet. Supportive care/pain control. Primary medicine service is looking for ECF placement for patient. Subjective Patient reports: no new complaints, feels better, still having pain, tolerating liquids well, flatus, bowel movement, afebrile (max temp 99.6) Objective Vital Signs - Last 8 Hours Temp Pulse Resp BP Pulse Ox 10/04/16 12:01 98.7 F 78 16 154/69 97 10/04/16 08:23 98.4 F 75 16 118/64 94 L Intake and Output 10/03/16 10/04/16 10/04/16 23:59 07:59 15:59 Intake Total 1000 / 1000 240 / 240 Output Total 0 / 0 125 / 125 0 / 0 Balance 0 / 0 875 / 875 240 / 240 Intake: IV Fluids 1000 / 1000 D5% And 0.45% Nacl 1000 1000 / 1000 Ml Bag 1,000 ML @ 75 mls/ hr IVC .[id number] [facility] Rx#: [id number] Oral 0 / 0 240 / 240 Output: Urine 0 / 0 Stool 0 / 0 Wound Drainage 0 / 0 125 / 125 Posterior 0 / 0 0 / 0 Right Lower Back 125 / 125 Other: Meal Dinner Breakfast Percent of Meal Consumed 25% # Urine Diapers 1 Weight 68.237 kg Blood Glucose* 166 130 Patient Weight 10/04/16 23:59 Weight 68.237 kg - General physical appearance well developed, well nourished, no distress, chronically ill - Eyes normal ocular movement - ENT normal mucosa, atraumatic, normocephalic - Neck Neck exam: trachea midline - Respiratory normal respiratory effort, clear to auscultation - Cardiovascular Cardiovascular exam: Present: tachycardia - Abdomen Abdomen: Present: bowel sounds present, soft, tender (mildly), wound (colostomy with large amount of liquid stool; Mucous fistula pink and moist.) - Incision Incision: Present: clean and dry, intact - Integumentary no rash - Labs 10/05/16 04:35 10/05/16 04:35 Diabetes panel 10/04/16 Range/Units 05:10 Sodium 135 L (136-145) mEq/L Potassium 4.0 (3.5-4.5) mEq/L Chloride 100 (98-109) mEq/L Carbon Dioxide 26 (19-29) mEq/L BUN 14 (7-20) mg/dL Creatinine 0.65 (0.57-1.11) mg/dL Glucose 178 H (70-99) mg/dL Calcium 10.6 (8.6-10.8) mg/dL AST 9 (5-34) Units/L ALT < 6 (0-55) Units/L Alkaline Phosphatase 103 (38-126) Units/L Albumin 2.0 L (3.5-5.0) g/dL Calcium panel 10/04/16 Range/Units 05:10 Calcium 10.6 (8.6-10.8) mg/dL Albumin 2.0 L (3.5-5.0) g/dL Pituitary panel 10/04/16 Range/Units 05:10 Sodium 135 L (136-145) mEq/L Potassium 4.0 (3.5-4.5) mEq/L Chloride 100 (98-109) mEq/L Carbon Dioxide 26 (19-29) mEq/L BUN 14 (7-20) mg/dL Creatinine 0.65 (0.57-1.11) mg/dL Glucose 178 H (70-99) mg/dL Calcium 10.6 (8.6-10.8) mg/dL Adrenal panel 10/04/16 Range/Units 05:10 Sodium 135 L (136-145) mEq/L Potassium 4.0 (3.5-4.5) mEq/L Chloride 100 (98-109) mEq/L Carbon Dioxide 26 (19-29) mEq/L BUN 14 (7-20) mg/dL Creatinine 0.65 (0.57-1.11) mg/dL Glucose 178 H (70-99) mg/dL Calcium 10.6 (8.6-10.8) mg/dL Total Bilirubin 0.6 (0.2-1.2) mg/dL AST 9 (5-34) Units/L ALT < 6 (0-55) Units/L Alkaline Phosphatase 103 (38-126) Units/L Albumin 2.0 L (3.5-5.0) g/dL - VTE Documentation of Mechanical Device: Intermittent pneumatic compression device Consult Discharge Plan - Plan Additional Instructions: #1 may shower, no tub bath for 2 weeks #2 wash incisions with soap and water and pat dry daily #3 no lifting, pushing, pulling more than 15 pounds for the next 4 week #4 Mucous fistula and colostomy care daily- change appliances every 5-7 days and as needed if leaking Follow-up with primary care physician next 3-5 days for reevaluation. Take medications as prescribed. Referrals: Ren Ayon DO [Partnered Physician] - 10/16/16 9:10 am Shelli Ware CNP [Primary Care Provider] -
[2016-10-04] MEDS ORDERED: Insulin LISPRO 300 UNITS/3 ML VIAL SQ SCH (21:00)
[2016-10-05] MEDS: D5% in 0.45% NACL 1,000 ML IVC SCH (04:12)
[2016-10-05 05:24] LABS: Basophils % 0.4 %; Eosinophils # 0.7 K/mcL (0.0-0.6); Eosinophils % 6.8 %; Hematocrit 31.6 % (35.3-44.9); Hemoglobin 9.8 g/dL (11.5-15.4); Immature Granulocytes % 2.2 % (0-4); Lymphocytes # 0.6 K/mcL (0.6-4.6); Lymphocytes % 5.9 %; Mean Corpuscular Hemoglobin 28.8 pg (28.0-33.3); Mean Corpuscular Volume 92.9 fL (83.0-100.0); Mean Platelet Volume 11.2 fL (9.4-12.4); Monocytes # 1.2 K/mcL (0.0-1.3); Monocytes % 11.9 %; Neutrophils # 7.3 K/mcL (1.6-8.9); Platelet Count 230 K/mcL (140-400); Red Cell Distribution Width 13.7 % (11.5-14.5); Segmented Neutrophils % 72.8 %
[2016-10-05] MEDS: *HR* Heparin 5,000 UNIT/ML VIAL SQ SCH (05:34)
[2016-10-05 05:45] LABS: BUN/Creatinine Ratio 20 (6-26); Blood Urea Nitrogen 12 mg/dL (7-20); Carbon Dioxide 24 mEq/L (19-29); Chloride 104 mEq/L (98-109); Glucose 118 mg/dL (70-99); Magnesium 1.5 mg/dL (1.6-2.6); Osmolality,Calculated 285 (280-300); Potassium 3.8 mEq/L (3.5-4.5); Sodium 137 mEq/L (136-145); eGFR For African Americans > 60 (> 60); eGFR For Non-African Americans > 60 (> 60)
[2016-10-05] MEDS: Pantoprazole 40 MG VIAL IVP SCH (08:41)
[2016-10-05] MEDS: Insulin LISPRO 300 UNITS/3 ML VIAL SQ SCH ×2 (08:42→12:12)
[2016-10-05] MEDS: Magnesium Sulfate 2 GM in D5% in Water 100 ML IVPB SCH ×2 (08:42→10:11)
[2016-10-05 10:58] VITALS: BP 132/79
--- NOTE | 2016-10-05 12:03 | General Surgery Progress Note ---
Date of Encounter: 10/05/16 Time of Encounter: 11:00 - Assessment and Plan (1) Colon distention Current Visit: Yes Status: Acute POD #7 Robotic diverting colostomy and creation of mucous fistula Transverse colectomy Continue soft diet and advance to regular as tolerated PT/OT daily Discharge planning to rehab- okay for discharge from a surgery standpoint Supportive care/pain control Subjective Patient reports: feels better, tolerating a regular diet, voiding w/o difficulty , flatus, bowel movement (Colostomy), afebrile Objective Vital Signs - Last 8 Hours Temp Pulse Resp BP Pulse Ox 10/05/16 10:55 98.5 F 99 18 132/79 94 L 10/05/16 06:47 97.4 F L 79 18 153/74 95 Intake and Output 10/04/16 10/05/16 10/05/16 23:59 07:59 15:59 Intake Total 0 / 0 1000 / 1000 224 / 224 Output Total 1000 / 1000 900 / 900 400 / 400 Balance -1000 / -1000 100 / 100 -176 / -176 Intake: IV Fluids 1000 / 1000 104 / 104 D5% And 0.45% Nacl 1000 1000 / 1000 Ml Bag 1,000 ML @ 75 mls/ hr IVC .[id number] [facility]TA Rx#: [id number] Magnesium Sulfate 2 GM In 104 / 104 Dextrose 5% 100 ML @ 100 mls/hr IVPB Q2H [facility] Rx#: [id number] Oral 0 / 0 0 / 0 120 / 120 Output: Stool 750 / 750 600 / 600 300 / 300 Other 0 / 0 Right Nephrostomy 100 / 100 Wound Drainage 250 / 250 300 / 300 0 / 0 Posterior 0 / 0 0 / 0 0 / 0 Right Lower Back 250 / 250 300 / 300 Other: Meal Dinner Breakfast Percent of Meal Consumed 10% 100% Stool Consistency loose liquid Stool Color Brown # Urine Diapers 0 1 Weight 68.1 kg Blood Glucose* 121 100 Patient Weight 10/05/16 23:59 Weight 68.1 kg - General physical appearance well developed, well nourished, no distress, no pain - Eyes normal ocular movement - ENT normal mucosa, atraumatic, normocephalic - Neck Neck exam: trachea midline - Respiratory normal respiratory effort, clear to auscultation - Cardiovascular Cardiovascular exam: Present: RRR - Abdomen Abdomen: Present: bowel sounds present, soft, non tender, wound (Colostomy pink and moist with function; mucous fistula pink and moist with scant amount of drainage noted.) - Incision Incision: Present: clean and dry, intact - Neurologic CN 2-12 grossly intact - Musculoskeletal other (severe deconditioning) - Psychiatric oriented to person, speech is normal - Labs 10/05/16 04:35 10/05/16 04:35 Diabetes panel 10/05/16 Range/Units 04:35 Sodium 137 (136-145) mEq/L Potassium 3.8 (3.5-4.5) mEq/L Chloride 104 (98-109) mEq/L Carbon Dioxide 24 (19-29) mEq/L BUN 12 (7-20) mg/dL Creatinine 0.59 (0.57-1.11) mg/dL Glucose 118 H (70-99) mg/dL Calcium 10.0 (8.6-10.8) mg/dL Calcium panel 10/05/16 Range/Units 04:35 Calcium 10.0 (8.6-10.8) mg/dL Pituitary panel 10/05/16 Range/Units 04:35 Sodium 137 (136-145) mEq/L Potassium 3.8 (3.5-4.5) mEq/L Chloride 104 (98-109) mEq/L Carbon Dioxide 24 (19-29) mEq/L BUN 12 (7-20) mg/dL Creatinine 0.59 (0.57-1.11) mg/dL Glucose 118 H (70-99) mg/dL Calcium 10.0 (8.6-10.8) mg/dL Adrenal panel 10/05/16 Range/Units 04:35 Sodium 137 (136-145) mEq/L Potassium 3.8 (3.5-4.5) mEq/L Chloride 104 (98-109) mEq/L Carbon Dioxide 24 (19-29) mEq/L BUN 12 (7-20) mg/dL Creatinine 0.59 (0.57-1.11) mg/dL Glucose 118 H (70-99) mg/dL Calcium 10.0 (8.6-10.8) mg/dL - VTE Documentation of Mechanical Device: Intermittent pneumatic compression device Consult Discharge Plan - Plan Additional Instructions: #1 may shower, no tub bath for 2 weeks #2 wash incisions with soap and water and pat dry daily #3 no lifting, pushing, pulling more than 15 pounds for the next 4 week #4 Mucous fistula and colostomy care daily- change appliances every 5-7 days and as needed if leaking Referrals: Ren Ayon DO [Partnered Physician] - 10/16/16 9:10 am Shelli Ware CNP [Primary Care Provider] -
--- NOTE | 2016-10-05 13:11 | Discharge Summary ---
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 Priority: Secondary Status: Acute (5) Hypomagnesemia Priority: Secondary Status: Acute (6) Leukocytosis Priority: Secondary Status: Acute Qualifiers: Leukocytosis type: unspecified Qualified Code(s): D72.829 - Elevated white blood cell count, unspecified (7) DVT prophylaxis Priority: Secondary Status: Acute - Discharge Medications Home Medications: BuPROPion [Wellbutrin] 100 mg PO BID 08/24/15 [History] Lisinopril [Zestril] 10 mg PO QPM 08/24/15 [History] Atorvastatin [Lipitor] 10 mg PO HS #30 tablet 08/30/15 [Rx] Diltiazem CD (24hr) [Cardizem CD] 240 mg PO DAILY #30 cap.er.24h 08/30/15 [Rx] Magnesium 250 mg PO DAILY 09/03/16 [History] Levofloxacin 750 mg PO DAILY #10 tablet MDD STOP 09-17-16 09/07/16 [Rx] Ondansetron ODT [Zofran ODT] 4 mg SL Q6H PRN #12 tab.rapdis 09/07/16 [Rx] Sennosides/Docusate Sodium [Senna Plus] 2 each PO BID #60 tablet 09/07/16 [Rx] Aspirin 81 mg PO DAILY 09/12/16 [History] MOM Conc [MILK OF MAGNESIA conc] 10 ml PO DAILY PRN 09/12/16 [History] Polyethylene Glycol 3350 [MiraLAX] 17 gm PO BID 09/12/16 [History] Potassium Chloride 40 meq PO QAM MDD STOP 09-19-16 09/12/16 [History] Allergies/Adverse Reactions: Allergies Sulfa (Sulfonamide Antibiotics) Allergy (Verified 05/08/15 16:09) Rash Procedures/tests Complete & Pending: Procedures Performed prior 72 hours Category Date Time Status CT chest w/o contrast [CT chest wo con] [CT] Stat Cat Scan 10/04/16 14:58 Completed ECG 12 lead ECG [ECG] Routine Y 10/03/16 19:20 Completed Date of admission: 09/13/16 13:03 Primary care physician: Shelli Ware, Consults: 09/13/16 20:29 Consult to Fiberglass Auto Body Repairer [CONS] Routine Reason for SW Consult: discharge planning 09/17/16 07:17 Consult to Gastroenterology [CONS] Routine Consulting Provider: Gastroenterology Swetha Reason for Consult: Repeated constipation in recent one month, family strongly request GI consult. Call Completed: No 09/19/16 15:21 Consult to Occupational Therapy [CONS] Routine Comment: Evaluate, develop and implement POC Consult to Physical Therapy [CONS] Routine Comment: Evaluate, develop and implement POC 09/21/16 11:07 Consult to Nephrology [CONS] Routine Consulting Provider: Kidney Spclst Swetha ORIMI/PARG Reason for Consult: Persist hypokalemia Call Completed: Yes 09/27/16 09:51 Consult to Surgery [CONS] Routine Consulting Provider: Surgery Swetha Surgical Reason for Consult: colon distention Call Completed: Yes 10/03/16 12:04 consult to plumbing manager [Consult to Nutrition] [CONS] Routine Comment: Consulting Provider: NUTRITION Reason for Dietary Consult: Supplemental Nutrition Discharging clinician: Nick Canas Anticipated date of discharge: 10/05/16 - Patient Status Disposition: Transfer SNF Condition: Fair Functional capacity at discharge: uses cane/walker Overall status at discharge: patient is progressing back to baseline - Discharge Instructions Follow Up With: Ren Ayon DO [Partnered Physician] - 10/16/16 9:10 am Shelli Ware, INSTRUMENT ROOM TECHNICIAN [Primary Care Provider] - Additional Instructions: #1 may shower, no tub bath for 2 weeks #2 wash incisions with soap and water and pat dry daily #3 no lifting, pushing, pulling more than 15 pounds for the next 4 week #4 Mucous fistula and colostomy care daily- change appliances every 5-7 days and as needed if leaking Follow-up with primary care physician next 3-5 days for reevaluation. Take medications as prescribed. - Diet and Activity Activity: as per physical therapy Diet: advance to your usual diet Interval History: Olgivi's syndrome. Hospital course: Ms. Pelayo is a 86 year old female past medical history of dementia, diabetes and hypertension was admitted to [facility] with leukocytosis , constipation, acute kidney injury. She had a CT of the abdomen performed that demonstrated a large stool burden in the rectum resulting in severe gaseous distention of the sigmoid colon and transverse colon. Urology was consult for urinary tract infection with right nephrostomy tube and nephrolithiasis. She was started on Zosyn for her urinary tract infection. Regarding her constipation she was given MiraLAX, senna S without any improvement and given Fleet enema without improvemen. Manual disimpaction was attempted but unable to reach stool. Milk and molasses enema was attempted without any success. On 09/16/2016 Zosyn was switched to Levaquin by mouth. Gastroenterology was consult of 09/17/2016 for evaluation of her constipation. Stool burden was eventually cleared after milk of molasses enema. Abdominal imaging demonstrated worsening of gaseous colonic distention without stool noted in the colon. She was provided a neostigmine drip but did not improve her symptoms therefore proceed to colonic decompression tube. Leukocytosis started improving around 09/21/2016. Suction was discontinued 09/27/2016 and gaseous distention returned. 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 Ayon. Mrs. Pelayo tolerated the procedure performed 09/28/2016. 3 09/28/2016 and 10/05/2016 she progressively improved with return of bowel function and appropriate discharge and colostomy. Her diet was advanced appropriately prior to discharge. Her pain was controlled throughout her inpatient stay. She remained afebrile throughout her inpatient stay. Her atrial fibrillation was controlled and she was in sinus rhythm. Blood pressures were stable throughout inpatient stay. Patient was on room air prior to discharge. Extended-care facility was set up prior to discharge home. - Time Spent with Patient Total time spent providing and/or coordinating discharge services: - Constitutional Vitals: Temp Pulse Resp BP Pulse Ox 98.5 F 99 18 132/79 94 L 10/05/16 10:55 10/05/16 10:55 10/05/16 10:55 10/05/16 10:55 10/05/16 10:55 General appearance: Present: cooperative, mild distress, pleasant, answers questions appropriately - Head Head exam: Present: atraumatic, normocephalic - Eye Eye exam: Present: PERRL, conjuntiva pink, sclera anicteric Pupils: Present: PERRL - Neck Neck exam general surgery: Present: supple, trachea midline. Absent: lymphadenopathy - Respiratory Respiratory exam: Present: CTAB. Absent: accessory muscle use, rales, rhonchi, wheezes - Cardiovascular Cardiovascular exam: Present: RRR, +S1, +S2. Absent: diastolic murmur, gallop, rubs, systolic murmur - GI/Abdominal Additional comments: Distended abdomen but soft, active bowel sounds, nontender to palpation. Colostomy with active output. Right nephrostomy tube with appropriate low output. - Extremities Exam Extremities exam: Present: warm, radial pulses palpable and symetrical. Absent : calf tenderness, cyanotic, pedal edema - Neurological Exam Neurological exam: Present: alert, no focal deficits. Absent: pronater drift, facial droop, speech deficit - Psychiatric Psychiatric exam: Present: flat affect - Skin Skin exam: Present: dry, intact - VTE Documentation of Mechanical Device: Intermittent pneumatic compression device <Matti Diamond - Last Filed: 10/05/16 13:36> - Discharge Diagnosis (1) Colon distention Status: Acute (2) Atrial fibrillation Status: Acute Qualifiers: Qualified Code(s): I48.0 - Paroxysmal atrial fibrillation (3) Hypokalemia Status: Acute (4) UTI (urinary tract infection) Status: Acute Qualifiers: Qualified Code(s): N30.00 - Acute cystitis without hematuria (5) DVT prophylaxis Status: Acute (6) Vascular dementia Status: Chronic Qualifiers: Qualified Code(s): F01.50 - Vascular dementia without behavioral disturbance (7) Constipation Status: Resolved Qualifiers: Qualified Code(s): K59.04 - Chronic idiopathic constipation Procedures/tests Complete & Pending: Procedures Performed prior 72 hours Category Date Time Status CT chest w/o contrast [CT chest wo con] [CT] Stat Cat Scan 10/04/16 14:58 Completed ECG 12 lead ECG [ECG] Routine Y 10/03/16 19:20 Completed Date of admission: 09/13/16 13:03 Primary care physician: Shelli Ware, Consults: 09/13/16 20:29 Consult to Fiberglass Auto Body Repairer [CONS] Routine Reason for SW Consult: discharge planning 09/17/16 07:17 Consult to Gastroenterology [CONS] Routine Consulting Provider: Gastroenterology Swetha Reason for Consult: Repeated constipation in recent one month, family strongly request GI consult. Call Completed: No 09/19/16 15:21 Consult to Occupational Therapy [CONS] Routine Comment: Evaluate, develop and implement POC Consult to Physical Therapy [CONS] Routine Comment: Evaluate, develop and implement POC 09/21/16 11:07 Consult to Nephrology [CONS] Routine Consulting Provider: Kidney Spclst Swetha ORIMI/PARG Reason for Consult: Persist hypokalemia Call Completed: Yes 09/27/16 09:51 Consult to Surgery [CONS] Routine Consulting Provider: Surgery Swetha Surgical Reason for Consult: colon distention Call Completed: Yes 10/03/16 12:04 consult to plumbing manager [Consult to Nutrition] [CONS] Routine Comment: Consulting Provider: NUTRITION Reason for Dietary Consult: Supplemental Nutrition Hospital course: Ms. Pelayo is a 86 year old female - Time Spent with Patient Total time spent providing and/or coordinating discharge services: - Constitutional Vitals: Temp Pulse Resp BP Pulse Ox 98.5 F 99 18 132/79 94 L 10/05/16 10:55 10/05/16 10:55 10/05/16 10:55 10/05/16 10:55 10/05/16 10:55 - Attending Attestation I examined this patient and my medical decision-making was reviewed with the SAFETY SEALER/PA/Advanced Practice Nurse/Resident Physician. I agree with the documented findings, disposition and treatment plan as described except to the extent set forth below. For D/C to SNF today.
--- NOTE | 2016-10-05 13:37 | Physician Discharge Referral ---
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 Status: Acute (5) Hypomagnesemia Status: Acute (6) Leukocytosis Status: Acute (7) DVT prophylaxis Status: Acute - Transfer Medications Home Medications: BuPROPion [Wellbutrin] 100 mg PO BID 08/24/15 [History] Lisinopril [Zestril] 10 mg PO QPM 08/24/15 [History] Atorvastatin [Lipitor] 10 mg PO HS #30 tablet 08/30/15 [Rx] Diltiazem CD (24hr) [Cardizem CD] 240 mg PO DAILY #30 cap.er.24h 08/30/15 [Rx] Magnesium 250 mg PO DAILY 09/03/16 [History] Levofloxacin 750 mg PO DAILY #10 tablet MDD STOP 09-17-16 09/07/16 [Rx] Ondansetron ODT [Zofran ODT] 4 mg SL Q6H PRN #12 tab.rapdis 09/07/16 [Rx] Aspirin 81 mg PO DAILY 09/12/16 [History] MOM Conc [MILK OF MAGNESIA conc] 10 ml PO DAILY PRN 09/12/16 [History] Potassium Chloride 40 meq PO QAM MDD STOP 09-19-16 09/12/16 [History] Sennosides/Docusate Sodium [Senna Plus] 2 each PO BID PRN #60 tablet 10/05/16 [ Rx] Allergies/Adverse Reactions: Allergies Sulfa (Sulfonamide Antibiotics) Allergy (Verified 05/08/15 16:09) Rash - Respiratory Orders Smoking Cessation: Smoking cessation has been advised. For more information, call the [place] Tobacco Quit Line at 5-434-ITEH-NOW. - Ancillary Orders May use pressure relief devices daily prn, May consult with Dentist, Tool And Die Engineer, Tank Crewmember PRN - Advance Directives Living Will: No Power of Client Onboarding Analyst: No Code Status: DNR-Arrest/Don't Intubate - Mobility Orders Ambulate - Rehabiliation Orders Rehab Potential: Fair Rehab Orders: Evaluation for Physical Therapy, Evaluation for Occupational Therapy - Treatments Skin tear care topically daily PRN per policy - Diet Orders Regular CERTIFICATION: I certify that the transfer of the above named patient to an Extended Care Facility is necessary for the continuing treatment of the diagnosis listed. The above information is true and accurate reflection of patient's current condition. Confidential - Redisclosure prohibited without a patient's written consent.
== END 2016-10-05 15:04 | DRG 329 ==
LOC: 3ANU 16:44 → EMEROO 16:44 → 3ANU 20:26 → SUATTDRO 09-13 13:03
PROVIDERS: ADMIT Internal Medicine; ATTEND Internal Medicine